=== PATIENT | female | born 1950 | race Caucasian/White ===

== ENCOUNTER → 2016-03-01 | Outpatient (REF) | payer MEDICARE ==
[~2016-03-01] MED LIST: /LINE60TA PO; ALLO100T; ASPI81TA4 PO; CARA1TAB2 PO; CEFT500T PO; CLAR5CHW; DIGO25TA PO; DIOV80TA; DOCU10ELUD PO; FERR325T3 PO; GLIM1TAB PO; GLIM4TAB PO; GLIP5TAB2 PO; GLUC5TAB3; KLOR20TA PO; LASI40TA PO; LEVEINJ SC; MAGN400T5 PO; METF500T PO; METFORMIN; METFORMIN PO; METO50TA2 PO; METOPROLOL TARTRATE PO; NYAM10003 TOP; OMEP40CA2 PO; PAXI20TA; TRAZ50TA; TYLE325T5 PO; VITA500C24 PO; ZANT150T PO; ZOCO20TA; ZOCO40TA PO
[2016-03-01 13:51] LABS: ALBUMIN 3.2 GM/DL (3.2-5.2); ALBUMIN/GLOBULIN RATIO 0.68 (1.00-1.93); BILIRUBIN,TOTAL 0.9 MG/DL (0.2-1.0); CALCIUM LEVEL 8.7 MG/DL (8.8-10.2); CREATININE FOR GFR 2.18 MG/DL (0.55-1.02); POTASSIUM SERUM 4.1 MEQ/L (3.5-5.1); TOTAL PROTEIN 7.9 GM/DL (6.4-8.2)
== END ==
LOC: M SFHCLACO 08:54
PROVIDERS: ATTEND Physician Assistant
DX: I10 Essential (primary) hypertension (principal); E78.2 Mixed hyperlipidemia; E11.65 Type 2 diabetes mellitus with hyperglycemia; T46.0X1A Poisoning by cardiac-stimulant glycosides and drugs of similar action, accidental (unintentional), initial encounter

== ENCOUNTER → 2016-10-25 | Outpatient (REF) | payer OTHER ==
[2016-10-25 12:57] LABS: BASO % 0.5 % (0.0-1.0); EOS # 0.4 K/mm3 (0.0-0.50); EOS % 4.6 % (0.0-3.0); LARGE UNSTAINED CELL # 0.1 K/mm3 (0.0-0.4); LARGE UNSTAINED CELL % 1.4 % (0.0-4.0); LYMPH % 12.8 % (24.0-44.0); MEAN CORPUSCULAR HEMOGLOBIN 26.1 pg (27.0-33.0); MEAN CORPUSCULAR VOLUME 84.2 fl (80.0-96.0); MONO # 0.5 K/mm3 (0.0-0.8); NEUTROPHILS # 5.8 K/mm3 (1.8-7.7); NEUTROPHILS % 74.7 % (36.0-66.0); PLATELET COUNT, AUTOMATED 284 k/mm3 (150-450); RED CELL DISTRIBUTION WIDTH 16.1 % (11.5-14.5); WHITE BLOOD COUNT 7.8 K/mm3 (4.0-10.0)
[2016-10-25 13:38] LABS: ALBUMIN 2.8 GM/DL (3.2-5.2); ALBUMIN/GLOBULIN RATIO 0.6 (1.00-1.93); BILIRUBIN,TOTAL 0.9 MG/DL (0.2-1.0); CALCIUM LEVEL 8.2 MG/DL (8.8-10.2); CREATININE FOR GFR 1.81 MG/DL (0.55-1.02); FREE T4 1.59 NG/DL (0.76-1.46); GLOMERULAR FILTRATION RATE 29.7 (>45); MAGNESIUM LEVEL 1.7 MG/DL (1.8-2.4); PERCENT SATURATION 16.1 % (13.2-45.0); POTASSIUM SERUM 4.5 MEQ/L (3.5-5.1); TOTAL PROTEIN 7.5 GM/DL (6.4-8.2); URIC ACID 8.8 MG/DL (2.6-6.0)
== END ==
LOC: M SFHCADAM 08:50
PROVIDERS: ATTEND Physician Assistant Medical
DX: E78.2 Mixed hyperlipidemia (principal); E11.22 Type 2 diabetes mellitus with diabetic chronic kidney disease; N18.4 Chronic kidney disease, stage 4 (severe); D50.9 Iron deficiency anemia, unspecified; M10.9 Gout, unspecified; E83.51 Hypocalcemia

== ENCOUNTER → 2017-05-02 | Outpatient (REF) | payer OTHER ==
[2017-05-02 12:49] LABS: BASO # 0.1 10^3/uL (0.0-0.2); BASO % 0.6 % (0.0-1.0); EOS # 0.5 10^3/uL (0.0-0.50); EOS % 4.6 % (0.0-3.0); HEMATOCRIT 39.3 % (36.0-47.0); HEMOGLOBIN 11.3 g/dl (12.0-16.0); IMMATURE GRANULOCYTE % 0.9 % (0-3.0); LYMPH # 2.2 10^3/uL (1.5-4.5); LYMPH % 22.7 % (24.0-44.0); MEAN CORPUSCULAR HEMOGLOBIN 23.5 pg (27.0-33.0); MEAN CORPUSCULAR HGB CONC 28.8 g/dl (32.0-36.5); MEAN CORPUSCULAR VOLUME 81.7 fl (80.0-96.0); MONO # 0.8 10^3/uL (0.0-0.8); MONO % 8.7 % (0.0-5.0); NEUTROPHILS # 6.1 10^3/uL (1.8-7.7); NEUTROPHILS % 62.5 % (36.0-66.0); PLATELET COUNT, AUTOMATED 298 10^3/uL (150-450); RED BLOOD COUNT 4.81 10^6/uL (4.00-5.40); RED CELL DISTRIBUTION WIDTH 18.4 % (11.5-14.5); WHITE BLOOD COUNT 9.7 10^3/uL (4.0-10.0)
[2017-05-02 13:31] LABS: TOTAL 25(OH) VITAMIN D 35.3 NG/ML (30.0-100.0)
[2017-05-02 13:52] LABS: ALBUMIN 3.2 GM/DL (3.2-5.2); ALBUMIN/GLOBULIN RATIO 0.67 (1.00-1.93); ALKALINE PHOSPHATASE 144 U/L (45-117); ALT/SGPT 25 U/L (12-78); ANION GAP 9 MEQ/L (8-16); AST/SGOT 19 U/L (7-37); BILIRUBIN,TOTAL 0.8 MG/DL (0.2-1.0); BLOOD UREA NITROGEN 45 MG/DL (7-18); CALCIUM LEVEL 8.8 MG/DL (8.8-10.2); CARBON DIOXIDE LEVEL 25 MEQ/L (21-32); CHLORIDE LEVEL 104 MEQ/L (98-107); CREATININE FOR GFR 2.07 MG/DL (0.55-1.30); GLOMERULAR FILTRATION RATE 25.4 (>45); GLUCOSE, FASTING 133 MG/DL (70-100); POTASSIUM SERUM 4.6 MEQ/L (3.5-5.1); SODIUM LEVEL 138 MEQ/L (136-145); URIC ACID 6.9 MG/DL (2.6-6.0)
[2017-05-02 15:41] LABS: ESTIMATED AVERAGE GLUCOSE 223 MG/DL (60-110); HEMOGLOBIN A1c 9.4 %
== END ==
LOC: M SFHCADAM 08:38
DX: E55.9 Vitamin D deficiency, unspecified (principal); N18.4 Chronic kidney disease, stage 4 (severe); E11.22 Type 2 diabetes mellitus with diabetic chronic kidney disease; M10.9 Gout, unspecified
CPT/HCPCS: 84550

== ENCOUNTER 2017-11-23 15:27 | Inpatient (IN) | payer OTHER ==
[2017-11-23] MEDS: NYSTATIN 100,000 UNITS/GM TOPICAL PWD 15 GM TOP
[2017-11-23 17:41] LABS: BASO # 0.1 10^3/uL (0.0-0.2); EOS # 0.3 10^3/uL (0.0-0.50); EOS % 3.3 % (0.0-3.0); HEMATOCRIT 39.3 % (36.0-47.0); HEMOGLOBIN 11.9 g/dl (12.0-15.5); IMMATURE GRANULOCYTE % 3.1 % (0-3.0); LYMPH # 1.3 10^3/uL (1.5-4.5); LYMPH % 14.7 % (24.0-44.0); MEAN CORPUSCULAR HEMOGLOBIN 24.3 pg (27.0-33.0); MEAN CORPUSCULAR HGB CONC 30.3 g/dl (32.0-36.5); MEAN CORPUSCULAR VOLUME 80.4 fl (80.0-96.0); MONO # 1.4 10^3/uL (0.0-0.8); MONO % 15.7 % (0.0-5.0); NEUTROPHILS # 5.5 10^3/uL (1.8-7.7); NEUTROPHILS % 62.2 % (36.0-66.0); PLATELET COUNT, AUTOMATED 357 10^3/uL (150-450); RED BLOOD COUNT 4.89 10^6/uL (4.00-5.40); RED CELL DISTRIBUTION WIDTH 19.7 % (11.5-14.5); WHITE BLOOD COUNT 8.9 10^3/uL (4.0-10.0)
[2017-11-23 18:34] LABS: ANION GAP 10 MEQ/L (8-16); BLOOD UREA NITROGEN 71 MG/DL (7-18); CALCIUM LEVEL 8.6 MG/DL (8.8-10.2); CARBON DIOXIDE LEVEL 25 MEQ/L (21-32); CHLORIDE LEVEL 103 MEQ/L (98-107); CPK CREATINE PHOSPHOKINASE 241 U/L (26-192); CREATININE FOR GFR 2.09 MG/DL (0.55-1.30); DIGOXIN LEVEL 1.6 NG/ML (0.5-2.0); GLOMERULAR FILTRATION RATE 25.1 (>45); GLUCOSE, FASTING 27 MG/DL (70-100); POTASSIUM SERUM 4.1 MEQ/L (3.5-5.1); SODIUM LEVEL 138 MEQ/L (136-145)
[2017-11-23 18:36] LABS: BEDSIDE GLUCOSE 25 MG/DL (80-115)
[2017-11-23] MEDS: DEXTROSE 50% 50 ML SYRINGE IV (18:40)
[2017-11-23 19:36] LABS: BEDSIDE GLUCOSE 118 MG/DL (80-115)
[2017-11-23] MEDS: NS 1,000 ML IV ×2 (19:45→23:46)
[2017-11-23 19:56] LABS: KETONE, URINE AUTO RFX NEGATIVE (NEGATIVE); NITRITE, URINE AUTO RFX NEGATIVE (NEGATIVE); RBC, URINE AUTO RFX 12 /HPF (0-3); SPECIFIC GRAVITY UR AUTO RFX 1.013 (1.002-1.035); SQUAM EPITHELIAL CELL UR AURFX 0 /HPF (0-6)
[2017-11-23 19:58] LABS: LEUKOCYTE ESTERASE UR AUTO RFX 3+ (NEGATIVE); WBC, URINE AUTO RFX TNTC /HPF (0-3)
[2017-11-23 20:38] LABS: BEDSIDE GLUCOSE 107 MG/DL (80-115)
[2017-11-23] MEDS: SENOKOT S TAB PO (21:00)
[2017-11-23] MEDS ORDERED: ACETAMINOPHEN TAB 650MG DOSE (2X325MG) PO (21:45)
[2017-11-23] MEDS ORDERED: BISACODYL 5 MG TAB PO (21:45)
[2017-11-23 22:27] LABS: BEDSIDE GLUCOSE 164 MG/DL (80-115)
[2017-11-23 22:50] LABS: ESTIMATED AVERAGE GLUCOSE 148 MG/DL (60-110); HEMOGLOBIN A1c 6.8 %
[2017-11-23] MEDS ORDERED: GLUCOSE 4 GM CHEW TABLET PO (23:00)
[2017-11-23] MEDS ORDERED: DEXTROSE 50% 50 ML SYRINGE IV (23:00)
[2017-11-23] MEDS ORDERED: GLUCAGON FOR INJ 1 MG VIAL (J1610) SC (23:00)
[2017-11-23] MEDS: HumaLOG INSULIN (NovoLOG) PER UNIT SC (23:40)
[2017-11-23 23:43] LABS: BEDSIDE GLUCOSE 179 MG/DL (80-115)
[2017-11-23] MEDS: ATORVASTATIN 20 MG TAB PO (23:46)
[2017-11-23] MEDS: METOPROLOL TARTRATE 100 MG TAB PO (23:46)
[2017-11-23] MEDS: LEVEMIR (INSULIN DETEMIR) 1 UNITS/0.01ML SC (23:47)
[2017-11-24 00:10] LABS: FREE T4 1.61 NG/DL (0.76-1.46)
[2017-11-24] MEDS: NS 1,000 ML IV (04:16)
[2017-11-24 06:08] LABS: HEMATOCRIT 36.2 % (36.0-47.0); HEMOGLOBIN 11.1 g/dl (12.0-15.5); MEAN CORPUSCULAR HEMOGLOBIN 24.2 pg (27.0-33.0); MEAN CORPUSCULAR HGB CONC 30.7 g/dl (32.0-36.5); PLATELET COUNT, AUTOMATED 298 10^3/uL (150-450); RED BLOOD COUNT 4.58 10^6/uL (4.00-5.40); RED CELL DISTRIBUTION WIDTH 19.2 % (11.5-14.5); WHITE BLOOD COUNT 7.5 10^3/uL (4.0-10.0)
[2017-11-24 06:35] LABS: ANION GAP 9 MEQ/L (8-16); BLOOD UREA NITROGEN 69 MG/DL (7-18); CALCIUM LEVEL 7.8 MG/DL (8.8-10.2); CARBON DIOXIDE LEVEL 25 MEQ/L (21-32); CHLORIDE LEVEL 104 MEQ/L (98-107); CREATININE FOR GFR 2.17 MG/DL (0.55-1.30); FERRITIN 87 NG/ML (8-252); GLUCOSE, FASTING 85 MG/DL (70-100); IRON (FE) 24 UG/DL (50-170); PERCENT SATURATION 10.3 % (13.2-45.0); POTASSIUM SERUM 4.3 MEQ/L (3.5-5.1); SODIUM LEVEL 138 MEQ/L (136-145); TOTAL IRON BINDING CAPACITY 233 UG/DL (250-450)
[2017-11-24] MEDS: HumaLOG INSULIN (NovoLOG) PER UNIT SC ×4 (07:30→20:45)
[2017-11-24] MEDS: SENOKOT S TAB PO ×2 (08:59→20:23)
[2017-11-24] MEDS: ASPIRIN 81 MG ENTERIC TAB PO (08:59)
[2017-11-24] MEDS: DIGOXIN 0.125 MG TAB PO (08:59)
[2017-11-24] MEDS: ALLOPURINOL 100 MG TAB PO (08:59)
[2017-11-24] MEDS: METOPROLOL TART 50 MG TAB PO ×2 (09:00→21:02)
[2017-11-24] MEDS: METOPROLOL TARTRATE 100 MG TAB PO (09:00)
[2017-11-24] MEDS: NYSTATIN 100,000 UNITS/GM TOPICAL PWD 15 GM TOP ×2 (09:00→21:03)
[2017-11-24] MEDS: LEVEMIR (INSULIN DETEMIR) 1 UNITS/0.01ML SC ×2 (09:00→21:00)
[2017-11-24] MEDS: ENOXAPARIN 30 MG/0.3 ML SYR (J1650) SC (09:00)
[2017-11-24] MEDS: NS 0.45% 1,000 ML IV (10:49)
[2017-11-24 11:46] LABS: BEDSIDE GLUCOSE 99 MG/DL (80-115)
[2017-11-24 16:41] LABS: BEDSIDE GLUCOSE 149 MG/DL (80-115)
[2017-11-24] MEDS: cefTRIAXone SOD 1 GM in D5W MINI-BAG PLUS 50 ML IV (20:41)
[2017-11-24 20:47] LABS: BEDSIDE GLUCOSE 170 MG/DL (80-115)
[2017-11-24] MEDS: LACTIC ACID 12% LOTION 225 GM BTL TOP (21:00)
[2017-11-24] MEDS: ATORVASTATIN 20 MG TAB PO (21:02)
[2017-11-25] MEDS: NS 0.45% 1,000 ML IV (06:24)
[2017-11-25 06:41] LABS: HEMATOCRIT 37.6 % (36.0-47.0); HEMOGLOBIN 11.4 g/dl (12.0-15.5); MEAN CORPUSCULAR HEMOGLOBIN 24.5 pg (27.0-33.0); MEAN CORPUSCULAR HGB CONC 30.3 g/dl (32.0-36.5); MEAN CORPUSCULAR VOLUME 80.7 fl (80.0-96.0); PLATELET COUNT, AUTOMATED 322 10^3/uL (150-450); RED BLOOD COUNT 4.66 10^6/uL (4.00-5.40); RED CELL DISTRIBUTION WIDTH 19.4 % (11.5-14.5); WHITE BLOOD COUNT 8.1 10^3/uL (4.0-10.0)
[2017-11-25 07:15] LABS: ANION GAP 9 MEQ/L (8-16); BLOOD UREA NITROGEN 64 MG/DL (7-18); CARBON DIOXIDE LEVEL 23 MEQ/L (21-32); CHLORIDE LEVEL 104 MEQ/L (98-107); CPK CREATINE PHOSPHOKINASE 82 U/L (26-192); CREATININE FOR GFR 1.94 MG/DL (0.55-1.30); DIGOXIN LEVEL 1.4 NG/ML (0.5-2.0); GLOMERULAR FILTRATION RATE 27.3 (>45); GLUCOSE, FASTING 143 MG/DL (70-100); POTASSIUM SERUM 4.2 MEQ/L (3.5-5.1); SODIUM LEVEL 136 MEQ/L (136-145)
[2017-11-25] MEDS: HumaLOG INSULIN (NovoLOG) PER UNIT SC ×4 (07:30→20:42)
[2017-11-25 08:06] LABS: TRANSFERRIN 192 mg/dL (200-370)
[2017-11-25] MEDS: SENOKOT S TAB PO ×3 (09:00→20:14)
[2017-11-25] MEDS ORDERED: DIGOXIN 0.125 MG TAB PO (09:00)
[2017-11-25] MEDS: ASPIRIN 81 MG ENTERIC TAB PO (10:01)
[2017-11-25] MEDS: METOPROLOL TART 50 MG TAB PO (10:01)
[2017-11-25] MEDS: ALLOPURINOL 100 MG TAB PO (10:01)
[2017-11-25] MEDS: LACTIC ACID 12% LOTION 225 GM BTL TOP ×2 (10:02→20:13)
[2017-11-25] MEDS: ENOXAPARIN 30 MG/0.3 ML SYR (J1650) SC (10:02)
[2017-11-25] MEDS: LEVEMIR (INSULIN DETEMIR) 1 UNITS/0.01ML SC ×2 (10:02→20:09)
[2017-11-25] MEDS: NYSTATIN 100,000 UNITS/GM TOPICAL PWD 15 GM TOP ×2 (10:02→20:13)
[2017-11-25 12:19] LABS: BEDSIDE GLUCOSE 180 MG/DL (80-115)
[2017-11-25 17:03] LABS: BEDSIDE GLUCOSE 135 MG/DL (80-115)
[2017-11-25] MEDS: cefTRIAXone SOD 1 GM in D5W MINI-BAG PLUS 50 ML IV (20:08)
[2017-11-25] MEDS: ATORVASTATIN 20 MG TAB PO (20:09)
[2017-11-25] MEDS: METOPROLOL TART 25 MG TABLET PO (20:12)
[2017-11-25 20:50] LABS: BEDSIDE GLUCOSE 178 MG/DL (80-115)
[2017-11-26] MEDS: NS 0.45% 1,000 ML IV ×2 (03:00→22:51)
[2017-11-26 06:24] LABS: HEMATOCRIT 38.9 % (36.0-47.0); HEMOGLOBIN 11.6 g/dl (12.0-15.5); MEAN CORPUSCULAR HEMOGLOBIN 24.3 pg (27.0-33.0); MEAN CORPUSCULAR HGB CONC 29.8 g/dl (32.0-36.5); MEAN CORPUSCULAR VOLUME 81.4 fl (80.0-96.0); PLATELET COUNT, AUTOMATED 318 10^3/uL (150-450); RED BLOOD COUNT 4.78 10^6/uL (4.00-5.40); RED CELL DISTRIBUTION WIDTH 19.4 % (11.5-14.5); WHITE BLOOD COUNT 7.8 10^3/uL (4.0-10.0)
[2017-11-26 06:47] LABS: ANION GAP 8 MEQ/L (8-16); BLOOD UREA NITROGEN 65 MG/DL (7-18); CALCIUM LEVEL 8.7 MG/DL (8.8-10.2); CARBON DIOXIDE LEVEL 23 MEQ/L (21-32); CHLORIDE LEVEL 106 MEQ/L (98-107); CREATININE FOR GFR 1.81 MG/DL (0.55-1.30); GLOMERULAR FILTRATION RATE 29.6 (>45); GLUCOSE, FASTING 142 MG/DL (70-100); POTASSIUM SERUM 4.4 MEQ/L (3.5-5.1); SODIUM LEVEL 137 MEQ/L (136-145)
[2017-11-26] MEDS: METOPROLOL TART 25 MG TABLET PO ×2 (07:48→21:17)
[2017-11-26] MEDS: LEVEMIR (INSULIN DETEMIR) 1 UNITS/0.01ML SC ×2 (07:49→21:16)
[2017-11-26] MEDS: SENOKOT S TAB PO ×2 (07:49→21:17)
[2017-11-26] MEDS: ALLOPURINOL 100 MG TAB PO (07:49)
[2017-11-26] MEDS: ASPIRIN 81 MG ENTERIC TAB PO (07:49)
[2017-11-26] MEDS: HumaLOG INSULIN (NovoLOG) PER UNIT SC ×4 (07:49→21:00)
[2017-11-26] MEDS: ENOXAPARIN 30 MG/0.3 ML SYR (J1650) SC (07:50)
[2017-11-26] MEDS: NYSTATIN 100,000 UNITS/GM TOPICAL PWD 15 GM TOP ×2 (07:50→22:20)
[2017-11-26] MEDS: LACTIC ACID 12% LOTION 225 GM BTL TOP ×2 (07:50→21:18)
[2017-11-26 11:46] LABS: BEDSIDE GLUCOSE 161 MG/DL (80-115)
[2017-11-26 17:02] LABS: BEDSIDE GLUCOSE 119 MG/DL (80-115)
[2017-11-26 20:42] LABS: BEDSIDE GLUCOSE 165 MG/DL (80-115)
[2017-11-26] MEDS: ATORVASTATIN 20 MG TAB PO (21:16)
[2017-11-27 06:10] LABS: HEMATOCRIT 39.1 % (36.0-47.0); HEMOGLOBIN 11.6 g/dl (12.0-15.5); MEAN CORPUSCULAR HEMOGLOBIN 24.2 pg (27.0-33.0); MEAN CORPUSCULAR HGB CONC 29.7 g/dl (32.0-36.5); MEAN CORPUSCULAR VOLUME 81.6 fl (80.0-96.0); PLATELET COUNT, AUTOMATED 312 10^3/uL (150-450); RED BLOOD COUNT 4.79 10^6/uL (4.00-5.40); RED CELL DISTRIBUTION WIDTH 19.5 % (11.5-14.5)
[2017-11-27 06:21] LABS: ANION GAP 8 MEQ/L (8-16); BLOOD UREA NITROGEN 56 MG/DL (7-18); CARBON DIOXIDE LEVEL 24 MEQ/L (21-32); CHLORIDE LEVEL 106 MEQ/L (98-107); CREATININE FOR GFR 1.66 MG/DL (0.55-1.30); GLOMERULAR FILTRATION RATE 32.7 (>45); GLUCOSE, FASTING 147 MG/DL (70-100); POTASSIUM SERUM 4.5 MEQ/L (3.5-5.1); SODIUM LEVEL 138 MEQ/L (136-145)
[2017-11-27] MEDS: METOPROLOL TART 25 MG TABLET PO ×2 (07:46→21:54)
[2017-11-27] MEDS: ASPIRIN 81 MG ENTERIC TAB PO (07:46)
[2017-11-27] MEDS: ALLOPURINOL 100 MG TAB PO (07:46)
[2017-11-27] MEDS: HumaLOG INSULIN (NovoLOG) PER UNIT SC ×4 (07:46→21:00)
[2017-11-27] MEDS: SENOKOT S TAB PO ×2 (07:46→21:53)
[2017-11-27] MEDS: LEVEMIR (INSULIN DETEMIR) 1 UNITS/0.01ML SC ×2 (07:47→21:55)
[2017-11-27] MEDS: NYSTATIN 100,000 UNITS/GM TOPICAL PWD 15 GM TOP ×2 (07:47→21:56)
[2017-11-27] MEDS: LACTIC ACID 12% LOTION 225 GM BTL TOP (07:47)
[2017-11-27] MEDS: ENOXAPARIN 30 MG/0.3 ML SYR (J1650) SC (07:47)
[2017-11-27 11:20] LABS: BEDSIDE GLUCOSE 148 MG/DL (80-115)
[2017-11-27 17:01] LABS: BEDSIDE GLUCOSE 148 MG/DL (80-115)
[2017-11-27 21:17] LABS: BEDSIDE GLUCOSE 219 MG/DL (80-115)
[2017-11-27] MEDS: ATORVASTATIN 20 MG TAB PO (21:53)
[2017-11-27] MEDS: SODIUM CHLORIDE 0.9% NASAL GEL 15GM (AYR) (21:55)
[2017-11-27] MEDS: SYSTANE GEL DROPS OU (21:56)
[2017-11-27] MEDS: EUCERIN 120GM CREAM TOP (21:57)
[2017-11-28 06:06] LABS: HEMATOCRIT 38.3 % (36.0-47.0); HEMOGLOBIN 11.4 g/dl (12.0-15.5); MEAN CORPUSCULAR HEMOGLOBIN 23.9 pg (27.0-33.0); MEAN CORPUSCULAR HGB CONC 29.8 g/dl (32.0-36.5); MEAN CORPUSCULAR VOLUME 80.5 fl (80.0-96.0); PLATELET COUNT, AUTOMATED 330 10^3/uL (150-450); RED BLOOD COUNT 4.76 10^6/uL (4.00-5.40); RED CELL DISTRIBUTION WIDTH 19.6 % (11.5-14.5); WHITE BLOOD COUNT 8.5 10^3/uL (4.0-10.0)
[2017-11-28 06:25] LABS: ANION GAP 5 MEQ/L (8-16); BLOOD UREA NITROGEN 54 MG/DL (7-18); CARBON DIOXIDE LEVEL 26 MEQ/L (21-32); CHLORIDE LEVEL 108 MEQ/L (98-107); CREATININE FOR GFR 1.52 MG/DL (0.55-1.30); GLOMERULAR FILTRATION RATE 36.2 (>45); GLUCOSE, FASTING 151 MG/DL (70-100); POTASSIUM SERUM 4.7 MEQ/L (3.5-5.1); SODIUM LEVEL 139 MEQ/L (136-145)
[2017-11-28] MEDS: ENOXAPARIN 30 MG/0.3 ML SYR (J1650) SC ×2 (09:00→09:18)
[2017-11-28] MEDS: HumaLOG INSULIN (NovoLOG) PER UNIT SC ×4 (09:16→21:00)
[2017-11-28] MEDS: LEVEMIR (INSULIN DETEMIR) 1 UNITS/0.01ML SC ×2 (09:17→20:51)
[2017-11-28] MEDS: ALLOPURINOL 100 MG TAB PO (09:18)
[2017-11-28] MEDS: ASPIRIN 81 MG ENTERIC TAB PO (09:18)
[2017-11-28] MEDS: SENOKOT S TAB PO ×2 (09:18→20:44)
[2017-11-28] MEDS: METOPROLOL TART 25 MG TABLET PO ×2 (09:19→20:44)
[2017-11-28] MEDS: EUCERIN 120GM CREAM TOP ×2 (09:20→20:45)
[2017-11-28] MEDS: NYSTATIN 100,000 UNITS/GM TOPICAL PWD 15 GM TOP ×2 (09:21→20:52)
[2017-11-28 11:34] LABS: BEDSIDE GLUCOSE 162 MG/DL (80-115)
[2017-11-28 16:46] LABS: BEDSIDE GLUCOSE 122 MG/DL (80-115)
[2017-11-28 20:30] LABS: BEDSIDE GLUCOSE 188 MG/DL (80-115)
[2017-11-28] MEDS: ATORVASTATIN 20 MG TAB PO (20:44)
[2017-11-29 06:25] LABS: HEMOGLOBIN 11.3 g/dl (12.0-15.5); MEAN CORPUSCULAR HEMOGLOBIN 24.4 pg (27.0-33.0); MEAN CORPUSCULAR HGB CONC 29.7 g/dl (32.0-36.5); MEAN CORPUSCULAR VOLUME 82.1 fl (80.0-96.0); PLATELET COUNT, AUTOMATED 304 10^3/uL (150-450); RED BLOOD COUNT 4.63 10^6/uL (4.00-5.40); RED CELL DISTRIBUTION WIDTH 19.6 % (11.5-14.5); WHITE BLOOD COUNT 8.5 10^3/uL (4.0-10.0)
[2017-11-29 06:46] LABS: ANION GAP 8 MEQ/L (8-16); BLOOD UREA NITROGEN 51 MG/DL (7-18); CALCIUM LEVEL 8.5 MG/DL (8.8-10.2); CARBON DIOXIDE LEVEL 24 MEQ/L (21-32); CHLORIDE LEVEL 108 MEQ/L (98-107); CREATININE FOR GFR 1.53 MG/DL (0.55-1.30); GLOMERULAR FILTRATION RATE 35.9 (>45); GLUCOSE, FASTING 141 MG/DL (70-100); SODIUM LEVEL 140 MEQ/L (136-145)
[2017-11-29] MEDS: LEVEMIR (INSULIN DETEMIR) 1 UNITS/0.01ML SC (08:37)
[2017-11-29] MEDS: HumaLOG INSULIN (NovoLOG) PER UNIT SC (08:38)
[2017-11-29] MEDS: ASPIRIN 81 MG ENTERIC TAB PO (08:38)
[2017-11-29] MEDS: ALLOPURINOL 100 MG TAB PO (08:38)
[2017-11-29] MEDS: SENOKOT S TAB PO (08:39)
[2017-11-29] MEDS: METOPROLOL TART 25 MG TABLET PO (08:45)
[2017-11-29] MEDS: NYSTATIN 100,000 UNITS/GM TOPICAL PWD 15 GM TOP (08:47)
[2017-11-29] MEDS: EUCERIN 120GM CREAM TOP (08:48)
== END 2017-11-29 11:24 | disposition home health service (06) | DRG 690 ==
LOC: M ED 15:27 → M ED INP 21:08 → M MSPAV 23:24
DX: N39.0 Urinary tract infection, site not specified (principal); E66.2 Morbid (severe) obesity with alveolar hypoventilation; L97.929 Non-pressure chronic ulcer of unspecified part of left lower leg with unspecified severity; L97.919 Non-pressure chronic ulcer of unspecified part of right lower leg with unspecified severity; I50.22 Chronic systolic (congestive) heart failure; I13.0 Hypertensive heart and chronic kidney disease with heart failure and stage 1 through stage 4 chronic kidney disease, or unspecified chronic kidney disease; M62.82 Rhabdomyolysis; Z68.41 Body mass index [BMI] 40.0-44.9, adult; N18.4 Chronic kidney disease, stage 4 (severe); E11.649 Type 2 diabetes mellitus with hypoglycemia without coma; I48.2 Chronic atrial fibrillation; E78.5 Hyperlipidemia, unspecified; E11.22 Type 2 diabetes mellitus with diabetic chronic kidney disease; D50.9 Iron deficiency anemia, unspecified; K21.9 Gastro-esophageal reflux disease without esophagitis; B96.20 Unspecified Escherichia coli [E. coli] as the cause of diseases classified elsewhere; N95.0 Postmenopausal bleeding; R00.1 Bradycardia, unspecified; E11.51 Type 2 diabetes mellitus with diabetic peripheral angiopathy without gangrene; R32 Unspecified urinary incontinence; M10.9 Gout, unspecified; Z79.82 Long term (current) use of aspirin; Z79.4 Long term (current) use of insulin; Z86.718 Personal history of other venous thrombosis and embolism; Z79.899 Other long term (current) drug therapy; Z88.1 Allergy status to other antibiotic agents; Z88.8 Allergy status to other drugs, medicaments and biological substances

== ENCOUNTER → 2018-01-01 | Outpatient (REF) | payer OTHER ==
[2018-01-01 21:02] LABS: ANION GAP 9 MEQ/L (8-16); BLOOD UREA NITROGEN 31 MG/DL (7-18); CARBON DIOXIDE LEVEL 27 MEQ/L (21-32); CHLORIDE LEVEL 103 MEQ/L (98-107); CREATININE FOR GFR 1.58 MG/DL (0.55-1.30); GLOMERULAR FILTRATION RATE 34.5 (>45); GLUCOSE, FASTING 62 MG/DL (70-100); POTASSIUM SERUM 4.6 MEQ/L (3.5-5.1); SODIUM LEVEL 139 MEQ/L (136-145)
== END ==
LOC: M SFHCADAM 16:16
DX: I48.91 Unspecified atrial fibrillation (principal); I10 Essential (primary) hypertension
CPT/HCPCS: 80162

== ENCOUNTER 2018-03-15 19:01 | Emergency (ER) | payer MEDICARE, OTHER ==
[~2018-03-15] VITALS: Ht 167.6 cm; Wt 111.8 kg
[~2018-03-15 19:01] MED LIST changes: +ALLO10TA PO; +ASPI1TAB15 PO; +ATOR40TA75 PO; +CLON-412 PO; +DIGO0.12 PO; +Docusate Sod/Senna PO; +INSUDET SC; +INSUH10VL SC; +ISOS120T4 PO; +METO100T5 PO; +METO1TAB87 PO; +VALS320T3 PO
[2018-03-15 19:09] VITALS: BP 197/103
[2018-03-15] MEDS ORDERED: SILVER NITRATE APPLICATOR TOP ONE (19:30)
[2018-03-15] MEDS ORDERED: COCAINE 4% TOP SOLN 4 ML VIAL TOP ONE (19:30)
== END 2018-03-15 20:16 | disposition home or self-care (01) ==
LOC: M ED 19:01
DX: R04.0 Epistaxis (principal); E11.9 Type 2 diabetes mellitus without complications; I10 Essential (primary) hypertension; Z79.899 Other long term (current) drug therapy; Z79.82 Long term (current) use of aspirin; Z79.4 Long term (current) use of insulin; Z88.1 Allergy status to other antibiotic agents; Z88.8 Allergy status to other drugs, medicaments and biological substances

== ENCOUNTER 2018-03-15 23:59 | Emergency (ER) | payer MEDICARE ==
[~2018-03-15] VITALS: Ht 167.6 cm; Wt 111.8 kg
[2018-03-16 04:30] VITALS: BP 160/74
[2018-03-16] MEDS ORDERED: OXYMETAZOLINE NASAL SPRAY (AFRIN) ONE (05:30)
== END 2018-03-16 06:08 | disposition home or self-care (01) ==
LOC: M ED 23:59
DX: R04.0 Epistaxis (principal); E11.9 Type 2 diabetes mellitus without complications; I10 Essential (primary) hypertension; Z99.89 Dependence on other enabling machines and devices; Z79.899 Other long term (current) drug therapy; Z79.4 Long term (current) use of insulin; Z79.82 Long term (current) use of aspirin; Z88.1 Allergy status to other antibiotic agents; Z88.8 Allergy status to other drugs, medicaments and biological substances

== ENCOUNTER → 2018-04-30 | Outpatient (REF) | payer MEDICARE ==
[~2018-04-30] MED LIST changes: +LOSA50TA88 PO
[2018-04-30 12:47] LABS: BASO # 0.1 10^3/uL (0.0-0.2); BASO % 0.8 % (0.0-1.0); EOS # 0.3 10^3/uL (0.0-0.50); EOS % 3.6 % (0.0-3.0); HEMATOCRIT 45.2 % (36.0-47.0); HEMOGLOBIN 13.3 g/dl (12.0-15.5); LYMPH # 2.5 10^3/uL (1.5-4.5); LYMPH % 29.7 % (24.0-44.0); MEAN CORPUSCULAR HEMOGLOBIN 25.9 pg (27.0-33.0); MEAN CORPUSCULAR HGB CONC 29.4 g/dl (32.0-36.5); MEAN CORPUSCULAR VOLUME 87.9 fl (80.0-96.0); MONO # 0.8 10^3/uL (0.0-0.8); NEUTROPHILS # 4.6 10^3/uL (1.8-7.7); NEUTROPHILS % 55.1 % (36.0-66.0); PLATELET COUNT, AUTOMATED 232 10^3/uL (150-450); RED BLOOD COUNT 5.14 10^6/uL (4.00-5.40); WHITE BLOOD COUNT 8.3 10^3/uL (4.0-10.0)
[2018-04-30 13:20] LABS: ALBUMIN 3.6 GM/DL (3.2-5.2); BILIRUBIN,TOTAL 1.2 MG/DL (0.2-1.0); CALCIUM LEVEL 8.5 MG/DL (8.8-10.2); CHOLESTEROL RISK RATIO 3.833 (<5); CREATININE FOR GFR 2.01 MG/DL (0.55-1.30); GLOMERULAR FILTRATION RATE 26.1 (>45); POTASSIUM SERUM 3.8 MEQ/L (3.5-5.1); THYROID STIMULATING HORMONE 4.44 uIU/ML (0.358-3.740); TOTAL 25(OH) VITAMIN D 15.2 NG/ML (30.0-100.0); TOTAL PROTEIN 8.5 GM/DL (6.4-8.2)
[2018-04-30 13:47] LABS: CREATININE, URINE 40.2 MG/DL; MAU/CREAT RATIO 1154.2 MCG/MG (0.0-30.0)
[2018-04-30 15:14] LABS: HEMOGLOBIN A1c 8.9 %
== END ==
LOC: M SFHCADAM 09:05
PROVIDERS: ATTEND Physician Assistant Medical
DX: N18.4 Chronic kidney disease, stage 4 (severe) (principal); E11.22 Type 2 diabetes mellitus with diabetic chronic kidney disease; D50.9 Iron deficiency anemia, unspecified; E55.9 Vitamin D deficiency, unspecified

== ENCOUNTER 2018-05-08 08:47 | Day surgery (SDC) | payer MEDICARE ==
[~2018-05-08] VITALS: Ht 167.6 cm; Wt 111.6 kg
[~2018-05-08 08:47] MED LIST changes: -/LINE60TA PO; -DOCU10ELUD PO; +DOCU5LIQ PO; -ISOS120T4 PO; +ISOS120T7 PO; +LR 1,000 ML IV ONE; +ZYVO100T PO
[2018-05-08] MEDS ORDERED: PROPOFOL 200 MG/20 ML VIAL As Ordered ONE (09:00)
[2018-05-08] MEDS ORDERED: MIDAZOLAM INJ 2 MG/2 ML VIAL (J2250) As Ordered ONE (09:00)
[2018-05-08] MEDS ORDERED: fentaNYL 100 MCG/2 ML INJECTION (J3010) As Ordered ONE (09:00)
[2018-05-08] MEDS ORDERED: ONDANSETRON 4MG/2ML VIAL (J2405) As Ordered ONE (09:00)
[2018-05-08] MEDS ORDERED: dexameTHASONE 4 MG/ML 1ML VIAL (J1100) As Ordered ONE (09:00)
[2018-05-08] MEDS ORDERED: LIDOCAINE 2% INJ 100 MG/5 ML SDV (FOR ANES.) As Ordered ONE (09:00)
[2018-05-08] MEDS ORDERED: KETOROLAC 60 MG/2 ML VIAL (J1885) As Ordered ONE (09:00)
[2018-05-08 09:13] LABS: HEMATOCRIT 44.6 % (36.0-47.0); HEMOGLOBIN 13.3 g/dl (12.0-15.5); MEAN CORPUSCULAR HEMOGLOBIN 25.9 pg (27.0-33.0); MEAN CORPUSCULAR HGB CONC 29.8 g/dl (32.0-36.5); MEAN CORPUSCULAR VOLUME 86.9 fl (80.0-96.0); PLATELET COUNT, AUTOMATED 252 10^3/uL (150-450); RED BLOOD COUNT 5.13 10^6/uL (4.00-5.40); WHITE BLOOD COUNT 8.2 10^3/uL (4.0-10.0)
[2018-05-08] MEDS ORDERED: SEVOFLURANE INHAL SOLN 250 ML BTL As Ordered ONE (09:33)
[2018-05-08] MEDS ORDERED: PHENYLephrine HCL 500 MCG/5 ML (100MCG/ML) SYRINGE (J2370) As Ordered ONE (10:24)
[2018-05-08] MEDS ORDERED: fentaNYL 100 MCG/2 ML INJECTION (J3010) IV PRN (11:30)
[2018-05-08] MEDS ORDERED: PERCOCET 5MG/325MG TAB PO PRN (11:30)
[2018-05-08] MEDS ORDERED: LR 1,000 ML IV SCH ×2 (11:30)
[2018-05-08] MEDS ORDERED: HYDROMORPHONE HCL 0.5 MG/ 0.5 ML SYRINGE (J1170 PER 1) IV PRN (11:30)
[2018-05-08 12:05] VITALS: BP 142/86
--- NOTE | 2018-05-09 07:45 | RO ---
DATE OF PROCEDURE: 05/08/2018 PREOPERATIVE DIAGNOSIS: Postmenopausal bleeding. POSTOPERATIVE DIAGNOSIS: Postmenopausal bleeding. PROCEDURE PERFORMED: 1. Exam under anesthesia. 2. Cervical dysplasia/CA screening with Pap and HPV. 3. Hysteroscopy dilatation and curettage. SURGEON: Jg Mike DO LITIGATION COUNSEL: JERZY Charles student. ANESTHESIA TYPE: General via laryngeal mask airway (LMA). SPECIMENS TO PATHOLOGY: 1. Pap/HPV screen (ThinPrep). 2. Endometrial tissue (obtained via EMBx pipelle and curettage). ESTIMATED BLOOD LOSS: 20 mL. FLUIDS REPLACED: 300 mL Lactated Ringer's. DRAINS: None. URINE OUTPUT: Not recorded. COMPLICATIONS: None. PREOPERATIVE ANTIBIOTICS: None indicated. INTRAOPERATIVE FINDINGS: 1. Uterus sounded to 9 cm. 2. Large amount of endometrial tissue mixed with blood clot 3. No distinct mass on hysteroscopic examination, abundant endometrial tissue. Endometrial cavity did not have the typical postmenopausal atrophic appearance. INDICATION: The patient is a 67-year-old 0 who is morbidly obese. She has experienced several months of postmenopausal bleeding. She does not tolerate pelvic exams in the office. Therefore, the decision was made to perform an exam under anesthesia, a Pap smear/HPV and a hysteroscopy and dilatation and curettage. PROCEDURE: The patient was counseled and consented on the risks, benefits, indications and alternatives of the procedure. Informed consent was obtained. She was taken to the operating room with an IV running, and placed on the operating table in dorsal supine position. She was placed in low lithotomy position. She was prepared and draped in a normal sterile fashion. Extra efforts were made to elevate that the patient's lower abdomen off of the vulva/perineum. After the patient was prepared and draped in a normal sterile fashion, a time out was performed per protocol. A sterile speculum placed with good visualization of the cervix. The Pap smear and HPV screening were performed. A single-tooth tenaculum was used to grasp the anterior lip of the cervix and downward traction was applied. The cervix was sequentially dilated with Vinicio dilators up to a #16. The endometrial biopsy Pipelle was placed transcervically into the intrauterine cavity. The uterus sounded to 9 cm. Tissue was obtained with three passes of the Pipelle. Abundant tissue and blood clot was noted with each pass of the Pipelle. A sharp curette was then placed transcervically into the intrauterine cavity and a sharp curettage was performed throughout the intrauterine cavity. All of the endometrial tissue obtained was sent together for permanent section. The hysteroscope was placed transcervically into the intrauterine cavity. No distinct mass was seen, but abundant endometrial tissue was visualized throughout the cavity. No evidence of uterine perforation via hysteroscope survey. The hysteroscope was removed. The single-tooth tenaculum was removed. Tenaculum sites were noted be hemostatic. All instruments removed from the vagina. The patient tolerated the entire procedure very well. She was transferred to the postanesthesia care unit (PACU) in good and stable condition. RONIT
[2018-05-11 14:37] LABS: HPV HYBRID CAPTURE II Negative (Negative)
== END 2018-05-08 12:50 | disposition home or self-care (01) ==
LOC: M SDC 08:47
PROVIDERS: ATTEND Obstetrics & Gynecology
DX: C54.1 Malignant neoplasm of endometrium (principal); Z12.4 Encounter for screening for malignant neoplasm of cervix; I48.91 Unspecified atrial fibrillation; I10 Essential (primary) hypertension; E11.9 Type 2 diabetes mellitus without complications; E78.5 Hyperlipidemia, unspecified; K21.9 Gastro-esophageal reflux disease without esophagitis; M10.9 Gout, unspecified; F32.9 Major depressive disorder, single episode, unspecified; D50.9 Iron deficiency anemia, unspecified; E55.9 Vitamin D deficiency, unspecified; E66.01 Morbid (severe) obesity due to excess calories; G47.33 Obstructive sleep apnea (adult) (pediatric); Z79.82 Long term (current) use of aspirin; Z79.4 Long term (current) use of insulin; Z79.899 Other long term (current) drug therapy
CPT/HCPCS: 36415; 58558; 85027; 86850; 86900; 86901; 87624; 88305; 88342; G0123; J1885; J2250; J2370; J2405; J3010

== ENCOUNTER → 2018-08-19 | Outpatient (REF) | payer MEDICARE ==
[~2018-08-19] MED LIST changes: -LR 1,000 ML IV ONE
[2018-08-19 13:50] LABS: BASO # 0.1 10^3/uL (0.0-0.2); BASO % 0.8 % (0.0-1.0); EOS # 0.4 10^3/uL (0.0-0.50); EOS % 4.2 % (0.0-3.0); HEMATOCRIT 40.3 % (36.0-47.0); HEMOGLOBIN 12.6 g/dl (12.0-15.5); LYMPH # 2.3 10^3/uL (1.5-4.5); LYMPH % 26.5 % (24.0-44.0); MEAN CORPUSCULAR HEMOGLOBIN 26.7 pg (27.0-33.0); MEAN CORPUSCULAR HGB CONC 31.3 g/dl (32.0-36.5); MEAN CORPUSCULAR VOLUME 85.4 fl (80.0-96.0); MONO # 0.7 10^3/uL (0.0-0.8); MONO % 7.8 % (0.0-5.0); NEUTROPHILS # 5.1 10^3/uL (1.8-7.7); PLATELET COUNT, AUTOMATED 320 10^3/uL (150-450); RED BLOOD COUNT 4.72 10^6/uL (4.00-5.40); WHITE BLOOD COUNT 8.6 10^3/uL (4.0-10.0)
[2018-08-19 14:00] LABS: ALBUMIN 3.1 GM/DL (3.2-5.2); BILIRUBIN,TOTAL 0.7 MG/DL (0.2-1.0); CALCIUM LEVEL 9.5 MG/DL (8.8-10.2); CREATININE FOR GFR 2.48 MG/DL (0.55-1.30); GLOMERULAR FILTRATION RATE 20.5 (>45); PERCENT SATURATION 20.9 % (13.2-45.0); POTASSIUM SERUM 5.2 MEQ/L (3.5-5.1); TOTAL PROTEIN 7.7 GM/DL (6.4-8.2)
[2018-08-19 15:01] LABS: ESTIMATED AVERAGE GLUCOSE 413 MG/DL (60-110); HEMOGLOBIN A1c > 16.0 %
== END ==
LOC: M SFHCADAM 09:42
PROVIDERS: ATTEND Physician Assistant Medical
DX: E11.22 Type 2 diabetes mellitus with diabetic chronic kidney disease (principal); N18.4 Chronic kidney disease, stage 4 (severe); E78.2 Mixed hyperlipidemia; D50.0 Iron deficiency anemia secondary to blood loss (chronic)

== ENCOUNTER → 2018-09-17 | Outpatient (REF) | payer MEDICARE ==
[2018-09-17 13:40] LABS: HEMOGLOBIN A1c 12.3 %
== END ==
LOC: M SFHCADAM 10:55
PROVIDERS: ATTEND Physician Assistant Medical
DX: E11.65 Type 2 diabetes mellitus with hyperglycemia (principal)
CPT/HCPCS: 83036; G0463

== ENCOUNTER → 2018-09-27 | Outpatient (REF) | payer MEDICARE | LOC: M LAB REF 13:15 | PROVIDERS: ATTEND Surgery | DX: T14.8XXA Other injury of unspecified body region, initial encounter (principal); L97.812 Non-pressure chronic ulcer of other part of right lower leg with fat layer exposed | CPT/HCPCS: 11042; 11045; 88305; 88311; G0463 ==

== ENCOUNTER → 2018-10-04 | Outpatient (REF) | payer MEDICARE | LOC: M LAB REF 17:52 | PROVIDERS: ATTEND Surgery | DX: L97.812 Non-pressure chronic ulcer of other part of right lower leg with fat layer exposed (principal) ==

== ENCOUNTER → 2018-11-21 | Outpatient (REF) | payer MEDICARE ==
[2018-11-21 13:18] LABS: ALBUMIN 3.2 GM/DL (3.2-5.2); CALCIUM LEVEL 9.8 MG/DL (8.8-10.2); CHOLESTEROL RISK RATIO 4.269 (<5); CREATININE FOR GFR 1.97 MG/DL (0.55-1.30); GLOMERULAR FILTRATION RATE 26.8 (>45); POTASSIUM SERUM 4.7 MEQ/L (3.5-5.1); TOTAL PROTEIN 7.5 GM/DL (6.4-8.2)
[2018-11-21 14:04] LABS: CREATININE, URINE 97.7 MG/DL; MAU/CREAT RATIO 724.6 MCG/MG (0.0-30.0)
[2018-11-21 14:07] LABS: HEMOGLOBIN A1c 11.6 %
== END ==
LOC: M SFHCADAM 09:17
PROVIDERS: ATTEND Physician Assistant Medical
DX: E11.22 Type 2 diabetes mellitus with diabetic chronic kidney disease (principal); E11.65 Type 2 diabetes mellitus with hyperglycemia

== ENCOUNTER → 2018-11-22 | Outpatient (CLI) | payer MEDICARE ==
[~2018-11-22] MED LIST changes: -DIGO0.12 PO; +DIGO0.123 PO
--- NOTE | 2018-11-22 14:51 | REP ---
Bilateral lower extremity arterial Doppler duplex ultrasound: Right lower extremity: The ANTOINETTE could not be performed because of non compressible dorsalis pedis and CIRCULAR SAW OPERATOR arteries. Peak Systolic Phasicity Velocity CATERING SOUS CHEF 66.8 triphasic Profunda 51.1 biphasic SFA prox 46.4 biphasic SFA mid 85.4 triphasic SFA dist 80.7 triphasic Pop 87.3 triphasic KATIE prox 58.0 biphasic Tib/P tr 68.1 triphasic CIRCULAR SAW OPERATOR pr 39.6 triphasic CIRCULAR SAW OPERATOR dst 121 triphasic KATIE dst 33.3 biphasic Left lower extremity: The ANTOINETTE could not be performed because of noncompressible dorsalis pedis and CIRCULAR SAW OPERATOR arteries. Peak Systolic Phasicity Velocity CATERING SOUS CHEF 68.8 triphasic Profunda 48.8 biphasic SFA prox 86.9 triphasic SFA mid 90.3 triphasic SFA dist 53.4 triphasic Pop 73.0 triphasic KATIE prox 64.8 biphasic Tib/P tr 64.3 triphasic CIRCULAR SAW OPERATOR pr 56.1 biphasic CIRCULAR SAW OPERATOR dst 90.9 triphasic KATIE dst 28.3 biphasic There is moderate atheromatous plaque bilaterally, particularly at the calf areas. There is no significant stenosis on the right on the left. There are biphasic/triphasic wave forms throughout both lower extremities. Electronically Signed by Alonso Fan MD 11/22/2018 02:43 P
== END ==
LOC: M RAD 11:34
PROVIDERS: ATTEND Surgery
DX: I87.313 Chronic venous hypertension (idiopathic) with ulcer of bilateral lower extremity (principal); I70.239 Atherosclerosis of native arteries of right leg with ulceration of unspecified site; L97.911 Non-pressure chronic ulcer of unspecified part of right lower leg limited to breakdown of skin; L97.912 Non-pressure chronic ulcer of unspecified part of right lower leg with fat layer exposed; I70.249 Atherosclerosis of native arteries of left leg with ulceration of unspecified site

== ENCOUNTER → 2019-03-22 | Outpatient (CLI) | payer MEDICARE | LOC: M ADAMS 10:20 | PROVIDERS: ATTEND Physician Assistant Medical | DX: I48.91 Unspecified atrial fibrillation (principal); I12.9 Hypertensive chronic kidney disease with stage 1 through stage 4 chronic kidney disease, or unspecified chronic kidney disease; E78.2 Mixed hyperlipidemia; E11.22 Type 2 diabetes mellitus with diabetic chronic kidney disease; N18.4 Chronic kidney disease, stage 4 (severe) ==

== ENCOUNTER → 2019-03-22 | Outpatient (REF) | payer MEDICARE ==
[2019-03-22 17:35] LABS: BASO # 0.1 10^3/uL (0.0-0.2); BASO % 0.9 % (0.0-1.0); EOS # 0.3 10^3/uL (0.0-0.5); HEMATOCRIT 45.7 % (36.0-47.0); HEMOGLOBIN 13.6 g/dl (12.0-15.5); LYMPH # 2.6 10^3/uL (1.5-5.0); LYMPH % 30.3 % (24.0-44.0); MEAN CORPUSCULAR HEMOGLOBIN 27.3 pg (27.0-33.0); MEAN CORPUSCULAR HGB CONC 29.8 g/dl (32.0-36.5); MEAN CORPUSCULAR VOLUME 91.6 fl (80.0-96.0); MONO # 0.9 10^3/uL (0.0-0.8); MONO % 10.1 % (0.0-5.0); NEUTROPHILS # 4.4 10^3/uL (1.5-8.5); NEUTROPHILS % 51.1 % (36.0-66.0); PLATELET COUNT, AUTOMATED 319 10^3/uL (150-450); RED BLOOD COUNT 4.99 10^6/uL (4.00-5.40); WHITE BLOOD COUNT 8.6 10^3/uL (4.0-10.0)
[2019-03-22 17:39] LABS: ALBUMIN 3.4 GM/DL (3.2-5.2); BILIRUBIN,TOTAL 0.6 MG/DL (0.2-1.0); CALCIUM LEVEL 9.3 MG/DL (8.8-10.2); CREATININE FOR GFR 1.93 MG/DL (0.55-1.30); GLOMERULAR FILTRATION RATE 27.3 (>39); TOTAL PROTEIN 7.9 GM/DL (6.4-8.2)
[2019-03-22 18:33] LABS: CREATININE, URINE 53.7 MG/DL; MAU/CREAT RATIO 1426.4 MCG/MG (0.0-30.0)
== END ==
LOC: M SFHCADAM 10:03
PROVIDERS: ATTEND Physician Assistant Medical
DX: I48.91 Unspecified atrial fibrillation (principal); I12.9 Hypertensive chronic kidney disease with stage 1 through stage 4 chronic kidney disease, or unspecified chronic kidney disease; E78.2 Mixed hyperlipidemia; E11.22 Type 2 diabetes mellitus with diabetic chronic kidney disease; N18.4 Chronic kidney disease, stage 4 (severe)

== ENCOUNTER → 2019-04-15 | Outpatient (CLI) | payer MEDICARE ==
--- NOTE | 2019-04-15 10:33 | REP ---
Clinical: Right lower extremity chronic ulcer . Technique: Brown scale and color Doppler evaluation of the right lower extremity using linear high frequency transducer. Findings: Ultrasound examination of the right lower extremity deep venous structures from the common femoral vein to the popliteal vein demonstrates normal compressibility flow and wave patterns in response to respiration and augmentation. There is no evidence for deep venous thrombosis. Reflux noted through the deep venous system as well as a superficial system with multiple collaterals noted extending from the greater saphenous vein. Proximal greater saphenous vein measures 6.2 mm with reflux duration 3.2 seconds; the mid saphenous vein measures 2.6 mm with reflux duration 1.1 seconds; distal greater saphenous vein measures 1.6 mm with reflux duration 2.4 seconds. Impression: No evidence for deep venous thrombosis. Reflux through the deep and superficial systems. Electronically Signed by Mario Pacheco MD 04/15/2019 10:24 A
== END ==
LOC: M RAD 09:02
PROVIDERS: ATTEND Surgery
DX: L97.812 Non-pressure chronic ulcer of other part of right lower leg with fat layer exposed (principal)

== ENCOUNTER → 2019-06-17 | Outpatient (POV) | payer MEDICARE ==
--- NOTE | 2019-06-18 08:55 | IRCOV ---
[facility] IR Consult Office Visit IR Consult Office Visit DATE: Jun 17, 2019 Tele consult. REASON FOR CONSULTATION/CHIEF COMPLAINT: venous hypertension. HISTORY OF PRESENT ILLNESS: 68 year old female with chronic right lower extremity venous stasis ulcer refractory to healing. Patient states ulcer is present for 2 years and reluctant to heal. She reports she's had them before that too. Patient describes bilateral limb swelling which improves with wearing compression stockings. Patient describes her skin on her legs and discolored, brown and thickened. Denies palpable bulging veins or veins bleeding. Has a family history of varicose veins; grandmother also suffered with bulging veins, swollen legs and chronic ulcers. Patient denies prior varicose vein treatment or vein stripping. No prior lower extremity DVT. ALLERGIES: Please see below. HOME MEDICATIONS: Please see below. PAST MEDICAL HISTORY: DM Afib Right arm DVT related to PICC line HTN HL chronic hypoventilation and respiratory failure gout CKD GERD duodenitis HF Pulm HTN endometrial cancer PAST SURGICAL HISTORY tonsillectomy tracheostomy 2010 FAMILY HISTORY: varicose veins SOCIAL HISTORY: non smoker. denies alcohol or drugs REVIEW OF SYSTEMS: Otherwise negative PHYSICAL EXAMINATION: no video conferencing available on patient side. LABORATORY DATA: 03/22/19 Hgb 13.6 HCT 45.7 wbc 8.6 plt 319 Na 137 K 4.0 bun 48 Cr 1.93 GFR 27.3 HgbA 1c 13 Imaging: I personally reviewed the US venous reflux study performed March 2019. There is dilation of and reflux in the greater saphenous vein > 0.5 seconds. ASSESSMENT/PLAN: 68 year old female with multiple comorbidities, chronic lower extremity venous HTN and non healing venous ulcers. I agree she is a candidate for minimally invasive laser vein therapy. We discussed the risk and benefits of the procedure and patient would like to proceed. We will schedule the patient for the procedure. I spent 30 minutes in consultation with the patient. Thank you for this referral. CC Dr. Dickson Allergies Coded Allergies: MS - Stamping Ground Blue FCF (Verified Allergy, Intermediate, 05/08/18) MS - Carbetapentane (Verified Allergy, Intermediate, 05/08/18) MS - Dextromethorphan (Verified Allergy, Intermediate, 05/08/18) MS - Ephedrine (Verified Allergy, Intermediate, 05/08/18) MS - Ethanol (Verified Allergy, Intermediate, 05/08/18) MS - Guaifenesin (Verified Allergy, Intermediate, 05/08/18) MS - Propylene Glycol (Verified Allergy, Intermediate, 05/08/18) MS - Saccharin (Verified Allergy, Intermediate, 05/08/18) MS - Sodium Benzoate (Verified Allergy, Intermediate, 05/08/18) WOOL (FABRIC) (Verified Allergy, Intermediate, 05/08/18) MS - Aminoglycosides (Verified Allergy, Unknown, 05/08/18) MS - Bacitracin (Verified Allergy, Unknown, 05/08/18) MS - Neomycin (Verified Allergy, Unknown, 05/08/18) MS - Polymyxin B (Verified Allergy, Unknown, 05/08/18) Home Medications Scheduled Allopurinol (Allopurinol), 100 MG PO DAILY, (Reported) Aspirin (Aspirin EC), 81 MG PO DAILY, (Reported) Atorvastatin Calcium (Atorvastatin Calcium), 40 MG PO QHS, (Reported) Digoxin (Digoxin), 125 MCG PO DAILY Insulin Detemir (Levemir), 10 UNITS SC BID Insulin Human Lispro (Novolog), 1 DOSE SC AC, (Reported) Losartan Potassium (Losartan Potassium), 50 MG PO DAILY, (Reported) Metoprolol Tartrate (Metoprolol Tartrate), 25 MG PO BID FAM WHITLOCK MD Jun 18, 2019 08:55
== END ==
LOC: M IRPOV 10:43
PROVIDERS: ATTEND Radiology Diagnostic Radiology
DX: I87.301 Chronic venous hypertension (idiopathic) without complications of right lower extremity (principal); L97.919 Non-pressure chronic ulcer of unspecified part of right lower leg with unspecified severity; E11.59 Type 2 diabetes mellitus with other circulatory complications; E11.22 Type 2 diabetes mellitus with diabetic chronic kidney disease; I48.91 Unspecified atrial fibrillation; I13.0 Hypertensive heart and chronic kidney disease with heart failure and stage 1 through stage 4 chronic kidney disease, or unspecified chronic kidney disease; N18.9 Chronic kidney disease, unspecified; I50.9 Heart failure, unspecified; Z88.1 Allergy status to other antibiotic agents; Z88.8 Allergy status to other drugs, medicaments and biological substances; Z91.048 Other nonmedicinal substance allergy status; Z85.44 Personal history of malignant neoplasm of other female genital organs; Z86.718 Personal history of other venous thrombosis and embolism

== ENCOUNTER → 2019-06-18 | Outpatient (REF) | payer MEDICARE ==
[2019-06-18 17:28] LABS: BASO # 0.1 10^3/uL (0.0-0.2); BASO % 0.8 % (0.0-1.0); EOS # 0.3 10^3/uL (0.0-0.5); EOS % 3.7 % (0.0-3.0); HEMATOCRIT 44.2 % (36.0-47.0); HEMOGLOBIN 13.4 g/dl (12.0-15.5); LYMPH # 2.6 10^3/uL (1.5-5.0); LYMPH % 28.4 % (24.0-44.0); MEAN CORPUSCULAR HGB CONC 30.3 g/dl (32.0-36.5); MEAN CORPUSCULAR VOLUME 89.1 fl (80.0-96.0); MONO # 0.8 10^3/uL (0.0-0.8); MONO % 8.4 % (0.0-5.0); NEUTROPHILS # 5.2 10^3/uL (1.5-8.5); NEUTROPHILS % 57.9 % (36.0-66.0); PLATELET COUNT, AUTOMATED 277 10^3/uL (150-450); RED BLOOD COUNT 4.96 10^6/uL (4.00-5.40)
[2019-06-18 17:35] LABS: ALBUMIN 3.1 GM/DL (3.2-5.2); BILIRUBIN,TOTAL 1.1 MG/DL (0.2-1.0); CALCIUM LEVEL 9.3 MG/DL (8.8-10.2); CHOLESTEROL RISK RATIO 4.125 (<5); CREATININE FOR GFR 1.87 MG/DL (0.55-1.30); GLOMERULAR FILTRATION RATE 28.3 (>39); PERCENT SATURATION 16.2 % (13.2-45.0); POTASSIUM SERUM 4.1 MEQ/L (3.5-5.1); TOTAL PROTEIN 7.8 GM/DL (6.4-8.2)
[2019-06-18 18:00] LABS: HEMOGLOBIN A1c 12.3 %
== END ==
LOC: M SFHCADAM 12:38
PROVIDERS: ATTEND Physician Assistant Medical
DX: I48.91 Unspecified atrial fibrillation (principal); I10 Essential (primary) hypertension; E78.2 Mixed hyperlipidemia; E11.22 Type 2 diabetes mellitus with diabetic chronic kidney disease; E11.65 Type 2 diabetes mellitus with hyperglycemia; D50.0 Iron deficiency anemia secondary to blood loss (chronic)

== ENCOUNTER → 2019-07-28 | Outpatient (CLI) | payer MEDICARE ==
[~2019-07-28] MED LIST changes: +LIDOCAINE 1% MDV 20ML VIAL As Ordered ONE; +LIDOCAINE 2% MDV 20ML VIAL As Ordered ONE; +MIDAZOLAM INJ 2MG/2ML VIAL (J2250 PER 1MG) As Ordered ONE; +diphenhydrAMINE 50MG/ML VIAL (J1200) As Ordered ONE; +fentaNYL 100 MCG/2 ML INJECTION (J3010) As Ordered ONE
[2019-07-28 12:29] LABS: HEMATOCRIT 45.8 % (36.0-47.0); HEMOGLOBIN 14.5 g/dl (12.0-15.5); MEAN CORPUSCULAR HEMOGLOBIN 26.9 pg (27.0-33.0); MEAN CORPUSCULAR HGB CONC 31.7 g/dl (32.0-36.5); PLATELET COUNT, AUTOMATED 266 10^3/uL (150-450); RED BLOOD COUNT 5.39 10^6/uL (4.00-5.40); WHITE BLOOD COUNT 9.4 10^3/uL (4.0-10.0)
--- NOTE | 2019-07-28 16:03 | REP ---
IR Endovenous laser treatment for right leg varicose vein. IR Ultrasound of the right leg. IR Tumescent anesthesia under ultrasound guidance. IR Moderate sedation. Clinical information: Non healing right lower extremity venous ulcers. Right venous insufficiency. Right greater saphenous vein reflux. Physician: Dr. Porter. Procedure: The patient was advised of the benefits, risks and alternatives of the procedure and informed consent was obtained. The time-out was performed with verification of the patient's name, MRN, site of procedure and type of procedure to be performed. The patient was positioned in the supine position on the table. The site was prepped and draped in the usual sterile fashion. Moderate sedation was performed by the physician including the presence of an independent trained observer who assisted in monitoring the patient's level of consciousness and physiologic status. Following the administration of fentanyl and Versed , the physician spent 60 minutes of continuous face to face time with the patient. Ultrasound of the right lower extremity demonstrates dilated right greater saphenous vein with greater than 0.5 seconds reflux. The access site was identified with ultrasound and anesthetized with lidocaine. The right GSV was accessed under ultrasound guidance, about the knee, using a micro introducer needle. An 018 cope wire was advanced into the vein. Incision at the access site was made using a scalpel. The needle was removed and a micro sheath was advanced over the wire under ultrasound guidance. The wire was exchanged for a longer wire. The micro sheath was removed over the wire and the laser sheath was advanced over the wire, under ultrasound guidance, to the saphenofemoral junction. The laser fiber was then advanced through the catheter under ultrasound guidance and positioned with the tip located > 2.5 cm from the saphenous femoral junction. Tumescent anesthesia was then injected under ultrasound guidance along the entire length of the vein to be treated. Repeat ultrasound of the saphenofemoral junction was used to confirm positioning of the tip of the laser back > 2.5 cm from junction. The patient was positioned in Trendelenburg. The laser was then activated and under ultrasound guidance used to laser the right greater saphenous vein back to the access point. Simultaneous manual compression was applied to the treated vein. Treatment: Wattage: 7 Time: 161 seconds Pullback rate 1 cm every 7 seconds Total Energy deposited 1126 joules Treatment 50 joules per centimeter of vein. The fiber, catheter and sheath were removed, pressure held and hemostasis achieved. A sterile dressing was applied to the site. Compression dressing was then applied to the leg, from ankle to groin. The patient tolerated the procedure well and was returned to the PRU in stable condition. EBL: < 5 ml. Complications: None. Impression: 1. Ultrasound demonstrates dilated, incompetent, right greater saphenous vein with greater than 0.5 seconds reflux. 2. Successful right greater saphenous vein ablation with laser. 3. Compression dressing applied from ankle to groin. Patient to return in 1 week for follow up ultrasound at which time the compression dressing will be switched to stockings. Thank you this referral. [facility] wound care Electronically Signed by Dona Porter MD 07/28/2019 04:02 P
[2019-07-28 16:45] VITALS: BP 189/81
== END ==
LOC: M IRPRO 11:01
PROVIDERS: ATTEND Radiology Diagnostic Radiology
DX: I83.019 Varicose veins of right lower extremity with ulcer of unspecified site (principal); I87.2 Venous insufficiency (chronic) (peripheral)
CPT/HCPCS: 36478; 76940; 85027; 99152; 99153; J1200; J2250; J3010

== ENCOUNTER → 2019-08-04 | Outpatient (CLI) | payer MEDICARE ==
[~2019-08-04] MED LIST changes: -LIDOCAINE 1% MDV 20ML VIAL As Ordered ONE; -LIDOCAINE 2% MDV 20ML VIAL As Ordered ONE; -MIDAZOLAM INJ 2MG/2ML VIAL (J2250 PER 1MG) As Ordered ONE; -diphenhydrAMINE 50MG/ML VIAL (J1200) As Ordered ONE; -fentaNYL 100 MCG/2 ML INJECTION (J3010) As Ordered ONE
--- NOTE | 2019-08-05 09:13 | REP ---
Clinical: Status post EVLT with right lower extremity pain. Technique: Real time goodman scale and color Doppler evaluation using linear high frequency transducer. Findings: Ultrasound examination of the deep venous system from the common femoral vein to the popliteal vein demonstrates normal compressibility, flow, and wave patterns in response to respiration and augmentation. There is no evidence for deep venous thrombosis. The proximal to distal greater saphenous vein is thrombosed beginning approximately 3.3 cm from the origin, and is consistent with history of EVLT. Impression: 1. No evidence for deep venous thrombosis. Electronically Signed by Mario Pacheco MD 08/05/2019 09:04 A
== END ==
LOC: M RAD 09:55
PROVIDERS: ATTEND Radiology Diagnostic Radiology
DX: I83.91 Asymptomatic varicose veins of right lower extremity (principal); I82.811 Embolism and thrombosis of superficial veins of right lower extremity

== ENCOUNTER → 2019-11-21 | Outpatient (REF) | payer MEDICARE ==
[~2019-11-21] MED LIST changes: +ASPI-546 PO; -ASPI1TAB15 PO
[2019-11-21 13:12] LABS: BASO # 0.1 10^3/uL (0.0-0.2); BASO % 0.6 % (0.0-1.0); EOS # 0.4 10^3/uL (0.0-0.5); EOS % 4.2 % (0.0-3.0); HEMATOCRIT 44.2 % (36.0-47.0); HEMOGLOBIN 13.8 g/dl (12.0-15.5); LYMPH # 2.1 10^3/uL (1.5-5.0); LYMPH % 22.8 % (24.0-44.0); MEAN CORPUSCULAR HGB CONC 31.2 g/dl (32.0-36.5); MEAN CORPUSCULAR VOLUME 89.7 fl (80.0-96.0); MONO # 0.8 10^3/uL (0.0-0.8); MONO % 8.8 % (0.0-5.0); NEUTROPHILS # 5.8 10^3/uL (1.5-8.5); NEUTROPHILS % 62.2 % (36.0-66.0); PLATELET COUNT, AUTOMATED 268 10^3/uL (150-450); RED BLOOD COUNT 4.93 10^6/uL (4.00-5.40); WHITE BLOOD COUNT 9.4 10^3/uL (4.0-10.0)
[2019-11-21 13:42] LABS: ALBUMIN 3.2 GM/DL (3.2-5.2); BILIRUBIN,TOTAL 0.9 MG/DL (0.2-1.0); CALCIUM LEVEL 9.6 MG/DL (8.8-10.2); CHOLESTEROL RISK RATIO 3.814 (<5); CREATININE FOR GFR 1.82 MG/DL (0.55-1.30); GLOMERULAR FILTRATION RATE 29.2 (>39); POTASSIUM SERUM 4.5 MEQ/L (3.5-5.1); THYROID STIMULATING HORMONE 3.81 uIU/ML (0.358-3.740); TOTAL PROTEIN 7.3 GM/DL (6.4-8.2)
[2019-11-21 13:51] LABS: HEMOGLOBIN A1c 11.7 %
[2019-11-21 14:22] LABS: CREATININE, URINE 78.7 MG/DL; MAU/CREAT RATIO 1715.3 MCG/MG (0.0-30.0)
== END ==
LOC: M LABDRWAD 12:25
PROVIDERS: ATTEND Physician Assistant Medical
DX: E11.9 Type 2 diabetes mellitus without complications (principal); I10 Essential (primary) hypertension
CPT/HCPCS: 36415; 80053; 80061; 82043; 83036; 84443; 85025; G0463

== ENCOUNTER → 2020-04-07 | Outpatient (REF) | payer MEDICARE ==
[~2020-04-07] MED LIST changes: +BASA100I SC; +MEGE40TA PO; +METO25TA4 PO; +REST0.05 OU
[2020-04-07 13:44] LABS: HEMOGLOBIN A1c 11.6 %
== END ==
LOC: M SFHCWOUN 09:12 → M SFHCADAM 09:14
PROVIDERS: ATTEND Surgery
DX: I87.311 Chronic venous hypertension (idiopathic) with ulcer of right lower extremity (principal); Z79.899 Other long term (current) drug therapy

== ENCOUNTER 2020-04-22 17:04 | Inpatient (IN) | payer MEDICARE ==
[~2020-04-22] VITALS: Ht 162.6 cm; Wt 120.3 kg
[~2020-04-22 17:04] MED LIST changes: -BASA100I SC; -MEGE40TA PO; -METO25TA4 PO; -REST0.05 OU
[2020-04-22] MEDS ORDERED: NS 1,000 ML IV SCH (17:08)
[2020-04-22] MEDS ORDERED: LIDOCAINE 2% 5ML JELLY UROJET TOP ONE (17:10)
--- NOTE | 2020-04-22 17:57 | REPVR ---
PROCEDURE INFORMATION: Exam: CT Head Without Contrast Exam date and time: 04/22/2020 5:18 PM Age: 69 years old Clinical indication: Altered mental status/memory loss TECHNIQUE: Imaging protocol: Computed tomography of the head without contrast. Radiation optimization: All CT scans at this facility use at least one of these dose optimization techniques: automated exposure control; mA and/or kV adjustment per patient size (includes targeted exams where dose is matched to clinical indication); or iterative reconstruction. COMPARISON: CT Head without contrast 11/23/2017 5:44 PM FINDINGS: Brain: Moderate hypoattenuating foci are noted in the posterior superior periatrial and anterior lateral ventricular periventricular white matter bilaterally. No intracranial hemorrhage. No mass or acute cortical infarction identified. Cerebral ventricles: Prominence of the ventricular system and subarachnoid spaces is consistent with the patient's age of 69 years. Bones/joints: No acute abnormality. No acute fracture. Paranasal sinuses: Severe left maxillary sinus mucosal thickening with intraluminal spumescent debris. Mastoid air cells: Visualized mastoid air cells are well aerated. Orbital cavity: Bilateral prior cataract surgery. Vasculature: Atherosclerotic calcifications are present involving the carotid artery siphons bilaterally. Soft tissues: Unremarkable. IMPRESSION: 1. Age appropriate supratentorial and infratentorial atrophy. 2. Moderate chronic white matter microvascular ischemic disease. 3. No acute intracranial abnormality identified. 4. Left maxillary sinusitis. Electronically signed by: Clemente Herrera On 04/22/2020 17:57:20 PM
--- NOTE | 2020-04-22 18:01 | REPVR ---
PROCEDURE INFORMATION: Exam: CT Cervical Spine Without Contrast Exam date and time: 04/22/2020 5:18 PM Age: 69 years old Clinical indication: Other: Altered mental status TECHNIQUE: Imaging protocol: Computed tomography images of the cervical spine without contrast. Radiation optimization: All CT scans at this facility use at least one of these dose optimization techniques: automated exposure control; mA and/or kV adjustment per patient size (includes targeted exams where dose is matched to clinical indication); or iterative reconstruction. COMPARISON: 1. CT Spine,cervical w/o contrast 11/23/2017 5:[address] Head without contrast 04/22/2020 5:19:25 PM FINDINGS: Bones/joints: Anterior vertebral body marginal osteophytes at C2 through T1. Left C2-C3 facet fusion. Mild C3-C4 spondylosis. Mild posterior longitudinal ligament ossification at C5. No fracture. Discs/Spinal canal/Neural foramina: Mild left primary C3-C4 facet osteoarthritis. Moderate bilateral C3-C4 neural foraminal narrowing. Moderate right C7-T1 neural foraminal narrowing. Mild left C7-T1 primary facet osteoarthritis. Sinuses: Mild dependent fluid posterior left sphenoid sinus. Left maxillary sinus redemonstrated. Thyroid: 13.1 mm partially calcified left thyroid nodule (series 306, image 6). Lungs: Lung apices are normal. Soft tissues: Unremarkable. IMPRESSION: 1. Degenerative changes as above. 2. No acute cervical spinal bony injury identified. 3. Recommend nonemergent thyroid sonography for further evaluation of a partially calcified left nodule. COMMENTS: Consistent with the [employer]'s Incidental Findings Committee white paper (J Am Stuart Radiol 2015): In patients aged 35 years and older with an incidental thyroid nodule equal to or greater than 1.[address], MRI or extrathyroidal US, further evaluation with dedicated thyroid US is recommended for patients with normal life expectancy and without comorbidities. For smaller nodules without suspicious features, no further evaluation or follow up is recommended. Electronically signed by: Clemente Herrera On 04/22/2020 18:02:23 PM
[2020-04-22 18:20] LABS: BASO % 0.4 % (0.0-1.0); EOS % 0.1 % (0.0-3.0); HEMATOCRIT 51.3 % (36.0-47.0); HEMOGLOBIN 15.7 g/dl (12.0-15.5); LYMPH # 0.5 10^3/uL (1.5-5.0); LYMPH % 4.6 % (24.0-44.0); MEAN CORPUSCULAR HEMOGLOBIN 27.3 pg (27.0-33.0); MEAN CORPUSCULAR HGB CONC 30.6 g/dl (32.0-36.5); MEAN CORPUSCULAR VOLUME 89.1 fl (80.0-96.0); MONO # 0.7 10^3/uL (0.0-0.8); MONO % 6.9 % (2.0-8.0); NEUTROPHILS # 9.3 10^3/uL (1.5-8.5); NEUTROPHILS % 86.7 % (36.0-66.0); PLATELET COUNT, AUTOMATED 293 10^3/uL (150-450); RED BLOOD COUNT 5.76 10^6/uL (4.00-5.40); WHITE BLOOD COUNT 10.7 10^3/uL (4.0-10.0)
--- NOTE | 2020-04-22 18:26 | REP ---
INDICATION: Altered Mental Status. COMPARISON: Comparison chest x-ray November 23, 2017. TECHNIQUE: Sitting AP portable chest.. FINDINGS: The lungs are symmetrically aerated and free of infiltrate. The pleural angles are sharp. Moderate cardiomegaly is observed unchanged. The aorta is calcific and slightly tortuous. There is a skin fold projecting over the left chest. Monitoring electrodes are seen.. IMPRESSION: Cardiomegaly. Mild vascular cephalization. Otherwise no active disease.. <Electronically signed by Rony Apple > 04/22/20 [id number]
--- NOTE | 2020-04-22 18:43 | REP ---
INDICATION: Altered Mental Status. COMPARISON: None. TECHNIQUE: Four views of the right foot are presented. FINDINGS: Four views of the right foot demonstrate diffuse osteopenia. There is mild to moderate midfoot osteoarthritis. Extensive soft tissue calcification and vascular calcification is seen in the distal calf soft tissues. There is fragmented large Achilles calcaneal spurring. Plantar calcaneal spurring is noted. No soft tissue gas is seen. No acute erosive change or fracture is seen.. . There is soft tissue swelling in the forefoot. IMPRESSION: Extensive vascular and dystrophic soft tissue calcification in the distal calf. Midfoot osteoarthritis. Mild diffuse osteopenia. No acute bony abnormality appreciated. Forefoot swelling.. <Electronically signed by Rony Apple > 04/22/20 [id number]
[2020-04-22 18:55] LABS: ACETAMINOPHEN LEVEL < 2.0 UG/ML (10.0-30.0); ALBUMIN 3.5 GM/DL (3.2-5.2); ALT/SGPT 32 U/L (12-78); BILIRUBIN,DIRECT 0.5 MG/DL (0.0-0.2); BILIRUBIN,TOTAL 1.4 MG/DL (0.2-1.0); BLOOD UREA NITROGEN 35 MG/DL (7-18); CALCIUM LEVEL 8.9 MG/DL (8.8-10.2); CARBON DIOXIDE LEVEL 22 MEQ/L (21-32); CHLORIDE LEVEL 100 MEQ/L (98-107); CK-MB VALUE MASS 39.1 NG/ML (<3.6); CPK CREATINE PHOSPHOKINASE 3831 U/L (26-192); CREATININE FOR GFR 1.92 MG/DL (0.55-1.30); ETHYL ALCOHOL (ETHANOL) < 0.003 % (0.000-0.010); GLOMERULAR FILTRATION RATE 27.4 (>39); GLUCOSE, FASTING 347 MG/DL (70-100); MB/CK RELATIVE INDEX 1.02 (< OR =4); POTASSIUM SERUM 4.6 MEQ/L (3.5-5.1); SALICYLATE LEVEL < 1.7 MG/DL (5.0-30.0); SODIUM LEVEL 130 MEQ/L (136-145); TOTAL PROTEIN 8.8 GM/DL (6.4-8.2); TROPONIN I 0.04 NG/ML (< 0.10)
[2020-04-22 19:03] LABS: AMPHETAMINES LEVEL URINE NEGATIVE (NEGATIVE); BARBITURATES URINE NEGATIVE (NEGATIVE); BENZODIAZEPINES URINE NEGATIVE (NEGATIVE); CANNABINOIDS URINE NEGATIVE (NEGATIVE); COCAINE METABOLITE URINE NEGATIVE (NEGATIVE); METHADONE URINE NEGATIVE (NEGATIVE); OPIATES URINE NEGATIVE (NEGATIVE); PHENCYCLIDINE URINE NEGATIVE (NEGATIVE)
[2020-04-22] MEDS: NS 1,000 ML IV SCH ×2 (19:30→23:41)
[2020-04-22] MEDS ORDERED: MOM 30ML SUSPENSION UDC PO PRN (19:35)
[2020-04-22] MEDS ORDERED: MAALOX 30 ML SUSP *UDC PO PRN (19:35)
[2020-04-22] MEDS ORDERED: DIGO0.123 PO (19:36)
[2020-04-22] MEDS ORDERED: METO25TA4 PO (19:36)
[2020-04-22] MEDS ORDERED: BASA100I SC (19:36)
[2020-04-22] MEDS ORDERED: REST0.05 OU (19:36)
[2020-04-22] MEDS ORDERED: MEGE40TA PO (19:36)
--- NOTE | 2020-04-22 19:42 | HPEPDOC ---
[facility] Medical History & Physical Date of Admission Apr 22, 2020 Date of Service: Apr 22, 2020 Primary Care Physician: HAROON HUSTON PA-C Attending Physician: KRISTAL RUBIO MD History and Physical CHIEF COMPLAINT: Unresponsive, altered mental status, hypoglycemia HISTORY OF PRESENT ILLNESS: Patient is a 69-year-old female with a complicated medical history who presented to the emergency department via EMS earlier today, 04/22/20, after being found unresponsive and severely hypoglycemic at her home. Patient reports that she was scheduled to have an appointment with Dr. Dickson today for 2 change bandages in regards to a lower extremity wound. However, when patient did not show for this appointment, and welfare check was called by Dr. Olguin's office. As mentioned above, patient was found face down against her bed and unresponsive. She was also noted to be hypoglycemic. She was given dextrose and began to come to. Upon our discussion in the emergency department, patient reports that she had not had anything to eat over the last 18 or so hours. Reports checking her sugar last evening and this morning and administering her sliding scale both times. She does not recall becoming unresponsive but does recall getting into the ambulance. Reports that this occurred at approximately 8:30 this morning. Denies any pain or discomfort. Also of note, patient does report a preceding 7 days or so of increased renal-colored nasal congestion and left-sided headache. Upon presentation to the emergency department, she was found to have a pulse of 97, respirations of 18, blood pressure of 169/88 maintaining oxygen saturation of 98%. CBC demonstrated a leukocytosis of 10.7, H/H of 15.7/51.3. BUN/creatinine of 35/1.92, GFR of 27.4, glucose of 347. Elevated T bili of 1.4, D bili of 0.5. AST/ALT of 80/32. Alkaline phosphatase of 213, total CK of 3831. Lactic 1.9, U tox negative. Head CT without any acute intracranial abnormality, the left maxillary sinusitis was identified. Foot x-ray consistent with soft tissue calcification, midfoot osteoarthritis, osteopenia and forefoot swelling. No significant findings on chest x-ray C-spine CT negative for acute pathology, incidental thyroid nodule noted. 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 REVIEW OF SYSTEMS: CONSTITUTIONAL: Has any recent fevers or chills, no changes in her weight, denies generalized fatigue, malaise, no night sweats HEENT: Reports intermittent left-sided headache over the last 7 days in addition to increased reading-colored nasal congestion. Denies changes to vision, hearing, sense of taste or smell. No difficulty swallowing or sore throat. CARDIOVASCULAR: Denies any chest pain or pressure, no inappropriate tachycardia RESPIRATORY: Denies any shortness of breath, no cough or wheeze GASTROINTESTINAL: Denies any abdominal pain or discomfort, no changes in bowel habits. GENITOURINARY: Denies any hematuria, urinary frequency or urgency or dysuria SKIN: Has any new or changing skin lesions MUSCULOSKELETAL: Has any muscle aches/joint pains NEUROLOGICAL: Denies any numbness or tingling in her extremities. Reports some baseline weakness, ambulates with the assistance of a walker, unable to recall the events immediately preceding this morning is mentioned in HPI. HOME MEDICATIONS: Please see below. PHYSICAL EXAMINATION: VITAL SIGNS: Please see below GENERAL APPEARANCE: She was interviewed and examined in the emergency depa rtment. She was found to be resting comfortably under a number of blankets. She did not appear to be any acute distress. She was an accurate historian regarding her medical history. HEENT: Normocephalic, atraumatic, EOMI without scleral icterus, mucous membranes appear moist. Examination JVD limited by body habitus. Patient does have left- sided maxillary tenderness to palpation and percussion CARDIOVASCULAR: Irregularly irregular rate and rhythm, no appreciable murmurs LUNGS: Fair air movement throughout, no appreciable wheezes or crackles, exam is limited by body habitus ABDOMEN: Soft, nontender, nondistended, no peritoneal signs, no appreciable masses, obese MUSCULOSKELETAL: She is able to move all of her extremities appropriately, strength 5 out 5 EXTREMITIES: 1+ edema of the bilateral lower extremities. Support hose on both, left foot is wrapped with an Blake bandage. NEUROLOGICAL: Awake, alert and oriented to person place and time PSYCHIATRIC: Mood and affect are appropriate given patient's current clinical condition LABORATORY DATA: See below. IMAGING: Head CT (04/22/20): Age-appropriate supratentorial and infratentorial atrophy, moderate white matter microvascular ischemic disease, no acute intracranial abnormality identified, left maxillary sinusitis Foot x-ray (04/22/20): Extensive vascular dystrophic soft tissue calcification in the distal calf. Midfoot osteoarthritis. Mild diffuse osteopenia. No acute bony abnormality appreciated. Forefoot swelling. Chest x-ray (04/22/20): Cardiomegaly. Mild vascular cephalization, otherwise no active disease. Cervical spine CT (04/22/20): Degenerative changes, no acute cervical spinal bony injury identified. Recommend nonemergent thyroid sonograph for further evaluation of course a calcified left nodule ECHOCARDIOGRAM: Echo (11/26/2017): Normal LV size with mild left ventricular hypertrophy and preserved LV systolic function. Severely dilated and hypokinetic right ventricle. Severe biatrial enlargement, right greater than left, aortic sclero sis but only trivial stenosis and no insufficiency. Approximately moderate mitral and tricuspid insufficiency. High central venous pressure. Severe pulmonary hypertension. MICROBIOLOGY: Blood culture (04/22/20): Pending Urine culture (04/22/20): Pending Respiratory virus panel (04/22/20): COVID-19 negative ASSESSMENT: Is a 69-year-old female with multiple medical comorbidities who presented to the emergency department the evening of 04/22/20 after being found unresponsive and hypoglycemic in her home. At the scene, patient was given IV dextrose with moderate improvement in her mental status. In the emergency department, patient was found to have a CK of 3831. Patient will be admitted to the hospital for further workup and management of her rhabdo and altered mental status. PLAN: #Rhabdomyolysis -CK of 3831, lactic 1.9 -IVF at 100 cc per hour -PCU admit, tele, monitoring of lytes, CK, renal function, urine output #Altered mental status, resolved -Patient was found unresponsive in her home facedown next to her bed. NAD on CT head, c-spine. -Patient reports that she did not have anything to eat midday yesterday or this morning. Patient reports that she did administer insulin. -Suspect AMS secondary to hypoglycemia, contributing dehydration -Q4H neuro checks and FSBS, tele monitoring, echo in am. #Left maxillary sinusitis -1 week history of L-sided WONG and green-colored nasal congestion -No systemic signs/symptoms -CrCl of 50, full dose PO augmentin #Hyponatremia -Sodium of 130, patient to be receiving saline IVF -sOsm, uOsm, Mirian -Close monitoring. #Transaminitis -R factor of 0.2, Cholestatic patern -US, monitoring #CKDIV -BUN/Cr of 35/1.92, GFR of 27.4, baseline Cr of 2.0 -Patient has declined nephrology referral/dialysis in the past, confirmed today at time of admission #IDDM -History of noncompliance -SSI, CC diet #Atrial fibrillation, without anticoagulation -Rate controlled. Digoxin, metoprolol -Dig level WNL. -Confirmed with patient that she has and continues to elect for aspirin only anticoagulation. -Telemetry monitoring #HTN -Normotensive -c/w home medications #HFpEF -Last echo in 2018 as above. -c/w statin, Metoprolol -will hold losartan given renal dx -Repeat Echo #Chronic venous stasis ulcers -Follows outpatient with Dr. Dickson -Was scheduled for dressing change today, 04/22/20 -Primary team to consider consultation if prolonged hospital stay #Gout -c/w home allopurinol #Thyroid nodule -13.1 mm partially calcified left thyroid nodule incidentally noted on CT of the patient's cervical spine. -Thyroid ultrasound ordered to be performed during hospitalization #HLD -c/w statin #Obesity, class IIII -BMI of 45, complicating care -Recommend healthy diet for weight loss -Outpatient follow-up of A1c and lipids #PERFECTO -Reports compliance with home CPAP -Oxygen titration. CODE STATUS: Had a discussion with the patient at the time of admission. She states that she is a full code. Brother is HCP. DVT PROPHYLAXIS: Renal-dosed Lovenox DISPOSITION: Anticipate >2 night stays Vital Signs Vital Signs Date Time Temp Pulse Resp B/P (MAP) Pulse Ox O2 Delivery O2 Flow Rate FiO2 04/22/20 19:15 95 18 121/73 (89) 98 Laboratory Data Labs 24H Laboratory Tests 2 04/22/20 17:14: POC pH (Misc Panel) 7.269L, POC Base Excess (Misc Panel) -5.0L, POC Saturated Percent O2 (Misc) 95, POC pO2 (Misc Panel) 89.0, POC pCO2 (Misc Panel) 46.8H, POC HCO3 (Misc Panel) 21.5L, POC Total CO2 (Misc Panel) 23.0 04/22/20 17:30: Immature Granulocyte % (Auto) 1.3, Neutrophils (%) (Auto) 86.7H, Lymphocytes (%) (Auto) 4.6L, Monocytes (%) (Auto) 6.9, Eosinophils (%) (Auto) 0.1, Basophils (%) (Auto) 0.4, Neutrophils # (Auto) 9.3H, Lymphocytes # (Auto) 0.5L, Monocytes # (A uto) 0.7, Eosinophils # (Auto) 0.0, Basophils # (Auto) 0.0, Nucleated Red Blood Cells % (auto) 0.0, Anion Gap 8, Glomerular Filtration Rate 27.4L, Lactic Acid Level 1.9, Calcium Level 8.9, Total Bilirubin 1.4H, Direct Bilirubin 0.5H, Aspartate Amino Transf (AST/SGOT) 80H, Alanine Aminotransferase (ALT/SGPT) 32, Alkaline Phosphatase 213H, Total Creatine Kinase 3831H, Creatine Kinase MB 39.1H, Creatine Kinase MB Relative Index 1.02, Troponin I 0.04, Total Protein 8.8H, Albumin 3.5, Albumin/Globulin Ratio 0.7L, Thyroid Stimulating Hormone (TSH) 2.580, Salicylates Level < 1.7L, Urine Opiates Screen NEGATIVE, Urine Methadone Screen NEGATIVE, Acetaminophen Level < 2.0L, Urine Barbiturates Screen NEGATIVE, Urine Phencyclidine Screen NEGATIVE, Urine Amphetamines Screen NEGATIVE, Urine Benzodiazepines Screen NEGATIVE, Urine Cocaine Metabolite Screen NEGATIVE, Urine Cannabinoids Screen NEGATIVE, Ethyl Alcohol Level < 0.003 04/22/20 17:31: Urine Color REBEKAH, Urine Appearance CLOUDYH, Urine pH 7.0, Urine Specific [place] 1.012, Urine Protein 3+H, Urine Glucose (UA) NEGATIVE, Urine Ketones NEGATIVE, Urine Blood 2+H, Urine Nitrite NEGATIVE, Urine Bilirubin NEGATIVE, Urine Urobilinogen 2.0H, Urine Leukocyte Esterase 3+H, Urine WBC (Auto) 55H, Urine RBC (Auto) 6H, Urine Hyaline Casts (Auto) 1, Urine Bacteria (Auto) 1+H, Urine Squamous Epithelial Cells 0, Urine Mucus (Auto) SMALL, Urine Sperm (Auto) 04/22/20 17:59: POC Troponin I (Misc) 0.04 04/22/20 18:21: Bedside Glucose (Misc Panel) 115H 04/22/20 18:22: POC pH (Misc Panel) 7.284L, POC Base Excess (Misc Panel) -6.0L, POC Saturated Percent O2 (Misc) 96, POC pO2 (Misc Panel) 93.0, POC pCO2 (Misc Panel) 43.2, POC HCO3 (Misc Panel) 20.5L, POC Total CO2 (Misc Panel) 22.0L CBC/BMP Laboratory Tests 04/22/20 17:30 Microbiology Microbiology 04/22/20 Respiratory Virus Panel (PCR) (BRENDON) - Final, Complete 04/22/20 Blood Culture, Received Pending 04/22/20 Blood Culture, Received Pending Home Medications Scheduled Allopurinol (Allopurinol) 100 Mg Tab, 100 MG PO DAILY Aspirin (Aspirin EC) 81 Mg Tab, 81 MG PO DAILY Atorvastatin Calcium (Atorvastatin Calcium) 40 Mg Tab, 40 MG PO QHS Digoxin (Digoxin) 125 Mcg Tablet, 125 MCG PO DAILY Insulin Glargine,Hum.rec.anlog (Basaglar Kwikpen U-100) 100 Unit/1 Ml Insuln.pen, 45 UNIT SC DAILY Losartan Potassium (Losartan Potassium) 50 Mg Tab, 50 MG PO DAILY Megestrol Acetate (Megestrol Acetate) 40 Mg Tablet, 40 MG PO BID Metoprolol Tartrate (Metoprolol Tartrate) 25 Mg Tablet, 25 MG PO BID Scheduled PRN Cyclosporine (Restasis) 0.05% Droperette, 1 DROP OU BID PRN for DRY EYES Allergies Coded Allergies: WOOL (FABRIC) (Verified Allergy, Intermediate, 04/22/20) Aminoglycosides (Verified Allergy, Unknown, 04/22/20) bacitracin (Verified Allergy, Unknown, 04/22/20) dextromethorphan (Verified Allergy, Unknown, 04/22/20) guaifenesin (Verified Allergy, Unknown, 04/22/20) neomycin (Verified Allergy, Unknown, 04/22/20) polymyxin B (Verified Allergy, Unknown, 04/22/20) A-FIB/CHADSVASC A-FIB History Current/History of A-Fib/PAF?: Yes Current PO Anticoag Therapy: No GME ATTESTATION GME ATTESTATION My faculty preceptor for this patient encounter was physically present during the encounter and was fully available. All aspects of the patient interview, examination, medical decision making process, and medical care plan development were reviewed and approved by the faculty preceptor. The faculty preceptor is aware and concurs with the plan as stated in the body of this note and will attest to such by his/her cosignature. ATTENDING NOTE time of service 825am Ms. Guillaume is a 69 yr old F w a PMH of A fib, microvascular ischemic dz, pulm HTN, IDDM, uterine cancer, and HTN who missed her wound care apt; a well fare check was requested and she was found to be lying on the ground and hypoglycemic. EKG showed afib w a rate of 87 She will be admitted for management of #hypoglycemic encephalopathy - AMS resolved #hypoglycemia 2/2 reduced renal clearance of insulin and possibly infection #hypothermia possibly 2/2 infection #rhabdomyolysis 2/2 fall #transaminitis possibly 2/2 fatty liver #DOMINGA on CKD Chronic Issues #1.3cm Thyroid nodule #RLE wound/ biopsy confirmed osteomyelitis #Long standing persistent A fib #Microvascular ischemic dz #Severe pulm HTN (PASP 100) #PERFECTO BIPAP 12/31 #IDDM #uterine cancer #Essential HTN #DLP Plan: admit to PCU / telemetry /frequent neurochecks / frequent accuchecks / IVF, trend CPK / f/u UA and blood cx / f/u Ulytes, Phosph and renal US / f/u f/u BNP & 2-D echo / f/u liver US and thyroid US /will ask the day time team to consult for chronic wounds / the patient expressed frustration with frequent out patient clinic visits, but still would like to continue with medical management of her care but, I will ask the day time team to consider a Palliative care consult to discuss the patient's goals of care rest per 's H&P LATE ENTRY 428AM The patient's RN informed me that her most recent Accucheck was in the 50s & that she has been c/o hip pain as a result of the fall. I will order Tramadol. I informed about the thyroid nodule and possibility of US. She said that would prefer not to have the scan "unless it is bothering me". I will cancel the thyroid US, renal and abdominal US for now; I suspect that she may decide to transition to DNR/DNI in the near future. EMANUEL CR DO Apr 22, 2020 19:42 KRISTAL RUBIO MD Apr 23, 2020 03:11
--- NOTE | 2020-04-22 19:45 | ECGEPIP ---
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
[2020-04-22 20:36] LABS: NT-PRO BNP 2333 PG/ML (<125); PHOSPHORUS LEVEL 4.6 MG/DL (2.5-4.9)
[2020-04-22] MEDS ORDERED: GLUCAGON INJ 1MG VIAL SC PRN (20:40)
[2020-04-22] MEDS ORDERED: DEXTROSE 50% 50 ML SYRINGE IV PRN (20:40)
[2020-04-22] MEDS ORDERED: GLUCOSE 4GM CHEW TABLET PO PRN (20:40)
[2020-04-22 20:53] LABS: HEMOGLOBIN A1c 10.8 %
[2020-04-22] MEDS: HumaLOG INSULIN (NovoLOG) PER UNIT SC SCH (21:00)
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
--- OUTSIDE RECORDS SUMMARY | 2020-04-22 21:15 | CCD | Summary of Care ---
Author Author [facility] Address Unknown Phone Unavailable Care Team Providers Care Sheriffs Officer Name Role Phone Viry Mcdermott PCP Reason for Visit * Reason Comments Endometrial Cancer Encounter Details Care Team Description Date Type Department Krystian Kaur MD [address] [place] [address] Endometrial cancer (Primary Dx); Type 2 diabetes mellitus with other specified complication, with long-term current use of insulin 03/01/2020 Telemedicine Hematology Oncology [address] [place] [address] Allergies Comments Active Allergy Reactions Severity Noted Date Neomycin-Bacitracin 05/24/2018 Zn-Polymyx Wool Other 05/24/2018 Xjyez-[id number]-Ytr-Turp-P 05/24/2018 et documented as of this encounter (statuses as of 03/04/2020) Medications End Date Status Medication Sig Dispensed Refills Start Date Active NOVOLOG FLEXPEN 100 INJECT PER 5 UNIT/ML SOPN pen SLIDING SCALE 8 UNDER THE SKIN FOUR TIMES A DAY MAXIMUM DAILY DOSE 40 60 UNITS Active LEVEMIR FLEXTOUCH 100 0 UNIT/ML pen 9 Active losartan (COZAAR) 50 MG 0 tablet 9 Active allopurinol (ZYLOPRIM) 0 100 MG tablet 9 Active [place]STATIN powder APPLY 0 TOPICALLY TO 8 AFFECTED AREA TWO TIMES A DAY Active digoxin (LANOXIN) 0.125 0 MG tablet 9 Active metoprolol tartrate 0 (LOPRESSOR) 25 MG tablet 9 Active atorvastatin (LIPITOR) 40 0 MG tablet 9 Active furosemide (LASIX) 20 MG 0 tablet 9 Active ONE TOUCH ULTRA TEST test 0 strip 9 Active NOVOFINE 32G X 6 MM MISC Use as 0 08/30 directed. 9 Active Lancets (FREESTYLE) Use as 0 lancets directed. 9 Active mirtazapine (REMERON) 15 0 MG tablet 9 Active Basaglar KwikPen 100 INJECT 85 0 UNIT/ML Subcutaneous UNITS UNDER 0 Solution Pen-injector THE SKIN AT BEDTIME Active Restasis 0.05 % INSTILL 1 0 Ophthalmic Emulsion DROP IN EACH 0 EYE TWO TIMES A DAY Active Megestrol Acetate 40 MG 0 Oral Tablet (MEGACE) 0 documented as of this encounter (statuses as of 03/04/2020) Active Problems Problem Noted Date Diabetes mellitus 05/26/2018 Hypertension 05/26/2018 Pulmonary hypertension 05/26/2018 Endometrial cancer 05/26/2018 Obesity, Class III, BMI 40-49.9 (morbid obesity) documented as of this encounter (statuses as of 03/04/2020) Social History Date Tobacco Use Types Packs/Day Years Used Never Smoker Smokeless Tobacco: Never Used Drinks/Week oz/Week Comments Alcohol Use No Alcohol Habits Answer Date Recorded How often do you have a drink containing alcohol? Never 05/24/2018 How many drinks containing alcohol do you have on No t asked a typical day when you are drinking? How often do you have six or more drinks on one Not asked occasion? Sex Assigned at Date Recorded Not on file Date Recorded COVID-19 Exposure Response 03/01/2020 2:14 PM EST In the last month, have you been in contact with No / Unsure someone who was confirmed or suspected to have Coronavirus / COVID-19? documented as of this encounter Last Filed Vital Signs Reading Time Taken Comments Vital Sign - - Blood Pressure - - Pulse - - Temperature - - Respiratory Rate - - Oxygen Saturation - - Inhaled Oxygen Concentration 118.4 kg (261 lb) 03/01/2020 2:15 PM EST Weight - - Height 42.13 06/04/2019 2:16 PM EDT Body Mass Index documented in this encounter Progress Notes * Krystian Kaur MD - 03/01/2020 1:45 PM EST CC: Follow-up, Endometrial Biopsy HPI: Luli Guillaume is a 69 y.o. with endometrial adenocarcinoma Grade 2 with fo adelfo clear cell features, strongly ER/SC positive. Patient returns today for fol low-up on Megace 40mg BID. She was decreased to 20 mg BID and her blood sugars a re much better, in the low 200's, she and her PCP are happy with this. I reviewe d biopsy results, which shows treatment effect. She is not having any bleeding. I suggested that changing medication not warranted at this levbel of symptom and blood sugar control and she agrees. She does have a bone density scheduled for this week, and will keep it. She agrees with the suggested plan to continue megace F/u in 6 mo This is a tele-medical visit. The patient was informed of the risks including se curity breach, technological failure, inability to perform a comprehensive physi adelfo exam which could delay or prevent an accurate diagnosis, and potential compl ications from treatment decisions rendered over a telemedical platform. The stacey ent understands and consented to the use of tele-health services. The service was provided by means of an audio/video telecommunication. Time spent on this evaluation today: 16 minutes documented in this encounter Plan of Treatment Care Team Description Date Type Specialty Krystian Kaur MD [facility] [place] [address] [phone] 08/04/2020 Office Visit Hematology and Onco logy Health Maintenance Due Date Last Done Comments Hepatitis C Screening (B. 1950 [id number]) MMR Vaccines (1 of 1 - 1949 Standard series) Varicella Vaccines (1 of 1951 2 - 2-dose childhood series) Pneumococcal Vaccine: 1956 Pediatrics (0 to 5 Years) and At-Risk Patients (6 to 64 Years) (1 of 3 - PCV13) DTaP,Tdap,and Td Vaccines 12/28/1955 (1 - Tdap) Hepatitis B Vaccines (1 12/28/1967 of 3 - Risk 3-dose series) Breast Cancer Screening 2 1998 years Colon Cancer Screening 10 1998 yrs Zoster Vaccines (1 of 2) 1998 Osteoporosis Screening 2 2013 yr Pneumococcal Vaccine: 65+ 2013 Years (1 of 1 - PPSV23) Influenza Vaccine Completed 11/27/2019, 11/26/2018, 12/07/2017, Additional history exists HIB Vaccines Aged Out No longer eligible based on patient's age to complete this topic Hepatitis A Vaccines Aged Out No longer eligibl e based on patient's age to complete this topic IPV Vaccines Aged Out No longer eligible based on patient's age to complete this topic documented as of this encounter Results Not on filedocumented in this encounter Visit Diagnoses Diagnosis Endometrial cancer - Primary Malignant neoplasm of corpus uteri, exc ept isthmus Type 2 diabetes mellitus with other spe cified complication, with long-term current use of insulin documented in this encounter
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
--- OUTSIDE RECORDS SUMMARY | 2020-04-22 21:16 | CCD | Summary of Care ---
Author Author [facility] Address Unknown Phone Unavailable Care Team Providers Care Fixture Repairer Fabricator Name Role Phone Viry Mcdermott PCP Reason for Visit * Reason Comments Endometrial Cancer Encounter Details Care Team Description Date Type Department Krystian Kaur MD [address] [place] [address] Endometrial cancer (Primary Dx); Type 2 diabetes mellitus with other specified complication, with long-term current use of insulin; Pulmonary hypertension; Obesity, Class III, BMI 40-49.9 (morbid obesity) 02/02/2020 Office Visit Hematology Oncology [address] [place] [address] Allergies Comments Active Allergy Reactions Severity Noted Date Neomycin-Bacitracin 05/24/2018 Zn-Polymyx Wool Other 05/24/2018 Cuzyf-Isnxobtq-Lvs-Turp-P 05/24/2018 et documented as of this encounter (statuses as of 02/03/2020) Medications End Date Status Medication Sig Dispensed [...] as of this encounter (statuses as of 02/03/2020) Active Problems Problem Noted Date Diabetes mellitus 05/26/2018 Hypertension 05/26/2018 Pulmonary hypertension 05/26/2018 Endometrial cancer 05/26/2018 Obesity, Class III, BMI 40-49.9 (morbid obesity) documented as of this encounter (statuses as of 02/03/2020) Social History Date Tobacco Use Types Packs/Day [...] on file Date Recorded COVID-19 Exposure Response 02/02/2020 12:32 PM EST In the last month, have you been in contact with No / Unsure someone who was confirmed or suspected to have Coronavirus / COVID-19? documented as of this encounter Last Filed Vital Signs Reading Time Taken Comments Vital Sign 110/78 02/02/2020 12:59 PM EST Blood Pressure 76 02/02/2020 12:59 PM EST Pulse 37 C (98.6 F) 02/02/2020 12:59 PM EST Temperature 16 02/02/2020 12:59 PM EST Respiratory Rate 95% 02/02/2020 12:59 PM EST ra Oxygen Saturation - - Inhaled Oxygen Concentration 121.4 kg (267 lb 9.6 oz) 02/02/2020 12:59 PM EST Weight - - Height 43.19 06/04/2019 2:16 PM EDT Body Mass Index documented in this encounter Progress Notes * Krystian Kaur MD - 02/02/2020 1:00 PM EST I was present with the resident during the history and examination and also pers onally performed an examination. I discussed the case with the resident and agr ee with the findings and plan as documented in the resident's note. Small amount of material obtained on each biopsy. Potential for good response, partial response where current regimen could be continued. Alternatively, in lig ht of recorded hyperglycemia, we discussed addition to an aromatase inhibitor ev en in such setting. I would like for patient to then have cholesterol testing a s well as a bone density scan. She states that she has had cholesterol assessme nt with her primary care, and will consider bone density. We have offered to do this here today, and she declined. There is no response to the hormonal management, alternates were briefly discuss ed as well, including radiation therapy. She declined to start out when radiati on was suggested. She is aware, and this was reiterated today that surgery is n ot a prudent option given her (medical conditions. This is to be discussed furt her based on biopsy results. Follow-up telemedicine in 2 weeks with biopsy results. Follow-up 6 months for r epeat biopsy. Krystian Kaur M.D. Supervisor Fabrication Department Blintze Roller Director [address] [place] [address], [facility] [place], [address] * Gauri Buitrago MD - 02/02/2020 1:00 PM EST CC: Follow-up, Endometrial Biopsy HPI: Luli Guillaume is a 69 y.o. 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 Patient returns today for fol low-up on Megace 40mg BID. Patient states that she has been doing well since her last visit. Her last episode of bleeding was in 08/2019, spotting. Patient denies any fevers or chills. She denies any chest pain, shortness of breath, headaches, dizziness, nausea or vomiting. Patient does endorse that her BG range has been 120s-370 at the highest but she has not been in the 300s as frequently. She adjusts her insulin medication based on fingersticks. She is otherwise tolerating the Megace well. She cannot get in surance approval for a Mirena IUD and states that she is not currently intereste d. She denies any vaginal discharge, irritation, lesions, redness, or concerns for infections. Endometrial biopsy: 06/05/2019: Fragments of benign endometrial polyp with stromal decidual changes. PMH, Soc Hx and Fam Hx reviewed and unchanged Meds Reviewed - see EMR All other systems reviewed and negative, except as noted in the HPI PHYSICAL EXAM: VS: Visit Vitals BP 110/78 (BP Location: Right arm, Patient Position: Sitting, Cuff size: Adult L arge) Pulse 76 Temp 37 C (98.6 F) (Oral) Resp 16 Wt 121.4 kg (267 lb 9.6 oz) SpO2 95% Comment: ra BMI 43.19 kg/m Gen: A&Ox3, NAD CV: RRR, no murmurs Pulm: CTAB Abd: +BS, soft, nondistended, nontender, no palpable mass, obese- large pannus : External genitalia normal in appearance. Urethral meatus, urethra, and blad brando are normal. Vaginal mucosa is normal. Cervix wnl, no lesions. No CMT. Ut erus midline and smooth in contour. No adnexal tenderness or mass palpated. Re ctovaginal exam confirmatory. Ext: no edema Endometrial Biopsy Procedure Note Indications: postmenopausal bleeding, endometrial adenocarcinoma Procedure Details Urine test was not done. The risks (including infection, bleeding, p ain, and uterine perforation) and benefits of the procedure were explained to e patient and Written informed consent was obtained. The patient was placed in the dorsal lithotomy position. Bimanual exam showed the uterus to be in the anteroflexed position. A speculum was inserted in the v agina, and the cervix prepped with povidone iodine. A sharp tenaculum was applied to the anterior lip of the cervix for stabilizati on. A sterile uterine sound was used to sound the uterus to a depth of 8cm. A Pipelle endometrial aspirator was used to sample the endometrium. Sample was se nt for pathologic examination. A crop farm workers was present for the entire procedure. Condition: Stable Complications: None Plan: The patient was advised to call for any fever or for prolonged or severe pain or bleeding. She was advised to use OTC analgesics as needed for mild to moderate pain. Dr. Kaur was present for the duration of the procedure. ASSESSMENT/PLAN: Luli Guillaume is a 69 y.o. with clinically stage I endometrioid adenocarcinoma of the uterus, grade 2 with focal clear cell features, good symptomatic response to therapy, multiple medical co morbidities including poorly controlled DM. Dec reased mobility, poor PS. Presented for EMB today. 1. Endometrial cancer Surgical Pathology Exam ( Only) 2. Type 2 diabetes mellitus with other specified complication, with long-term cu rrent use of insulin #Endometrial Adenocarcinoma - Discussed switching patient to aromatase inhibitor to help with glycemic contr ol. However, prior to this patient would require lipid panel and bone density ev aluation. Patient is unsure if she is willing to have a bone density scan done b ut she does not want to do so today. She states she will discuss with her PCP - EMB obtained today, will notify patient with results - Patient states she will refuse radiation therapy if indicated - Continue Megace 40mg BID Patient was seen and evaluated with Dr. Kaur, Attending. Gauri Buitrago MD, PGY-2 Obstetrics and Gynecology documented in this encounter Plan of Treatment Date/Time Name Type Priority Associated Diag noses 02/02/2020 2:37 PM EST Surgical Pathology Exam Pathology and Routine ( Only) Cytology Order Schedule Name Type Priority Associated Diag noses Ordered: 02/02/2020 Surgical Pathology Exam Pathology and Routine Endome trial cancer ( Only) Cytology Once for 1 Occurrences starting 02/02/20 20 until 02/02/2020 Surgical Pathology Exam Pathology and Routine ( Only) Cytology Health Maintenance Due Date Last Done Comments Hepatitis C Screening (B. 1950 [id number]) MMR Vaccines (1 of 1 - 1951 [...] complication, with long-term current use of insulin Pulmonary hypertension Other chronic pulmonary heart diseases Obesity, Class III, BMI 40-49.9 (morbid obesity) Morbid obesity documented in this encounter
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
--- OUTSIDE RECORDS SUMMARY | 2020-04-22 21:17 | CCD ---
Author Author [facility] Organization [facility] Address Unknown Phone Unavailable Care Team Providers Care Combat Control Manager Name Role Phone LAURA (CALERO), N HAROON RPA-C Unavailable Unavailable LAURA (CALERO), N HAROON RPA-C Unavailable Unavailable LAURA (CALERO), N HAROON RPA-C Unavailable Unavailable LAURA (CALERO), N HAROON RPA-C Unavailable Unavailable LAURA (CALERO), N HAROON RPA-C Unavailable Unavailable LAURA (CALERO), N HAROON RPA-C Unavailable Unavailable LAURA (CALERO), N HAROON RPA-C Unavailable Unavailable LAURA (CALERO), N HAROON RPA-C Unavailable Unavailable LAURA (CALERO), N HAROON RPA-C Unavailable Unavailable LAURA (CALERO), N HAROON RPA-C Unavailable Unavailable LAURA (CALERO), N HAROON RPA-C Unavailable Unavailable LAURA (CALERO), N HAROON RPA-C Unavailable Unavailable LAURA (CALERO), N HAROON RPA-C Unavailable Unavailable LAURA (CALERO), N HAROON RPA-C Unavailable Unavailable LAURA (CALERO), N HAROON RPA-C Unavailable Unavailable LAURA (CALERO), N HAROON RPA-C Unavailable Unavailable LAURA (CALERO), N HAROON RPA-C Unavailable Unavailable LAURA (CALERO), N HAROON RPA-C Unavailable Unavailable LAURA (CALERO), N HAROON RPA-C Unavailable Unavailable LAURA (CALERO), N HAROON RPA-C Unavailable Unavailable LAURA (CALERO), N HAROON RPA-C Unavailable Unavailable LAURA (CALERO), N HAROON RPA-C Unavailable Unavailable LAURA (CALERO), N HAROON RPA-C Unavailable Unavailable LAURA (CALERO), N HAROON RPA-C Unavailable Unavailable LAURA (CALERO), N HAROON RPA-C Unavailable Unavailable LAURA (CALERO), N HAROON RPA-C Unavailable Unavailable LAURA (CALERO), N HAROON RPA-C Unavailable Unavailable LAURA (CALERO), N HAROON RPA-C Unavailable Unavailable LAURA (CALERO), N HAROON RPA-C Unavailable Unavailable LAURA (CALERO), N HAROON RPA-C Unavailable Unavailable LAURA (CALERO), N HAROON RPA-C Unavailable Unavailable LAURA (CALERO), N HAROON RPA-C Unavailable Unavailable LAURA (CALERO), N HAROON RPA-C Unavailable Unavailable LAURA (CALERO), N HAROON RPA-C Unavailable Unavailable LAURA (CALERO), N HAROON RPA-C Unavailable Unavailable LAURA (CALERO), N HAROON RPA-C Unavailable Unavailable LAURA (CALERO), N HAROON RPA-C Unavailable Unavailable LAURA (CALERO), N HAROON RPA-C Unavailable Unavailable LAURA (CALERO), N HAROON RPA-C Unavailable Unavailable LAURA (CALERO), N HAROON RPA-C Unavailable Unavailable LAURA (CALERO), N HAROON RPA-C Unavailable Unavailable LAURA (CALERO), N HAROON RPA-C Unavailable Unavailable LAURA (CALERO), N HAROON RPA-C Unavailable Unavailable LAURA (CALERO), N HAROON RPA-C Unavailable Unavailable LAURA (CALERO), N HAROON RPA-C Unavailable Unavailable LAURA (CALERO), N HAROON RPA-C Unavailable Unavailable LAURA (CALERO), N HAROON RPA-C Unavailable Unavailable LAURA (CALERO), N HAROON RPA-C Unavailable Unavailable LAURA (CALERO), N HAROON RPA-C Unavailable Unavailable LAURA (CALERO), N HAROON RPA-C Unavailable Unavailable LAURA (CALERO), N HAROON RPA-C Unavailable Unavailable LAURA (CALERO), N HAROON RPA-C Unavailable Unavailable LAURA (CALERO), N HAROON RPA-C Unavailable Unavailable KOCH, RINKI Unavailable Unavailable KOCH, RINKI Unavailable Unavailable KOCH, RINKI Unavailable Unavailable KOCH, RINKI Unavailable Unavailable KOCH, RINKI Unavailable Unavailable KOCH, RINKI Unavailable Unavailable KOCH, RINKI Unavailable Unavailable KOCH, RINKI Unavailable Unavailable KOCH, RINKI Unavailable Unavailable KOCH, RINKI Unavailable Unavailable KOCH, RINKI Unavailable Unavailable KOCH, RINKI Unavailable Unavailable KOCH, RINKI Unavailable Unavailable KOCH, RINKI Unavailable Unavailable KOCH, RINKI Unavailable Unavailable KOCH, RINKI Unavailable Unavailable KOCH, RINKI Unavailable Unavailable KOCH, RINKI Unavailable Unavailable KOCH, RINKI Unavailable Unavailable KOCH, RINKI Unavailable Unavailable KOCH, RINKI Unavailable Unavailable KOCH, RINKI Unavailable Unavailable KOCH, RINKI Unavailable Unavailable KOCH, RINKI Unavailable Unavailable KOCH, RINKI Unavailable Unavailable KOCH, RINKI Unavailable Unavailable KOCH, RINKI Unavailable Unavailable KOCH, RINKI Unavailable Unavailable KOCH, RINKI Unavailable Unavailable KOCH, RINKI Unavailable Unavailable KOCH, RINKI Unavailable Unavailable KOCH, RINKI Unavailable Unavailable KOCH, RINKI Unavailable Unavailable KOCH, RINKI Unavailable Unavailable KOCH, RINKI Unavailable Unavailable KOCH, RINKI Unavailable Unavailable KOCH, RINKI Unavailable Unavailable KOCH, RINKI Unavailable Unavailable KOCH, RINKI Unavailable Unavailable KOCH, RINKI Unavailable Unavailable KOHC, RINKI Unavailable Unavailable KOCH, RINKI Unavailable Unavailable KOCH, RINKI Unavailable Unavailable KOCH, RINKI Unavailable Unavailable KOCH, RINKI Unavailable Unavailable KOCH, RINKI Unavailable Unavailable KOCH, RINKI Unavailable Unavailable KOCH, RINKI Unavailable Unavailable KOCH, RINKI Unavailable Unavailable KOCH, RINKI Unavailable Unavailable KOCH, RINKI Unavailable Unavailable KOCH, RINKI Unavailable Unavailable KOCH, RINKI Unavailable Unavailable KOCH, RINKI Unavailable Unavailable KOCH, RINKI Unavailable Unavailable KOCH, RINKI Unavailable Unavailable KOCH, RINKI Unavailable Unavailable KOCH, RINKI Unavailable Unavailable KOCH, RINKI Unavailable Unavailable KOCH, RINKI Unavailable Unavailable KOCH, RINKI Unavailable Unavailable KOCH, RINKI Unavailable Unavailable KOCH, RINKI Unavailable Unavailable KOCH, RINKI Unavailable Unavailable KOCH, RINKI Unavailable Unavailable KOCH, RINKI Unavailable Unavailable KOCH, RINKI Unavailable Unavailable KOCH, RINKI Unavailable Unavailable Re-disclosure Warning The records that you are about to access may contain information from federally-assisted alcohol or drug abuse programs. If such information is present, then the following federally mandated warning applies: This information has been disclosed to you from records protected by federal confidentiality rules (42 CFR part 2). The federal rules prohibit you from making any further disclosure of this information unless further disclosure is expressly permitted by the written consent of the person to whom it pertains or as otherwise permitted by 42 CFR part 2. A general authorization for the release of medical or other information is NOT sufficient for this purpose. The Federal rules restrict any use of the information to criminally investigate or prosecute any alcohol or drug abuse patient.The records that you are about to access may contain highly sensitive health information, the redisclosure of which is protected by Article 27-F of the [facility] Public Health law. If you continue you may have access to information: Regarding HIV / AIDS; Provided by facilities licensed or operated by the [facility] Office of Mental Health; or Provided by the [facility] Office for People With Developmental Disabilities. If such information is present, then the following [facility] mandated warning applies: This information has been disclosed to you from confidential records which are protected by state law. State law prohibits you from making any further disclosure of this information without the specific written consent of the person to whom it pertains, or as otherwise permitted by law. Any unauthorized further disclosure in violation of state law may result in a fine or fdc sentence or both. A general authorization for the release of medical or other information is NOT sufficient authorization for further disc losure. Allergies and Adverse Reactions Type Description Substance Reaction Status Data Source(s ) Drug allergy Bacitracin Bacitracin Angioedema Active eCW1 ([facility]) Vicks chest congestion rub Vicks chest congestion rub Vicks chest congestion rub Anaphylaxis Active eCW1 ([facility]) wool wool wool uticaria Active eCW1 ([facility]) Vicks chest congestion rub Vicks chest congestion rub Vicks chest congestion rub Anaphylaxis Active eCW1 ([facility]) wool wool wool uticaria Active eCW1 ([facility]) Vicks chest congestion rub Vicks chest congestion rub Vicks chest congestion rub Anaphylaxis Active eCW1 ([facility]) wool wool wool uticaria Active eCW1 ([facility]) Vicks chest congestion rub Vicks chest congestion rub Vicks chest congestion rub Anaphylaxis Active eCW1 ([facility]) wool wool wool uticaria Active eCW1 ([facility]) Vicks chest congestion rub Vicks chest congestion rub Vicks chest congestion rub Anaphylaxis Active eCW1 ([facility]) wool wool wool uticaria Active eCW1 ([facility]) Vicks chest congestion rub Vicks chest congestion rub Vicks chest congestion rub Anaphylaxis Active eCW1 ([facility]) wool wool wool uticaria Active eCW1 ([facility]) Vicks chest congestion rub Vicks chest congestion rub Vicks chest congestion rub Anaphylaxis Active eCW1 ([facility]) wool wool wool uticaria Active eCW1 ([facility]) Vicks chest congestion rub Vicks chest congestion rub Vicks chest congestion rub Anaphylaxis Active eCW1 ([facility]) wool wool wool uticaria Active eCW1 ([facility]) Vicks chest congestion rub Vicks chest congestion rub Vicks chest congestion rub Anaphylaxis Active eCW1 ([facility]) wool wool wool uticaria Active eCW1 ([facility]) Vicks chest congestion rub Vicks chest congestion rub Vicks chest congestion rub Anaphylaxis Active eCW1 ([facility]) wool wool wool uticaria Active eCW1 ([facility]) Vicks chest congestion rub Vicks chest congestion rub Vicks chest congestion rub Anaphylaxis Active eCW1 ([facility]) wool wool wool uticaria Active eCW1 ([facility]) Vicks chest congestion rub Vicks chest congestion rub Vicks chest congestion rub Anaphylaxis Active eCW1 ([facility]) wool wool wool uticaria Active eCW1 ([facility]) Family History Family Member Name Family Member Gender Family Member Status Date o f Status Description Data Source(s) Unknown Unknown Problem MEDENT ([facility], ) Encounters Encounter Providers Location Date Indications Data Source(s ) Outpatient Attender: GABE KOCH 08/04/2020 12:00:00 AM [facility] ([id number]) For [employer] [address] [place] [address] 03/31/2020 12:00:00 AM EST eCW1 ([facility]) Unknown [address] [facility] [address] 03/29/2020 12:00:00 AM EST eCW1 ([facility]) ([id number]) For [employer] [facility] [place] [address] 03/25/2020 12:00:00 AM EST eCW1 ([facility]) ([id number]) For [employer] [address] [place] [id number] 03/18/2020 12:00:00 AM EST eCW1 ([facility]) ([id number]) For [employer] [facility] [place] [address] 03/10/2020 12:00:00 AM EST eCW1 ([facility]) Unknown [address] [facility] [address] 03/05/2020 12:00:00 AM EST eCW1 ([facility]) ([id number]) For [employer] [address] [place] [address] 03/04/2020 12:00:00 AM EST eCW1 ([facility]) Outpatient Attender: HAROON ENCINAS) RPA-C 03/02 11:03:00 AM EST E83.51 hypoglycem E55.9 vit D def, [facility] hypoglycem E55.9 vit D def, C54.1 indrimed Outpatient Attender: GABE KOCH [id number] 03/01/19 12:00:00 AM EST - 03/01/2020 04:42:01 PM EST [facility] Outpatient [address] [facility] [address] 02/26/2020 12:00:00 AM EST eCW1 ([facility]) ([id number]) For [employer] [address] [place] [address] 02/18/2020 12:00:00 AM EST eCW1 ([facility]) Outpatient [address] [facility] [address] 02/12/2020 12:00:00 AM EST eCW1 ([facility]) Outpatient [address] [facility] [place] [address] 02/05/2020 12:00:00 AM EST eCW1 ([facility]) Unknown [address] [facility] [place] [address] 02/04/2020 12:00:00 AM EST eCW1 ([facility]) Unknown [address] [facility] [address] 02/04/2020 12:00:00 AM EST [facility] Unknown [address] [facility] [address] 02/03/2020 12:00:00 AM EST eCW1 ([facility]) Outpatient Attender: GABE KOCHAdmitter: GABE KOCH [id number] 02/02/2020 12:00:00 AM EST Malignant neoplasm of endometrium [facility] Malignant neoplasm of endometrium Outpatient [address] [facility] [address] 01/29/2020 12:00:00 AM EST eCW1 ([facility]) ([id number]) [facility] [employer] [address] [place] [address] 01/16/2020 12:00:00 AM EST eCW1 ([facility]) Outpatient Attender: GABE KOCH 01/07/2020 12:00:00 AM EST [facility] Out[place] [address] [facility] [address] 01/05/2020 12:00:00 AM EST eCW1 ([facility]) Outpatient Attender: GABE KOCH 01/05/2020 12:00:00 AM EST [facility] Unknown [address] [facility] [address] 12/30/2019 12:00:00 AM EST eCW1 ([facility]) Unknown [address] [facility] [address] 12/29/2019 12:00:00 AM EST eCW1 ([facility]) ([id number]) For [employer] [address] [place] [address] 12/23/2019 12:00:00 AM EDT eCW1 ([facility]) ([id number]) [facility] [employer] [address] [place] [address] 12/15/2019 12:00:00 AM EDT eCW1 ([facility]) ([id number]) [facility] [employer] [address] [place] [address] 12/08/2019 12:00:00 AM EDT eCW1 ([facility]) Unknown [address] [facility] [address] 12/04/2019 12:00:00 AM EDT eCW1 ([facility]) ([id number]) [facility] [employer] [address] [place] [address] 12/01/2019 12:00:00 AM EDT eCW1 ([facility]) Unknown [address] [facility] [address] 12/01/2019 12:00:00 AM EDT eCW1 ([facility]) Unknown [address] [facility] [address] 11/28/2019 12:00:00 AM EDT eCW1 ([facility]) Outpatient [address] [facility] [place] [address] 11/27/2019 12:00:00 AM EDT eCW1 ([facility]) [facility] [address] [facility] [address] 09/25/2019 12:00:00 AM EDT eCW1 ([facility]) ([id number]) [facility] [employer] [address] [place] [address] 09/19/2019 12:00:00 AM EDT eCW1 ([facility]) ([id number]) For [employer] [address] [place] [address] 09/10/2019 12:00:00 AM EDT eCW1 ([facility]) ([id number]) [facility] [employer] [address] [place] [address] 09/04/2019 12:00:00 AM EDT eCW1 ([facility]) Unknown [address] [facility], [facility] [address] 08/15/2019 12:00:00 AM EDT eCW1 ([facility]) ([id number]) [facility] [employer] [address] [place] [address] 08/14/2019 12:00:00 AM EDT eCW1 ([facility]) Outpatient [address] [facility] [address] 08/08/2019 12:00:00 AM EDT eCW1 ([facility]) Unknown [address] [facility] [address] 07/30/2019 12:00:00 AM EDT eCW1 ([facility]) ([id number]) [facility] [employer] [address] [place] [address] 07/28/2019 12:00:00 AM EDT eCW1 ([facility]) Outpatient [address] [facility] [place] [address] 07/22/2019 12:00:00 AM EDT eCW1 ([facility]) [facility] [address] [facility] [place] [address] 07/14/2019 12:00:00 AM EDT eCW1 ([facility]) [facility] Wound [facility] [address] [facility] [address] 07/04/2019 12:00:00 AM EDT eCW1 ([facility]) Outpatient Attender: GABE KOCH [id number] 07/03/19 12:00:00 AM EDT - 07/03/2019 02:40:46 PM [facility] [place] [address] [facility] [address] 06/27/2019 12:00:00 AM EDT eCW1 ([facility]) [facility] Wound [place] [address] [facility] [address] 06/25/2019 12:00:00 AM EDT eCW1 ([facility]) [facility] [place] [address] [facility] [address] 06/23/2019 12:00:00 AM EDT eCW1 ([facility]) [facility] Wound [facility] [address] [facility] [address] 06/18/2019 12:00:00 AM EDT eCW1 ([facility]) [facility] [place] [address] [facility] [address] 06/16/2019 12:00:00 AM EDT eCW1 ([facility]) Outpatient Attender: GABE KOCH 06/16/2019 12:00:00 AM [facility] Wound [facility] [address] [facility] [address] 06/11/2019 12:00:00 AM EDT eCW1 ([facility]) Outpatient Attender: GABE KOCH 06/09/2019 12:00:00 AM [facility] Outpatient Attender: GABE KOCH [id number] 06/04/19 12:00:00 AM EDT - 06/04/2019 02:57:28 PM [facility] Wound [facility] [address] [facility] [address] 06/03/2019 12:00:00 AM EDT eCW1 ([facility]) Outpatient Attender: GABE KOCH 06/02/2019 12:00:00 AM [facility] ([id number]) For [employer] [address] [place] [address] 05/28/2019 12:00:00 AM EDT eCW1 ([facility]) Outpatient Attender: GABE KOCH 05/26/2019 12:00:00 AM [facility] Wound [place] [address] [facility] [address] 05/20/2019 12:00:00 AM EDT eCW1 ([facility]) [facility] Wound Care [address] [facility] [address] 05/20/2019 12:00:00 AM EDT eCW1 ([facility]) [facility] Wound Care Center [address] [place] [address] 05/20/2019 12:00:00 AM EDT eCW1 ([facility]) [facility] Wound [place] [address] [facility] [address] 05/06/2019 12:00:00 AM EDT eCW1 ([facility]) [facility] Wound [place] [address] [facility] [address] 04/25/2019 12:00:00 AM EST eCW1 ([facility]) Outpatient 04/22/2019 02:25:00 PM EST [facility] Wound Care [address] [facility] [address] 04/11/2019 12:00:00 AM EST eCW1 ([facility]) [facility] Wound Care Center [address] [place] [address] 04/11/2019 12:00:00 AM EST eCW1 ([facility]) [facility] [place] [address] [facility] [place] [address] 04/07/2019 12:00:00 AM EST eCW1 ([facility]) [facility] [place] [address] [facility] [address] 04/07/2019 12:00:00 AM EST eCW1 ([facility]) [facility] Wound Care [address] [facility] [address] 04/04/2019 12:00:00 AM EST eCW1 ([facility]) [facility] Wound Care Center [address] [place] [address] 04/04/2019 12:00:00 AM EST eCW1 ([facility]) [facility] Wound Care [address] [facility] [address] 03/28/2019 12:00:00 AM EST eCW1 ([facility]) [facility] Wound [place] [address] [facility] [address] 03/28/2019 12:00:00 AM EST eCW1 ([facility]) [facility] [place] [address] [facility] [address] 03/28/2019 12:00:00 AM EST eCW1 ([facility]) [facility] [place] [address] [facility] [address] 03/22/2019 12:00:00 AM EST eCW1 ([facility]) [facility] [place] [address] [facility] [address] 03/20/2019 12:00:00 AM EST eCW1 ([facility]) [facility] Wound [place] [address] [facility] [address] 03/20/2019 12:00:00 AM EST eCW1 ([facility]) [facility] [place] [address] [facility] [address] 03/17/2019 12:00:00 AM EST eCW1 ([facility]) [facility] Breast Care [address] [place] [address] 03/17/2019 12:00:00 AM EST eCW1 ([facility]) [facility] Wound [place] [address] [facility] [address] 03/13/2019 12:00:00 AM EST [facility]CW1 [facility] [place] [address] [facility] [address] 03/13/2019 12:00:00 AM EST eCW1 ([facility]) [facility] Wound Care Center [address] [place] [address] 03/13/2019 12:00:00 AM EST eCW1 ([facility]) [facility] [place] [address] [facility] [address] 03/12/2019 12:00:00 AM EST eCW1 ([facility]) [facility] Wound [place] [address] [facility] [address] 03/07/2019 12:00:00 AM EST eCW1 ([facility]) [facility] [place] [address] [facility] [address] 02/28/2019 12:00:00 AM EST eCW1 ([facility]) Outpatient 2017 12:00:00 AM EDT - 2017 11:59:00 PM EDT ONGOING LIFELINE SERVICE [facility] ONGOING LIFELINE SERVICE Patient discharged. Immunizations Vaccine Date Status Description Data Source(s) COVID-19 VACCINE, MRNA-1273, LNP-S (MODERNA)/PF 04/06/2020 1 2:00:00 AM EST completed [facility] influenza, recombinant, quadrIvalent,injectable, prese rvative free 11/27/2019 04:13:00 PM EDT completed eCW1 ([facility]) influenza, recombinant, quadrIvalent,injectable, prese rvative free 11/27/2019 04:13:00 PM EDT completed eCW1 ([facility]) influenza, recombinant, quadrIvalent,injectable, prese rvative free 11/27/2019 04:13:00 PM EDT completed eCW1 ([facility]) influenza, recombinant, quadrIvalent,injectable, prese rvative free 11/27/2019 04:13:00 PM EDT completed eCW1 ([facility]) influenza, recombinant, quadrIvalent,injectable, prese rvative free 11/27/2019 04:13:00 PM EDT completed eCW1 ([facility]) influenza, recombinant, quadrIvalent,injectable, prese rvative free 11/27/2019 04:13:00 PM EDT completed eCW1 ([facility]) influenza, recombinant, quadrIvalent,injectable, prese rvative free 11/27/2019 04:13:00 PM EDT completed eCW1 ([facility]) influenza, recombinant, quadrIvalent,injectable, prese rvative free 11/27/2019 04:13:00 PM EDT completed eCW1 ([facility]) influenza, recombinant, quadrIvalent,injectable, prese rvative free 11/27/2019 04:13:00 PM EDT completed eCW1 ([facility]) influenza, recombinant, quadrIvalent,injectable, prese rvative free 11/27/2019 04:13:00 PM EDT completed eCW1 ([facility]) influenza, recombinant, quadrIvalent,injectable, prese rvative free 11/27/2019 04:13:00 PM EDT completed eCW1 ([facility]) influenza, recombinant, quadrIvalent,injectable, prese rvative free 11/27/2019 04:13:00 PM EDT completed eCW1 ([facility]) influenza, recombinant, quadrIvalent,injectable, prese rvative free 11/27/2019 04:13:00 PM EDT completed eCW1 ([facility]) influenza, recombinant, quadrIvalent,injectable, prese rvative free 11/27/2019 04:13:00 PM EDT completed eCW1 ([facility]) influenza, recombinant, quadrIvalent,injectable, prese rvative free 11/27/2019 04:13:00 PM EDT completed eCW1 ([facility]) influenza, recombinant, quadrIvalent,injectable, prese rvative free 11/27/2019 04:13:00 PM EDT completed eCW1 ([facility]) influenza, recombinant, quadrIvalent,injectable, prese rvative free 11/27/2019 04:13:00 PM EDT completed eCW1 ([facility]) influenza, recombinant, quadrIvalent,injectable, prese rvative free 11/27/2019 04:13:00 PM EDT completed eCW1 ([facility]) influenza, recombinant, quadrIvalent,injectable, prese rvative free 11/27/2019 04:13:00 PM EDT completed eCW1 ([facility]) influenza, recombinant, quadrIvalent,injectable, prese rvative free 11/27/2019 04:13:00 PM EDT completed eCW1 ([facility]) influenza, recombinant, quadrIvalent,injectable, prese rvative free 11/27/2019 04:13:00 PM EDT completed eCW1 ([facility]) influenza, recombinant, quadrIvalent,injectable, prese rvative free 11/27/2019 04:13:00 PM EDT completed eCW1 ([facility]) influenza, recombinant, quadrIvalent,injectable, prese rvative free 11/27/2019 04:13:00 PM EDT completed eCW1 ([facility]) influenza, recombinant, quadrIvalent,injectable, prese rvative free 11/27/2019 04:13:00 PM EDT completed eCW1 ([facility]) influenza, recombinant, quadrIvalent,injectable, prese rvative free 11/27/2019 04:13:00 PM EDT completed eCW1 ([facility]) influenza, recombinant, quadrIvalent,injectable, prese rvative free 11/27/2019 04:13:00 PM EDT completed eCW1 ([facility]) influenza, recombinant, quadrIvalent,injectable, prese rvative free 11/27/2019 04:13:00 PM EDT completed eCW1 ([facility]) influenza, recombinant, quadrIvalent,injectable, prese rvative free 11/27/2019 04:13:00 PM EDT completed eCW1 ([facility]) Medications Medication Brand Name Start Date Product Form Dose Route Admi nistrative Instructions Pharmacy Instructions Status Indications Reaction Description Data Source(s) 50 mg 03/29/2020 12:00:00 AM EST tablet 30 TAKE ONE TABLET BY MOUTH EVERY DAY TAKE ONE TABLET BY MOUTH EVERY DAY SOLD: 03/31/2020 [facility] atorvastatin 40 MG Oral Tablet ATORVASTATIN CALCIUM 03/29/2020 1 2:00:00 AM EST tablet 30 TAKE ONE TABLET BY MOUTH EVERY D AY TAKE ONE TABLET BY MOUTH EVERY DAY SOLD: 03/31/2020 [facility] BLOOD SUGAR DIAGNOSTIC 03/12/2020 12:00:00 AM EST strip 100 USE TO TEST BLOOD SUGAR THREE TIMES A DAY USE TO TEST BLOOD SUGAR THREE TIMES A DAY SOLD: 03/15/2020 [facility] 100 mg 01/30/2020 12:00:00 AM EST tablet 30 TAKE ONE TABLET BY MOUTH EVERY DAY TAKE ONE TABLET BY MOUTH EVERY DAY SOLD: 03/03/2020 [facility] 100 mg 01/30/2020 12:00:00 AM EST tablet 30 TAKE ONE TABLET BY MOUTH EVERY DAY TAKE ONE TABLET BY MOUTH EVERY DAY SOLD: 03/31/2020 [facility] 100 mg 01/30/2020 12:00:00 AM EST tablet 30 TAKE ONE TABLET BY MOUTH EVERY DAY TAKE ONE TABLET BY MOUTH EVERY DAY SOLD: 01/30/2020 [facility] Megestrol Acetate 40 MG Oral Tablet Mege strol Acetate 40 MG Oral Tablet (MEGACE) Megestrol Acetate 40 MG Oral Tablet (MEGACE) 01/29/2020 12:00:00 AM ES T active [facility] Cyclosporine 0.5 MG/ML Ophthalmic Suspen mariela [Restasis] Restasis 0.05 % Ophthalmic Emulsion Restasis 0.05 % Ophthalmic Emulsion 01/20/2020 12:00:0 0 AM EST active INSTILL 1 DROP IN EACH EYE TWO TIMES A DAY [facility] 0.05 % 01/20/2020 12:00:00 AM EST dropperette 180 INSTILL 1 DROP IN EACH EYE TWO TIMES A DAY INSTILL 1 DROP IN EACH EYE TWO TIMES A DAY SOLD: 01/23/2020 [employer] Basaglar KwikPen 100 UNIT/ML Subcutaneous Solution Pen-injec tor 1104-0748-13 01/07/2020 12:00:00 AM EST active INJECT 85 UNITS UNDER THE SKIN AT BEDTIME [facility] Digoxin 0.125 MG Oral Tablet 125 mcg (0.125 mg) DIGOXIN 12/29/2019 12:00:00 AM EST tablet 30 TAKE ONE TABLET BY MOUTH CHIRAG RY DAY TAKE ONE TABLET BY MOUTH EVERY DAY SOLD: 03/03/2020 [facility] 25 mg 12/29/2019 12:00:00 AM EST tablet 60 TAKE ONE TABLET BY MOUTH TWICE A DAY TAKE ONE TABLET BY MOUTH TWICE A DAY SOLD: 01/30/2020 [facility] Digoxin 0.125 MG Oral Tablet 125 mcg (0.125 mg) DIGOXIN 12/29/2019 12:00:00 AM EST tablet 30 TAKE ONE TABLET BY MOUTH CHIRAG RY DAY TAKE ONE TABLET BY MOUTH EVERY DAY SOLD: 03/31/2020 [facility] 25 mg 12/29/2019 12:00:00 AM EST tablet 60 TAKE ONE TABLET BY MOUTH TWICE A DAY TAKE ONE TABLET BY MOUTH TWICE A DAY SOLD: 03/03/2020 [facility] Digoxin 0.125 MG Oral Tablet 125 mcg (0.125 mg) DIGOXIN 12/29/2019 12:00:00 AM EST tablet 30 TAKE ONE TABLET BY MOUTH CHIRAG RY DAY TAKE ONE TABLET BY MOUTH EVERY DAY SOLD: 01/30/2020 [facility] Digoxin 0.125 MG Oral Tablet 125 mcg (0.125 mg) DIGOXIN 12/29/2019 12:00:00 AM EST tablet 30 TAKE ONE TABLET BY MOUTH HCIRAG RY DAY TAKE ONE TABLET BY MOUTH EVERY DAY SOLD: 01/02/2020 [facility] 25 mg 12/29/2019 12:00:00 AM EST tablet 60 TAKE ONE TABLET BY MOUTH TWICE A DAY TAKE ONE TABLET BY MOUTH TWICE A DAY SOLD: 01/02/2020 [facility] 25 mg 12/29/2019 12:00:00 AM EST tablet 60 TAKE ONE TABLET BY MOUTH TWICE A DAY TAKE ONE TABLET BY MOUTH TWICE A DAY SOLD: 03/31/2020 [facility] 33 gauge 12/04/2019 12:00:00 AM EDT misc 200 USE DIRECTED FOUR TIMES A DAY USE DIRECTED FOUR TIMES A DAY SOLD: 12/05/2019 [facility] BLOOD-GLUCOSE METER 11/28/2019 12:00:00 AM EDT misc 1 USE DIRECTED USE DIRECTED SOLD: 11/28/2019 [facility] Glucometer UNK 11/27/2019 12:00:00 AM EDT active Glucometer eCW1 ([facility]) Glucometer UNK 11/27/2019 12:00:00 AM EDT active Glucometer eCW1 ([facility]) Glucometer UNK 11/27/2019 12:00:00 AM EDT active Glucometer eCW1 ([facility]) Glucometer UNK 11/27/2019 12:00:00 AM EDT active Glucometer eCW1 ([facility]) Glucometer UNK 11/27/2019 12:00:00 AM EDT active Glucometer eCW1 ([facility]) Glucometer UNK 11/27/2019 12:00:00 AM EDT active Glucometer eCW1 ([facility]) Glucometer UNK 11/27/2019 12:00:00 AM EDT active Glucometer eCW1 ([facility]) Glucometer UNK 11/27/2019 12:00:00 AM EDT active Glucometer eCW1 ([facility]) Glucometer UNK 11/27/2019 12:00:00 AM EDT active Glucometer eCW1 ([facility]) Glucometer UNK 11/27/2019 12:00:00 AM EDT active Glucometer eCW1 ([facility]) Glucometer UNK 11/27/2019 12:00:00 AM EDT active Glucometer eCW1 ([facility]) Glucometer UNK 11/27/2019 12:00:00 AM EDT active Glucometer eCW1 ([facility]) Glucometer UNK 11/27/2019 12:00:00 AM EDT active Glucometer eCW1 ([facility]) Glucometer UNK 11/27/2019 12:00:00 AM EDT active Glucometer eCW1 ([facility]) Glucometer UNK 11/27/2019 12:00:00 AM EDT active Glucometer eCW1 ([facility]) Glucometer UNK 11/27/2019 12:00:00 AM EDT active Glucometer eCW1 ([facility]) Glucometer UNK 11/27/2019 12:00:00 AM EDT active Glucometer eCW1 ([facility]) Glucometer UNK 11/27/2019 12:00:00 AM EDT active Glucometer eCW1 ([facility]) Glucometer UNK 11/27/2019 12:00:00 AM EDT active Glucometer eCW1 ([facility]) Glucometer UNK 11/27/2019 12:00:00 AM EDT active Glucometer eCW1 ([facility]) Glucometer UNK 11/27/2019 12:00:00 AM EDT active Glucometer eCW1 ([facility]) Glucometer UNK 11/27/2019 12:00:00 AM EDT active Glucometer eCW1 ([facility]) Glucometer UNK 11/27/2019 12:00:00 AM EDT active Glucometer eCW1 ([facility]) Glucometer UNK 11/27/2019 12:00:00 AM EDT active Glucometer eCW1 ([facility]) Glucometer UNK 11/27/2019 12:00:00 AM EDT active Glucometer eCW1 ([facility]) Glucometer UNK 11/27/2019 12:00:00 AM EDT active Glucometer eCW1 ([facility]) Glucometer UNK 11/27/2019 12:00:00 AM EDT active Glucometer eCW1 ([facility]) Glucometer UNK 11/27/2019 12:00:00 AM EDT active Glucometer eCW1 ([facility]) 50 mg 09/25/2019 12:00:00 AM EDT tablet 90 TAKE ONE TABLET BY MOUTH EVERY DAY TAKE ONE TABLET BY MOUTH EVERY DAY SOLD: 10/01/2019 [facility] 50 mg 09/25/2019 12:00:00 AM EDT tablet 90 TAKE ONE TABLET BY MOUTH EVERY DAY TAKE ONE TABLET BY MOUTH EVERY DAY SOLD: 12/05/2019 [facility] atorvastatin 40 MG Oral Tablet ATORVASTATIN CALCIUM 09/25/2019 1 2:00:00 AM EDT tablet 90 TAKE ONE TABLET BY MOUTH EVERY D AY TAKE ONE TABLET BY MOUTH EVERY DAY SOLD: 10/01/2019 [facility] atorvastatin 40 MG Oral Tablet ATORVASTATIN CALCIUM 09/25/2019 1 2:00:00 AM EDT tablet 90 TAKE ONE TABLET BY MOUTH EVERY D AY TAKE ONE TABLET BY MOUTH EVERY DAY SOLD: 12/05/2019 [facility] Erythromycin 0.005 MG/MG Ophthalmic Ointment Erythromy bethel 5 MG/GM Erythromycin 5 MG/GM 08/15/2019 12:00:00 AM EDT active Erythromycin 5 MG/GM eCW1 ([facility]) Erythromycin 0.005 MG/MG Ophthalmic Ointment Erythromy bethel 5 MG/GM Erythromycin 5 MG/GM 08/15/2019 12:00:00 AM EDT active Erythromycin 5 MG/GM eCW1 ([facility]) Erythromycin 0.005 MG/MG Ophthalmic Ointment Erythromy bethel 5 MG/GM Erythromycin 5 MG/GM 08/15/2019 12:00:00 AM EDT active Erythromycin 5 MG/GM eCW1 ([facility]) Erythromycin 0.005 MG/MG Ophthalmic Ointment Erythromy bethel 5 MG/GM Erythromycin 5 MG/GM 08/15/2019 12:00:00 AM EDT active Erythromycin 5 MG/GM eCW1 ([facility]) Erythromycin 0.005 MG/MG Ophthalmic Ointment Erythromy bethel 5 MG/GM Erythromycin 5 MG/GM 08/15/2019 12:00:00 AM EDT active Erythromycin 5 MG/GM eCW1 ([facility]) Erythromycin 0.005 MG/MG Ophthalmic Ointment Erythromy bethel 5 MG/GM Erythromycin 5 MG/GM 08/15/2019 12:00:00 AM EDT active Erythromycin 5 MG/GM eCW1 ([facility]) Erythromycin 0.005 MG/MG Ophthalmic Ointment Erythromy bethel 5 MG/GM Erythromycin 5 MG/GM 08/15/2019 12:00:00 AM EDT active Erythromycin 5 MG/GM eCW1 ([facility]) Erythromycin 0.005 MG/MG Ophthalmic Ointment Erythromy bethel 5 MG/GM Erythromycin 5 MG/GM 08/15/2019 12:00:00 AM EDT active Erythromycin 5 MG/GM eCW1 ([facility]) Erythromycin 0.005 MG/MG Ophthalmic Ointment Erythromy bethel 5 MG/GM Erythromycin 5 MG/GM 08/15/2019 12:00:00 AM EDT active Erythromycin 5 MG/GM eCW1 ([facility]) Erythromycin 0.005 MG/MG Ophthalmic Ointment Erythromy bethel 5 MG/GM Erythromycin 5 MG/GM 08/15/2019 12:00:00 AM EDT active Erythromycin 5 MG/GM eCW1 ([facility]) Erythromycin 0.005 MG/MG Ophthalmic Ointment Erythromy bethel 5 MG/GM Erythromycin 5 MG/GM 08/15/2019 12:00:00 AM EDT active Erythromycin 5 MG/GM eCW1 ([facility]) Erythromycin 0.005 MG/MG Ophthalmic Ointment Erythromy bethel 5 MG/GM Erythromycin 5 MG/GM 08/15/2019 12:00:00 AM EDT active Erythromycin 5 MG/GM eCW1 ([facility]) Erythromycin 0.005 MG/MG Ophthalmic Ointment Erythromy bethel 5 MG/GM Erythromycin 5 MG/GM 08/15/2019 12:00:00 AM EDT active Erythromycin 5 MG/GM eCW1 ([facility]) Erythromycin 0.005 MG/MG Ophthalmic Ointment Erythromy bethel 5 MG/GM Erythromycin 5 MG/GM 08/15/2019 12:00:00 AM EDT active Erythromycin 5 MG/GM eCW1 ([facility]) Erythromycin 0.005 MG/MG Ophthalmic Ointment Erythromy bethel 5 MG/GM Erythromycin 5 MG/GM 08/15/2019 12:00:00 AM EDT active Erythromycin 5 MG/GM eCW1 ([facility]) Erythromycin 0.005 MG/MG Ophthalmic Ointment Erythromy bethel 5 MG/GM Erythromycin 5 MG/GM 08/15/2019 12:00:00 AM EDT active Erythromycin 5 MG/GM eCW1 ([facility]) Erythromycin 0.005 MG/MG Ophthalmic Ointment Erythromy bethel 5 MG/GM Erythromycin 5 MG/GM 08/15/2019 12:00:00 AM EDT active Erythromycin 5 MG/GM eCW1 ([facility]) Erythromycin 0.005 MG/MG Ophthalmic Ointment Erythromy bethel 5 MG/GM Erythromycin 5 MG/GM 08/15/2019 12:00:00 AM EDT active Erythromycin 5 MG/GM eCW1 ([facility]) Erythromycin 0.005 MG/MG Ophthalmic Ointment Erythromy bethel 5 MG/GM Erythromycin 5 MG/GM 08/15/2019 12:00:00 AM EDT active Erythromycin 5 MG/GM eCW1 ([facility]) Erythromycin 0.005 MG/MG Ophthalmic Ointment Erythromy bethel 5 MG/GM Erythromycin 5 MG/GM 08/15/2019 12:00:00 AM EDT active Erythromycin 5 MG/GM eCW1 ([facility]) Erythromycin 0.005 MG/MG Ophthalmic Ointment Erythromy bethel 5 MG/GM Erythromycin 5 MG/GM 08/15/2019 12:00:00 AM EDT active Erythromycin 5 MG/GM eCW1 ([facility]) Erythromycin 0.005 MG/MG Ophthalmic Ointment Erythromy bethel 5 MG/GM Erythromycin 5 MG/GM 08/15/2019 12:00:00 AM EDT active Erythromycin 5 MG/GM eCW1 ([facility]) Erythromycin 0.005 MG/MG Ophthalmic Ointment Erythromy bethel 5 MG/GM Erythromycin 5 MG/GM 08/15/2019 12:00:00 AM EDT active Erythromycin 5 MG/GM eCW1 ([facility]) Erythromycin 0.005 MG/MG Ophthalmic Ointment Erythromy bethel 5 MG/GM Erythromycin 5 MG/GM 08/15/2019 12:00:00 AM EDT active Erythromycin 5 MG/GM eCW1 ([facility]) Erythromycin 0.005 MG/MG Ophthalmic Ointment Erythromy bethel 5 MG/GM Erythromycin 5 MG/GM 08/15/2019 12:00:00 AM EDT active Erythromycin 5 MG/GM eCW1 ([facility]) Erythromycin 0.005 MG/MG Ophthalmic Ointment Erythromy bethel 5 MG/GM Erythromycin 5 MG/GM 08/15/2019 12:00:00 AM EDT active Erythromycin 5 MG/GM eCW1 ([facility]) Erythromycin 0.005 MG/MG Ophthalmic Ointment Erythromy bethel 5 MG/GM Erythromycin 5 MG/GM 08/15/2019 12:00:00 AM EDT active Erythromycin 5 MG/GM eCW1 ([facility]) Erythromycin 0.005 MG/MG Ophthalmic Ointment Erythromy bethel 5 MG/GM Erythromycin 5 MG/GM 08/15/2019 12:00:00 AM EDT active Erythromycin 5 MG/GM eCW1 ([facility]) Erythromycin 0.005 MG/MG Ophthalmic Ointment Erythromy bethel 5 MG/GM Erythromycin 5 MG/GM 08/15/2019 12:00:00 AM EDT active Erythromycin 5 MG/GM eCW1 ([facility]) Erythromycin 0.005 MG/MG Ophthalmic Ointment Erythromy bethel 5 MG/GM Erythromycin 5 MG/GM 08/15/2019 12:00:00 AM EDT active Erythromycin 5 MG/GM eCW1 ([facility]) 5 mg/gram (0.5 %) 08/15/2019 12:00:00 AM EDT ointment 3 APPLY TO AFFECTED LOWER EYELID FOUR TIMES A DAY FOR 10 DAYS APPLY TO AFFECTED LOWER EYELID FOUR TIMES A DAY FOR 10 DAYS SOLD: 08/16/2019 [facility] Erythromycin 0.005 MG/MG Ophthalmic Ointment Erythromy bethel 5 MG/GM Erythromycin 5 MG/GM 08/15/2019 12:00:00 AM EDT active Erythromycin 5 MG/GM eCW1 ([facility]) Erythromycin 0.005 MG/MG Ophthalmic Ointment Erythromy bethel 5 MG/GM Erythromycin 5 MG/GM 08/15/2019 12:00:00 AM EDT active Erythromycin 5 MG/GM eCW1 ([facility]) 100 mg 07/31/2019 12:00:00 AM EDT tablet 30 TAKE ONE TABLET BY MOUTH EVERY DAY TAKE ONE TABLET BY MOUTH EVERY DAY SOLD: 10/01/2019 [facility] 100 mg 07/31/2019 12:00:00 AM EDT tablet 30 TAKE ONE TABLET BY MOUTH EVERY DAY TAKE ONE TABLET BY MOUTH EVERY DAY SOLD: 08/01/2019 [facility] 100 mg 07/31/2019 12:00:00 AM EDT tablet 30 TAKE ONE TABLET BY MOUTH EVERY DAY TAKE ONE TABLET BY MOUTH EVERY DAY SOLD: 08/29/2019 [facility] 100 mg 07/31/2019 12:00:00 AM EDT tablet 30 TAKE ONE TABLET BY MOUTH EVERY DAY TAKE ONE TABLET BY MOUTH EVERY DAY SOLD: 11/28/2019 [facility] 100 mg 07/31/2019 12:00:00 AM EDT tablet 30 TAKE ONE TABLET BY MOUTH EVERY DAY TAKE ONE TABLET BY MOUTH EVERY DAY SOLD: 01/02/2020 [facility] 100 mg 07/31/2019 12:00:00 AM EDT tablet 30 TAKE ONE TABLET BY MOUTH EVERY DAY TAKE ONE TABLET BY MOUTH EVERY DAY SOLD: 11/05/2019 [facility] 100 unit/mL (3 mL) 06/27/2019 12:00:00 AM EDT insulin pen 75 INJECT 85 UNITS UNDER THE SKIN AT BEDTIME INJECT 85 UNITS UNDER THE SKIN AT BEDTIME SOLD: 06/27/2019 [facility] 100 unit/mL (3 mL) 06/27/2019 12:00:00 AM EDT insulin pen 75 INJECT 85 UNITS UNDER THE SKIN AT BEDTIME INJECT 85 UNITS UNDER THE SKIN AT BEDTIME SOLD: 01/07/2020 [facility] 100 unit/mL (3 mL) 06/27/2019 12:00:00 AM EDT insulin pen 75 INJECT 85 UNITS UNDER THE SKIN AT BEDTIME INJECT 85 UNITS UNDER THE SKIN AT BEDTIME SOLD: 11/05/2019 [facility] 100 unit/mL (3 mL) 06/27/2019 12:00:00 AM EDT insulin pen 75 INJECT 85 UNITS UNDER THE SKIN AT BEDTIME INJECT 85 UNITS UNDER THE SKIN AT BEDTIME SOLD: 08/29/2019 [facility] 100 unit/mL (3 mL) 06/27/2019 12:00:00 AM EDT insulin pen 75 INJECT 85 UNITS UNDER THE SKIN AT BEDTIME INJECT 85 UNITS UNDER THE SKIN AT BEDTIME SOLD: 03/12/2020 [facility] 100 unit/mL (3 mL) 06/27/2019 12:00:00 AM EDT insulin pen 30 INJECT DIRECTED PER SLIDING SCALE (40-60 UNITS PER DAY) FOUR TIMES A DAY MAXIMUM DAILY DOSE = 60 INJECT DIRECTED PER SLIDING SCALE (40 -60 UNITS PER DAY) FOUR TIMES A DAY MAXIMUM DAILY DOSE = 60 SOLD: 01/02/2020 [facility] 100 unit/mL (3 mL) 06/27/2019 12:00:00 AM EDT insulin pen 30 INJECT DIRECTED PER SLIDING SCALE (40-60 UNITS PER DAY) FOUR TIMES A DAY MAXIMUM DAILY DOSE = 60 INJECT DIRECTED PER SLIDING SCALE (40 -60 UNITS PER DAY) FOUR TIMES A DAY MAXIMUM DAILY DOSE = 60 SOLD: 03/12/2020 [facility] 100 unit/mL (3 mL) 06/27/2019 12:00:00 AM EDT insulin pen 30 INJECT DIRECTED PER SLIDING SCALE (40-60 UNITS PER DAY) FOUR TIMES A DAY MAXIMUM DAILY DOSE = 60 INJECT DIRECTED PER SLIDING SCALE (40 -60 UNITS PER DAY) FOUR TIMES A DAY MAXIMUM DAILY DOSE = 60 SOLD: 08/29/2019 [facility] 100 unit/mL (3 mL) 06/27/2019 12:00:00 AM EDT insulin pen 30 INJECT DIRECTED PER SLIDING SCALE (40-60 UNITS PER DAY) FOUR TIMES A DAY MAXIMUM DAILY DOSE = 60 INJECT DIRECTED PER SLIDING SCALE (40 -60 UNITS PER DAY) FOUR TIMES A DAY MAXIMUM DAILY DOSE = 60 SOLD: 06/27/2019 [facility] 25 mg 06/23/2019 12:00:00 AM EDT tablet 60 TAKE ONE TABLET BY MOUTH TWICE A DAY TAKE ONE TABLET BY MOUTH TWICE A DAY SOLD: 08/01/2019 [facility] 25 mg 06/23/2019 12:00:00 AM EDT tablet 60 TAKE ONE TABLET BY MOUTH TWICE A DAY TAKE ONE TABLET BY MOUTH TWICE A DAY SOLD: 08/29/2019 [facility] 25 mg 06/23/2019 12:00:00 AM EDT tablet 60 TAKE ONE TABLET BY MOUTH TWICE A DAY TAKE ONE TABLET BY MOUTH TWICE A DAY SOLD: 11/05/2019 [facility] 125 mcg (0.125 mg) 06/23/2019 12:00:00 AM EDT tablet 30 TAKE ONE TABLET BY MOUTH EVERY DAY TAKE ONE TABLET BY MOUTH EVERY DAY SOLD: 06/27/2019 [facility] Erythromycin 0.005 MG/MG Ophthalmic Ointment Erythromy bethel 5 MG/GM Erythromycin 5 MG/GM 06/23/2019 12:00:00 AM EDT active Erythromycin 5 MG/GM eCW1 ([facility]) Erythromycin 0.005 MG/MG Ophthalmic Ointment Erythromy bethel 5 MG/GM Erythromycin 5 MG/GM 06/23/2019 12:00:00 AM EDT active 1 application into the lower eyelid of affected eye eCW1 ([facility]) 125 mcg (0.125 mg) 06/23/2019 12:00:00 AM EDT tablet 30 TAKE ONE TABLET BY MOUTH EVERY DAY TAKE ONE TABLET BY MOUTH EVERY DAY SOLD: 11/05/2019 [facility] 25 mg 06/23/2019 12:00:00 AM EDT tablet 60 TAKE ONE TABLET BY MOUTH TWICE A DAY TAKE ONE TABLET BY MOUTH TWICE A DAY SOLD: 10/01/2019 [facility] 125 mcg (0.125 mg) 06/23/2019 12:00:00 AM EDT tablet 30 TAKE ONE TABLET BY MOUTH EVERY DAY TAKE ONE TABLET BY MOUTH EVERY DAY SOLD: 10/01/2019 [facility] 125 mcg (0.125 mg) 06/23/2019 12:00:00 AM EDT tablet 30 TAKE ONE TABLET BY MOUTH EVERY DAY TAKE ONE TABLET BY MOUTH EVERY DAY SOLD: 08/01/2019 [facility] 125 mcg (0.125 mg) 06/23/2019 12:00:00 AM EDT tablet 30 TAKE ONE TABLET BY MOUTH EVERY DAY TAKE ONE TABLET BY MOUTH EVERY DAY SOLD: 08/29/2019 [facility] Erythromycin 0.005 MG/MG Ophthalmic Ointment Erythromy bethel 5 MG/GM Erythromycin 5 MG/GM 06/23/2019 12:00:00 AM EDT active 1 application into the lower eyelid of affected eye eCW1 ([facility]) 25 mg 06/23/2019 12:00:00 AM EDT tablet 60 TAKE ONE TABLET BY MOUTH TWICE A DAY TAKE ONE TABLET BY MOUTH TWICE A DAY SOLD: 11/28/2019 [facility] Erythromycin 0.005 MG/MG Ophthalmic Ointment Erythromy bethel 5 MG/GM Erythromycin 5 MG/GM 06/23/2019 12:00:00 AM EDT active 1 application into the lower eyelid of affected eye eCW1 ([facility]) Erythromycin 0.005 MG/MG Ophthalmic Ointment Erythromy bethel 5 MG/GM Erythromycin 5 MG/GM 06/23/2019 12:00:00 AM EDT active Erythromycin 5 MG/GM eCW1 ([facility]) Digoxin 0.125 MG Oral Tablet 125 mcg (0.125 mg) DIGOXIN 06/23/2019 12:00:00 AM EDT tablet 30 TAKE ONE TABLET BY MOUTH CHIRAG RY DAY TAKE ONE TABLET BY MOUTH EVERY DAY SOLD: 11/28/2019 [facility] Erythromycin 0.005 MG/MG Ophthalmic Ointment Erythromy bethel 5 MG/GM Erythromycin 5 MG/GM 06/23/2019 12:00:00 AM EDT active Erythromycin 5 MG/GM eCW1 ([facility]) 5 mg/gram (0.5 %) 06/23/2019 12:00:00 AM EDT ointment 3 APPLY TOPICALLY TO LOWER EYELID FOUR TIMES A DAY FOR 10 DAYS APPLY TOPICALLY TO LOWER EYELID FOUR TIMES A DAY FOR 10 DAYS SOLD: 06/25/2019 [facility] Erythromycin 0.005 MG/MG Ophthalmic Ointment Erythromy bethel 5 MG/GM Erythromycin 5 MG/GM 06/23/2019 12:00:00 AM EDT active Erythromycin 5 MG/GM eCW1 ([facility]) 25 mg 06/23/2019 12:00:00 AM EDT tablet 60 TAKE ONE TABLET BY MOUTH TWICE A DAY TAKE ONE TABLET BY MOUTH TWICE A DAY SOLD: 06/27/2019 [facility] Erythromycin 0.005 MG/MG Ophthalmic Ointment Erythromy bethel 5 MG/GM Erythromycin 5 MG/GM 06/23/2019 12:00:00 AM EDT active 1 application into the lower eyelid of affected eye eCW1 ([facility]) 40 mg 05/29/2019 12:00:00 AM EDT tablet 120 TAKE TWO TABLETS BY MOUTH TWICE A DAY TAKE TWO TABLETS BY MOUTH TWICE A DAY SOLD: 03/31/2020 [facility] 40 mg 05/29/2019 12:00:00 AM EDT tablet 120 TAKE TWO TABLETS BY MOUTH TWICE A DAY TAKE TWO TABLETS BY MOUTH TWICE A DAY SOLD: 01/30/2020 [facility] 40 mg 05/29/2019 12:00:00 AM EDT tablet 120 TAKE TWO TABLETS BY MOUTH TWICE A DAY TAKE TWO TABLETS BY MOUTH TWICE A DAY SOLD: 05/30/2019 [facility] 40 mg 05/29/2019 12:00:00 AM EDT tablet 120 TAKE TWO TABLETS BY MOUTH TWICE A DAY TAKE TWO TABLETS BY MOUTH TWICE A DAY SOLD: 10/01/2019 [facility] 40 mg 05/29/2019 12:00:00 AM EDT tablet 120 TAKE TWO TABLETS BY MOUTH TWICE A DAY TAKE TWO TABLETS BY MOUTH TWICE A DAY SOLD: 06/27/2019 [facility] 40 mg 05/29/2019 12:00:00 AM EDT tablet 120 TAKE TWO TABLETS BY MOUTH TWICE A DAY TAKE TWO TABLETS BY MOUTH TWICE A DAY SOLD: 08/01/2019 [facility] Megestrol Acetate 40 MG Oral Tablet Mege strol Acetate 40 MG Oral Tablet (MEGACE) Megestrol Acetate 40 MG Oral Tablet (MEGACE) 05/28/2019 12:00:00 AM EDT 80 mg Oral active Take 2 tablets by mouth Two Times Daily [facility] 40 mg 03/29/2019 12:00:00 AM EST tablet 30 TAKE ONE TABLET BY MOUTH EVERY DAY TAKE ONE TABLET BY MOUTH EVERY DAY SOLD: 04/30/2019 [facility] 40 mg 03/29/2019 12:00:00 AM EST tablet 30 TAKE ONE TABLET BY MOUTH EVERY DAY TAKE ONE TABLET BY MOUTH EVERY DAY SOLD: 05/30/2019 [facility] 40 mg 03/29/2019 12:00:00 AM EST tablet 30 TAKE ONE TABLET BY MOUTH EVERY DAY TAKE ONE TABLET BY MOUTH EVERY DAY SOLD: 08/01/2019 [facility] 100 unit/mL (3 mL) 03/29/2019 12:00:00 AM EST insulin pen 45 INJECT 85 UNITS UNDER THE SKIN BEFORE BEDTIME INJECT 85 UNITS UNDER THE SKIN BEFORE BEDTIME SOLD: 04/02/2019 [facility] 40 mg 03/29/2019 12:00:00 AM EST tablet 30 TAKE ONE TABLET BY MOUTH EVERY DAY TAKE ONE TABLET BY MOUTH EVERY DAY SOLD: 06/27/2019 [facility] Losartan Potassium 50 MG Oral Tablet [facility] 02/2019 12:00:00 AM EST tablet 30 TAKE ONE TABLET BY MOUTH CHIRAG TAKE ONE TABLET BY MOUTH EVERY DAY SOLD: 04/02/2019 [facility] 50 mg 03/29/2019 12:00:00 AM EST tablet 30 TAKE ONE TABLET BY MOUTH EVERY DAY TAKE ONE TABLET BY MOUTH EVERY DAY SOLD: 04/30/2019 [facility] 50 mg 03/29/2019 12:00:00 AM EST tablet 30 TAKE ONE TABLET BY MOUTH EVERY DAY TAKE ONE TABLET BY MOUTH EVERY DAY SOLD: 05/30/2019 [facility] 50 mg 03/29/2019 12:00:00 AM EST tablet 30 TAKE ONE TABLET BY MOUTH EVERY DAY TAKE ONE TABLET BY MOUTH EVERY DAY SOLD: 08/01/2019 [facility] 50 mg 03/29/2019 12:00:00 AM EST tablet 30 TAKE ONE TABLET BY MOUTH EVERY DAY TAKE ONE TABLET BY MOUTH EVERY DAY SOLD: 08/29/2019 [facility] 40 mg 03/29/2019 12:00:00 AM EST tablet 30 TAKE ONE TABLET BY MOUTH EVERY DAY TAKE ONE TABLET BY MOUTH EVERY DAY SOLD: 04/02/2019 [facility] atorvastatin 40 MG Oral Tablet ATORVASTATIN CALCIUM 03/29/2019 1 2:00:00 AM EST tablet 30 TAKE ONE TABLET BY MOUTH EVERY D AY TAKE ONE TABLET BY MOUTH EVERY DAY SOLD: 08/29/2019 [facility] 50 mg 03/29/2019 12:00:00 AM EST tablet 30 TAKE ONE TABLET BY MOUTH EVERY DAY TAKE ONE TABLET BY MOUTH EVERY DAY SOLD: 06/27/2019 [facility] 100 unit/mL (3 mL) 03/29/2019 12:00:00 AM EST insulin pen 45 INJECT 85 UNITS UNDER THE SKIN BEFORE BEDTIME INJECT 85 UNITS UNDER THE SKIN BEFORE BEDTIME SOLD: 05/07/2019 [facility] Basaglar KwikPen 100 UNIT/ML Basaglar KwikPen 100 UNIT/ML 12:00:00 AM EST active Basaglar KwikPen 100 UNIT/ML eCW1 ([facility]) Basaglar KwikPen 100 UNIT/ML Basaglar KwikPen 100 UNIT/ML 12:00:00 AM EST active Basaglar KwikPen 100 UNIT/ML eCW1 ([facility]) Basaglar KwikPen 100 UNIT/ML Basaglar KwikPen 100 UNIT/ML 12:00:00 AM EST active Basaglar KwikPen 100 UNIT/ML eCW1 ([facility]) Basaglar KwikPen 100 UNIT/ML Basaglar KwikPen 100 UNIT/ML 12:00:00 AM EST active 85 units eCW1 ([facility]) Basaglar KwikPen 100 UNIT/ML Basaglar KwikPen 100 UNIT/ML 12:00:00 AM EST active 85 units eCW1 ([facility]) Basaglar KwikPen 100 UNIT/ML Basaglar KwikPen 100 UNIT/ML 12:00:00 AM EST active Basaglar KwikPen 100 UNIT/ML eCW1 ([facility]) Basaglar KwikPen 100 UNIT/ML Basaglar KwikPen 100 UNIT/ML 12:00:00 AM EST active 85 units eCW1 ([facility]) Basaglar KwikPen 100 UNIT/ML Basaglar KwikPen 100 UNIT/ML 12:00:00 AM EST active 85 units eCW1 ([facility]) Basaglar KwikPen 100 UNIT/ML Basaglar KwikPen 100 UNIT/ML 12:00:00 AM EST active 85 units eCW1 ([facility]) Basaglar KwikPen 100 UNIT/ML Basaglar KwikPen 100 UNIT/ML 12:00:00 AM EST active Basaglar KwikPen 100 UNIT/ML eCW1 ([facility]) Basaglar KwikPen 100 UNIT/ML Basaglar KwikPen 100 UNIT/ML 12:00:00 AM EST active Basaglar KwikPen 100 UNIT/ML eCW1 ([facility]) Basaglar KwikPen 100 UNIT/ML Basaglar KwikPen 100 UNIT/ML 12:00:00 AM EST active 85 units eCW1 ([facility]) Basaglar KwikPen 100 UNIT/ML Basaglar KwikPen 100 UNIT/ML 12:00:00 AM EST active Basaglar KwikPen 100 UNIT/ML eCW1 ([facility]) Basaglar KwikPen 100 UNIT/ML Basaglar KwikPen 100 UNIT/ML 12:00:00 AM EST active Basaglar KwikPen 100 UNIT/ML eCW1 ([facility]) Basaglar KwikPen 100 UNIT/ML Basaglar KwikPen 100 UNIT/ML 12:00:00 AM EST active Basaglar KwikPen 100 UNIT/ML eCW1 ([facility]) Basaglar KwikPen 100 UNIT/ML Basaglar KwikPen 100 UNIT/ML 12:00:00 AM EST active Basaglar KwikPen 100 UNIT/ML eCW1 ([facility]) Basaglar KwikPen 100 UNIT/ML Basaglar KwikPen 100 UNIT/ML 12:00:00 AM EST active Basaglar KwikPen 100 UNIT/ML eCW1 ([facility]) Basaglar KwikPen 100 UNIT/ML Basaglar KwikPen 100 UNIT/ML 12:00:00 AM EST active Basaglar KwikPen 100 UNIT/ML eCW1 ([facility]) Basaglar KwikPen 100 UNIT/ML Basaglar KwikPen 100 UNIT/ML 12:00:00 AM EST active Basaglar KwikPen 100 UNIT/ML eCW1 ([facility]) Basaglar KwikPen 100 UNIT/ML Basaglar KwikPen 100 UNIT/ML 12:00:00 AM EST active 85 units eCW1 ([facility]) Basaglar KwikPen 100 UNIT/ML Basaglar KwikPen 100 UNIT/ML 12:00:00 AM EST active Basaglar KwikPen 100 UNIT/ML eCW1 ([facility]) Basaglar KwikPen 100 UNIT/ML Basaglar KwikPen 100 UNIT/ML 12:00:00 AM EST active Basaglar KwikPen 100 UNIT/ML eCW1 ([facility]) Basaglar KwikPen 100 UNIT/ML Basaglar KwikPen 100 UNIT/ML 12:00:00 AM EST active Basaglar KwikPen 100 UNIT/ML eCW1 ([facility]) Basaglar KwikPen 100 UNIT/ML Basaglar KwikPen 100 UNIT/ML 12:00:00 AM EST active 85 units eCW1 ([facility]) Basaglar KwikPen 100 UNIT/ML Basaglar KwikPen 100 UNIT/ML 12:00:00 AM EST active Basaglar KwikPen 100 UNIT/ML eCW1 ([facility]) Basaglar KwikPen 100 UNIT/ML Basaglar KwikPen 100 UNIT/ML 12:00:00 AM EST active 85 units eCW1 ([facility]) Basaglar KwikPen 100 UNIT/ML Basaglar KwikPen 100 UNIT/ML 12:00:00 AM EST active Basaglar KwikPen 100 UNIT/ML eCW1 ([facility]) Basaglar KwikPen 100 UNIT/ML Basaglar KwikPen 100 UNIT/ML 12:00:00 AM EST active Basaglar KwikPen 100 UNIT/ML eCW1 ([facility]) Basaglar KwikPen 100 UNIT/ML Basaglar KwikPen 100 UNIT/ML 12:00:00 AM EST active Basaglar KwikPen 100 UNIT/ML eCW1 ([facility]) Basaglar KwikPen 100 UNIT/ML Basaglar KwikPen 100 UNIT/ML 12:00:00 AM EST active Basaglar KwikPen 100 UNIT/ML eCW1 ([facility]) Basaglar KwikPen 100 UNIT/ML Basaglar KwikPen 100 UNIT/ML 12:00:00 AM EST active Basaglar KwikPen 100 UNIT/ML eCW1 ([facility]) Basaglar KwikPen 100 UNIT/ML Basaglar KwikPen 100 UNIT/ML 12:00:00 AM EST active 85 units eCW1 ([facility]) Basaglar KwikPen 100 UNIT/ML Basaglar KwikPen 100 UNIT/ML 12:00:00 AM EST active Basaglar KwikPen 100 UNIT/ML eCW1 ([facility]) Basaglar KwikPen 100 UNIT/ML Basaglar KwikPen 100 UNIT/ML 12:00:00 AM EST active Basaglar KwikPen 100 UNIT/ML eCW1 ([facility]) Basaglar KwikPen 100 UNIT/ML Basaglar KwikPen 100 UNIT/ML 12:00:00 AM EST active Basaglar KwikPen 100 UNIT/ML eCW1 ([facility]) Basaglar KwikPen 100 UNIT/ML Basaglar KwikPen 100 UNIT/ML 12:00:00 AM EST active Basaglar KwikPen 100 UNIT/ML eCW1 ([facility]) Basaglar KwikPen 100 UNIT/ML Basaglar KwikPen 100 UNIT/ML 12:00:00 AM EST active Basaglar KwikPen 100 UNIT/ML eCW1 ([facility]) Basaglar KwikPen 100 UNIT/ML Basaglar KwikPen 100 UNIT/ML 12:00:00 AM EST active Basaglar KwikPen 100 UNIT/ML eCW1 ([facility]) Basaglar KwikPen 100 UNIT/ML Basaglar KwikPen 100 UNIT/ML 12:00:00 AM EST active Basaglar KwikPen 100 UNIT/ML eCW1 ([facility]) Basaglar KwikPen 100 UNIT/ML Basaglar KwikPen 100 UNIT/ML 12:00:00 AM EST active Basaglar KwikPen 100 UNIT/ML eCW1 ([facility]) Basaglar KwikPen 100 UNIT/ML Basaglar KwikPen 100 UNIT/ML 12:00:00 AM EST active Basaglar KwikPen 100 UNIT/ML eCW1 ([facility]) Basaglar KwikPen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 UMSdOYe1YqKpQEDqKTUkvk3AKZZyUONkGDL2LKAvETVkMKDoBQucQTOeBTQmIJP4IVYbMKJmRC6MNuEg ZKAiPYL6QXAlOSGfWEYyei0GBDCxMAZtGaC1BFHcFLIdEKAdFEfiEZHjCYC3GDJ9OUTpLDGdKG6IIvXn PCPfQRMoHTWwGUDvXFGmqd4KXTKrRCMrSROqRNKdEQ IgKCHgCEjqMRBfKBF5QBzhKKNaYUUoFI4VTbQmOPFeSZM7AXVfRAPkIBKiro7BIQKhRJImPKl6AXPaSM KyEQPpUYoqRPQvYVH2ChQ7WDVzXYRgXC0GEsCbMWTlUXf7QSLcSPBgZVVvbh9CXMQiINZxNsf4SDLsFL SaFMLfDFjvFXYpJOA6HIJeGJQlMHCnML6FMsSeXGKu UXyyKYxvDQAxFBLidr6SCSPfBQSaAPU8UCOcGEXjKJDdEXzfLSCdHST5GszjEJLxPLNsYJ5UFjFvLVYa LCl6VDGjKIMjTCMqut6LSVUwKXHwDPv8YXWeSKKhIAZdNJmgJBXgIXCyUok2OUXcGGLuLZ8KSbVxKIKe HiLiDrqmILUdPNWiid1AEXVaFJDvMSDtURSpFQVkAN FgNTg8coVgeLZuNZu6QR1ON5GnvqUaJbRWUj1Ge499YSN3BJNeWu0UN6opJf7eJJIfPHMYQq8DPWl9SB JvGPFvXPqxNmwgNuG0TpPiGCqeBUP1PHq9DlLtXZP+HTirLvWfPNDdUJXeEQS6PwmzXZOeXDA5OgEyGO glSIWpZV1tGLABYv7+ZHzmqVLuhQgnQWQFWzOvDbMhVGtwPOJFCo9N ID Date Data Source [id number] 02/03/2020 12:24:31 PM [facility] Name Value Range Interpretation Code Description Data Jena rce(s) Supporting Document(s) Progress Note [facility] BZLLEw7rSnKUHoFc98/QHCbkROBdz5LsLXsyFZc2FQhgOWBgE3AvLRF0lD1oXBZ2LLbCVxNbZmPbXiS5 lbm [file] AgICAgICAgICAgICAgICAgICAgICAgICAgICAgICAgICAgICAgICAgICANCiAgICAgICAgICAgICAgIC AgICAgICAgICAgICAgICAgICAgICAgICAgICAgICAg ICAgICAgICAgICAgICAgICAgICAgICAgICAgICAgICAgICAgICAgICAgICAgICAgICAgICANCiAgICAg ICAgICAgICAgICAgICAgICAgICAgICAgICAgICAgICAgICAgICAgICAgICAgICAgICAgICAgICAgICAg ICAgICAgICAgICAgICAgICAgICAgICAgICAgICAgIC AgICANCiAgICAgICAgICAgICAgICAgICAgICAgICAgICAgICAgICAgICAgICAgICAgICAgICAgICAgIC AgICAgICAgICAgICAgICAgICAgICAgICAgICAgICAgICAgICAgICAgICAgICANCiAgICAgICAgICAgIC AgICAgICAgICAgICAgICAgICAgICAgICAgICAgICAg ICAgICAgICAgICAgICAgICAgICAgICAgICAgICAgICAgICAgICAgICAgICAgICAgICAgICAgICANCiAg ICAgICAgICAgICAgICAgICAgICAgICAgICAgICAgICAgICAgICAgICAgICAgICAgICAgICAgICAgICAg ICAgICAgICAgICAgICAgICAgICAgICAgICAgICAgIC AgICAgICANCiAgICAgICAgICAgICAgICAgICAgICAgICAgICAgICAgICAgICAgICAgICAgICAgICAgIC AgICAgICAgICAgICAgICAgICAgICAgICAgICAgICAgICAgICAgICAgICAgICAgICANCiAgICAgICAgIC AgICAgICAgICAgICAgICAgICAgICAgICAgICAgICAg ICAgICAgICAgICAgICAgICAgICAgICAgICAgICAgICAgICAgICAgICAgICAgICAgICAgICAgICAgICAN CiAgICAgICAgICAgICAgICAgICAgICAgICAgICAgICAgICAgICAgICAgICAgICAgICAgICAgICAgICAg ICAgICAgICAgICAgICAgICAgICAgICAgICAgICAgIC AgICAgICAgICANCiAgICAgICAgICAgICAgICAgICAgICAgICAgICAgICAgICAgICAgICAgICAgICAgIC AgICAgICAgICAgICAgICAgICAgICAgICAgICAgICAgICAgICAgICAgICAgICAgICAgICANCjw/eHBhY2 swnDHixvF0B7btZw6TMg8EOU0vc7MxPPEtWXomyrKw ZgyVXuRjTLRpSzxLSrh9YZbzNF1TyUSaS2UcM4PbCXnxRC3ZQPGbUFQjuPXhEIEfHDImGhY7FQGiTEpi MM2YwQBuUIivAVWpGPJrZfFrRITkOFPxAHXhIL5RXQZvD096ryMfXj9HVu4FVdQdTY2oop4RReMpFLXq KmlQYsw5IWrlWD5ZuFAqqFXeEqJzTHZFGmIaM2orq2 SaQwilJVHVPAuaER2Ai9IldPPtSCx+Nw3BZX7to9XzAEjtWiMoZY0cli2ZVAqPFaWbN5TecCceOJUxk9 dxPHOnSY4saINuSNG5GEFcxwnvTxJAa1cnzqitXTBwQKCyGJJlFj2uWCFsRFZrQfUaOPNBYX6DIZAaRQ FwyYDhEUWkUSFDQE0SHKpiZZF5UMBnjaYsjQSwEOqe SI1WUFKgapBrIzCoWTJOUTr+Om7TLE1gh6EoKLnqKRArZX7ull8YCXyLXiKrP8S9mSScF3L3FUnnTr6U AKTlSFAsOdUmHRLICTnqWV2ALV4rigA4OF5TjEScISBdAKZaoSPaEZp0B49vdXBiJCzeON9QVCM+Caleb+ Ut2VPQNvQLYgGECzZuBjFDHABhNbY0OfS3SKf4IgJ4 HpCT26ySrozrJtPMayTZ4RZH4yZZPkFUZWBB9UjELtgP2uriDeZtAkTRTJSzMyD45jzNQwKMMaPMZ5HM RvSz5HNKYdN7GlygQhpFepjtIfPPQcTTKWQG3JNQelaxLqgZDibPfxLH70sAozQG3RQh8UMeRiDP1izk 4IyKTeEn3QJWKcDK4JXAFsGYKzPZUwMOP6NSCbOmBf JDuqGJZdMRPbOWG8MJTjTJLxEP5MEkHyWLItBwPrFirlEHWxNALafz3TFJLnWTPgPyU3YiFeXOPqPKMg JStyBYKtZKQkSVO0IWVrKHClME9GKdTrXMCxUUE4RAkwCJHwSQWaic2JMJBbHCClQVAxClByGLVmENRc EZxcIKKiKZO4MJAxQTNcTBMgRY7SPxKkLYVzWAjqXs ZmDMNxMLRtjl9AHEWtWHZrGvq8DNCzUHHpFVJnYLmoCFXiCKZ3DBK8PNPwGANkKZ1KNsTuKIImZVzbPK EqLIBtDDFpqw3WWQFgXWPcJFQrSUBpKTWnXNLyINlyPDZyBYH6Llq4FCVcUGIjUE4ESdYcUTWzLTYtZU ZeWNErLCXgau4ZDAApOAEjIFX0OETfEUZrDJUhHVzk TLUnKJVwDpRxRZXkEMLeBK1UJgEqMPMbPgLtARerPHIeWJEahb9OSAWsIFUqEzLbQRXvBQKzYCEzWYjo KCUlCCAzYdTfAALmIZMgZS6BHjUaHYZuHiO8HfQiCPGbHHShwk4VMJQoRBIcFvUfRFTrFMAwXJDoRMih HUCtNLLbTKViQQHuJPPmVI3AJzYvZOIxRdHdGjXcSL TeAPZojm1PDZMuOLMfDMLgXBHfZKYpLXNjTSucIKWdQLF1KaDmULReIBNsCW9ABaUzHSKdBzXxBrHhBB PsPHMncc1LDJIhZEKcJtK5SkTqWZGbVOLeLEotZRWoBKK9XudlCBNcUCCrGK4TOfNjZBwhTBPIHdh8QK ivH7a4GTJlBU5DG6Fgl4TgSmcsKDAMHHmiIJ1uhgRg BNNbBa1JW9qITrcxOkEmN4UrBXEfNAF5JNi7DZLaFvHtHkh4OAP5FvLfBh9iKAGqVMDnPND7HiAzVMVa VMxdHqYtJPJ6WFd4KrbeFAGkPjFeRJ3WHk2RJhP9RMP8nSRrPt5VAvF8GhLQTmAjSV2ERKs= ID Date Data Source [id number] 02/04/2020 08:05:00 PM EST [facility] Surgical Pathology ReportName: LULI MILLERMRN: [id number] Number: [id number] Date: 02/02/2020 00:00Received Date: 02/02/2020 14:37Physician(s): GABE KOCH,GABE GREENE,MDSpecimen(s) ReceivedA: EndometriumClinical HistoryEndometrial adenocarcinoma. DiagnosisENDOMETRIUM, BIOPSY: SMALL FOCI OF RESIDUAL TREATED ADENOCARCINOMA IN ABACKGROUND OF PROGESTERONE TREATMENT EFFECT AND ACUTE INFLAMMATIONElectronically Signed By Rosalba Gay M.D., Attending Nxzauemzzdj22/9/2020 20:05:45 Unless 'gross-only' is specified, the final diagnosis is based on amicroscopic examination of sales representative printing sections of tissue.Gross DescriptionThe specimen is received in formalin labeled with the patient's name"Luli Miller" and "endometrial biopsy". It consists of hemorrhagictissue fragments and clotted blood measuring 3.7 x 3.7 x 0.5 cm inaggregate. Totally submitted in two cassettes.KW/pmwThis report may include one or more immunohistochemical stain results thatuse analyte specific reagents. All positive and negative controls havebeen reviewed by the attending pathologist and are satisfactory. The testswere developed and their performance characteristics determined by [facility] Pathology department. They have not been cleared or approved by the USFood and Drug Administration. The FDA has determined that such clearanceor approval is not necessary. Name Value Range Interpretation Code Description Data Jena rce(s) Supporting Document(s) ID Date Data Source [id number] 07/03/2019 03:51:46 PM EDT [facility] Name Value Range Interpretation Code Description Data Jena rce(s) Supporting Document(s) Progress Note [facility] DIVCYg5rSpMHCjLt07/LFGynAAFuq8ExUTzyDAu0KLtrBZFiG7UjUUL8pD5eQYG3TOgJUbMxLkDuDMR2 lbm [file] tWSdpc0hIsZq8+ruJqfrKTRQpHMwJGxZf1t3P3mChEHG2Z4rUtxMlmJAAwqjziQESLnt57jFHdf++Julien ZRyy4E6sIJwj+Rpy+11YJ0KtCowIfXCM7g2Bbb2C1HrjTTaD0aB/GLpGPYFKV9qgXiw2d5ZUvc5WTtGr pQLOYNZfRYO0bGYilVB1ajzVv1QHA39IpjmTGUm/0B /9FzK25pGXpaX8NjKH+RfAYj/SmYlqUmO3ZwuszwZmhwMMhB4TJIihG+h+QffQZQ6XSkBfbvCAYvVA13 tcMTxkuMnueAVK9PObSMM9fZYFSvKK2Z9tlEACGxKRYssAOVP/ii0gNTMt13lqZsmbRaoFhlGMx1Prdb n8Xl/Ir65h3e5d9fPj3oA0pvc/7Lo8qjWqVcAf4P0a omutGcgBAEKra2icRU7skmHM3ik0molP9bwPT8N4P/ai9TaLL1w/S8pngzuc25o5GYv8Z/NVfihvmhLx /Way/Mf5+JhyNdR8/Kn01tqqfx47oQhJm1ZfIrE9MsnIM/A79YFxxIQGhgQrkow3esxcSdT/55acJyXu my0UOTs6YKMbbmIQUJItX+KAIAKO KOHANGA REO+dozlfuo+1zuWcVzD [file] Tu4ifCEfkZBcpNCbi4K/7K5oYGkVTWMYfd0aYVjXsqYRKF+TdLprcpGBFofTO3Bz/Aytwm9Qurlzi/[employer] [file] AgICAgICAgICAgICAgICAgICAgICAgICAgICAgICAg ICAgICAgICAgICAgICAgICAgICAgICAgICAgICAgICAgICAgICAgICAgICAgICAgICAgICAgICAgICAg ICAgICANCiAgICAgICAgICAgICAgICAgICAgICAgICAgICAgICAgICAgICAgICAgICAgICAgICAgICAg ICAgICAgICAgICAgICAgICAgICAgICAgICAgICAgIC AgICAgICAgICAgICAgICANCiAgICAgICAgICAgICAgICAgICAgICAgICAgICAgICAgICAgICAgICAgIC AgICAgICAgICAgICAgICAgICAgICAgICAgICAgICAgICAgICAgICAgICAgICAgICAgICAgICAgICANCi AgICAgICAgICAgICAgICAgICAgICAgICAgICAgICAg ICAgICAgICAgICAgICAgICAgICAgICAgICAgICAgICAgICAgICAgICAgICAgICAgICAgICAgICAgICAg ICAgICAgICANCiAgICAgICAgICAgICAgICAgICAgICAgICAgICAgICAgICAgICAgICAgICAgICAgICAg ICAgICAgICAgICAgICAgICAgICAgICAgICAgICAgIC AgICAgICAgICAgICAgICAgICANCiAgICAgICAgICAgICAgICAgICAgICAgICAgICAgICAgICAgICAgIC AgICAgICAgICAgICAgICAgICAgICAgICAgICAgICAgICAgICAgICAgICAgICAgICAgICAgICAgICAgIC ANCiAgICAgICAgICAgICAgICAgICAgICAgICAgICAg ICAgICAgICAgICAgICAgICAgICAgICAgICAgICAgICAgICAgICAgICAgICAgICAgICAgICAgICAgICAg ICAgICAgICAgICANCiAgICAgICAgICAgICAgICAgICAgICAgICAgICAgICAgICAgICAgICAgICAgICAg ICAgICAgICAgICAgICAgICAgICAgICAgICAgICAgIC AgICAgICAgICAgICAgICAgICAgICANCiAgICAgICAgICAgICAgICAgICAgICAgICAgICAgICAgICAgIC AgICAgICAgICAgICAgICAgICAgICAgICAgICAgICAgICAgICAgICAgICAgICAgICAgICAgICAgICAgIC AgICANCiAgICAgICAgICAgICAgICAgICAgICAgICAg ICAgICAgICAgICAgICAgICAgICAgICAgICAgICAgICAgICAgICAgICAgICAgICAgICAgICAgICAgICAg ICAgICAgICAgICAgICANCjw/bJWxM7hyfLUzjkH8E0cwXe0DIe0FXC6ut0BhWNHtYCxxeqUrTbkBBsAk HHUgIckYDds5XKdtPD5HiTOvZ8LzL4SuGJnpNI8MTL TyZPMrrUDxRQNcLCZkHxF0KGFkLStnNI2GxRNqJQbrCXMtRLOvRwVsKGTgYNDeEFWgIADrHFFDCV8XKk HsJ1YyjE82IWJVTh9+RAplxyUvXnjYOdE9HEJem8NiATw9VG2FVKQpAzljt1UsUjEcGUYWFFqyPV2ALB U4JNG1NHNrMa6UNMWrD127yoGxNG5QJo8DLsPpGX8w ra8LIuMgIWQpSkzMBzs8LAllXR2TkEXfIJvKhv7jafMtckPCy8FnfwQolEWXgA7gaOOTYZOrXJP7HEgl JG7ZEAP6MHBnPj2yWXQpKSEzEeDgKUEXHF7RQTQiYFSpeHNlEGGlHSUGQD2SNEckHJK1UEUxfcXucTSq TNgfGG0GJMZgyfTwDkCoEHVZWYk+Uk3NJS8es9IsNJ cxVqXlNM3kod8HPFcROuVfH8E0rMElC1H1KKtyLu8UUFDdWYDrPpBsNZFQWLntJW7TKM4lctB7QK1AzG PaGYDnBCBofVBqVJu9L19faKKvSJuqIZ1OAER+Caleb+Gf6NLXNfNDSmTSEuOhMbESEFMjMtZ1NfB9QJy9 NpZ4YhWU78kDhuapIuSSltIC8BFG4vMBNgHAHUED4H oYEhnB1rufBwYTSoLZLXWjWjO92xgSOoZOEmQFZ3WCLlFl8KTVAoY7WmyvBehCjjbgRrJHOsGHPLMX7I REdalpYlvAHfuLioOV26mOrxWT1OGn8OKiLxKS6bdt2VvVVqXj5ENKHsKB7BHLDwQSWnPMXpTFD2EFId NcRsADwjYJYhMJVdQAM6RTAeQXKoRO9HGqVpYIBgZt A4IfqjWNWsBKHdtj6BXPYuRZQrTWP0PxBeWEUhOTZdLImqYIUgYOYbDYK5TTYtABFsPE4JIdCjRKDgOB WzDgooQJUvKDIyts3QLCLdTNEcQgV9YIUwSMWcCVOpZKfnDFYtCFD6BLP1DHGiGVGqIY9VTeTsIPMvEL ZhRwwhWELuDOMbts1FLXSnFTHpVQM3EEVhJCYnEJKt XJxbXBKjECU2BnRwHNCtXNOhJZ6AFeEwFXZrZYDxETJmCEZkTJDsyb6KOUDlFOZbBEVdKzMcPATcBJHf SKucVJVsKEVzRTG6DDAlFWQwXG5BXlQtEFPtYXT4RqDbZRIbREGhve3NVTFnDZJwEft5NiGkOCFvKXFp EFixQMSdCWRrIPA6KCDcYPXrYQ0CXpZfGGQpMMVdAB sgYXQqEOXuhh2BJXYjCYIwCHW1RwFyBPWjKWWsGApfJTQlYDT6BiQ0TDBaPRHoUE8UPaZaUYReNiM8BY XaPXEoHCQbko9ZDZErMYWqVaI7SXAoFIUnDPPlSCmgQDOcOGW2OKNcGPCqDOGkRR1ANySvKLZjCpK8RI EzOZCyFOWcjo9OEGWiBLRnBof8LvWdMWHvUCLiRPre PVWtKOY7KTE4KYLzGPVbLY6ZKgPmCHCvLpm0HQVkLSWsYVJapq2HTUEfSUNbQPNhNWXxHBYkKJVmNHr5 eaNgvDOxUWn6NP0SO4DwfnPuQrmIYl8Fu145YBY3FVGrNl5QQ6foXf2rCEDgPBICBc4POYw2WABkS1I0 IfWaPvs9EFU2GJg1FnBbZJEaALJ4CKHdTVW+IDwwNW DkLtLkXBZmMAGxVTT7AJenEgT2NRU3YhQlCFTdGA6bNQNOYl1+VBpyyOPmrMywZSJJNyW3PLn0ENptWT VPRg0K ID Date Data Source [id number] 06/04/2019 03:54:06 PM EDT [facility] Name Value Range Interpretation Code Description Data Jena rce(s) Supporting Document(s) Progress Note [facility] [id number]/[id number]7rXLH2FRoKVxCpIhPmWXJ9 lbm [file] [id number]sQQSmBiNO5UBZz= Procedure Social History Code Duration Value Status Description Data Source(s ) Smoking 04/07/2020 12:00:00 AM EST Never Smoker completed Never S mario eCW1 ([facility]) Smoking 03/31/2020 12:00:00 AM EST Never Smoker completed Never S moker eCW1 ([facility]) Smoking 03/25/2020 12:00:00 AM EST Never Smoker completed Never S moker eCW1 ([facility]) Smoking 03/25/2020 12:00:00 AM EST Never Smoker completed Never S moker eCW1 ([facility]) Smoking 03/18/2020 12:00:00 AM EST Never Smoker completed Never S moker eCW1 ([facility]) Smoking 03/10/2020 12:00:00 AM EST Never Smoker completed Never S moker eCW1 ([facility]) Smoking 03/04/2020 12:00:00 AM EST Never Smoker completed Never S moker eCW1 ([facility]) Alcohol intake 03/01/2020 12:00:00 AM EST Current non-d acacia of alcohol (finding) completed Current non-drinker of alcohol (finding) [facility] Tobacco use and exposure 03/01/2020 12:00:00 AM EST Never used co mpleted Never used [facility] Smoking 03/01/2020 12:00:00 AM EST Never smoker completed Never s [facility] Smoking 02/26/2020 12:00:00 AM EST Never Smoker completed Never S moker eCW1 ([facility]) Smoking 02/26/2020 12:00:00 AM EST Never Smoker completed Never S moker eCW1 ([facility]) Smoking 02/26/2020 12:00:00 AM EST Never Smoker completed Never S moker eCW1 ([facility]) Smoking 02/12/2020 12:00:00 AM EST Never Smoker completed Never S moker eCW1 ([facility]) Smoking 02/05/2020 12:00:00 AM EST Never Smoker completed Never S moker eCW1 ([facility]) Smoking 02/05/2020 12:00:00 AM EST Never Smoker completed Never S moker eCW1 ([facility]) Alcohol intake 02/02/2020 12:00:00 AM EST Current non-d acacia of alcohol (finding) completed Current non-drinker of alcohol (finding) [facility] Smoking 01/29/2020 12:00:00 AM EST Never Smoker completed Never S moker eCW1 ([facility]) Smoking 01/29/2020 12:00:00 AM EST Never Smoker completed Never S moker eCW1 ([facility]) Smoking 01/29/2020 12:00:00 AM EST Never Smoker completed Never S moker eCW1 ([facility]) Smoking 01/29/2020 12:00:00 AM EST Never Smoker completed Never S moker eCW1 ([facility]) Smoking 01/16/2020 12:00:00 AM EST Never Smoker completed Never S moker eCW1 ([facility]) Smoking 01/05/2020 12:00:00 AM EST Never Smoker completed Never S moker eCW1 ([facility]) Smoking 12/23/2019 12:00:00 AM EDT Never Smoker completed Never S moker eCW1 ([facility]) Smoking 12/23/2019 12:00:00 AM EDT Never Smoker completed Never S moker eCW1 ([facility]) Smoking 12/23/2019 12:00:00 AM EDT Never Smoker completed Never S moker eCW1 ([facility]) Smoking 12/15/2019 12:00:00 AM EDT Never Smoker completed Never S moker eCW1 ([facility]) Smoking 12/08/2019 12:00:00 AM EDT Never Smoker completed Never S moker eCW1 ([facility]) Smoking 12/08/2019 12:00:00 AM EDT Never Smoker completed Never S moker eCW1 ([facility]) Smoking 12/01/2019 12:00:00 AM EDT Never Smoker completed Never S moker eCW1 ([facility]) Smoking 12/01/2019 12:00:00 AM EDT Never Smoker completed Never S moker eCW1 ([facility]) Smoking 11/27/2019 12:00:00 AM EDT Never Smoker completed Never S moker eCW1 ([facility]) Smoking 09/10/2019 12:00:00 AM EDT Never Smoker completed Never S moker eCW1 ([facility]) Smoking 09/10/2019 12:00:00 AM EDT Never Smoker completed Never S moker eCW1 ([facility]) Smoking 08/14/2019 12:00:00 AM EDT Never Smoker completed Never S moker eCW1 ([facility]) Smoking 08/14/2019 12:00:00 AM EDT Never Smoker completed Never S moker eCW1 ([facility]) Smoking 08/08/2019 12:00:00 AM EDT Never Smoker completed Never S moker eCW1 ([facility]) Smoking 08/08/2019 12:00:00 AM EDT Never Smoker completed Never S moker eCW1 ([facility]) Smoking 07/31/2019 12:00:00 AM EDT Never Smoker completed Never S moker eCW1 ([facility]) Smoking 07/31/2019 12:00:00 AM EDT Never Smoker completed Never S moker eCW1 ([facility]) Alcohol intake 07/03/2019 12:00:00 AM EDT Current non-d acacia of alcohol (finding) completed Current non-drinker of alcohol (finding) [facility] Smoking 07/03/2019 12:00:00 AM EDT Never smoker completed Never s [facility] Alcohol intake 06/04/2019 12:00:00 AM EDT Current non-d acacia of alcohol (finding) completed Current non-drinker of alcohol (finding) [facility] Smoking 06/04/2019 12:00:00 AM EDT Never smoker completed Never s [facility] Vital Signs ID Date Data Source UNK Name Value Range Interpretation Code Description Data Source(s) Diastolic blood pressure 64 mm[Hg] 64 mm[Hg] eCW1 ([facility]) Systolic blood pressure 132 mm[Hg] 132 mm[Hg] e CW1 ([facility]) Body temperature 97.2 [degF] 97.2 [degF] eCW1 ( [facility]) Respiratory rate 18 /min 18 /min eCW1 ([facility]) Heart rate 75 /min 75 /min eCW1 ([facility]) Body mass index (BMI) [Ratio] 42.12 kg/m2 42.12 kg/m2 eCW1 ([facility]) Body height 66 [in_i] 66 [in_i] eCW1 ([facility]) Body weight kg eCW1 ([facility]) Body weight 261 [lb_av] 261 [lb_av] eCW1 ([facility]) Diastolic blood pressure 82 mm[Hg] 82 mm[Hg] eCW1 ([facility]) Systolic blood pressure 150 mm[Hg] 150 mm[Hg] e CW1 ([facility]) Body temperature 97.2 [degF] 97.2 [degF] eCW1 ( [facility]) Respiratory rate 18 /min 18 /min eCW1 ([facility]) Heart rate 72 /min 72 /min eCW1 ([facility]) Body mass index (BMI) [Ratio] 42.12 kg/m2 42.12 kg/m2 eCW1 ([facility]) Body height 66 [in_i] 66 [in_i] eCW1 ([facility]) Body weight kg eCW1 ([facility]) Body weight 261 [lb_av] 261 [lb_av] eCW1 ([facility]) Diastolic blood pressure 64 mm[Hg] 64 mm[Hg] eCW1 ([facility]) Systolic blood pressure 140 mm[Hg] 140 mm[Hg] e CW1 ([facility]) Body temperature 96.5 [degF] 96.5 [degF] eCW1 ( [facility]) Respiratory rate 18 /min 18 /min eCW1 ([facility]) Heart rate 74 /min 74 /min eCW1 ([facility]) Body mass index (BMI) [Ratio] 42.12 kg/m2 42.12 kg/m2 eCW1 ([facility]) Body height 66 [in_i] 66 [in_i] eCW1 ([facility]) Body weight kg eCW1 ([facility]) Body weight 261 [lb_av] 261 [lb_av] eCW1 ([facility]) Diastolic blood pressure 62 mm[Hg] 62 mm[Hg] eCW1 ([facility]) Systolic blood pressure 130 mm[Hg] 130 mm[Hg] e CW1 ([facility]) Body temperature 96.7 [degF] 96.7 [degF] eCW1 ( [facility]) Respiratory rate 18 /min 18 /min eCW1 ([facility]) Heart rate 67 /min 67 /min eCW1 ([facility]) Body mass index (BMI) [Ratio] 42.12 kg/m2 42.12 kg/m2 eCW1 ([facility]) Body height 66 [in_i] 66 [in_i] eCW1 ([facility]) Body weight kg eCW1 ([facility]) Body weight 261 [lb_av] 261 [lb_av] eCW1 ([facility]) Diastolic blood pressure mm[Hg] eCW1 ([facility]) Systolic blood pressure 154 mm[Hg] 154 mm[Hg] e CW1 ([facility]) Body temperature 96.5 [degF] 96.5 [degF] eCW1 ( [facility]) Body weight kg eCW1 ([facility]) Body weight 261 [lb_av] 261 [lb_av] eCW1 ([facility]) Respiratory rate 17 /min 17 /min eCW1 ([facility]) Heart rate 67 /min 67 /min eCW1 ([facility]) Body mass index (BMI) [Ratio] 42.12 kg/m2 42.12 kg/m2 eCW1 ([facility]) Body height 66 [in_i] 66 [in_i] eCW1 ([facility]) Diastolic blood pressure 70 mm[Hg] 70 mm[Hg] eCW1 ([facility]) Systolic blood pressure 124 mm[Hg] 124 mm[Hg] e CW1 ([facility]) Body temperature 96.5 [degF] 96.5 [degF] eCW1 ( [facility]) Respiratory rate 18 /min 18 /min eCW1 ([facility]) Heart rate 84 /min 84 /min eCW1 ([facility]) Body mass index (BMI) [Ratio] 42.12 kg/m2 42.12 kg/m2 eCW1 ([facility]) Body height 66 [in_i] 66 [in_i] eCW1 ([facility]) Body weight kg eCW1 ([facility]) Body weight 261 [lb_av] 261 [lb_av] eCW1 ([facility]) Diastolic blood pressure 68 mm[Hg] 68 mm[Hg] eCW1 ([facility]) Systolic blood pressure 122 mm[Hg] 122 mm[Hg] e CW1 ([facility]) Body temperature 95.3 [degF] 95.3 [degF] eCW1 ( [facility]) Respiratory rate 20 /min 20 /min eCW1 ([facility]) Heart rate 77 /min 77 /min eCW1 ([facility]) Body mass index (BMI) [Ratio] 42.12 kg/m2 42.12 kg/m2 eCW1 ([facility]) Body height 66 [in_i] 66 [in_i] eCW1 ([facility]) Body weight kg eCW1 ([facility]) Body weight 261 [lb_av] 261 [lb_av] eCW1 ([facility]) Diastolic blood pressure 88 mm[Hg] 88 mm[Hg] eCW1 ([facility]) Systolic blood pressure 132 mm[Hg] 132 mm[Hg] e CW1 ([facility]) Body temperature 97.8 [degF] 97.8 [degF] eCW1 ( [facility]) Respiratory rate 20 /min 20 /min eCW1 ([facility]) Heart rate 82 /min 82 /min eCW1 ([facility]) Body mass index (BMI) [Ratio] 42.12 kg/m2 42.12 kg/m2 eCW1 ([facility]) Body height 66 [in_i] 66 [in_i] eCW1 ([facility]) Body weight kg eCW1 ([facility]) Body weight 261 [lb_av] 261 [lb_av] eCW1 ([facility]) Diastolic blood pressure 88 mm[Hg] 88 mm[Hg] eCW1 ([facility]) Systolic blood pressure 142 mm[Hg] 142 mm[Hg] e CW1 ([facility]) Body temperature 96.6 [degF] 96.6 [degF] eCW1 ( [facility]) Respiratory rate 20 /min 20 /min eCW1 ([facility]) Heart rate 76 /min 76 /min eCW1 ([facility]) Body mass index (BMI) [Ratio] 42.12 kg/m2 42.12 kg/m2 eCW1 ([facility]) Body height 66 [in_i] 66 [in_i] eCW1 ([facility]) Body weight kg eCW1 ([facility]) Body weight 261 [lb_av] 261 [lb_av] eCW1 ([facility]) Diastolic blood pressure 74 mm[Hg] 74 mm[Hg] eCW1 ([facility]) Systolic blood pressure 138 mm[Hg] 138 mm[Hg] e CW1 ([facility]) Body temperature 96.5 [degF] 96.5 [degF] eCW1 ( [facility]) Respiratory rate 20 /min 20 /min eCW1 ([facility]) Heart rate 71 /min 71 /min eCW1 ([facility]) Body mass index (BMI) [Ratio] 42.12 kg/m2 42.12 kg/m2 eCW1 ([facility]) Body height 66 [in_i] 66 [in_i] eCW1 ([facility]) Body weight kg eCW1 ([facility]) Body weight 261 [lb_av] 261 [lb_av] eCW1 ([facility]) Diastolic blood pressure 80 mm[Hg] 80 mm[Hg] eCW1 ([facility]) Systolic blood pressure 142 mm[Hg] 142 mm[Hg] e CW1 ([facility]) Body temperature 97.8 [degF] 97.8 [degF] eCW1 ( [facility]) Respiratory rate 18 /min 18 /min eCW1 ([facility]) Heart rate 80 /min 80 /min eCW1 ([facility]) Body mass index (BMI) [Ratio] 42.12 kg/m2 42.12 kg/m2 eCW1 ([facility]) Body height 66 [in_i] 66 [in_i] eCW1 ([facility]) Body weight kg eCW1 ([facility]) Body weight 261 [lb_av] 261 [lb_av] eCW1 ([facility]) Diastolic blood pressure 76 mm[Hg] 76 mm[Hg] eCW1 ([facility]) Systolic blood pressure 146 mm[Hg] 146 mm[Hg] e CW1 ([facility]) Body temperature 97.7 [degF] 97.7 [degF] eCW1 ( [facility]) Respiratory rate 16 /min 16 /min eCW1 ([facility]) Heart rate 76 /min 76 /min eCW1 ([facility]) Body mass index (BMI) [Ratio] 42.12 kg/m2 42.12 kg/m2 eCW1 ([facility]) Body height 66 [in_i] 66 [in_i] eCW1 ([facility]) Body weight kg eCW1 ([facility]) Body weight 261 [lb_av] 261 [lb_av] eCW1 ([facility]) Diastolic blood pressure 96 mm[Hg] 96 mm[Hg] eCW1 ([facility]) Systolic blood pressure 164 mm[Hg] 164 mm[Hg] e CW1 ([facility]) Body temperature 95.9 [degF] 95.9 [degF] eCW1 ( [facility]) Respiratory rate 16 /min 16 /min eCW1 ([facility]) Heart rate 89 /min 89 /min eCW1 ([facility]) Body mass index (BMI) [Ratio] 42.12 kg/m2 42.12 kg/m2 eCW1 ([facility]) Body height 66 [in_i] 66 [in_i] eCW1 ([facility]) Body weight kg eCW1 ([facility]) Body weight 261 [lb_av] 261 [lb_av] eCW1 ([facility]) Diastolic blood pressure 98 mm[Hg] 98 mm[Hg] eCW1 ([facility]) Systolic blood pressure 164 mm[Hg] 164 mm[Hg] e CW1 ([facility]) Body temperature 96.7 [degF] 96.7 [degF] eCW1 ( [facility]) Respiratory rate 16 /min 16 /min eCW1 ([facility]) Heart rate 70 /min 70 /min eCW1 ([facility]) Body mass index (BMI) [Ratio] 43.74 kg/m2 43.74 kg/m2 eCW1 ([facility]) Body height 66 [in_i] 66 [in_i] eCW1 ([facility]) Body weight kg eCW1 ([facility]) Body weight 271 [lb_av] 271 [lb_av] eCW1 ([facility]) Diastolic blood pressure mm[Hg] eCW1 ([facility]) Systolic blood pressure 152 mm[Hg] 152 mm[Hg] e CW1 ([facility]) Body temperature 96.7 [degF] 96.7 [degF] eCW1 ( [facility]) Respiratory rate 20 /min 20 /min eCW1 ([facility]) Heart rate 77 /min 77 /min eCW1 ([facility]) Body mass index (BMI) [Ratio] 43.74 kg/m2 43.74 kg/m2 eCW1 ([facility]) Body height 66 [in_i] 66 [in_i] eCW1 ([facility]) Body weight kg eCW1 ([facility]) Body weight 271 [lb_av] 271 [lb_av] eCW1 ([facility]) Diastolic blood pressure mm[Hg] eCW1 ([facility]) Systolic blood pressure 160 mm[Hg] 160 mm[Hg] e CW1 ([facility]) Body temperature 97.4 [degF] 97.4 [degF] eCW1 ( [facility]) Respiratory rate 18 /min 18 /min eCW1 ([facility]) Heart rate 73 /min 73 /min eCW1 ([facility]) Body mass index (BMI) [Ratio] 43.77 kg/m2 43.77 kg/m2 eCW1 ([facility]) Body height 66 [in_i] 66 [in_i] eCW1 ([facility]) Body weight kg eCW1 ([facility]) Body weight 271.2 [lb_av] 271.2 [lb_av] eCW1 ([facility]) Diastolic blood pressure 78 mm[Hg] 78 mm[Hg] eCW1 ([facility]) Systolic blood pressure 132 mm[Hg] 132 mm[Hg] e CW1 ([facility]) Body temperature 98.7 [degF] 98.7 [degF] eCW1 ( [facility]) Respiratory rate 18 /min 18 /min eCW1 ([facility]) Heart rate 87 /min 87 /min eCW1 ([facility]) Body mass index (BMI) [Ratio] 43.77 kg/m2 43.77 kg/m2 eCW1 ([facility]) Body height 66 [in_i] 66 [in_i] eCW1 ([facility]) Body weight 271.2 [lb_av] 271.2 [lb_av] eCW1 ([facility]) Diastolic blood pressure mm[Hg] eCW1 ([facility]) Systolic blood pressure 138 mm[Hg] 138 mm[Hg] e CW1 ([facility]) Body temperature 98.2 [degF] 98.2 [degF] eCW1 ( [facility]) Respiratory rate 19 /min 19 /min eCW1 ([facility]) Heart rate 68 /min 68 /min eCW1 ([facility]) Body mass index (BMI) [Ratio] 44.87 kg/m2 44.87 kg/m2 eCW1 ([facility]) Body height 66 [in_i] 66 [in_i] eCW1 ([facility]) Body weight kg eCW1 ([facility]) Body weight 278 [lb_av] 278 [lb_av] eCW1 ([facility]) Diastolic blood pressure 70 mm[Hg] 70 mm[Hg] eCW1 ([facility]) Systolic blood pressure 138 mm[Hg] 138 mm[Hg] e CW1 ([facility]) Body temperature 98.0 [degF] 98.0 [degF] eCW1 ( [facility]) Respiratory rate 18 /min 18 /min eCW1 ([facility]) Heart rate 72 /min 72 /min eCW1 ([facility]) Body mass index (BMI) [Ratio] 44.87 kg/m2 44.87 kg/m2 eCW1 ([facility]) Body height 66 [in_i] 66 [in_i] eCW1 ([facility]) Body weight kg eCW1 ([facility]) Body weight 278 [lb_av] 278 [lb_av] eCW1 ([facility]) Systolic blood pressure 122 mm[Hg] 122 mm[Hg] e CW1 ([facility]) Body temperature 98.3 [degF] 98.3 [degF] eCW1 ( [facility]) Respiratory rate 20 /min 20 /min eCW1 ([facility]) Heart rate 75 /min 75 /min eCW1 ([facility]) Body mass index (BMI) [Ratio] 44.87 kg/m2 44.87 kg/m2 eCW1 ([facility]) Body height 66 [in_i] 66 [in_i] eCW1 ([facility]) Body weight kg eCW1 ([facility]) Body weight 278 [lb_av] 278 [lb_av] eCW1 ([facility]) Diastolic blood pressure 68 mm[Hg] 68 mm[Hg] eCW1 ([facility]) Diastolic blood pressure 82 mm[Hg] 82 mm[Hg] eCW1 ([facility]) Systolic blood pressure 144 mm[Hg] 144 mm[Hg] e CW1 ([facility]) Body temperature 99.5 [degF] 99.5 [degF] eCW1 ( [facility]) Respiratory rate 16 /min 16 /min eCW1 ([facility]) Heart rate 82 /min 82 /min eCW1 ([facility]) Body mass index (BMI) [Ratio] 44.87 kg/m2 44.87 kg/m2 eCW1 ([facility]) Body height 66 [in_i] 66 [in_i] eCW1 ([facility]) Body weight kg eCW1 ([facility]) Body weight 278 [lb_av] 278 [lb_av] eCW1 ([facility]) Diastolic blood pressure 70 mm[Hg] 70 mm[Hg] eCW1 ([facility]) Systolic blood pressure 136 mm[Hg] 136 mm[Hg] e CW1 ([facility]) Body temperature 97.1 [degF] 97.1 [degF] eCW1 ( [facility]) Respiratory rate 20 /min 20 /min eCW1 ([facility]) Heart rate 72 /min 72 /min eCW1 ([facility]) Body mass index (BMI) [Ratio] 44.87 kg/m2 44.87 kg/m2 eCW1 ([facility]) Body height 66 [in_i] 66 [in_i] eCW1 ([facility]) Body weight kg eCW1 ([facility]) Body weight 278 [lb_av] 278 [lb_av] eCW1 ([facility]) Diastolic blood pressure 60 mm[Hg] 60 mm[Hg] eCW1 ([facility]) Systolic blood pressure 138 mm[Hg] 138 mm[Hg] e CW1 ([facility]) Body temperature 99.2 [degF] 99.2 [degF] eCW1 ( [facility]) Respiratory rate 20 /min 20 /min eCW1 ([facility]) Heart rate 89 /min 89 /min eCW1 ([facility]) Body mass index (BMI) [Ratio] 44.87 kg/m2 44.87 kg/m2 eCW1 ([facility]) Body height 66 [in_i] 66 [in_i] eCW1 ([facility]) Body weight kg eCW1 ([facility]) Body weight 278 [lb_av] 278 [lb_av] eCW1 ([facility]) Diastolic blood pressure 74 mm[Hg] 74 mm[Hg] eCW1 ([facility]) Systolic blood pressure 126 mm[Hg] 126 mm[Hg] e CW1 ([facility]) Body temperature 98.3 [degF] 98.3 [degF] eCW1 ( [facility]) Respiratory rate 18 /min 18 /min eCW1 ([facility]) Heart rate 87 /min 87 /min eCW1 ([facility]) Body mass index (BMI) [Ratio] 44.87 kg/m2 44.87 kg/m2 eCW1 ([facility]) Body height 66 [in_i] 66 [in_i] eCW1 ([facility]) Body weight kg eCW1 ([facility]) Body weight 278 [lb_av] 278 [lb_av] eCW1 ([facility]) Diastolic blood pressure 86 mm[Hg] 86 mm[Hg] eCW1 ([facility]) Systolic blood pressure 138 mm[Hg] 138 mm[Hg] e CW1 ([facility]) Body temperature 97 [degF] 97 [degF] eCW1 ([facility]) Respiratory rate 20 /min 20 /min eCW1 ([facility]) Heart rate 78 /min 78 /min eCW1 ([facility]) Body mass index (BMI) [Ratio] 44.87 kg/m2 44.87 kg/m2 eCW1 ([facility]) Body height 66 [in_us] 66 [in_us] eCW1 ([facility]) Body weight Measured 278 [lb_av] 278 [lb_av] eC W1 ([facility]) Diastolic blood pressure 84 mm[Hg] 84 mm[Hg] eCW1 ([facility]) Systolic blood pressure 138 mm[Hg] 138 mm[Hg] e CW1 ([facility]) Body temperature 98.1 [degF] 98.1 [degF] eCW1 ( [facility]) Respiratory rate 16 /min 16 /min eCW1 ([facility]) Heart rate 74 /min 74 /min eCW1 ([facility]) Body mass index (BMI) [Ratio] 44.87 kg/m2 44.87 kg/m2 eCW1 ([facility]) Body height 66 [in_us] 66 [in_us] eCW1 ([facility]) Body weight Measured 278 [lb_av] 278 [lb_av] eC W1 ([facility]) Diastolic blood pressure 82 mm[Hg] 82 mm[Hg] eCW1 ([facility]) Systolic blood pressure 140 mm[Hg] 140 mm[Hg] e CW1 ([facility]) Body temperature 97.5 [degF] 97.5 [degF] eCW1 ( [facility]) Respiratory rate 18 /min 18 /min eCW1 ([facility]) Heart rate 97.5 /min 97.5 /min eCW1 ([facility]) Body mass index (BMI) [Ratio] 44.87 kg/m2 44.87 kg/m2 eCW1 ([facility]) Body height 66 [in_us] 66 [in_us] eCW1 ([facility]) Body weight Measured 278 [lb_av] 278 [lb_av] eC W1 ([facility]) Diastolic blood pressure 82 mm[Hg] 82 mm[Hg] eCW1 ([facility]) Systolic blood pressure 136 mm[Hg] 136 mm[Hg] e CW1 ([facility]) Body temperature 96.4 [degF] 96.4 [degF] eCW1 ( [facility]) Respiratory rate 18 /min 18 /min eCW1 ([facility]) Heart rate 97 /min 97 /min eCW1 ([facility]) Body mass index (BMI) [Ratio] 44.90 kg/m2 44.90 kg/m2 eCW1 ([facility]) Body height 66 [in_us] 66 [in_us] eCW1 ([facility]) Body weight Measured 278.2 [lb_av] 278.2 [lb_av ] eCW1 ([facility]) Diastolic blood pressure 90 mm[Hg] 90 mm[Hg] eCW1 ([facility]) Systolic blood pressure 180 mm[Hg] 180 mm[Hg] e CW1 ([facility]) Body temperature 96.1 [degF] 96.1 [degF] eCW1 ( [facility]) Respiratory rate 19 /min 19 /min eCW1 ([facility]) Heart rate 81 /min 81 /min eCW1 ([facility]) Body mass index (BMI) [Ratio] 43.90 kg/m2 43.90 kg/m2 eCW1 ([facility]) Body height 66 [in_us] 66 [in_us] eCW1 ([facility]) Body weight Measured 272 [lb_av] 272 [lb_av] eC W1 ([facility]) Diastolic blood pressure 84 mm[Hg] 84 mm[Hg] eCW1 ([facility]) Systolic blood pressure 136 mm[Hg] 136 mm[Hg] e CW1 ([facility]) Body temperature 97.2 [degF] 97.2 [degF] eCW1 ( [facility]) Respiratory rate 20 /min 20 /min eCW1 ([facility]) Heart rate 75 /min 75 /min eCW1 ([facility]) Body mass index (BMI) [Ratio] 43.90 kg/m2 43.90 kg/m2 eCW1 ([facility]) Body height 66 [in_us] 66 [in_us] eCW1 ([facility]) Body weight Measured 272 [lb_av] 272 [lb_av] eC W1 ([facility]) Diastolic blood pressure 64 mm[Hg] 64 mm[Hg] eCW1 ([facility]) Systolic blood pressure 138 mm[Hg] 138 mm[Hg] e CW1 ([facility]) Body temperature 98.9 [degF] 98.9 [degF] eCW1 ( [facility]) Respiratory rate 22 /min 22 /min eCW1 ([facility]) Heart rate 96 /min 96 /min eCW1 ([facility]) Body mass index (BMI) [Ratio] 40.35 kg/m2 40.35 kg/m2 eCW1 ([facility]) Body height 66 [in_us] 66 [in_us] eCW1 ([facility]) Body weight Measured 250 [lb_av] 250 [lb_av] eC W1 ([facility]) Diastolic blood pressure 80 mm[Hg] 80 mm[Hg] eCW1 ([facility]) Systolic blood pressure 132 mm[Hg] 132 mm[Hg] e CW1 ([facility]) Body temperature 97.3 [degF] 97.3 [degF] eCW1 ( [facility]) Respiratory rate 20 /min 20 /min eCW1 ([facility]) Heart rate 80 /min 80 /min eCW1 ([facility]) Body mass index (BMI) [Ratio] 40.35 kg/m2 40.35 kg/m2 eCW1 ([facility]) Body height 66 [in_i] 66 [in_i] eCW1 ([facility]) Body weight 250 [lb_av] 250 [lb_av] eCW1 ([facility]) Diastolic blood pressure 56 mm[Hg] 56 mm[Hg] eCW1 ([facility]) Systolic blood pressure 119 mm[Hg] 119 mm[Hg] e CW1 ([facility]) Body temperature 96.9 [degF] 96.9 [degF] eCW1 ( [facility]) Respiratory rate 22 /min 22 /min eCW1 ([facility]) Heart rate 83 /min 83 /min eCW1 ([facility]) Body mass index (BMI) [Ratio] 40.35 kg/m2 40.35 kg/m2 eCW1 ([facility]) Body height 66 [in_us] 66 [in_us] eCW1 ([facility]) Body weight Measured 250 [lb_av] 250 [lb_av] eC W1 ([facility]) Diastolic blood pressure 84 mm[Hg] 84 mm[Hg] eCW1 ([facility]) Systolic blood pressure 158 mm[Hg] 158 mm[Hg] e CW1 ([facility]) Body temperature 97.8 [degF] 97.8 [degF] eCW1 ( [facility]) Respiratory rate 20 /min 20 /min eCW1 ([facility]) Heart rate 94 /min 94 /min eCW1 ([facility]) Body mass index (BMI) [Ratio] 40.57 kg/m2 40.57 kg/m2 eCW1 ([facility]) Body height 66 [in_us] 66 [in_us] eCW1 ([facility]) Body weight Measured 251.4 [lb_av] 251.4 [lb_av ] eCW1 ([facility]) Diastolic blood pressure 64 mm[Hg] 64 mm[Hg] eCW1 ([facility]) Systolic blood pressure 130 mm[Hg] 130 mm[Hg] e CW1 ([facility]) Body temperature 97.2 [degF] 97.2 [degF] eCW1 ( [facility]) Respiratory rate 18 /min 18 /min eCW1 ([facility]) Heart rate 70 /min 70 /min eCW1 ([facility]) Body mass index (BMI) [Ratio] 39.54 kg/m2 39.54 kg/m2 eCW1 ([facility]) Body height 66 [in_us] 66 [in_us] eCW1 ([facility]) Body weight Measured [lb_av] eCW1 ([facility]) Diastolic blood pressure 66 mm[Hg] 66 mm[Hg] eCW1 ([facility]) Systolic blood pressure 140 mm[Hg] 140 mm[Hg] e CW1 ([facility]) Body temperature 97.8 [degF] 97.8 [degF] eCW1 ( [facility]) Respiratory rate 18 /min 18 /min eCW1 ([facility]) Heart rate 88 /min 88 /min eCW1 ([facility]) Body mass index (BMI) [Ratio] 39.54 kg/m2 39.54 kg/m2 eCW1 ([facility]) Body height 66 [in_us] 66 [in_us] eCW1 ([facility]) Body weight Measured 245 [lb_av] 245 [lb_av] eC W1 ([facility]) Body mass index (BMI) [Ratio] 39.54 kg/m2 39.54 kg/m2 eCW1 ([facility]) Body height 66 [in_us] 66 [in_us] eCW1 ([facility]) Body weight Measured 245 [lb_av] 245 [lb_av] eC W1 ([facility]) Diastolic blood pressure mm[Hg] eCW1 ([facility]) Systolic blood pressure 152 mm[Hg] 152 mm[Hg] e CW1 ([facility]) Body temperature 97.6 [degF] 97.6 [degF] eCW1 ( [facility]) Respiratory rate 20 /min 20 /min eCW1 ([facility]) Heart rate 84 /min 84 /min eCW1 ([facility]) ID Date Data Source [id number] 03/04/2020 01:21:09 PM [facility] Name Value Range Interpretation Code Description Data Source(s) WEIGHT RECORDED 261 lb 261 lb [facility] ID Date Data Source [id number] 02/04/2020 08:06:09 PM [facility] Name Value Range Interpretation Code Description Data Source(s) WEIGHT RECORDED 267.6 lb 267.6 lb [facility] ID Date Data Source [id number] 06/04/2019 03:54:06 PM EDT [facility] Name Value Range Interpretation Code Description Data Source(s) WEIGHT RECORDED 272 lb 272 lb [facility] Body height Measured 66 in 66 in [facility] Patient Treatment Plan of Care Planned Activity Planned Date Details Description Data Source (s) Megestrol Acetate 40 MG Oral Tablet 01/29/2020 12:00:00 AM [facility] Cyclosporine 0.5 MG/ML Ophthalmic Suspension [Restasis ] 01/20/2020 12:00:00 AM [facility] ospital Basaglar KwikPen 100 UNIT/ML Subcutaneous Solution Pen -injector 01/07/2020 12:00:00 AM [facility] ospital Glucometer 11/27/2019 12:00:00 AM EDT e CW1 ([facility]) Erythromycin 0.005 MG/MG Ophthalmic Ointment 08/15/2019 12:00:00 AM EDT eCW1 ([facility]) Erythromycin 0.005 MG/MG Ophthalmic Ointment 08/15/2019 12:00:00 AM EDT eCW1 ([facility]) Erythromycin 0.005 MG/MG Ophthalmic Ointment 06/23/2019 12:00:00 AM EDT eCW1 ([facility]) Megestrol Acetate 40 MG Oral Tablet 05/28/2019 12:00:00 AM [facility] Basaglar KwikPen 100 UNIT/ML 03/28/2019 12:00:00 AM EST eCW1 ([facility]) Basaglar KwikPen 100 UNIT/ML 03/28/2019 12:00:00 AM EST eCW1 ([facility]) OneTouch Ultra II Test Strips 02/28/2019 12:00:00 AM EST eCW1 ([facility]) Megestrol Acetate 40 MG Oral Tablet 05/24/2018 12:00:00 AM [facility]
--- OUTSIDE RECORDS SUMMARY | 2020-04-22 21:23 | CCD ---
Author Author [facility] Organization [facility] Address Unknown Phone Unavailable Care Team Providers Care Distance Learning Coordinator Name Role Phone LAURA (CALERO), N HAROON RPA-C Unavailable Unavailable LAURA (CALERO), N HAROON RPA-C Unavailable Unavailable LAURA (CALERO), N HAROON RPA-C Unavailable Unavailable LAURA (CALERO), N AHROON RPA-C Unavailable Unavailable LAURA (CALERO), N HAROON [...] is protected by Article 27-F of the [place] [employer] law. If you continue you may have access to information: Regarding HIV / AIDS; Provided by facilities licensed or operated by the [place] Office of Mental Health; or Provided by the [place] Office for People With Developmental Disabilities. If such information is present, then the following [place] mandated warning applies: This information has been [...] law may result in a fine or nursing home sentence or both. A general authorization for the release of medical or other information is NOT sufficient authorization for further disc losure. Allergies and Adverse Reactions Type Description Substance Reaction Status Data Source(s ) Drug allergy Bacitracin Bacitracin Angioedema Active eCW1 ([facility]) Vicks chest congestion rub Vicks chest congestion rub Vicks chest congestion rub Anaphylaxis Active eCW1 ([facility]) wool wool wool uticaria Active [facility]CW1 ([facility]) Vicks chest congestion rub Vicks chest congestion rub Vicks chest congestion rub Anaphylaxis Active eCW1 ([facility]) wool wool wool uticaria Active eCW1 ([facility]) Vicks chest congestion rub Vicks chest congestion rub Vicks chest congestion rub Anaphylaxis Active eCW1 ([facility]) wool wool wool uticaria Active eCW1 ([facility]) Vicks chest congestion rub Vicks chest congestion rub Vicks chest congestion rub Anaphylaxis Active eCW1 ([facility]) wool wool wool uticaria Active eCW1 ([facility]) Vicks chest congestion rub Vicks chest congestion rub Vicks chest congestion rub Anaphylaxis Active eCW1 ([facility]) wool wool wool uticaria Active eCW1 ([facility]) Vicks chest congestion rub Vicks chest congestion rub Vicks chest congestion rub Anaphylaxis Active eCW1 ([facility]) wool wool wool uticaria Active eCW1 ([facility]) Vicks chest congestion rub Vicks chest congestion rub Vicks chest congestion rub Anaphylaxis Active eCW1 ([facility]) wool wool wool uticaria Active eCW1 ([facility]) Vicks chest congestion rub Vicks chest congestion rub Vicks chest congestion rub Anaphylaxis Active eCW1 ([facility]) wool wool wool uticaria Active eCW1 ([facility]) Vicks chest congestion rub Vicks chest congestion rub Vicks chest congestion rub Anaphylaxis Active eCW1 ([facility]) wool wool wool uticaria Active eCW1 ([facility]) Vicks chest congestion rub Vicks chest congestion rub Vicks chest congestion rub Anaphylaxis Active eCW1 ([facility]) wool wool wool uticaria Active eCW1 ([facility]) Vicks chest congestion rub Vicks chest congestion rub Vicks chest congestion rub Anaphylaxis Active eCW1 ([facility]) wool wool wool uticaria Active eCW1 ([facility]) Vicks chest congestion rub Vicks chest congestion rub Vicks chest congestion rub Anaphylaxis Active eCW1 ([facility]) wool wool wool uticaria Active eCW1 ([facility]) Family History Family Member Name Family Member Gender Family Member Status Date o f Status Description Data Source(s) Unknown Unknown Problem MEDENT ([facility], ) Encounters Encounter Providers Location Date Indications Data Source(s ) Outpatient Attender: GABE KOCH 08/04/2020 12:00:00 AM [facility] ([id number]) For Template [employer] [address] [place] [address] 03/31/2020 12:00:00 AM EST eCW1 ([facility]) Unknown [address] [facility] [address] 03/29/2020 12:00:00 AM EST eCW1 (Critical access hospital) ([id number]) For [employer] [facility] [place] [address] 03/25/2020 12:00:00 AM EST eCW1 ([facility]) ([id number]) For [employer] [address] [place], [place] [id number] 03/18/2020 12:00:00 AM EST eCW1 ([facility]) ([id number]) For [employer] [place] [address] 03/10/2020 12:00:00 AM EST eCW1 ([facility]) Unknown [address] [facility] [address] 03/05/2020 12:00:00 AM EST eCW1 (Critical access hospital) ([id number]) For [employer] [address] [place] [address] 03/04/2020 12:00:00 AM EST eCW1 ([facility]) Outpatient Attender: HAROON ENCINAS) RPA-C 03/02 11:03:00 AM EST E83.51 hypoglycem E55.9 vit D def, C54.1 [facility] E[facility] hypoglycem E55.9 vit D def, C54.1 indrimed Outpatient Attender: GABE KOCH [id number] 03/01/19 12:00:00 AM EST - 03/01/2020 04:42:[address] [facility] [place] Outpatient [address] [facility] [address] 02/26/2020 12:00:00 AM EST eCW1 ([facility]) ([id number]) For [employer] [address] [place] [address] 02/18/2020 12:00:00 AM EST eCW1 ([facility]) Outpatient [address] [facility] [address] 02/12/2020 12:00:00 AM EST eCW1 ([facility]) Outpatient [address] [facility] [place] [address] 02/05/2020 12:00:00 AM EST eCW1 ([facility]) Unknown [address] [facility] [place] [address] 02/04/2020 12:00:00 AM EST eCW1 ([facility]) Unknown [address] [facility] [address] 02/04/2020 12:00:00 AM EST [facility]CW1 [facility] Unknown [address] [facility] [address] 02/03/2020 12:00:00 AM EST eCW1 ([facility]) Outpatient Attender: GABE KOCHAdmitter: GABE KOCH 0 [id number] 02/02/2020 12:00:00 AM EST Malignant neoplasm of endometrium [facility] [place] Malignant neoplasm of endometrium Outpatient [address] [facility] [address] 01/29/2020 12:00:00 AM EST eCW1 ([facility]) ([id number]) For [employer] [address] [place] [address] 01/16/2020 12:00:00 AM EST eCW1 ([facility]) Outpatient Attender: GABE KOCH 01/07/2020 12:00:[address] [facility] [place] Out[place] [address] [facility] [address] 01/05/2020 12:00:00 AM EST eCW1 ([facility]) Outpatient Attender: GABE KOCH 01/05/2020 12:00:[address] [facility] Unknown [address] [facility] [address] 12/30/2019 12:00:00 AM EST eCW1 ([facility]) Unknown [address] [facility] [address] 12/29/2019 12:00:00 AM EST eCW1 ([facility]) ([id number]) [employer] [address] [place] [address] 12/23/2019 12:00:00 AM EDT eCW1 ([facility]) ([id number]) For [employer] [address] [place] [address] 12/15/2019 12:00:00 AM EDT eCW1 ([facility]) ([id number]) For [employer] [address] [place] [address] 12/08/2019 12:00:00 AM EDT eCW1 ([facility]) Unknown [address] [facility] [address] 12/04/2019 12:00:00 AM EDT eCW1 ([facility]) ([id number]) For [employer] [address] [place] [address] 12/01/2019 12:00:00 AM EDT eCW1 ([facility]) Unknown [address] [facility] [address] 12/01/2019 12:00:00 AM EDT eCW1 ([facility]) Unknown [address] [facility] [address] 11/28/2019 12:00:00 AM EDT eCW1 ([facility]) Outpatient [address] [facility] [place] [address] 11/27/2019 12:00:00 AM EDT eCW1 ([facility]) [facility] [address] [facility] [address] 09/25/2019 12:00:00 AM EDT eCW1 ([facility]) ([id number]) For [employer] [address] [place] [address] 09/19/2019 12:00:00 AM EDT eCW1 ([facility]) ([id number]) For [employer] [address] [place] [address] 09/10/2019 12:00:00 AM EDT eCW1 ([facility]) ([id number]) For [employer] [address] [place] [address] 09/04/2019 12:00:00 AM EDT eCW1 ([facility]) Unknown [address] [facility], [facility] [address] 08/15/2019 12:00:00 AM EDT eCW1 ([facility]) ([id number]) [facility] [employer] [address] [place] [address] 08/14/2019 12:00:00 AM EDT eCW1 ([facility]) [place] [address] [facility] [address] 08/08/2019 12:00:00 AM EDT eCW1 ([facility]) Unknown [address] [facility] [address] 07/30/2019 12:00:00 AM EDT eCW1 ([facility]) ([id number]) [facility] [employer] [address] [place] [address] 07/28/2019 12:00:00 AM EDT eCW1 ([facility]) Outpatient [address] [facility] [place] [address] 07/22/2019 12:00:00 AM EDT eCW1 ([facility]) [facility] [address] [facility] [place] [address] 07/14/2019 12:00:00 AM EDT eCW1 ([facility]) [facility] [address] [facility] [address] 07/04/2019 12:00:00 AM EDT eCW1 ([facility]) Outpatient Attender: GABE KOCH [id number] 07/03/19 12:00:00 AM EDT - 07/03/2019 02:40:46 PM [facility] [place] [address] [facility] [address] 06/27/2019 12:00:00 AM EDT eCW1 ([facility]) [facility] [address] [facility] [address] 06/25/2019 12:00:00 AM EDT eCW1 ([facility]) [facility] [place] [address] [facility] [address] 06/23/2019 12:00:00 AM EDT eCW1 ([facility]) [facility] [address] [facility] [address] 06/18/2019 12:00:00 AM EDT eCW1 ([facility]) [facility] [place] [address] [facility] [address] 06/16/2019 12:00:00 AM EDT eCW1 ([facility]) Outpatient Attender: GABE KOCH 06/16/2019 12:00:00 AM [facility] [address] [facility] [address] 06/11/2019 12:00:00 AM EDT eCW1 ([facility]) Outpatient Attender: GABE KOCH 06/09/2019 12:00:00 AM [facility] Outpatient Attender: GABE KOCH [id number] 06/04/19 12:00:00 AM EDT - 06/04/2019 02:57:28 PM [facility] [address] [facility] [address] 06/03/2019 12:00:00 AM EDT eCW1 ([facility]) Outpatient Attender: GABE KOCH 06/02/2019 12:00:00 AM [facility] ([id number]) For [employer] [address] [place] [address] 05/28/2019 12:00:00 AM EDT eCW1 ([facility]) Outpatient Attender: GABE KOCH 05/26/2019 12:00:00 AM [facility] [address] [facility] [address] 05/20/2019 12:00:00 AM EDT eCW1 ([facility]) [facility] [address] [facility] [address] 05/20/2019 12:00:00 AM EDT eCW1 ([facility]) [facility] [address] [place] [address] 05/20/2019 12:00:00 AM EDT eCW1 ([facility]) [facility] [address] [facility] [address] 05/06/2019 12:00:00 AM EDT eCW1 ([facility]) [facility] [address] [facility] [address] 04/25/2019 12:00:00 AM EST eCW1 ([facility]) Outpatient 04/22/2019 02:25:00 PM EST [facility] [address] [facility] [address] 04/11/2019 12:00:00 AM EST eCW1 ([facility]) [facility] [address] [place] [address] 04/11/2019 12:00:00 AM EST eCW1 ([facility]) [facility] [place] [address] [facility] [place] [address] 04/07/2019 12:00:00 AM EST eCW1 ([facility]) [facility] [place] [address] [facility] [address] 04/07/2019 12:00:00 AM EST eCW1 ([facility]) [facility] [address] [facility] [address] 04/04/2019 12:00:00 AM EST eCW1 ([facility]) [facility] [address] [place] [address] 04/04/2019 12:00:00 AM EST eCW1 ([facility]) [facility] [address] [facility] [address] 03/28/2019 12:00:00 AM EST eCW1 ([facility]) [facility] [address] [facility] [address] 03/28/2019 12:00:00 AM EST eCW1 ([facility]) [facility] [place] [address] [facility] [address] 03/28/2019 12:00:00 AM EST eCW1 ([facility]) [facility] [place] [address] [facility] [address] 03/22/2019 12:00:00 AM EST eCW1 ([facility]) [facility] [place] [address] [facility] [place] [address] 03/20/2019 12:00:00 AM EST eCW1 ([facility]) [facility] [address] [facility] [address] 03/20/2019 12:00:00 AM EST eCW1 ([facility]) [facility] [place] [address] [facility] [address] 03/17/2019 12:00:00 AM EST eCW1 ([facility]) [facility] Breast Care [address] [place] [address] 03/17/2019 12:00:00 AM EST eCW1 ([facility]) [facility] [address] [facility] [address] 03/13/2019 12:00:00 AM EST [facility] [place] [address] [facility] [address] 03/13/2019 12:00:00 AM EST eCW1 [facility]) [facility] [address] [place] [address] 03/13/2019 12:00:00 AM EST eCW1 (Critical access hospital) [facility] [place] [address] [facility] [address] 03/12/2019 12:00:00 AM EST eCW1 (Critical access hospital) [facility] [address] [facility] [address] 03/07/2019 12:00:00 AM EST eCW1 (Critical access hospital) [facility] [place] [address] [facility] [address] 02/28/2019 12:00:00 AM EST eCW1 (Critical access hospital) Outpatient 2017 12:00:00 AM EDT - 2017 11:59:00 PM EDT [facility] Patient discharged. Immunizations Vaccine Date Status Description Data Source(s) COVID-19 VACCINE, [id number], LNP-S (MODERNA)/PF 04/06/2020 1 2:00:00 AM EST completed [facility] influenza, recombinant, quadrIvalent,injectable, prese rvative free 11/27/2019 04:13:00 PM EDT completed eCW1 ([facility]) influenza, recombinant, quadrIvalent,injectable, prese rvative free 11/27/2019 04:13:00 PM EDT completed eCW1 ([facility]) influenza, recombinant, quadrIvalent,injectable, prese rvative free 11/27/2019 04:13:00 PM EDT completed eCW1 ([facility]) influenza, recombinant, quadrIvalent,injectable, prese rvative free 11/27/2019 04:13:00 PM EDT completed eCW1 ([facility]) influenza, recombinant, quadrIvalent,injectable, prese rvative free 11/27/2019 04:13:00 PM EDT completed eCW1 ([facility]) influenza, recombinant, quadrIvalent,injectable, prese rvative free 11/27/2019 04:13:00 PM EDT completed eCW1 ([facility]) influenza, recombinant, quadrIvalent,injectable, prese rvative free 11/27/2019 04:13:00 PM EDT completed eCW1 ([facility]) influenza, recombinant, quadrIvalent,injectable, prese rvative free 11/27/2019 04:13:00 PM EDT completed eCW1 ([facility]) influenza, recombinant, quadrIvalent,injectable, prese rvative free 11/27/2019 04:13:00 PM EDT completed eCW1 ([facility]) influenza, recombinant, quadrIvalent,injectable, prese rvative free 11/27/2019 04:13:00 PM EDT completed eCW1 ([facility]) influenza, recombinant, quadrIvalent,injectable, prese rvative free 11/27/2019 04:13:00 PM EDT completed eCW1 ([facility]) influenza, recombinant, quadrIvalent,injectable, prese rvative free 11/27/2019 04:13:00 PM EDT completed eCW1 ([facility]) influenza, recombinant, quadrIvalent,injectable, prese rvative free 11/27/2019 04:13:00 PM EDT completed eCW1 ([facility]) influenza, recombinant, quadrIvalent,injectable, prese rvative free 11/27/2019 04:13:00 PM EDT completed eCW1 ([facility]) influenza, recombinant, quadrIvalent,injectable, prese rvative free 11/27/2019 04:13:00 PM EDT completed eCW1 ([facility]) influenza, recombinant, quadrIvalent,injectable, prese rvative free 11/27/2019 04:13:00 PM EDT completed eCW1 ([facility]) influenza, recombinant, quadrIvalent,injectable, prese rvative free 11/27/2019 04:13:00 PM EDT completed eCW1 ([facility]) influenza, recombinant, quadrIvalent,injectable, prese rvative free 11/27/2019 04:13:00 PM EDT completed eCW1 ([facility]) influenza, recombinant, quadrIvalent,injectable, prese rvative free 11/27/2019 04:13:00 PM EDT completed eCW1 ([facility]) influenza, recombinant, quadrIvalent,injectable, prese rvative free 11/27/2019 04:13:00 PM EDT completed eCW1 ([facility]) influenza, recombinant, quadrIvalent,injectable, prese rvative free 11/27/2019 04:13:00 PM EDT completed eCW1 ([facility]) influenza, recombinant, quadrIvalent,injectable, prese rvative free 11/27/2019 04:13:00 PM EDT completed eCW1 ([facility]) influenza, recombinant, quadrIvalent,injectable, prese rvative free 11/27/2019 04:13:00 PM EDT completed eCW1 ([facility]) influenza, recombinant, quadrIvalent,injectable, prese rvative free 11/27/2019 04:13:00 PM EDT completed eCW1 ([facility]) influenza, recombinant, quadrIvalent,injectable, prese rvative free 11/27/2019 04:13:00 PM EDT completed eCW1 ([facility]) influenza, recombinant, quadrIvalent,injectable, prese rvative free 11/27/2019 04:13:00 PM EDT completed eCW1 ([facility]) influenza, recombinant, quadrIvalent,injectable, prese rvative free 11/27/2019 04:13:00 PM EDT completed eCW1 ([facility]) influenza, recombinant, quadrIvalent,injectable, prese rvative free 11/27/2019 04:13:00 PM EDT completed eCW1 ([facility]) Medications Medication Brand Name Start Date Product Form Dose Route Admi nistrative Instructions Pharmacy Instructions Status Indications Reaction Description Data Source(s) 50 mg 03/29/2020 12:00:00 AM EST tablet 30 TAKE ONE TABLET BY MOUTH EVERY DAY TAKE ONE TABLET BY MOUTH EVERY DAY SOLD: 03/31/2020 [facility] atorvastatin 40 MG Oral Tablet ATORVASTATIN CALCIUM [...] (MEGACE) 01/29/2020 12:00:00 AM ES T active [facility] Cyclosporine 0.5 MG/ML Ophthalmic Suspen mariela [Restasis] Restasis 0.05 % Ophthalmic Emulsion Restasis 0.05 % Ophthalmic Emulsion 01/20/2020 12:00:0 0 AM EST active INSTILL 1 DROP IN EACH EYE TWO TIMES A DAY [facility] 0.05 % 01/20/2020 12:00:00 AM EST dropperette 180 INSTILL 1 DROP IN EACH EYE TWO TIMES A DAY INSTILL 1 DROP IN EACH EYE TWO TIMES A DAY SOLD: 01/23/2020 [facility] Basaglar KwikPen 100 UNIT/ML Subcutaneous Solution Pen-injec tor 7615-7640-82 01/07/2020 12:00:00 AM EST active INJECT 85 UNITS UNDER THE SKIN AT BEDTIME [facility] Digoxin 0.125 MG Oral Tablet 125 mcg [...] 11/27/2019 12:00:00 AM EDT active Glucometer eCW1 ([facility]) Glucometer UNK 11/27/2019 12:00:00 AM EDT active Glucometer eCW1 ([facility]) Glucometer UNK 11/27/2019 12:00:00 AM EDT active Glucometer eCW1 ([facility]) Glucometer UNK 11/27/2019 12:00:00 AM EDT active Glucometer eCW1 ([facility]) Glucometer UNK 11/27/2019 12:00:00 AM EDT active Glucometer eCW1 ([facility]) Glucometer UNK 11/27/2019 12:00:00 AM EDT active Glucometer eCW1 ([facility]) Glucometer UNK 11/27/2019 12:00:00 AM EDT active Glucometer eCW1 ([facility]) Glucometer UNK 11/27/2019 12:00:00 AM EDT active Glucometer eCW1 ([facility]) Glucometer UNK 11/27/2019 12:00:00 AM EDT active Glucometer eCW1 ([facility]) Glucometer UNK 11/27/2019 12:00:00 AM EDT active Glucometer eCW1 ([facility]) Glucometer UNK 11/27/2019 12:00:00 AM EDT active Glucometer eCW1 ([facility]) Glucometer UNK 11/27/2019 12:00:00 AM EDT active Glucometer eCW1 ([facility]) Glucometer UNK 11/27/2019 12:00:00 AM EDT active Glucometer eCW1 ([facility]) Glucometer UNK 11/27/2019 12:00:00 AM EDT active Glucometer eCW1 ([facility]) Glucometer UNK 11/27/2019 12:00:00 AM EDT active Glucometer eCW1 ([facility]) Glucometer UNK 11/27/2019 12:00:00 AM EDT active Glucometer eCW1 ([facility]) Glucometer UNK 11/27/2019 12:00:00 AM EDT active Glucometer eCW1 ([facility]) Glucometer UNK 11/27/2019 12:00:00 AM EDT active Glucometer eCW1 ([facility]) Glucometer UNK 11/27/2019 12:00:00 AM EDT active Glucometer eCW1 ([facility]) Glucometer UNK 11/27/2019 12:00:00 AM EDT active Glucometer eCW1 ([facility]) Glucometer UNK 11/27/2019 12:00:00 AM EDT active Glucometer eCW1 ([facility]) Glucometer UNK 11/27/2019 12:00:00 AM EDT active Glucometer eCW1 ([facility]) Glucometer UNK 11/27/2019 12:00:00 AM EDT active Glucometer eCW1 ([facility]) Glucometer UNK 11/27/2019 12:00:00 AM EDT active Glucometer eCW1 ([facility]) Glucometer UNK 11/27/2019 12:00:00 AM EDT active Glucometer eCW1 ([facility]) Glucometer UNK 11/27/2019 12:00:00 AM EDT active Glucometer eCW1 ([facility]) Glucometer UNK 11/27/2019 12:00:00 AM EDT active Glucometer eCW1 ([facility]) Glucometer UNK 11/27/2019 12:00:00 AM EDT active Glucometer eCW1 ([facility]) 50 mg 09/25/2019 12:00:00 AM EDT tablet [...] AM EDT active Erythromycin 5 MG/GM eCW1 ([facility]) Erythromycin 0.005 MG/MG Ophthalmic Ointment Erythromy bethel 5 MG/GM Erythromycin 5 MG/GM 08/15/2019 12:00:00 AM EDT active Erythromycin 5 MG/GM eCW1 ([facility]) Erythromycin 0.005 MG/MG Ophthalmic Ointment Erythromy bethel 5 MG/GM Erythromycin 5 MG/GM 08/15/2019 12:00:00 AM EDT active Erythromycin 5 MG/GM eCW1 ([facility]) Erythromycin 0.005 MG/MG Ophthalmic Ointment Erythromy bethel 5 MG/GM Erythromycin 5 MG/GM 08/15/2019 12:00:00 AM EDT active Erythromycin 5 MG/GM eCW1 ([facility]) Erythromycin 0.005 MG/MG Ophthalmic Ointment Erythromy bethel 5 MG/GM Erythromycin 5 MG/GM 08/15/2019 12:00:00 AM EDT active Erythromycin 5 MG/GM eCW1 ([facility]) Erythromycin 0.005 MG/MG Ophthalmic Ointment Erythromy bethel 5 MG/GM Erythromycin 5 MG/GM 08/15/2019 12:00:00 AM EDT active Erythromycin 5 MG/GM eCW1 ([facility]) Erythromycin 0.005 MG/MG Ophthalmic Ointment Erythromy bethel 5 MG/GM Erythromycin 5 MG/GM 08/15/2019 12:00:00 AM EDT active Erythromycin 5 MG/GM eCW1 ([facility]) Erythromycin 0.005 MG/MG Ophthalmic Ointment Erythromy bethel 5 MG/GM Erythromycin 5 MG/GM 08/15/2019 12:00:00 AM EDT active Erythromycin 5 MG/GM eCW1 ([facility]) Erythromycin 0.005 MG/MG Ophthalmic Ointment Erythromy bethel 5 MG/GM Erythromycin 5 MG/GM 08/15/2019 12:00:00 AM EDT active Erythromycin 5 MG/GM eCW1 ([facility]) Erythromycin 0.005 MG/MG Ophthalmic Ointment Erythromy bethel 5 MG/GM Erythromycin 5 MG/GM 08/15/2019 12:00:00 AM EDT active Erythromycin 5 MG/GM eCW1 ([facility]) Erythromycin 0.005 MG/MG Ophthalmic Ointment Erythromy bethel 5 MG/GM Erythromycin 5 MG/GM 08/15/2019 12:00:00 AM EDT active Erythromycin 5 MG/GM eCW1 ([facility]) Erythromycin 0.005 MG/MG Ophthalmic Ointment Erythromy bethel 5 MG/GM Erythromycin 5 MG/GM 08/15/2019 12:00:00 AM EDT active Erythromycin 5 MG/GM eCW1 ([facility]) Erythromycin 0.005 MG/MG Ophthalmic Ointment Erythromy bethel 5 MG/GM Erythromycin 5 MG/GM 08/15/2019 12:00:00 AM EDT active Erythromycin 5 MG/GM eCW1 ([facility]) Erythromycin 0.005 MG/MG Ophthalmic Ointment Erythromy bethel 5 MG/GM Erythromycin 5 MG/GM 08/15/2019 12:00:00 AM EDT active Erythromycin 5 MG/GM eCW1 ([facility]) Erythromycin 0.005 MG/MG Ophthalmic Ointment Erythromy bethel 5 MG/GM Erythromycin 5 MG/GM 08/15/2019 12:00:00 AM EDT active Erythromycin 5 MG/GM eCW1 ([facility]) Erythromycin 0.005 MG/MG Ophthalmic Ointment Erythromy bethel 5 MG/GM Erythromycin 5 MG/GM 08/15/2019 12:00:00 AM EDT active Erythromycin 5 MG/GM eCW1 ([facility]) Erythromycin 0.005 MG/MG Ophthalmic Ointment Erythromy bethel 5 MG/GM Erythromycin 5 MG/GM 08/15/2019 12:00:00 AM EDT active Erythromycin 5 MG/GM eCW1 ([facility]) Erythromycin 0.005 MG/MG Ophthalmic Ointment Erythromy bethel 5 MG/GM Erythromycin 5 MG/GM 08/15/2019 12:00:00 AM EDT active Erythromycin 5 MG/GM eCW1 ([facility]) Erythromycin 0.005 MG/MG Ophthalmic Ointment Erythromy bethel 5 MG/GM Erythromycin 5 MG/GM 08/15/2019 12:00:00 AM EDT active Erythromycin 5 MG/GM eCW1 ([facility]) Erythromycin 0.005 MG/MG Ophthalmic Ointment Erythromy bethel 5 MG/GM Erythromycin 5 MG/GM 08/15/2019 12:00:00 AM EDT active Erythromycin 5 MG/GM eCW1 ([facility]) Erythromycin 0.005 MG/MG Ophthalmic Ointment Erythromy bethel 5 MG/GM Erythromycin 5 MG/GM 08/15/2019 12:00:00 AM EDT active Erythromycin 5 MG/GM eCW1 ([facility]) Erythromycin 0.005 MG/MG Ophthalmic Ointment Erythromy bethel 5 MG/GM Erythromycin 5 MG/GM 08/15/2019 12:00:00 AM EDT active Erythromycin 5 MG/GM eCW1 ([facility]) Erythromycin 0.005 MG/MG Ophthalmic Ointment Erythromy bethel 5 MG/GM Erythromycin 5 MG/GM 08/15/2019 12:00:00 AM EDT active Erythromycin 5 MG/GM eCW1 ([facility]) Erythromycin 0.005 MG/MG Ophthalmic Ointment Erythromy bethel 5 MG/GM Erythromycin 5 MG/GM 08/15/2019 12:00:00 AM EDT active Erythromycin 5 MG/GM eCW1 ([facility]) Erythromycin 0.005 MG/MG Ophthalmic Ointment Erythromy bethel 5 MG/GM Erythromycin 5 MG/GM 08/15/2019 12:00:00 AM EDT active Erythromycin 5 MG/GM eCW1 ([facility]) Erythromycin 0.005 MG/MG Ophthalmic Ointment Erythromy bethel 5 MG/GM Erythromycin 5 MG/GM 08/15/2019 12:00:00 AM EDT active Erythromycin 5 MG/GM eCW1 ([facility]) Erythromycin 0.005 MG/MG Ophthalmic Ointment Erythromy bethel 5 MG/GM Erythromycin 5 MG/GM 08/15/2019 12:00:00 AM EDT active Erythromycin 5 MG/GM eCW1 ([facility]) Erythromycin 0.005 MG/MG Ophthalmic Ointment Erythromy bethel 5 MG/GM Erythromycin 5 MG/GM 08/15/2019 12:00:00 AM EDT active Erythromycin 5 MG/GM eCW1 ([facility]) Erythromycin 0.005 MG/MG Ophthalmic Ointment Erythromy bethel 5 MG/GM Erythromycin 5 MG/GM 08/15/2019 12:00:00 AM EDT active Erythromycin 5 MG/GM eCW1 ([facility]) Erythromycin 0.005 MG/MG Ophthalmic Ointment Erythromy bethel 5 MG/GM Erythromycin 5 MG/GM 08/15/2019 12:00:00 AM EDT active Erythromycin 5 MG/GM eCW1 ([facility]) 5 mg/gram (0.5 %) 08/15/2019 12:00:00 AM EDT ointment 3 APPLY TO AFFECTED LOWER EYELID FOUR TIMES A DAY FOR 10 DAYS APPLY TO AFFECTED LOWER EYELID FOUR TIMES A DAY FOR 10 DAYS SOLD: 08/16/2019 [facility] Erythromycin 0.005 MG/MG Ophthalmic Ointment Erythromy bethel 5 MG/GM Erythromycin 5 MG/GM 08/15/2019 12:00:00 AM EDT active Erythromycin 5 MG/GM eCW1 ([facility]) Erythromycin 0.005 MG/MG Ophthalmic Ointment Erythromy bethel 5 MG/GM Erythromycin 5 MG/GM 08/15/2019 12:00:00 AM EDT active Erythromycin 5 MG/GM eCW1 ([facility]) 100 mg 07/31/2019 12:00:00 AM EDT tablet [...] AM EDT active Erythromycin 5 MG/GM eCW1 ([facility]) Erythromycin 0.005 MG/MG Ophthalmic Ointment Erythromy bethel 5 MG/GM Erythromycin 5 MG/GM 06/23/2019 12:00:00 AM EDT active 1 application into the lower eyelid of affected eye eCW1 ([facility]) 125 mcg (0.125 mg) 06/23/2019 12:00:00 AM [...] the lower eyelid of affected eye eCW1 ([facility]) 25 mg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 ICAgICAgICAgICAgICAgICAgICAgICAgICAgICAgICAgICAgICAgICAgICAgICAgICAgICAgICAgICAg ICAgICAgICAgICAgICAgICAgICAgICAgICANCiAgIC AgICAgICAgICAgICAgICAgICAgICAgICAgICAgICAgICAgICAgICAgICAgICAgICAgICAgICAgICAgIC AgICAgICAgICAgICAgICAgICAgICAgICAgICAgICAgICAgICANCjw/fURbU9cbbRCujqG1U7biSu1KIl 7PGM7yn7TzWGHoNUzgyfBdCgfAFuPlIBUrJdsHPun9 OIsfGW0GgQNdE5PqI7TnGIubPT7WKQIwKGItaXQlONChSHTsYnW4XLJiHPdrGS7LfYCvMNezCFXuWYBp ZF8XKBXpC409blQuCW7OHn9HJhKnTN6isa4YWbUyFAXcFzqIQsa0BHqnKJ7LkAIojIUqFiBdBKJWIaRl B5fuy0FtRhEoTFJNJNloUN3Yi0AgyFZcVOt+Pg0KZW 1cj0BcXTgoPcQtLP6zss0NJJpHHuSwO6JdiMllFNIlg3zkJDFuSA1mwVFeCAN4ABQbtjmlDAinCXmvsm kemBjkUCEeCVVrTMQiVx7qVATzTFApUmDgOSGMAC3VEWEnWFPcyQQsSPGxXOHLCM9ZFXlnGNQ1AHLngc ZnwCCpXHocZP3XLHAiexGbVjQpJNQOQRe+Df8JHL7k p8HeWVzwTMQzPZ5ugt5EDStGWmOfZ4Y3uFLsV1I9UZlyHj2TVXSnHAAcFqNmAOJMUDxjIV0FLW2kmxY1 OT5HvOZaMCQbSLUdqCOfIZl2B07wsCYuVCnuRK1TJNX+Caleb+Cx6EBGDxYMYtFTAlLjNcGNVTKaPhS6Vr Z5OZp5RxI6CnHB17nShjtnXdZOkyVY1CYQ2eBKEwYF NGGY2GrAZabG2gbpZqSgPfFCFPAnGuY70amOZaUXRyWQIcUIRrPp0QRLXrS5VixrLbeIijysQtPTQxOO QYIR7LNSzujhKcjOCxsDciWP62bSebEF0UQf2TRpXfPY3pem5LpIVuFq0WIPTaGR4CFPFzOTAhDOXsWY O6PGSxVgYtQYleRITpPPNaOZS2JSJdHTHaAK7NZwNj YQGnVQf3AoCpQPNvTDTzgc4GHIFrZMJiPLW9HWUeTMTkHVKnMKopAWYoLEFgNKJ9AMLxSIUnMT0FLpIu CZIyORG3VDYcEGHrRQJukf6FIEBoLPUjVnI6KICgSSUjBWLiYIuuBDKaPEG5NMR1EOHyEMYtXL9TDiAt TSWsZGWlDSRjRJJoWTVdzt8ZQYRjXFHhQTUwSGRrPY HpUVMfVGtyROKfLVJ8PCdyQFXgABWaMX1UGoCmYOTrERK6RUKgRDVzQOZlya2JTDCjOUBkRNr7EWRvAG XmYMUvDRkhCPDxPRZ9RbV6TIWfSKVuOM2XIuVtPUDiRDz0RAEeUONzCLFsbm0KUUVtNNAcZyr2XJFyRZ NwIRPrKAdnKEKcXMG8BWXdMMHcNUGpDU5YOxKvEYWa YIjwEJzdLFEbDCIktt8ATKIiDPXqTHG8CQGvFMNeVKYhWZaySTQaLCG0BzduEIQkZYWrPQ3SOaVlJMGd FJp0VLUzSISeVPIoun7KHCHuNQLgNCm9ZIKiQPVnZDWkTTnwJWEsWKVjCub3DKKeIBWqVC7DFsKmNGHa KtHfAbmxWFCfOHSdcq6GSBJnGOQnXGPtTQFgKWHaRJ NuKWi6smUzrWQzHOa2DJ0AQ9WoxwRxCjBPXw2Tz236SEU2CMHdSf0ML6uyEn1kGMNkNANGNc2HGXc6FX EqAUGrAQqpRzosHpN2ClAlHLhcUNP2IWe5LiExUMO+INcqJeQoVWOhMHIlFGV6CfnqEVYjBAD9PcDcGG gkPJRvFS7rQKTMIg7+MMdglIUxcYaoMEPNPvLtLdZfXLwpXHBQJm6Q ID Date Data Source [id number] 02/03/2020 12:24:31 PM [facility] Name Value Range Interpretation Code Description Data Jena rce(s) Supporting Document(s) Progress Note [facility] DJYHAi6tTvFZWuOq97/WIAykXTWzm8MgJTlkATi3KShdGXOqE7IvEMK8yG0lZJL1HTmSOwQzMkIkCiR9 lbm [file] AgICAgICAgICAgICAgICAgICAgICAgICAgICAgICAgICAgICAgICAgICANCiAgICAgICAgICAgICAgIC AgICAgICAgICAgICAgICAgICAgICAgICAgICAgICAg ICAgICAgICAgICAgICAgICAgICAgICAgICAgICAgICAgICAgICAgICAgICAgICAgICAgICANCiAgICAg ICAgICAgICAgICAgICAgICAgICAgICAgICAgICAgICAgICAgICAgICAgICAgICAgICAgICAgICAgICAg ICAgICAgICAgICAgICAgICAgICAgICAgICAgICAgIC AgICANCiAgICAgICAgICAgICAgICAgICAgICAgICAgICAgICAgICAgICAgICAgICAgICAgICAgICAgIC AgICAgICAgICAgICAgICAgICAgICAgICAgICAgICAgICAgICAgICAgICAgICANCiAgICAgICAgICAgIC AgICAgICAgICAgICAgICAgICAgICAgICAgICAgICAg ICAgICAgICAgICAgICAgICAgICAgICAgICAgICAgICAgICAgICAgICAgICAgICAgICAgICAgICANCiAg ICAgICAgICAgICAgICAgICAgICAgICAgICAgICAgICAgICAgICAgICAgICAgICAgICAgICAgICAgICAg ICAgICAgICAgICAgICAgICAgICAgICAgICAgICAgIC AgICAgICANCiAgICAgICAgICAgICAgICAgICAgICAgICAgICAgICAgICAgICAgICAgICAgICAgICAgIC AgICAgICAgICAgICAgICAgICAgICAgICAgICAgICAgICAgICAgICAgICAgICAgICANCiAgICAgICAgIC AgICAgICAgICAgICAgICAgICAgICAgICAgICAgICAg ICAgICAgICAgICAgICAgICAgICAgICAgICAgICAgICAgICAgICAgICAgICAgICAgICAgICAgICAgICAN CiAgICAgICAgICAgICAgICAgICAgICAgICAgICAgICAgICAgICAgICAgICAgICAgICAgICAgICAgICAg ICAgICAgICAgICAgICAgICAgICAgICAgICAgICAgIC AgICAgICAgICANCiAgICAgICAgICAgICAgICAgICAgICAgICAgICAgICAgICAgICAgICAgICAgICAgIC AgICAgICAgICAgICAgICAgICAgICAgICAgICAgICAgICAgICAgICAgICAgICAgICAgICANCjw/eHBhY2 mzfUOqdtA2S0mlLs2WAd8KFV1zj6HpDOKyHRhkqmOl GzkAJlXoDDJoYmaGNzl8KHujKY6OhJNiG5XkP7WhOGcgYA1DYDJrEULbeQAmWFBcBMLqVyZ4GLIzHObq RA8GrYRbYCieMORcURVnOhTzKTGvYQXxDOAhCC8WNZYtZ161lfIiNc3AQj1DWfVzNB3zwr3JSqDbPEKa PtePOyt1IYkoPD0LcUWbqKQnBrMkRYZHCnYqR4xjb5 WzNiwyVSGWUGayFS5Qc1KziWHfXSe+Wr0QUC8ny9CcJVfaZpWoPG2jxm4ZDAcRCmSuY1IqmQjwDJBwi8 lhZEMhWP6qjPNxUHW9LDEzywphEcNBj9mgnchsMAMcYANvQCNcGi5nYQAvMTJeJyHeFFQOXA6VFBEaRZ NkqZBdSGBvVJHQWC1TKMyiRZU9DFKhisRorECeQUli FB7YIPXarpYtZbBuZLCAWGb+Zc0BRM1hz0QsEBvbLPTiWP8xqw5WGGmHXhZsQ0R4lLNuX3L9IPccYh0B LZCaEVVkEhWiFLNSQRibNE5OWL4mssA9CI6UvEPcVSPgGDTbeOIuOXp1V74znEQlFSwdEZ9GARZ+Caleb+ Ql3JREMxZUHaJVOtNnBgRYYAMeFsJ3SbK6FYt7VpX3 JzVB69uBsuklKmYDpqKU2UJS1yDVQuLMRTJG3IzACjpN0wreJeVeGuNDOVQnJlH61zgHHvWMSyWOE0KS YlYc5ENOJaW5GdvyTreMgvgmDpAKEnSTNKIU5ZKVyploWwcQQvdLaxYC68dFqeEZ8UGo2IHqSrPA3fuc 2TlBKyAa6OIDUeKF2YWKWqEQLmNFUfYXE0BVPtQoKl LHfvTEJdWHRbTNL2QMOaTPOwJS2YAzLgUYRqJwLpFpijMWUmIKQeus3GSMLoSQGyNoM1WaYqMEHcEPAo LUijYFYdEIGnQXX9CBFxVUQgZE3JXuVwXUEcUAW7VSvwMATaKJTydo8NXYZhPQIyICSpZrKvYCUjTKXh OZxmCHVdZMY4NJEuFYShOYHnLU2QTeGrDDSmFVimDe SyRLAzZNWckc4NKBVyMGFoXhj1QIWjCPQsNWKkGAjpUOWwMWR5XKJ8FUCsCPIcGJ4ANmTmHHRgWTjbFV MgFXSxMXTzkf0FFNKwDHMwBYLiZHPrGIWfDXAcRXpxXXApZGL4Uge9WKOxJILmBX0LFqRmZWSoBQYlRB PgZDWtCRYxrw6YOTJfCBZiEPJ5MKSeSIMwYBWjJAot VVNpXEXoBxLjZXLqKGTlVL4PDkZdAHPqOqLkPPvsVTFqGWJkzk5DEJFrSRFqHuZiKHVgAPSvNERlTHpl SZTpSCSnKvTeBCAmBQDtYN9NThNhCCFfUyL9TcQdNNLxWRZtyv7SGDRoDJBbFgMzLNKaFREaEEMoTFqf LMJkVSDzYQXlVMEoAHGsAZ9OGbScHWVwOrOxJxUrHU AhINJreq6OGYTjCGDlNLUiSQIrBKDiNHWcUHnjJTHlBLQ4EvRuWRShYKLaBN1BIdWlQECzYgGoWoEwTZ TjUZVlab6LYRRsHZPwOjU9NqPwUMFfKRUoESyaWSFdYRJ3SnwoFTJiXVRtDI4WYkEwMBzdHDRAZsp9MA drT3m9YTYkYB9KN7Siq6LlNvjzWXLBMPyjHS4keoSz WJXmBv6SQ4pMXbfgDsYzL0BeJEJtNGR8NZr6FOQfIrUgUxv6XRN1VdAbSh0mSFLkURReZGA3TaZrJFWr PXgaVoKaWAM5BRa0QanuOAFsQwQmDA9ZKt5GPpI6NIW8fPWmXd1LQuT8RfPWXyPyJG2SYXy= ID Date Data Source [id number] 02/04/2020 08:05:00 PM EST [facility] Surgical Pathology ReportName: LULI MILLERMRN: [id number] Number: [id number] Date: 02/02/2020 00:00Received Date: 02/02/2020 14:37Physician(s): GABE KOCH,GABE GREENE,MDSpecimen(s) ReceivedA: EndometriumClinical HistoryEndometrial adenocarcinoma. DiagnosisENDOMETRIUM, BIOPSY: SMALL FOCI OF RESIDUAL TREATED ADENOCARCINOMA IN ABACKGROUND OF PROGESTERONE TREATMENT EFFECT AND ACUTE INFLAMMATIONElectronically Signed By Rosalba Gay M.D., Attending Twivqrjbfug98/9/2020 20:05:45 Unless 'gross-only' is specified, the final diagnosis is based on amicroscopic examination of national sales representative sections of tissue.Gross DescriptionThe specimen is received [...] developed and their performance characteristics determined by [facility] Pathology department. They have not been cleared or approved by the USFood and Drug Administration. The FDA has determined that such clearanceor approval is not necessary. Name Value Range Interpretation Code Description Data Jena rce(s) Supporting Document(s) ID Date Data Source [id number] 07/03/2019 03:51:46 PM EDT [facility] Name Value Range Interpretation Code Description Data Jena rce(s) Supporting Document(s) Progress Note [facility] ZKTCHz4pTuSHAnTe74/WDHzzLWOii4HzCBkrZNo6NQaxQDSaQ6KoRGV6yP6vFLS6LTpDUwUkZmVrCMS6 lbm [file] yTTtdh5iFhMe9+dzWperKQZHaOPsOMhOs2w2L3oRjARR1H7oHilDdkVBUrpebgLGMKbr69xULkl++Julien WVde7J4cVIls+Rpy+33RE0WuEozFlOEW8k0Krk7X7AvrVHmA6cR/XVqMJPPNW7dcPbd3u6NZeq5PRyIq hZQBMZVnQKS2lTSryAR0hazYk1JCB14OyysDLYs/0B /1YfK93eFUqoQ5ZrZH+RfAYj/UfKvfIoN4XstlvrJgfiHTqC1WODhzS+h+PpeQQS4TBjGtvaNHNjJI17 paDWhfqFqnnVYL5DGvYHI3qWGBVyEQ7M6yiKYGGcWDBkpNXCA/ii0fCNBt25baPygiXivUdwDBl4Aezv n8Xl/Kf15y2j9h7pUp4wG2qii/5Mm7awWhJdRz0V2x rvyiQejZJXLrs9qtNT7bjsKS6rz5jxbJ9ycXE3Y2Q/he3GaVM4c/J4ezdhfg40y8REv9D/NVfihvmhLx /Way/Mf5+JhyNdR8/Tq54jmlgd37oOdPl2JdNaH0UgaTH/U64GXwdUEBanLelua4iwziMzG/55acJyXu qe1AVDl2FKMungYAICFjK+INSPECTOR AIDE+dozlfuo+1zuWcVzD [file] Ts5lnZBcvKWuyLQjq7X/6Z8mEZnJIETPqd6kMQgMysQCME+AzPpqtbPQZikWK7Oy/Ygqbv5Oujgyc/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 [file] AgICAgICAgICAgICAgICAgICAgICAgICAgICAgICAg ICAgICAgICAgICAgICAgICAgICAgICAgICAgICAgICAgICAgICAgICAgICAgICAgICAgICAgICAgICAg ICAgICANCiAgICAgICAgICAgICAgICAgICAgICAgICAgICAgICAgICAgICAgICAgICAgICAgICAgICAg ICAgICAgICAgICAgICAgICAgICAgICAgICAgICAgIC AgICAgICAgICAgICAgICANCiAgICAgICAgICAgICAgICAgICAgICAgICAgICAgICAgICAgICAgICAgIC AgICAgICAgICAgICAgICAgICAgICAgICAgICAgICAgICAgICAgICAgICAgICAgICAgICAgICAgICANCi AgICAgICAgICAgICAgICAgICAgICAgICAgICAgICAg ICAgICAgICAgICAgICAgICAgICAgICAgICAgICAgICAgICAgICAgICAgICAgICAgICAgICAgICAgICAg ICAgICAgICANCiAgICAgICAgICAgICAgICAgICAgICAgICAgICAgICAgICAgICAgICAgICAgICAgICAg ICAgICAgICAgICAgICAgICAgICAgICAgICAgICAgIC AgICAgICAgICAgICAgICAgICANCiAgICAgICAgICAgICAgICAgICAgICAgICAgICAgICAgICAgICAgIC AgICAgICAgICAgICAgICAgICAgICAgICAgICAgICAgICAgICAgICAgICAgICAgICAgICAgICAgICAgIC ANCiAgICAgICAgICAgICAgICAgICAgICAgICAgICAg ICAgICAgICAgICAgICAgICAgICAgICAgICAgICAgICAgICAgICAgICAgICAgICAgICAgICAgICAgICAg ICAgICAgICAgICANCiAgICAgICAgICAgICAgICAgICAgICAgICAgICAgICAgICAgICAgICAgICAgICAg ICAgICAgICAgICAgICAgICAgICAgICAgICAgICAgIC AgICAgICAgICAgICAgICAgICAgICANCiAgICAgICAgICAgICAgICAgICAgICAgICAgICAgICAgICAgIC AgICAgICAgICAgICAgICAgICAgICAgICAgICAgICAgICAgICAgICAgICAgICAgICAgICAgICAgICAgIC AgICANCiAgICAgICAgICAgICAgICAgICAgICAgICAg ICAgICAgICAgICAgICAgICAgICAgICAgICAgICAgICAgICAgICAgICAgICAgICAgICAgICAgICAgICAg ICAgICAgICAgICAgICANCjw/rMWkV2awfXXusyK1E7enQq6OLa5CUD6oj7GsJSNmNEiujtFqCmuCMgZb RQYhEooJGpj5XAuaSW1IuPEfN9AhX7XdQJgxOL2JKY IjIWJiuOWhHUOePNKyAeW2XXPlYZueGS5GkRZwBPcwBPOvKTCpLuRkGKWpGCAqLACpYCOxFRDAPL2UVd JuL4UgjS64FWDCDp5+ZQnxcwPdGoxWZaF4SWOtp9WvGGn8CJ8WDJMuPvjon2IpVvVhLPFSZBvyIR5SSZ H1THQ5GCBlCz9QJFPkJ980udBbHR0WOd7PTiGcEL1s qm4NYkPpQGPjIaaAJty9NZrtQD7ImWXzLXrYok3qocHkgiBWb0FdhsBitFWIqL0ymAFDULVwJJY3BToh EP3PDQH7LRMlXc9iSVAtBJClArCdHJNLVP9YWULbWZDdrNCoMECdMBOXCB5VKTwiQTM1HRRjdyWczNNr VWqdZP4SIXBojhOkDcDbRINCPHi+Wo8RBK1hz0QfZT ezDiMtXT4hkx3MPYqKGpQlB9G1uKZjW5D8DPdmWy8CNPGkOSPsLbMgEVXKUPfgKQ0GOJ8emrA4PN9LtX KjVYQcVTSgsUBlMMa4T89mbRUhDZusUZ1NNUX+Caleb+Ij0OKCLeZQIsKLNmFbOcWWHXHbHwR1ChK5WGf2 WpK6SfFM11fWrdspWxOEslTC9JLK7oTJObPUPRXR4S eGGdsE3tmvHaTFFnHRWGFfCzE39nbOXuMKQdEUS8JECnEt5MNHZiT6YdjdBlgXibxdTlHKUvKVLIQV3S PHiysxNkiHZgkTvoGK62kNsiNJ4BZm8OBpBhPY0udu8WpEGnJb5HSRJtZR1MOJWwNUHrGDUcHFP1MZUf GuXkPUxuSDNoABLnGBC8TPPnNMNbJZ0ZHjRgLGGxIr Q4WzksOSXqIDVnpe2REKLnXSUrSCO1AfIrKOAhXUScPWevJLSrGNFaLGQ3KVGfGVReRB7PAtBcDFRnDM DjHnbvJZWtQPIuus7QHDSdLMAqPoU2IIWbGQFcLRPiEAozDXHwYLT4MJD0ASJrDWMsUH7YTmJxCRWcNV KpZffoPVJmOVSldy3XAPMmWCUvBTD7KXJwDPKyCHGg YThiGXGiVHG3RsUtIXMxGFUhHB9VSwPeXZScZLLlAXXkGUAfBVDmbf6VZQFeNMDwLVOdGhRjYGMlFKLe XGfhSCOjOCEwQPV6KHBnVDAeZZ2APuQbTDGqSIM2IwAiRWFdQSTfjc5LWNQxHJUoWjr3StMsHKMsRDTx QQsbFHXwHPNpRKY5OZVsTIQbKU3VEcVxWCIpFIRdLM wcBSQiQFJqhs6JOYVqKQBdVAQ2EwUvLFQnTDYfQNpuEKQxZEZ9MwH2JDBfSGJgIG5KIuPuQPUhOfL7JJ AdIGHqSJBfby7CWOEjDRGbOyN5FQXfAFFvIMAvEGlgLJVeHCP4ZUTvNYVsJKCwGT9OGqAgVSRfTiD2EN PdEIPjJSMwci7TYNPbZHUySkw5WiRiCMPvOJGqTTuc FRRlDVH6FDQ0OSDcVJTqMT7DHrKcFDNzHxq5UAJgOQIsHDGcuk0INZYfVUGvEZQmFVGbPGYmRSKeEKi3 btHrzJKvERy9OV0HY0UzpyWhFxkZFa7Pz828GSB0JSRjVw3TU3vkCv2tKHVfICCVRg0MQIq5TFOzP1F8 PzDlTcu2POP1JLg1IvCqIXJaTMQ8LCAvGZQ+IDwwNW MfElDfGYIcKAHvOOC1VKokXqU7FOE6HxZiEBYeMZ0yPSGPYa2+JSnqaPLhiBgbZDVRNrA0DWj6ZSieQE VPRg0K ID Date Data Source [id number] 06/04/2019 03:54:06 PM EDT [facility] Name Value Range Interpretation Code Description Data Jena rce(s) Supporting Document(s) Progress Note [facility] [id number]P0dE9gAXK4MKrZQjDaFdRlJXS0 lbm [file] [id number]= Procedure Social History Code Duration Value Status Description Data Source(s ) Smoking 04/07/2020 12:00:00 AM EST Never Smoker completed Never S mario eCW1 ([facility]) Smoking 03/31/2020 12:00:00 AM EST Never Smoker completed Never S moker eCW1 ([facility]) Smoking 03/25/2020 12:00:00 AM EST Never Smoker completed Never S moker eCW1 ([facility]) Smoking 03/25/2020 12:00:00 AM EST Never Smoker completed Never S moker eCW1 ([facility]) Smoking 03/18/2020 12:00:00 AM EST Never Smoker completed Never S moker eCW1 ([facility]) Smoking 03/10/2020 12:00:00 AM EST Never Smoker completed Never S moker eCW1 ([facility]) Smoking 03/04/2020 12:00:00 AM EST Never Smoker completed Never S moker eCW1 ([facility]) Alcohol intake 03/01/2020 12:00:00 AM EST Current non-d acacia of alcohol (finding) completed Current non-drinker of alcohol (finding) [facility] [place] Tobacco use and exposure 03/01/2020 12:00:00 AM EST Never used co mpleted Never used [facility] [place] Smoking 03/01/2020 12:00:00 AM EST Never smoker completed Never s [facility] Smoking 02/26/2020 12:00:00 AM EST Never Smoker completed Never S moker eCW1 ([facility]) Smoking 02/26/2020 12:00:00 AM EST Never Smoker completed Never S moker eCW1 ([facility]) Smoking 02/26/2020 12:00:00 AM EST Never Smoker completed Never S moker eCW1 ([facility]) Smoking 02/12/2020 12:00:00 AM EST Never Smoker completed Never S moker eCW1 ([facility]) Smoking 02/05/2020 12:00:00 AM EST Never Smoker completed Never S moker eCW1 ([facility]) Smoking 02/05/2020 12:00:00 AM EST Never Smoker completed Never S moker eCW1 ([facility]) Alcohol intake 02/02/2020 12:00:00 AM EST Current non-d acacia of alcohol (finding) completed Current non-drinker of alcohol (finding) [facility] [place] Smoking 01/29/2020 12:00:00 AM EST Never Smoker completed Never S moker eCW1 ([facility]) Smoking 01/29/2020 12:00:00 AM EST Never Smoker completed Never S moker eCW1 ([facility]) Smoking 01/29/2020 12:00:00 AM EST Never Smoker completed Never S moker eCW1 ([facility]) Smoking 01/29/2020 12:00:00 AM EST Never Smoker completed Never S moker eCW1 ([facility]) Smoking 01/16/2020 12:00:00 AM EST Never Smoker completed Never S moker eCW1 ([facility]) Smoking 01/05/2020 12:00:00 AM EST Never Smoker completed Never S moker eCW1 ([facility]) Smoking 12/23/2019 12:00:00 AM EDT Never Smoker completed Never S moker eCW1 ([facility]) Smoking 12/23/2019 12:00:00 AM EDT Never Smoker completed Never S moker eCW1 ([facility]) Smoking 12/23/2019 12:00:00 AM EDT Never Smoker completed Never S moker eCW1 ([facility]) Smoking 12/15/2019 12:00:00 AM EDT Never Smoker completed Never S moker eCW1 ([facility]) Smoking 12/08/2019 12:00:00 AM EDT Never Smoker completed Never S moker eCW1 ([facility]) Smoking 12/08/2019 12:00:00 AM EDT Never Smoker completed Never S moker eCW1 ([facility]) Smoking 12/01/2019 12:00:00 AM EDT Never Smoker completed Never S moker eCW1 ([facility]) Smoking 12/01/2019 12:00:00 AM EDT Never Smoker completed Never S moker eCW1 ([facility]) Smoking 11/27/2019 12:00:00 AM EDT Never Smoker completed Never S moker eCW1 ([facility]) Smoking 09/10/2019 12:00:00 AM EDT Never Smoker completed Never S moker eCW1 ([facility]) Smoking 09/10/2019 12:00:00 AM EDT Never Smoker completed Never S moker eCW1 ([facility]) Smoking 08/14/2019 12:00:00 AM EDT Never Smoker completed Never S moker eCW1 ([facility]) Smoking 08/14/2019 12:00:00 AM EDT Never Smoker completed Never S moker eCW1 ([facility]) Smoking 08/08/2019 12:00:00 AM EDT Never Smoker completed Never S moker eCW1 ([facility]) Smoking 08/08/2019 12:00:00 AM EDT Never Smoker completed Never S moker eCW1 ([facility]) Smoking 07/31/2019 12:00:00 AM EDT Never Smoker completed Never S moker eCW1 ([facility]) Smoking 07/31/2019 12:00:00 AM EDT Never Smoker completed Never S moker eCW1 ([facility]) Alcohol intake 07/03/2019 12:00:00 AM EDT Current non-d acacia of alcohol (finding) completed Current non-drinker of alcohol (finding) [facility] [place] Smoking 07/03/2019 12:00:00 AM EDT Never smoker completed Never s [facility] Alcohol intake 06/04/2019 12:00:00 AM EDT Current non-d acacia of alcohol (finding) completed Current non-drinker of alcohol (finding) [facility] [place] Smoking 06/04/2019 12:00:00 AM EDT Never smoker completed Never s [facility] Vital Signs ID Date Data Source UNK Name Value Range Interpretation Code Description Data Source(s) Diastolic blood pressure 64 mm[Hg] 64 mm[Hg] eCW1 ([facility]) Systolic blood pressure 132 mm[Hg] 132 mm[Hg] e CW1 ([facility]) Body temperature 97.2 [degF] 97.2 [degF] eCW1 ( [facility]) Respiratory rate 18 /min 18 /min eCW1 ([facility]) Heart rate 75 /min 75 /min eCW1 ([facility]) Body mass index (BMI) [Ratio] 42.12 kg/m2 42.12 kg/m2 eCW1 ([facility]) Body height 66 [in_i] 66 [in_i] eCW1 ([facility]) Body weight kg eCW1 ([facility]) Body weight 261 [lb_av] 261 [lb_av] eCW1 ([facility]) Diastolic blood pressure 82 mm[Hg] 82 mm[Hg] eCW1 ([facility]) Systolic blood pressure 150 mm[Hg] 150 mm[Hg] e CW1 ([facility]) Body temperature 97.2 [degF] 97.2 [degF] eCW1 ( [facility]) Respiratory rate 18 /min 18 /min eCW1 ([facility]) Heart rate 72 /min 72 /min eCW1 ([facility]) Body mass index (BMI) [Ratio] 42.12 kg/m2 42.12 kg/m2 eCW1 ([facility]) Body height 66 [in_i] 66 [in_i] eCW1 ([facility]) Body weight kg eCW1 ([facility]) Body weight 261 [lb_av] 261 [lb_av] eCW1 ([facility]) Diastolic blood pressure 64 mm[Hg] 64 mm[Hg] eCW1 ([facility]) Systolic blood pressure 140 mm[Hg] 140 mm[Hg] e CW1 ([facility]) Body temperature 96.5 [degF] 96.5 [degF] eCW1 ( [facility]) Respiratory rate 18 /min 18 /min eCW1 ([facility]) Heart rate 74 /min 74 /min eCW1 ([facility]) Body mass index (BMI) [Ratio] 42.12 kg/m2 42.12 kg/m2 eCW1 ([facility]) Body height 66 [in_i] 66 [in_i] eCW1 ([facility]) Body weight kg eCW1 ([facility]) Body weight 261 [lb_av] 261 [lb_av] eCW1 ([facility]) Diastolic blood pressure 62 mm[Hg] 62 mm[Hg] eCW1 ([facility]) Systolic blood pressure 130 mm[Hg] 130 mm[Hg] e CW1 ([facility]) Body temperature 96.7 [degF] 96.7 [degF] eCW1 ( [facility]) Respiratory rate 18 /min 18 /min eCW1 ([facility]) Heart rate 67 /min 67 /min eCW1 ([facility]) Body mass index (BMI) [Ratio] 42.12 kg/m2 42.12 kg/m2 eCW1 ([facility]) Body height 66 [in_i] 66 [in_i] eCW1 ([facility]) Body weight kg eCW1 ([facility]) Body weight 261 [lb_av] 261 [lb_av] eCW1 ([facility]) Diastolic blood pressure mm[Hg] eCW1 ([facility]) Systolic blood pressure 154 mm[Hg] 154 mm[Hg] e CW1 ([facility]) Body temperature 96.5 [degF] 96.5 [degF] eCW1 ( [facility]) Body weight kg eCW1 ([facility]) Body weight 261 [lb_av] 261 [lb_av] eCW1 ([facility]) Respiratory rate 17 /min 17 /min eCW1 ([facility]) Heart rate 67 /min 67 /min eCW1 ([facility]) Body mass index (BMI) [Ratio] 42.12 kg/m2 42.12 kg/m2 eCW1 ([facility]) Body height 66 [in_i] 66 [in_i] eCW1 ([facility]) Diastolic blood pressure 70 mm[Hg] 70 mm[Hg] eCW1 ([facility]) Systolic blood pressure 124 mm[Hg] 124 mm[Hg] e CW1 ([facility]) Body temperature 96.5 [degF] 96.5 [degF] eCW1 ( [facility]) Respiratory rate 18 /min 18 /min eCW1 ([facility]) Heart rate 84 /min 84 /min eCW1 ([facility]) Body mass index (BMI) [Ratio] 42.12 kg/m2 42.12 kg/m2 eCW1 ([facility]) Body height 66 [in_i] 66 [in_i] eCW1 ([facility]) Body weight kg eCW1 ([facility]) Body weight 261 [lb_av] 261 [lb_av] eCW1 ([facility]) Diastolic blood pressure 68 mm[Hg] 68 mm[Hg] eCW1 ([facility]) Systolic blood pressure 122 mm[Hg] 122 mm[Hg] e CW1 ([facility]) Body temperature 95.3 [degF] 95.3 [degF] eCW1 ( [facility]) Respiratory rate 20 /min 20 /min eCW1 ([facility]) Heart rate 77 /min 77 /min eCW1 ([facility]) Body mass index (BMI) [Ratio] 42.12 kg/m2 42.12 kg/m2 eCW1 ([facility]) Body height 66 [in_i] 66 [in_i] eCW1 ([facility]) Body weight kg eCW1 ([facility]) Body weight 261 [lb_av] 261 [lb_av] eCW1 ([facility]) Diastolic blood pressure 88 mm[Hg] 88 mm[Hg] eCW1 ([facility]) Systolic blood pressure 132 mm[Hg] 132 mm[Hg] e CW1 ([facility]) Body temperature 97.8 [degF] 97.8 [degF] eCW1 ( [facility]) Respiratory rate 20 /min 20 /min eCW1 ([facility]) Heart rate 82 /min 82 /min eCW1 ([facility]) Body mass index (BMI) [Ratio] 42.12 kg/m2 42.12 kg/m2 eCW1 ([facility]) Body height 66 [in_i] 66 [in_i] eCW1 ([facility]) Body weight kg eCW1 ([facility]) Body weight 261 [lb_av] 261 [lb_av] eCW1 ([facility]) Diastolic blood pressure 88 mm[Hg] 88 mm[Hg] eCW1 ([facility]) Systolic blood pressure 142 mm[Hg] 142 mm[Hg] e CW1 ([facility]) Body temperature 96.6 [degF] 96.6 [degF] eCW1 ( [facility]) Respiratory rate 20 /min 20 /min eCW1 ([facility]) Heart rate 76 /min 76 /min eCW1 ([facility]) Body mass index (BMI) [Ratio] 42.12 kg/m2 42.12 kg/m2 eCW1 ([facility]) Body height 66 [in_i] 66 [in_i] eCW1 ([facility]) Body weight kg eCW1 ([facility]) Body weight 261 [lb_av] 261 [lb_av] eCW1 ([facility]) Diastolic blood pressure 74 mm[Hg] 74 mm[Hg] eCW1 ([facility]) Systolic blood pressure 138 mm[Hg] 138 mm[Hg] e CW1 ([facility]) Body temperature 96.5 [degF] 96.5 [degF] eCW1 ( [facility]) Respiratory rate 20 /min 20 /min eCW1 ([facility]) Heart rate 71 /min 71 /min eCW1 ([facility]) Body mass index (BMI) [Ratio] 42.12 kg/m2 42.12 kg/m2 eCW1 ([facility]) Body height 66 [in_i] 66 [in_i] eCW1 ([facility]) Body weight kg eCW1 ([facility]) Body weight 261 [lb_av] 261 [lb_av] eCW1 ([facility]) Diastolic blood pressure 80 mm[Hg] 80 mm[Hg] eCW1 ([facility]) Systolic blood pressure 142 mm[Hg] 142 mm[Hg] e CW1 ([facility]) Body temperature 97.8 [degF] 97.8 [degF] eCW1 ( [facility]) Respiratory rate 18 /min 18 /min eCW1 ([facility]) Heart rate 80 /min 80 /min eCW1 ([facility]) Body mass index (BMI) [Ratio] 42.12 kg/m2 42.12 kg/m2 eCW1 ([facility]) Body height 66 [in_i] 66 [in_i] eCW1 ([facility]) Body weight kg eCW1 ([facility]) Body weight 261 [lb_av] 261 [lb_av] eCW1 ([facility]) Diastolic blood pressure 76 mm[Hg] 76 mm[Hg] eCW1 ([facility]) Systolic blood pressure 146 mm[Hg] 146 mm[Hg] e CW1 ([facility]) Body temperature 97.7 [degF] 97.7 [degF] eCW1 ( [facility]) Respiratory rate 16 /min 16 /min eCW1 ([facility]) Heart rate 76 /min 76 /min eCW1 ([facility]) Body mass index (BMI) [Ratio] 42.12 kg/m2 42.12 kg/m2 eCW1 ([facility]) Body height 66 [in_i] 66 [in_i] eCW1 ([facility]) Body weight kg eCW1 ([facility]) Body weight 261 [lb_av] 261 [lb_av] eCW1 ([facility]) Diastolic blood pressure 96 mm[Hg] 96 mm[Hg] eCW1 ([facility]) Systolic blood pressure 164 mm[Hg] 164 mm[Hg] e CW1 ([facility]) Body temperature 95.9 [degF] 95.9 [degF] eCW1 ( [facility]) Respiratory rate 16 /min 16 /min eCW1 ([facility]) Heart rate 89 /min 89 /min eCW1 ([facility]) Body mass index (BMI) [Ratio] 42.12 kg/m2 42.12 kg/m2 eCW1 ([facility]) Body height 66 [in_i] 66 [in_i] eCW1 ([facility]) Body weight kg eCW1 ([facility]) Body weight 261 [lb_av] 261 [lb_av] eCW1 ([facility]) Diastolic blood pressure 98 mm[Hg] 98 mm[Hg] eCW1 ([facility]) Systolic blood pressure 164 mm[Hg] 164 mm[Hg] e CW1 ([facility]) Body temperature 96.7 [degF] 96.7 [degF] eCW1 ( [facility]) Respiratory rate 16 /min 16 /min eCW1 ([facility]) Heart rate 70 /min 70 /min eCW1 ([facility]) Body mass index (BMI) [Ratio] 43.74 kg/m2 43.74 kg/m2 eCW1 ([facility]) Body height 66 [in_i] 66 [in_i] eCW1 ([facility]) Body weight kg eCW1 ([facility]) Body weight 271 [lb_av] 271 [lb_av] eCW1 ([facility]) Diastolic blood pressure mm[Hg] eCW1 ([facility]) Systolic blood pressure 152 mm[Hg] 152 mm[Hg] e CW1 ([facility]) Body temperature 96.7 [degF] 96.7 [degF] eCW1 ( [facility]) Respiratory rate 20 /min 20 /min eCW1 ([facility]) Heart rate 77 /min 77 /min eCW1 ([facility]) Body mass index (BMI) [Ratio] 43.74 kg/m2 43.74 kg/m2 eCW1 ([facility]) Body height 66 [in_i] 66 [in_i] eCW1 ([facility]) Body weight kg eCW1 ([facility]) Body weight 271 [lb_av] 271 [lb_av] eCW1 ([facility]) Diastolic blood pressure mm[Hg] eCW1 ([facility]) Systolic blood pressure 160 mm[Hg] 160 mm[Hg] e CW1 ([facility]) Body temperature 97.4 [degF] 97.4 [degF] eCW1 ( [facility]) Respiratory rate 18 /min 18 /min eCW1 ([facility]) Heart rate 73 /min 73 /min eCW1 ([facility]) Body mass index (BMI) [Ratio] 43.77 kg/m2 43.77 kg/m2 eCW1 ([facility]) Body height 66 [in_i] 66 [in_i] eCW1 ([facility]) Body weight kg eCW1 ([facility]) Body weight 271.2 [lb_av] 271.2 [lb_av] eCW1 ([facility]) Diastolic blood pressure 78 mm[Hg] 78 mm[Hg] eCW1 ([facility]) Systolic blood pressure 132 mm[Hg] 132 mm[Hg] e CW1 ([facility]) Body temperature 98.7 [degF] 98.7 [degF] eCW1 ( [facility]) Respiratory rate 18 /min 18 /min eCW1 ([facility]) Heart rate 87 /min 87 /min eCW1 ([facility]) Body mass index (BMI) [Ratio] 43.77 kg/m2 43.77 kg/m2 eCW1 ([facility]) Body height 66 [in_i] 66 [in_i] eCW1 ([facility]) Body weight 271.2 [lb_av] 271.2 [lb_av] eCW1 ([facility]) Diastolic blood pressure mm[Hg] eCW1 ([facility]) Systolic blood pressure 138 mm[Hg] 138 mm[Hg] e CW1 ([facility]) Body temperature 98.2 [degF] 98.2 [degF] eCW1 ( [facility]) Respiratory rate 19 /min 19 /min eCW1 ([facility]) Heart rate 68 /min 68 /min eCW1 ([facility]) Body mass index (BMI) [Ratio] 44.87 kg/m2 44.87 kg/m2 eCW1 ([facility]) Body height 66 [in_i] 66 [in_i] eCW1 ([facility]) Body weight kg eCW1 ([facility]) Body weight 278 [lb_av] 278 [lb_av] eCW1 ([facility]) Diastolic blood pressure 70 mm[Hg] 70 mm[Hg] eCW1 ([facility]) Systolic blood pressure 138 mm[Hg] 138 mm[Hg] e CW1 ([facility]) Body temperature 98.0 [degF] 98.0 [degF] eCW1 ( [facility]) Respiratory rate 18 /min 18 /min eCW1 ([facility]) Heart rate 72 /min 72 /min eCW1 ([facility]) Body mass index (BMI) [Ratio] 44.87 kg/m2 44.87 kg/m2 eCW1 ([facility]) Body height 66 [in_i] 66 [in_i] eCW1 ([facility]) Body weight kg eCW1 ([facility]) Body weight 278 [lb_av] 278 [lb_av] eCW1 ([facility]) Systolic blood pressure 122 mm[Hg] 122 mm[Hg] e CW1 ([facility]) Body temperature 98.3 [degF] 98.3 [degF] eCW1 ( [facility]) Respiratory rate 20 /min 20 /min eCW1 ([facility]) Heart rate 75 /min 75 /min eCW1 ([facility]) Body mass index (BMI) [Ratio] 44.87 kg/m2 44.87 kg/m2 eCW1 ([facility]) Body height 66 [in_i] 66 [in_i] eCW1 ([facility]) Body weight kg eCW1 ([facility]) Body weight 278 [lb_av] 278 [lb_av] eCW1 ([facility]) Diastolic blood pressure 68 mm[Hg] 68 mm[Hg] eCW1 ([facility]) Diastolic blood pressure 82 mm[Hg] 82 mm[Hg] eCW1 ([facility]) Systolic blood pressure 144 mm[Hg] 144 mm[Hg] e CW1 ([facility]) Body temperature 99.5 [degF] 99.5 [degF] eCW1 ( [facility]) Respiratory rate 16 /min 16 /min eCW1 ([facility]) Heart rate 82 /min 82 /min eCW1 ([facility]) Body mass index (BMI) [Ratio] 44.87 kg/m2 44.87 kg/m2 eCW1 ([facility]) Body height 66 [in_i] 66 [in_i] eCW1 ([facility]) Body weight kg eCW1 ([facility]) Body weight 278 [lb_av] 278 [lb_av] eCW1 ([facility]) Diastolic blood pressure 70 mm[Hg] 70 mm[Hg] eCW1 ([facility]) Systolic blood pressure 136 mm[Hg] 136 mm[Hg] e CW1 ([facility]) Body temperature 97.1 [degF] 97.1 [degF] eCW1 ( [facility]) Respiratory rate 20 /min 20 /min eCW1 ([facility]) Heart rate 72 /min 72 /min eCW1 ([facility]) Body mass index (BMI) [Ratio] 44.87 kg/m2 44.87 kg/m2 eCW1 ([facility]) Body height 66 [in_i] 66 [in_i] eCW1 ([facility]) Body weight kg eCW1 ([facility]) Body weight 278 [lb_av] 278 [lb_av] eCW1 ([facility]) Diastolic blood pressure 60 mm[Hg] 60 mm[Hg] eCW1 ([facility]) Systolic blood pressure 138 mm[Hg] 138 mm[Hg] e CW1 ([facility]) Body temperature 99.2 [degF] 99.2 [degF] eCW1 ( [facility]) Respiratory rate 20 /min 20 /min eCW1 ([facility]) Heart rate 89 /min 89 /min eCW1 ([facility]) Body mass index (BMI) [Ratio] 44.87 kg/m2 44.87 kg/m2 eCW1 ([facility]) Body height 66 [in_i] 66 [in_i] eCW1 ([facility]) Body weight kg eCW1 ([facility]) Body weight 278 [lb_av] 278 [lb_av] eCW1 ([facility]) Diastolic blood pressure 74 mm[Hg] 74 mm[Hg] eCW1 ([facility]) Systolic blood pressure 126 mm[Hg] 126 mm[Hg] e CW1 ([facility]) Body temperature 98.3 [degF] 98.3 [degF] eCW1 ( [facility]) Respiratory rate 18 /min 18 /min eCW1 ([facility]) Heart rate 87 /min 87 /min eCW1 ([facility]) Body mass index (BMI) [Ratio] 44.87 kg/m2 44.87 kg/m2 eCW1 ([facility]) Body height 66 [in_i] 66 [in_i] eCW1 ([facility]) Body weight kg eCW1 ([facility]) Body weight 278 [lb_av] 278 [lb_av] eCW1 ([facility]) Diastolic blood pressure 86 mm[Hg] 86 mm[Hg] eCW1 ([facility]) Systolic blood pressure 138 mm[Hg] 138 mm[Hg] e CW1 ([facility]) Body temperature 97 [degF] 97 [degF] eCW1 ([facility]) Respiratory rate 20 /min 20 /min eCW1 ([facility]) Heart rate 78 /min 78 /min eCW1 ([facility]) Body mass index (BMI) [Ratio] 44.87 kg/m2 44.87 kg/m2 eCW1 ([facility]) Body height 66 [in_us] 66 [in_us] eCW1 ([facility]) Body weight Measured 278 [lb_av] 278 [lb_av] eC W1 ([facility]) Diastolic blood pressure 84 mm[Hg] 84 mm[Hg] eCW1 ([facility]) Systolic blood pressure 138 mm[Hg] 138 mm[Hg] e CW1 ([facility]) Body temperature 98.1 [degF] 98.1 [degF] eCW1 ( [facility]) Respiratory rate 16 /min 16 /min eCW1 ([facility]) Heart rate 74 /min 74 /min eCW1 ([facility]) Body mass index (BMI) [Ratio] 44.87 kg/m2 44.87 kg/m2 eCW1 ([facility]) Body height 66 [in_us] 66 [in_us] eCW1 ([facility]) Body weight Measured 278 [lb_av] 278 [lb_av] eC W1 ([facility]) Diastolic blood pressure 82 mm[Hg] 82 mm[Hg] eCW1 ([facility]) Systolic blood pressure 140 mm[Hg] 140 mm[Hg] e CW1 ([facility]) Body temperature 97.5 [degF] 97.5 [degF] eCW1 ( [facility]) Respiratory rate 18 /min 18 /min eCW1 ([facility]) Heart rate 97.5 /min 97.5 /min eCW1 ([facility]) Body mass index (BMI) [Ratio] 44.87 kg/m2 44.87 kg/m2 eCW1 ([facility]) Body height 66 [in_us] 66 [in_us] eCW1 ([facility]) Body weight Measured 278 [lb_av] 278 [lb_av] eC W1 ([facility]) Diastolic blood pressure 82 mm[Hg] 82 mm[Hg] eCW1 ([facility]) Systolic blood pressure 136 mm[Hg] 136 mm[Hg] e CW1 ([facility]) Body temperature 96.4 [degF] 96.4 [degF] eCW1 ( [facility]) Respiratory rate 18 /min 18 /min eCW1 ([facility]) Heart rate 97 /min 97 /min eCW1 ([facility]) Body mass index (BMI) [Ratio] 44.90 kg/m2 44.90 kg/m2 eCW1 ([facility]) Body height 66 [in_us] 66 [in_us] eCW1 ([facility]) Body weight Measured 278.2 [lb_av] 278.2 [lb_av ] eCW1 ([facility]) Diastolic blood pressure 90 mm[Hg] 90 mm[Hg] eCW1 ([facility]) Systolic blood pressure 180 mm[Hg] 180 mm[Hg] e CW1 ([facility]) Body temperature 96.1 [degF] 96.1 [degF] eCW1 ( [facility]) Respiratory rate 19 /min 19 /min eCW1 ([facility]) Heart rate 81 /min 81 /min eCW1 ([facility]) Body mass index (BMI) [Ratio] 43.90 kg/m2 43.90 kg/m2 eCW1 ([facility]) Body height 66 [in_us] 66 [in_us] eCW1 ([facility]) Body weight Measured 272 [lb_av] 272 [lb_av] eC W1 ([facility]) Diastolic blood pressure 84 mm[Hg] 84 mm[Hg] eCW1 ([facility]) Systolic blood pressure 136 mm[Hg] 136 mm[Hg] e CW1 ([facility]) Body temperature 97.2 [degF] 97.2 [degF] eCW1 ( [facility]) Respiratory rate 20 /min 20 /min eCW1 ([facility]) Heart rate 75 /min 75 /min eCW1 ([facility]) Body mass index (BMI) [Ratio] 43.90 kg/m2 43.90 kg/m2 eCW1 ([facility]) Body height 66 [in_us] 66 [in_us] eCW1 ([facility]) Body weight Measured 272 [lb_av] 272 [lb_av] eC W1 ([facility]) Diastolic blood pressure 64 mm[Hg] 64 mm[Hg] eCW1 ([facility]) Systolic blood pressure 138 mm[Hg] 138 mm[Hg] e CW1 ([facility]) Body temperature 98.9 [degF] 98.9 [degF] eCW1 ( [facility]) Respiratory rate 22 /min 22 /min eCW1 ([facility]) Heart rate 96 /min 96 /min eCW1 ([facility]) Body mass index (BMI) [Ratio] 40.35 kg/m2 40.35 kg/m2 eCW1 ([facility]) Body height 66 [in_us] 66 [in_us] eCW1 ([facility]) Body weight Measured 250 [lb_av] 250 [lb_av] eC W1 ([facility]) Diastolic blood pressure 80 mm[Hg] 80 mm[Hg] eCW1 ([facility]) Systolic blood pressure 132 mm[Hg] 132 mm[Hg] e CW1 ([facility]) Body temperature 97.3 [degF] 97.3 [degF] eCW1 ( [facility]) Respiratory rate 20 /min 20 /min eCW1 ([facility]) Heart rate 80 /min 80 /min eCW1 ([facility]) Body mass index (BMI) [Ratio] 40.35 kg/m2 40.35 kg/m2 eCW1 ([facility]) Body height 66 [in_i] 66 [in_i] eCW1 ([facility]) Body weight 250 [lb_av] 250 [lb_av] eCW1 ([facility]) Diastolic blood pressure 56 mm[Hg] 56 mm[Hg] eCW1 ([facility]) Systolic blood pressure 119 mm[Hg] 119 mm[Hg] e CW1 ([facility]) Body temperature 96.9 [degF] 96.9 [degF] eCW1 ( [facility]) Respiratory rate 22 /min 22 /min eCW1 ([facility]) Heart rate 83 /min 83 /min eCW1 ([facility]) Body mass index (BMI) [Ratio] 40.35 kg/m2 40.35 kg/m2 eCW1 ([facility]) Body height 66 [in_us] 66 [in_us] eCW1 ([facility]) Body weight Measured 250 [lb_av] 250 [lb_av] eC W1 ([facility]) Diastolic blood pressure 84 mm[Hg] 84 mm[Hg] eCW1 ([facility]) Systolic blood pressure 158 mm[Hg] 158 mm[Hg] e CW1 ([facility]) Body temperature 97.8 [degF] 97.8 [degF] eCW1 ( [facility]) Respiratory rate 20 /min 20 /min eCW1 ([facility]) Heart rate 94 /min 94 /min eCW1 ([facility]) Body mass index (BMI) [Ratio] 40.57 kg/m2 40.57 kg/m2 eCW1 ([facility]) Body height 66 [in_us] 66 [in_us] eCW1 ([facility]) Body weight Measured 251.4 [lb_av] 251.4 [lb_av ] eCW1 ([facility]) Diastolic blood pressure 64 mm[Hg] 64 mm[Hg] eCW1 ([facility]) Systolic blood pressure 130 mm[Hg] 130 mm[Hg] e CW1 ([facility]) Body temperature 97.2 [degF] 97.2 [degF] eCW1 ( [facility]) Respiratory rate 18 /min 18 /min eCW1 ([facility]) Heart rate 70 /min 70 /min eCW1 ([facility]) Body mass index (BMI) [Ratio] 39.54 kg/m2 39.54 kg/m2 eCW1 ([facility]) Body height 66 [in_us] 66 [in_us] eCW1 ([facility]) Body weight Measured [lb_av] eCW1 ([facility]) Diastolic blood pressure 66 mm[Hg] 66 mm[Hg] eCW1 ([facility]) Systolic blood pressure 140 mm[Hg] 140 mm[Hg] e CW1 ([facility]) Body temperature 97.8 [degF] 97.8 [degF] eCW1 ( [facility]) Respiratory rate 18 /min 18 /min eCW1 ([facility]) Heart rate 88 /min 88 /min eCW1 ([facility]) Body mass index (BMI) [Ratio] 39.54 kg/m2 39.54 kg/m2 eCW1 ([facility]) Body height 66 [in_us] 66 [in_us] eCW1 ([facility]) Body weight Measured 245 [lb_av] 245 [lb_av] eC W1 ([facility]) Body mass index (BMI) [Ratio] 39.54 kg/m2 39.54 kg/m2 eCW1 ([facility]) Body height 66 [in_us] 66 [in_us] eCW1 ([facility]) Body weight Measured 245 [lb_av] 245 [lb_av] eC W1 ([facility]) Diastolic blood pressure mm[Hg] eCW1 ([facility]) Systolic blood pressure 152 mm[Hg] 152 mm[Hg] e CW1 ([facility]) Body temperature 97.6 [degF] 97.6 [degF] eCW1 ( [facility]) Respiratory rate 20 /min 20 /min eCW1 ([facility]) Heart rate 84 /min 84 /min eCW1 ([facility]) ID Date Data Source [id number] 03/04/2020 01:21:09 PM [facility] Name Value Range Interpretation Code Description Data Source(s) WEIGHT RECORDED 261 lb 261 lb [facility] ID Date Data Source [id number] 02/04/2020 08:06:09 PM [facility] Name Value Range Interpretation Code Description Data Source(s) WEIGHT RECORDED 267.6 lb 267.6 lb [facility] ID Date Data Source [id number] 06/04/2019 03:54:06 PM EDT [facility] Name Value Range Interpretation Code Description Data Source(s) WEIGHT RECORDED 272 lb 272 lb [facility] Body height Measured 66 in 66 in [facility] Patient Treatment Plan of Care Planned Activity Planned Date Details Description Data Source (s) Megestrol Acetate 40 MG Oral Tablet 01/29/2020 12:00:00 AM [facility] Cyclosporine 0.5 MG/ML Ophthalmic Suspension [Restasis ] 01/20/2020 12:00:00 AM [facility] ospital Basaglar KwikPen 100 UNIT/ML Subcutaneous Solution Pen -injector 01/07/2020 12:00:00 AM [facility] ospital Glucometer 11/27/2019 12:00:00 AM EDT e CW1 ([facility]) Erythromycin 0.005 MG/MG Ophthalmic Ointment 08/15/2019 12:00:00 AM EDT eCW1 ([facility]) Erythromycin 0.005 MG/MG Ophthalmic Ointment 08/15/2019 12:00:00 AM EDT eCW1 ([facility]) Erythromycin 0.005 MG/MG Ophthalmic Ointment 06/23/2019 12:00:00 AM EDT eCW1 ([facility]) Megestrol Acetate 40 MG Oral Tablet 05/28/2019 12:00:00 AM [facility] Basaglar KwikPen 100 UNIT/ML 03/28/2019 12:00:00 AM EST eCW1 ([facility]) Basaglar KwikPen 100 UNIT/ML 03/28/2019 12:00:00 AM EST eCW1 ([facility]) OneTouch Ultra II Test Strips 02/28/2019 12:00:00 AM EST [email or web address] ([facility]) Megestrol Acetate 40 MG Oral Tablet 05/24/2018 12:00:00 AM [facility]
[2020-04-22] MEDS: METOPROLOL TART 25 MG TABLET PO SCH (21:58)
[2020-04-22] MEDS: ATORVASTATIN 20 MG TAB PO SCH (21:58)
[2020-04-22 23:00] VITALS: BP 106/64
[2020-04-22] MEDS: DOCUSATE SODIUM 100MG CAPSULE PO SCH (23:30)
[2020-04-22] MEDS: MEGESTROL 40 MG TAB PO SCH (23:41)
[2020-04-23 04:00] VITALS: BP 106/53
[2020-04-23] MEDS ORDERED: NYSTATIN 100,000 UNITS/GM TOPICAL PWD 15 GM TOP PRN (05:15)
[2020-04-23] MEDS: traMADol 50 MG TAB PO PRN ×2 (05:33→22:51)
[2020-04-23 05:36] LABS: HEMATOCRIT 42.1 % (36.0-47.0); HEMOGLOBIN 12.5 g/dl (12.0-15.5); MEAN CORPUSCULAR HEMOGLOBIN 27.2 pg (27.0-33.0); MEAN CORPUSCULAR HGB CONC 29.7 g/dl (32.0-36.5); MEAN CORPUSCULAR VOLUME 91.5 fl (80.0-96.0); PLATELET COUNT, AUTOMATED 237 10^3/uL (150-450)
[2020-04-23] MEDS: HumaLOG INSULIN (NovoLOG) PER UNIT SC SCH ×4 (07:30→21:00)
[2020-04-23 07:35] LABS: ALT/SGPT 58 U/L (12-78); BILIRUBIN,TOTAL 0.9 MG/DL (0.2-1.0); BLOOD UREA NITROGEN 40 MG/DL (7-18); CALCIUM LEVEL 7.4 MG/DL (8.8-10.2); CARBON DIOXIDE LEVEL 15 MEQ/L (21-32); CHLORIDE LEVEL 109 MEQ/L (98-107); CREATININE FOR GFR 2.04 MG/DL (0.55-1.30); GLOMERULAR FILTRATION RATE 25.6 (>39); GLUCOSE, FASTING 97 MG/DL (70-100); POTASSIUM SERUM 5.2 MEQ/L (3.5-5.1); SODIUM LEVEL 136 MEQ/L (136-145)
[2020-04-23 07:50] VITALS: BP 128/58
[2020-04-23] MEDS: DOCUSATE SODIUM 100MG CAPSULE PO SCH ×2 (09:00→21:00)
[2020-04-23 09:35] LABS: FREE T4 1.42 NG/DL (0.76-1.46)
[2020-04-23] MEDS: ENOXAPARIN 30MG/0.3ML SYRINGE (J1650 PER 10MG) SC SCH (09:37)
[2020-04-23 09:38] LABS: TOTAL T3 93.3 NG/DL (60.0-181.0)
[2020-04-23] MEDS: MEGESTROL 40 MG TAB PO SCH ×2 (09:38→22:50)
[2020-04-23] MEDS: ASPIRIN 81MG ENTERIC TABLET PO SCH (09:38)
[2020-04-23] MEDS: allopurinoL 100 MG TAB PO SCH (09:38)
[2020-04-23] MEDS: DIGOXIN 0.125 MG TAB PO SCH (09:38)
[2020-04-23] MEDS: cefTRIAXone SOD 1 GM in D5W MINI-BAG PLUS 50 ML IV SCH (09:38)
[2020-04-23] MEDS: METOPROLOL TART 25 MG TABLET PO SCH ×2 (09:39→22:53)
[2020-04-23] MEDS: FUROSEMIDE 100MG/10ML VIAL (J1940) IV SCH ×2 (11:48→16:52)
[2020-04-23 12:00] VITALS: BP 113/58
--- NOTE | 2020-04-23 13:28 | IPNPDOC ---
Date Seen The patient was seen on 04/23/20. Progress Note SUBJECTIVE: Cr slightly increased, acidosis present. Nephrology consulted. Hx of HFpEf with severe PH, severe RV dilatation from echo in 2018. Currently BNP elevated at >2K. AAOx3, + UTI on ceftriaxone. Dr. Dickson to consult for lower ext wounds. She denies increased SOB, chest pain, fevers, chills, n/v/d. OBJECTIVE: PHYSICAL EXAMINATION: VITAL SIGNS: Please see below GENERAL APPEARANCE: NAD, resting in bed, AAOx3 HEENT: NC/AT, PERRLA, EOM in tact CARDIOVASCULAR: Irregularly irregular rate and rhythm, no appreciable murmurs LUNGS: CTAB, no w/r/r ABDOMEN: Soft, nontender, nondistended, no peritoneal signs, no appreciable masses, obese MUSCULOSKELETAL: She is able to move all of her extremities appropriately, strength 5 out 5 EXTREMITIES/INTEGUMENTARY: 1+ edema of the bilateral lower extremities. Chronic venous stasis ulcers that appear well healing on RLE, +1-2 swelling in b/l lower ext. 2 small ulcers on LLE. NEUROLOGICAL: Awake, alert and oriented to person place and time PSYCHIATRIC: Mood and affect are appropriate LABORATORY DATA: See below. IMAGING: Head CT (04/22/20): Age-appropriate supratentorial and infratentorial atrophy, moderate white matter microvascular ischemic disease, no acute intracranial abnormality identified, left maxillary sinusitis Foot x-ray (04/22/20): Extensive vascular dystrophic soft tissue calcification in the distal calf. Midfoot osteoarthritis. Mild diffuse osteopenia. No acute bony abnormality appreciated. Forefoot swelling. Chest x-ray (04/22/20): Cardiomegaly. Mild vascular cephalization, otherwise no active disease. Cervical spine CT (04/22/20): Degenerative changes, no acute cervical spinal bony injury identified. Recommend nonemergent thyroid sonograph for further evaluation of course a calcified left nodule Echo (11/26/2017): Normal LV size with mild left ventricular hypertrophy and preserved LV systolic function. Severely dilated and hypokinetic right ventricle. Severe biatrial enlargement, right greater than left, aortic sclerosis but only trivial stenosis and no insufficiency. Approximately moderate mitral and tricuspid insufficiency. High central venous pressure. Severe pulmonary hypertension. MICROBIOLOGY: Blood culture (04/22/20): Pending Urine culture (04/22/20): Pending Respiratory virus panel (04/22/20): COVID-19 negative ASSESSMENT: Is a 69-year-old female with multiple medical comorbidities who presented to the emergency department the evening of 04/22/20 after being found unresponsive and hypoglycemic in her home. At the scene, patient was given IV dextrose with moderate improvement in her mental status. In the emergency department, patient was found to have a CK of 3831. Patient will be admitted to the hospital for further workup and management of her rhabdo and altered mental status. PLAN: Acute rhabdomyolysis -CK of 3831 on admission --> 17,895 this AM, lactic wnl, slightly worsened Cr -IVF at 100 cc per hour stopped by nephrology -Monitor fluid status closely, daily CK, replace lytes PRN -Nephrology following Acute HFpEF with exacerbation -Echo from 2018 above, EF preserved -+1 pitting edema in lower ext, + JVD -BNP 2K--> >4K today, trop neg -Patient does not follow with cardiology and does not wish to do so either -F/u new echocardiogram -Lasix BID, BB -Monitor I&O's, daily wts, 2 gm sodium diet CKD Stage 3-4 -Cr 2.04, baseline Cr 1.8-1.9 -Patient has declined nephrology referral in the past -Is agreeable to see today -Holding ARB -F/u nephrology recommendations, daily labs while on lasix BID Hyperkalemia likely 2/2 to renal issues -K 5.2, no ECG changes -On lasix BID -Monitor with daily labs Acute transaminitis -R factor of 0.2 -AST/ALT increased overnight -Avoid hepatoxic medications -F/u daily CMP, consider US UTI -F/u UCx, blood cultures and daily labs -Started on ceftriaxone IV daily Acute hyponatremia -Sodium of 130, patient to be receiving saline IVF -sOsm, uOsm, Mirian -Close monitoring. Thyroid nodule -13.1 mm partially calcified left thyroid nodule incidentally noted on CT of the patient's cervical spine. -Thyroid ultrasound ordered to be performed during hospitalization but patient refused further workup -TSH, T3 and T4 normal Left maxillary sinusitis -1 week history of L-sided WONG and green-colored nasal congestion -No systemic signs/symptoms -ceftriaxone Chronic venous stasis ulcers -Follows outpatient with Dr. Dickson -Was scheduled for dressing change today, 04/22/20 -Dr. Dickson consulted to do tele visit with her today Gout -c/w home allopurinol DM type II -BS stable, hypoglycemia resolved -History of noncompliance -SSI, CC diet Atrial fibrillation, without anticoagulation -Rate controlled. Digoxin, metoprolol, ASA -Dig level WNL. -Confirmed with patient that she has and continues to elect for aspirin only anticoagulation. -Telemetry monitoring HTN -Normotensive -c/w home medications HLD -c/w statin Obesity, class IIII -BMI of 45, complicating care -Recommend healthy diet for weight loss -Outpatient follow-up of A1c and lipids PERFECTO -Reports compliance with home CPAP -Oxygen titration. DVT px -Lovenox Resolved issues: #Altered mental status likely 2/2 to hypoglycemia, dehydration DISPOSITION: Currently under inpatient status. Nephrology consulted to follow. Will need PT/OT to see after weekend. Plan is hopefully home w/wout services once medically improved. VS, I&O, 24H, Fishbone Vital Signs/I&O Vital Signs Date Time Temp Pulse Resp B/P (MAP) Pulse Ox O2 Delivery O2 Flow Rate FiO2 04/23/20 12:00 99.3 85 24 113/58 (76) 90 Room Air 04/23/20 07:50 2.0 I&O- Last 24 Hours up to 6 AM 04/23/20 06:00 Intake Total 440 ml Output Total 675 ml Balance -235 ml Laboratory Data 24H LABS Laboratory Tests 2 04/22/20 17:14: POC pH (Misc Panel) 7.269L, POC Base Excess (Misc Panel) -5.0L, POC Saturated Pe rcent O2 (Misc) 95, POC pO2 (Misc Panel) 89.0, POC pCO2 (Misc Panel) 46.8H, POC HCO3 (Misc Panel) 21.5L, POC Total CO2 (Misc Panel) 23.0 04/22/20 17:30: Immature Granulocyte % (Auto) 1.3, Neutrophils (%) (Auto) 86.7H, Lymphocytes (%) (Auto) 4.6L, Monocytes (%) (Auto) 6.9, Eosinophils (%) (Auto) 0.1, Basophils (%) (Auto) 0.4, Neutrophils # (Auto) 9.3H, Lymphocytes # (Auto) 0.5L, Monocytes # (Auto) 0.7, Eosinophils # (Auto) 0.0, Basophils # (Auto) 0.0, Nucleated Red Blood Cells % (auto) 0.0, Anion Gap 8, Glomerular Filtration Rate 27.4L, Estimated Mean Plasma Glucose 263H, Hemoglobin A1c 10.8, Lactic Acid Level 1.9, Calcium Level 8.9, Phosphorus Level 4.6, Total Bilirubin 1.4H, Direct Bilirubin 0.5H, Aspartate Amino Transf (AST/SGOT) 80H, Alanine Aminotransferase (ALT/SGPT) 32, Alkaline Phosphatase 213H, Total Creatine Kinase 3831H, Creatine Kinase MB 39.1H, Creatine Kinase MB Relative Index 1.02, Troponin I 0.04, CV-Egy-D-Type Natriuretic Peptide 2333H, Total Protein 8.8H, Albumin 3.5, Albumin/Globulin Ratio 0.7L, Thyroid Stimulating Hormone (TSH) 2.580, Salicylates Level < 1.7L, Urine Opiates Screen NEGATIVE, Urine Methadone Screen NEGATIVE, Acetaminophen Level < 2.0L, Urine Barbiturates Screen NEGATIVE, Urine Phencyclidine Screen NEGATIVE, Urine Amphetamines Screen NEGATIVE, Urine Benzodiazepines Screen NEGATIVE, Urine Cocaine Metabolite Screen NEGATIVE, Urine Cannabinoids Screen NEGATIVE, Ethyl Alcohol Level < 0.003 04/22/20 17:31: Urine Color REBEKAH, Urine Appearance CLOUDYH, Urine pH 7.0, Urine Specific [place] 1.012, Urine Protein 3+H, Urine Glucose (UA) NEGATIVE, Urine Ketones NEGATIVE, Urine Blood 2+H, Urine Nitrite NEGATIVE, Urine Bilirubin NEGATIVE, Urine Urobilinogen 2.0H, Urine Leukocyte Esterase 3+H, Urine WBC (Auto) 55H, Urine RBC (Auto) 6H, Urine Hyaline Casts (Auto) 1, Urine Bacteria (Auto) 1+H, Urine Squamous Epithelial Cells 0, Urine Mucus (Auto) SMALL, Urine Sperm (Auto) 04/22/20 17:59: POC Troponin I (Misc) 0.04 04/22/20 18:21: Bedside Glucose (Misc Panel) 115H 04/22/20 18:22: POC pH (Misc Panel) 7.284L, POC Base Excess (Misc Panel) -6.0L, POC Saturated Percent O2 (Misc) 96, POC pO2 (Misc Panel) 93.0, POC pCO2 (Misc Panel) 43.2, POC HCO3 (Misc Panel) 20.5L, POC Total CO2 (Misc Panel) 22.0L 04/22/20 20:44: Bedside Glucose (Misc Panel) 78L 04/22/20 23:09: Bedside Glucose (Misc Panel) 88 04/23/20 03:44: Bedside Glucose (Misc Panel) 59L 04/23/20 04:02: Bedside Glucose (Misc Panel) 62L 04/23/20 04:28: Bedside Glucose (Misc Panel) 84 04/23/20 05:00: Nucleated Red Blood Cells % (auto) 0.0, Anion Gap 12, Glomerular Filtration Rate 25.6L, Calcium Level 7.4#L, Total Bilirubin 0.9, Aspartate Amino Transf (AST/SGOT) 321H, Alanine Aminotransferase (ALT/SGPT) 58, Alkaline Phosphatase 151H, Total Creatine Kinase , Total Protein , Albumin , Albumin/Globulin Ratio 04/23/20 05:13: Bedside Glucose (Misc Panel) 104 04/23/20 08:34: Total Creatine Kinase 33703#H, QK-Uhc-Z-Type Natriuretic Peptide 4238H, Free Thyroxine 1.42, Total Triiodothyronine 93.3 04/23/20 11:37: Bedside Glucose (Misc Panel) 93 CBC/BMP Laboratory Tests 04/22/20 17:30 04/23/20 05:00 Microbiology Microbiology 04/22/20 Urine Culture, Received Pending 04/22/20 Respiratory Virus Panel (PCR) ([facility]) - Final, Complete 04/22/20 Blood Culture, Received Pending 04/22/20 Blood Culture, Received Pending Current Medications Current Medications Medications (Trade) Dose Ordered Sig/Bert Route PRN Reason Start Time Stop Time Status Last Admin Dose Admin Al Hydrox/Mg Hydrox/Simethicone (Mylanta) 30 ml DAILY PRN PO DYSPEPSIA 04/22/20 19:35 Allopurinol (Zyloprim) 100 mg DAILY PO 04/23/20 09:00 04/23/20 09:38 Aspirin (Ecotrin) 81 mg DAILY PO 04/23/20 09:00 04/23/20 09:38 Atorvastatin Calcium (Lipitor) 40 mg QHS PO 04/22/20 21:00 04/22/20 21:58 Ceftriaxone Sodium 1 gm/ Dextrose 50 ml @ 100 mls/hr Q24H IV 04/23/20 09:00 04/23/20 09:38 Dextrose (Dextrose 50%) 25 ml ASDIRECTED PRN IV SEE LABEL COMMENTS 04/22/20 20:40 Digoxin (Lanoxin) 0.125 mg DAILY PO 04/23/20 09:00 04/23/20 09:38 Docusate Sodium (Colace) 100 mg BID PO 04/22/20 21:00 Enoxaparin Sodium (Lovenox) 30 mg DAILY SC 04/23/20 09:00 04/23/20 09:37 Furosemide (LASIX injection) 80 mg BID@09,17 IV 04/23/20 11:10 04/23/20 11:48 Glucagon (Glucagon) 1 mg ASDIRECTED PRN SC SEE LABEL COMMENTS 04/22/20 20:40 Glucose (Glucose) 16 GM ASDIRECTED PRN PO SEE LABEL COMMENTS 04/22/20 20:40 Home Med (Med Rec Complete!) ASDIRECTED XX 04/22/20 19:40 04/22/20 19:40 DC Insulin Human Lispro (HumaLOG INSULIN) SEE PROTOCOL TABLE AC SC 04/23/20 07:30 Insulin Human Lispro (HumaLOG INSULIN) SEE PROTOCOL TABLE QHS SC 04/22/20 21:00 Magnesium Hydroxide (Milk Of Magnesia) 30 ml DAILY PRN PO CONSTIPATION 04/22/20 19:35 Megestrol Acetate (Megace) 40 mg BID PO 04/22/20 21:00 04/23/20 09:38 Metoprolol Tartrate (Lopressor) 25 mg BID PO 04/22/20 21:00 04/23/20 09:39 Nystatin (Mycostatin Powder, Nystop) Abdominal folds BIDP PRN TOP RASH 04/23/20 05:15 Sodium Chloride 1,000 ml @ 70 mls/hr [id number] IV 04/22/20 19:30 04/23/20 11:06 DC 04/22/20 23:41 Sodium Chloride 1,000 ml @ 100 mls/hr Q10H IV 04/22/20 17:08 04/22/20 23:27 DC 04/22/20 17:33 Tramadol HCl (Ultram) 50 mg Q12HP PRN PO PAIN 04/23/20 04:35 04/23/20 05:33 Allergies Coded Allergies: WOOL (FABRIC) (Verified Allergy, Intermediate, 04/22/20) Aminoglycosides (Verified Allergy, Unknown, 04/22/20) bacitracin (Verified Allergy, Unknown, 04/22/20) dextromethorphan (Verified Allergy, Unknown, 04/22/20) guaifenesin (Verified Allergy, Unknown, 04/22/20) neomycin (Verified Allergy, Unknown, 04/22/20) polymyxin B (Verified Allergy, Unknown, 04/22/20) Hodan Claros MD Apr 23, 2020 13:28
--- NOTE | 2020-04-23 14:16 | CR ---
CONSULTATION DATE: 04/23/2020 REQUESTING PHYSICIAN: LIZ PEREZ MD REASON FOR CONSULTATION: Management of acute renal failure and optimization of fluid status in this patient with congestive heart failure. CHIEF COMPLAINT: The patient presented to the hospital yesterday with hypoglycemia and altered mental status. HISTORY OF PRESENT ILLNESS: Luli Guillaume is a 69-year-old female with a past medical history of hypertension, severe pulmonary hypertension, cor pulmonale, chronic kidney disease with a baseline creatinine of around 1.8 as per previous records. She follows up with Viry Mcdermott, Nurse Practitioner in [place]. She refuses to have any referrals done or to be seen by other physicians. She has chronic right lower extremity ulcer, for that she follows up with Dr. Dickson. She has multiple other comorbidities as mentioned below. She fell at home. She hit her face. She was hypoglycemic. She was brought to the Emergency Room and was admitted under the Hospitalist Service with mild rhabdomyolysis, altered mental status and hypoglycemia. She was found to have a creatinine of 1.9 on arrival and it is 2 today. Nephrology Service was called for further help in the management of this patient because she has severe pulmonary hypertension and cor pulmonale as well. I saw and evaluated the patient at the bedside today morning. She was getting gentle IV fluid hydration. She has an indwelling Jain catheter. She was able to provide me with a history. PAST MEDICAL HISTORY: Past medical history of chronic kidney disease Stage III, baseline creatinine of 1.8, atrial fibrillation, not on anticoagulation because she refuses it, hypertension, severe pulmonary hypertension, dilated hypokinetic right ventricle indicating cor pulmonale, insulin dependent diabetic which is uncontrolled, obstructive sleep apnea, chronic gout secondary to chronic kidney disease, morbid obesity, depression, chronic venous insufficiency, right leg ulcer. She follows up with Dr. Dickson, endometrial adenocarcinoma, morbid obesity. PAST SURGICAL HISTORY: Status post tonsillectomy in the past, history of tracheostomy secondary to respiratory failure in 2009. D and C in 2019, right knee skin graft in 2019. ALLERGIES: She is allergic to aminoglycoside, wool fabric, bacitracin, dextromethorphan, guaifenesin, Neomycin and Polymixin. FAMILY HISTORY: She gives a positive family history of endstage renal disease in mother who was on dialysis. SOCIAL HISTORY: The patient lives at home, she lives alone. She denies any smoking. She occasionally drinks alcohol on the weekends. She denies any illicit or recreational drug use. Patient is usually able to ambulate with the help of a walker. REVIEW OF SYSTEMS: Constitutional: She denies any fevers or chills. She does report falls at home. Eyes: She denies any blurry vision or double vision. ENT: She reports left sided facial swelling. Cardiovascular: She reports heart failure. Respiratory: She reports pulmonary hypertension. She reports mild shortness of breath. GI: She denies any nausea or vomiting. Genitourinary: She denies any dysuria or hematuria. Musculoskeletal: She reports chronic venous stasis changes and a right leg ulcer. Hematological/Oncological: She denies any easy bleeding or bruising. Psych: She does report a history of depression. BARREL MAKER: She reports a recent fall and syncope. Endocrine: She reports insulin dependent diabetes. All other review of systems are negative. PHYSICAL EXAMINATION: GENERAL: The patient is awake, alert and oriented x3, laying in bed. VITAL SIGNS: Temperature is 97.2 degrees Fahrenheit, blood pressure is 128/58, pulse is 79, respiratory rate of 22, saturating 99% on nasal cannula at 2 liters. HEAD AND NECK EXAM: Extraocular muscles are intact. Pupils equally round and reactive to light. Mucous membranes are moist. Left sided facial puffiness was noted. Neck is supple. She has moderately elevated JVD. CARDIOVASCULAR: S1 and S2. JVD was noted, irregularly irregular heart rate. 2+ edema of the bilateral lower extremities was noted, right was worse than left. RESPIRATORY: Mildly decreased breath sounds at the bases, otherwise no active rales or rhonchi. ABDOMEN: Morbidly obese. She has a large abdominal pannus which has a lot of edema. She has edema of the abdominal wall and the flanks as well. GENITOURINARY: She has an indwelling Jain catheter. MUSCULOSKELETAL: Patient has a compression bandage in the right leg and she reports she has an ulcer in the right leg. The left leg also has an ulcer in the anterior aspect of the ahumada and she reports she bumped it a few days ago. Both the legs have edema all the way up the thighs. BARREL MAKER: No focal deficit. Power is 5/5 in bilateral upper extremities. LABORATORY DATA: CBC showed a WBC of 10.7 yesterday, it is 8 today, hemoglobin is 12.5, platelets are 237,000. Urinalysis done yesterday showed it was cloudy with 2+ blood and 3+ protein. BMP showed a sodium of 136, potassium 5.2, chloride 109, bicarbonate 15, BUN 40, creatinine 2.04. Calcium is 7.4. CPK is 17,895. BNP is pending. Toxicology: All the toxicology is negative so far. Microbiology: Respiratory viral panel is negative. Urine culture is pending. Imaging: A chest x-ray was done yesterday which showed cardiomegaly and pulmonary vascular congestion. CURRENT INPATIENT MEDICATIONS: The patient's medications were all reviewed by myself. She was getting IV normal saline hydration. I have stopped that. She is on Rocephin 1 gram IV q. 24, Allopurinol 100 mg p.o. daily, aspirin 81 mg daily, Lipitor 40 mg p.o. q.h.s., Digoxin 0.125 mg p.o. daily, Colace 100 mg p.o. twice a day, Lovenox 30 mg sub q. daily, Lasix was started by myself, 80 mg IV twice a day. Insulin Lispro sliding scale, Megace 40 mg p.o. twice a day, Metoprolol 25 mg p.o. twice a day, Milk of Magnesia, Nystatin and Tramadol 50 mg p.o. q. 12 hours p.r.n. ASSESSMENT AND PLAN: 1. Acute renal failure superimposed on chronic kidney disease Stage III. Patient has a baseline creatinine of 1.8. Her creatinine today is 2 today which is not very off from her baseline. Patient is volume overloaded and needs a diuretic as mentioned below. 2. Decompensated cor pulmonale. Patient has severe pulmonary hypertension, she has signs of fluid overload on exam. I have stopped the IV fluid and started the patient on IV Lasix 80 mg twice a day. The rest of the diuretic management will be done tomorrow morning after the patient responds to the diuretics. 3. Hyperkalemia, it is secondary to acute renal failure, loop diuretic has been started and I am hoping that potassium should improve just with diuresis. 4. Rhabdomyolysis. Patient was found on the floor. She has mild rhabdomyolysis. At this time since she is overloaded, she does not need any IV fluid hydration, she just needs diuresis. 5. Chronic gout secondary to chronic kidney disease, continue current dose of Allopurinol 100 mg p.o. daily. 6. Atrial fibrillation, heart rate is controlled with Digoxin. Patient refuses anticoagulation, currently she is on Lovenox sub q. for DVT prophylaxis. She is also on Metoprolol 25 mg p.o. twice a day. 7. History of endometrial cancer, patient is on Megace 40 mg p.o. twice a day. Thank you for involving me in the care of this patient. I shall be happy to follow the patient along with you tomorrow morning.
[2020-04-23 16:00] VITALS: BP 117/61
--- NOTE | 2020-04-23 16:59 | CR ---
ADVANCED WOUND CARE CONSULTATION VIA TELEMEDICINE DATE: 04/23/2020 REQUESTING PHYSICIAN: Dr. Barb Pearce REASON FOR CONSULTATION: Right lower extremity wound HISTORY OF PRESENT ILLNESS: This is a patient well known to our clinic, has been followed for a right lower extremity lateral supramalleolar venous stasis ulcer which has significantly improved over the last 2 months. Pinch skin grafts and four layer compression wrap have been utilized with good success. The patient missed her appointment at the clinic, which was quite unusual as she is very punctual. Our staff called her home and there was no answer. Therefore we called the police, who found her face down in her apartment, unconscious. She was brought to the Emergency Room and found to have a blood sugar of 32, and was resuscitated. It should be known that her hemoglobin A1c is double digits, 10.5 and she has not been controlled. When seen today, she is alert and oriented and her blood glucose is 90. In terms of wound care, the lateral aspect of her right lower extremity is almost closed and a foam dressing should be used to cover the wound and be changed on an [id number] schedule. She has no edema involving her right lower extremity The result of the four layer compression wrap. This does not have to be utilized while she is in the hospital, but a tubie or medi sign hanger support stocking should be applied.. This should be placed from the metatarsal level of her right foot to just below the popliteal level. A moisturizer would be appropriate such as Aquaphor and a heel float boot to offload her right heel is indicated. The patient has external rotation of the right foot, and I am told that an x-ray of the right hip was done and there was no evidence of fracture. There is a bruise on the medial aspect of the right mid foot and a 3-view x-ray of her right foot should be obtained. PLAN: When the patient stabilizes and is discharged, please let us know and we will follow up with her, as she is a regular patient at our clinic. No indication for antibiotic therapy. Obviously the patient is in need of better glycemic control. MTDD
[2020-04-23 17:42] LABS: CREATININE,RANDOM URINE 53.7 MG/DL
[2020-04-23 20:00] VITALS: BP 99/54
[2020-04-23] MEDS: ATORVASTATIN 20 MG TAB PO SCH (22:50)
[2020-04-23] MEDS: DIMETHICONE 2% OINTMENT(VANICREAM) 70GM TUBE TOP SCH (22:53)
[2020-04-24] VITALS: BP 111/62
[2020-04-24 04:00] VITALS: BP 119/60
[2020-04-24 04:42] LABS: HEMATOCRIT 36.6 % (36.0-47.0); HEMOGLOBIN 10.9 g/dl (12.0-15.5); MEAN CORPUSCULAR HEMOGLOBIN 26.5 pg (27.0-33.0); MEAN CORPUSCULAR HGB CONC 29.8 g/dl (32.0-36.5); MEAN CORPUSCULAR VOLUME 88.8 fl (80.0-96.0); PLATELET COUNT, AUTOMATED 230 10^3/uL (150-450); RED BLOOD COUNT 4.12 10^6/uL (4.00-5.40); WHITE BLOOD COUNT 10.9 10^3/uL (4.0-10.0)
[2020-04-24 06:50] LABS: ALBUMIN 2.2 GM/DL (3.2-5.2); BILIRUBIN,TOTAL 1.2 MG/DL (0.2-1.0); CALCIUM LEVEL 7.5 MG/DL (8.8-10.2); CREATININE FOR GFR 3.51 MG/DL (0.55-1.30); GLOMERULAR FILTRATION RATE 13.7 (>39); POTASSIUM SERUM 5.5 MEQ/L (3.5-5.1); TOTAL PROTEIN 5.8 GM/DL (6.4-8.2)
[2020-04-24] MEDS: HumaLOG INSULIN (NovoLOG) PER UNIT SC SCH ×4 (07:30→21:00)
[2020-04-24 08:00] VITALS: BP 103/58
--- NOTE | 2020-04-24 08:53 | REP ---
INDICATION: elevated liver enzymes. COMPARISON: None. TECHNIQUE: Real-time sonographic evaluation of ABDOMEN performed. FINDINGS: Stones and sludge are seen within the lumen of the gallbladder. There is no gallbladder wall thickening. There is no pericholecystic fluid.. There is no intrahepatic or extrahepatic biliary dilatation, common bile duct measures 4 mm in maximum diameter. The liver demonstrates homogeneous echotexture with no gross mass. Left lobe of the liver is not optimally visualized due to overlying bowel gas. The pancreas is not seen due to overlying bowel gas. Spleen is normal in size with no intrinsic abnormality, measuring 10.9 cm in length. There is no evidence of hydronephrosis, cyst, mass, or calculus in either kidney. The right kidney measures 10.6 x 5.3 x 5.5 cm. Left renal dimensions are 11.9 x 5.1 x 5.0 cm. The abdominal aorta could not be visualized. No free fluid is seen. IMPRESSION: Stones and sludge within the gallbladder lumen. No biliary dilatation or free fluid. Somewhat limited exam due to bowel gas. <Electronically signed by Alonso Brown > 04/24/20 0823
[2020-04-24] MEDS: METOPROLOL TART 25 MG TABLET PO SCH ×2 (09:00→22:02)
[2020-04-24] MEDS: ENOXAPARIN 30MG/0.3ML SYRINGE (J1650 PER 10MG) SC SCH (09:56)
[2020-04-24] MEDS: cefTRIAXone SOD 1 GM in D5W MINI-BAG PLUS 50 ML IV SCH (09:56)
[2020-04-24] MEDS: ASPIRIN 81MG ENTERIC TABLET PO SCH (10:09)
[2020-04-24] MEDS: DOCUSATE SODIUM 100MG CAPSULE PO SCH ×2 (10:09→22:03)
[2020-04-24] MEDS: DIMETHICONE 2% OINTMENT(VANICREAM) 70GM TUBE TOP SCH ×2 (10:13→22:03)
[2020-04-24] MEDS: MEGESTROL 40 MG TAB PO SCH ×2 (10:13→22:01)
[2020-04-24] MEDS: DIGOXIN 0.125 MG TAB PO SCH (10:13)
[2020-04-24] MEDS: allopurinoL 100 MG TAB PO SCH (10:13)
[2020-04-24 12:00] VITALS: BP 107/59
[2020-04-24] MEDS: SODIUM BICARBONATE 150 MEQ in STERILE WATER LITER BAG 1,000 ML IV SCH (13:00)
--- NOTE | 2020-04-24 14:42 | IPNPDOC ---
Date Seen The patient was seen on 04/24/20. Progress Note SUBJECTIVE: Cr much increased, held lasix BID. Bicarb gtt started. BNP worsened, on 2 L NC this Am. CXR ordered to further assess, refused CT chest. Expressed that she does not wish to have any more consultation services and for to approve all labs, imaging going forward. She still wishes to remain full Code. She denies increased SOB, chest pain, fevers, chills, n/v/d. OBJECTIVE: PHYSICAL EXAMINATION: VITAL SIGNS: Please see below GENERAL APPEARANCE: NAD, resting in bed, AAOx3 HEENT: NC/AT, PERRLA, EOM in tact, NC in place CARDIOVASCULAR: Irregularly irregular rate and rhythm, no appreciable murmurs LUNGS: CTAB, no w/r/r ABDOMEN: Soft, nontender, nondistended, no peritoneal signs, no appreciable masses, obese MUSCULOSKELETAL: She is able to move all of her extremities appropriately, strength 5 out 5 EXTREMITIES/INTEGUMENTARY: 1+ edema of the bilateral lower extremities. Chronic venous stasis ulcers that appear well healing on RLE, +1-2 swelling in b/l lower ext. 2 small ulcers on LLE. NEUROLOGICAL: Awake, alert and oriented to person place and time PSYCHIATRIC: Mood and affect are appropriate LABORATORY DATA: See below. IMAGING: CXR 04/24/20: pending US RUQ: Stones and sludge within the gallbladder lumen. No biliary dilatation or free fluid. Somewhat limited exam due to bowel gas. Head CT (04/22/20): Age-appropriate supratentorial and infratentorial atrophy, moderate white matter microvascular ischemic disease, no acute intracranial abnormality identified, left maxillary sinusitis Foot x-ray (04/22/20): Extensive vascular dystrophic soft tissue calcification in the distal calf. Midfoot osteoarthritis. Mild diffuse osteopenia. No acute bony abnormality appreciated. Forefoot swelling. Chest x-ray (04/22/20): Cardiomegaly. Mild vascular cephalization, otherwise no active disease. Cervical spine CT (04/22/20): Degenerative changes, no acute cervical spinal bony injury identified. Recommend nonemergent thyroid sonograph for further evaluation of course a calcified left nodule Echo (11/26/2017): Normal LV size with mild left ventricular hypertrophy and preserved LV systolic function. Severely dilated and hypokinetic right ventricle. Severe biatrial enlargement, right greater than left, aortic sclerosis but only trivial stenosis and no insufficiency. Approximately moderate mitral and tricuspid insufficiency. High central venous pressure. Severe pulmonary hypertension. MICROBIOLOGY: Blood culture (04/22/20): NG to date Urine culture (04/22/20): E. coli, klebsiella Respiratory virus panel (04/22/20): COVID-19 negative ASSESSMENT: Is a 69-year-old female with multiple medical comorbidities who presented to the emergency department the evening of 04/22/20 after being found unresponsive and hypoglycemic in her home. At the scene, patient was given IV dextrose with moderate improvement in her mental status. In the emergency department, patient was found to have a CK of 3831. Patient will be admitted to the hospital for further workup and management of her rhabdo and altered mental status. PLAN: Acute rhabdomyolysis -CK increased to 18K from 3831 on admission , lactic wnl, worsened Cr -Bicarb gtt by nephro -Monitor fluid status closely, daily CK and Cr -Nephrology following E. coli, Klebsiella UTI -UCx, blood cultures above -C/w ceftriaxone IV daily Acute HFpEF with exacerbation -incr RR, on 2 L NC today. -Echo from 2018 above, EF preserved -+1 pitting edema in lower ext, + JVD -BNP >4K today, trop neg -Patient does not follow with cardiology and does not wish to do so either -Patient refused new echocardiogram -Lasix BID stopped due to worsening renal failure, BB with holding parameters -F/u CXR -Monitor I&O's, daily wts, 2 gm sodium diet Hypotension possibly 2/2 to decreased PO intake, diuresis -BP soft this AM, BB held -On bicarb gtt, encourage fluids throughout day but not excessively -Monitor closely Acidosis -Bicarb gtt -F/u nephrology suggestions DOMINGA on CKD Stage 3-4 likely 2/2 to rhabdomyolysis, medications -Cr 3.51, baseline Cr 1.8-1.9 -Holding ARB, diuretics for now -On bicarb gtt -F/u nephrology recommendations Hyperkalemia likely 2/2 to DOMINGA -K 5.5, no tele changes -Monitor with daily labs -F/u nephrology suggestions Acute transaminitis -AST/ALT increased further -Avoid hepatotoxic medications -US RUQ: neg -F/u daily CMP daily Thyroid nodule -13.1 mm partially calcified left thyroid nodule incidentally noted on CT of the patient's cervical spine. -Thyroid ultrasound ordered to be performed during hospitalization but patient refused further workup -TSH, T3 and T4 normal Left maxillary sinusitis -1 week history of L-sided WONG and green-colored nasal congestion -No systemic signs/symptoms -ceftriaxone Chronic venous stasis ulcers -Follows outpatient with Dr. Dickson -Was scheduled for dressing change today, 04/22/20 -Dr. Dickson consulted: "When the patient stabilizes and is discharged, please let us know and we will follow up with her, as she is a regular patient at our clinic. No indication for antibiotic therapy. Obviously the patient is in need of better glycemic control." Gout -c/w home allopurinol DM type II -BS stable, hypoglycemia resolved -History of noncompliance -SSI, CC diet Atrial fibrillation, without anticoagulation -Rate controlled. Digoxin, metoprolol, ASA -Dig level WNL. -Confirmed with patient that she has and continues to elect for aspirin only anticoagulation. -Telemetry monitoring HTN -Normotensive -c/w home medications HLD -c/w statin Obesity, class IIII -BMI of 45, complicating care -Recommend healthy diet for weight loss -Outpatient follow-up of A1c and lipids PERFECTO -Reports compliance with home CPAP -Oxygen titration. DVT px -Lovenox Resolved issues: #Altered mental status likely 2/2 to hypoglycemia, dehydration DISPOSITION: Currently under inpatient status. Nephrology consulted. Will need PT/OT to see after weekend. Plan is hopefully home w/wout services once medically improved. VS, I&O, 24H, Fishbone Vital Signs/I&O Vital Signs Date Time Temp Pulse Resp B/P (MAP) Pulse Ox O2 Delivery O2 Flow Rate FiO2 04/24/20 10:13 89 04/24/20 09:00 103/59 04/24/20 08:00 99.1 25 97 Room Air 04/24/20 04:00 2.0 I&O- Last 24 Hours up to 6 AM 04/24/20 06:00 Intake Total 1110 ml Output Total 750 ml Balance 360 ml Laboratory Data 24H LABS Laboratory Tests 2 04/23/20 16:30: Bedside Glucose (Misc Panel) 84 04/23/20 16:58: Urine Random Creatinine 53.7, Urine Random Sodium 80, Urine Random Chloride 104 04/23/20 20:09: Bedside Glucose (Misc Panel) 103 04/24/20 04:27: Nucleated Red Blood Cells % (auto) 0.0, Anion Gap 9, Glomerular Filtration Rate 13.7L, Calcium Level 7.5L, Total Bilirubin 1.2H, Aspartate Amino Transf (AST/SGOT) 411H, Alanine Aminotransferase (ALT/SGPT) 83H, Alkaline Phosphatase 182H, Total Creatine Kinase 97404G, Total Protein 5.8#L, Albumin 2.2#L, Albumin/Globulin Ratio 0.6L CBC/BMP Laboratory Tests 04/24/20 04:27 Microbiology Microbiology 04/22/20 Urine Culture - Final, Complete Escherichia Coli Klebsiella Pneumoniae 04/22/20 Respiratory Virus Panel (PCR) ([facility]) - Final, Complete 04/22/20 Blood Culture - Preliminary, Resulted No growth after 24 hours . All specim... 04/22/20 Blood Culture - Preliminary, Resulted No growth after 24 hours . All specim... Current Medications Current Medications Medications (Trade) Dose Ordered Sig/Bert Route PRN Reason Start Time Stop Time Status Last Admin Dose Admin Al Hydrox/Mg Hydrox/Simethicone (Mylanta) 30 ml DAILY PRN PO DYSPEPSIA 04/22/20 19:35 Allopurinol (Zyloprim) 100 mg DAILY PO 04/23/20 09:00 04/24/20 10:13 Aspirin (Ecotrin) 81 mg DAILY PO 04/23/20 09:00 04/24/20 10:09 Atorvastatin Calcium (Lipitor) 40 mg QHS PO 04/22/20 21:00 04/23/20 22:50 Ceftriaxone Sodium 1 gm/ Dextrose 50 ml @ 100 mls/hr Q24H IV 04/23/20 09:00 04/24/20 09:56 Dextrose (Dextrose 50%) 25 ml ASDIRECTED PRN IV SEE LABEL COMMENTS 04/22/20 20:40 Digoxin (Lanoxin) 0.125 mg DAILY PO 04/23/20 09:00 04/24/20 10:13 Dimethicone (Vanicream Ointment) 1 dose BID TOP 04/23/20 21:00 04/24/20 10:13 Docusate Sodium (Colace) 100 mg BID PO 04/22/20 21:00 04/24/20 10:09 Enoxaparin Sodium (Lovenox) 30 mg DAILY SC 04/23/20 09:00 04/24/20 09:56 Furosemide (LASIX injection) 80 mg BID@09,17 IV 04/23/20 11:10 04/24/20 08:07 DC 04/23/20 16:52 Glucagon (Glucagon) 1 mg ASDIRECTED PRN SC SEE LABEL COMMENTS 04/22/20 20:40 Glucose (Glucose) 16 GM ASDIRECTED PRN PO SEE LABEL COMMENTS 04/22/20 20:40 Home Med (Med Rec Complete!) ASDIRECTED XX 04/22/20 19:40 04/22/20 19:40 DC Insulin Human Lispro (HumaLOG INSULIN) SEE PROTOCOL TABLE AC SC 04/23/20 07:30 Insulin Human Lispro (HumaLOG INSULIN) SEE PROTOCOL TABLE QHS SC 04/22/20 21:00 Magnesium Hydroxide (Milk Of Magnesia) 30 ml DAILY PRN PO CONSTIPATION 04/22/20 19:35 Megestrol Acetate (Megace) 40 mg BID PO 04/22/20 21:00 04/24/20 10:13 Metoprolol Tartrate (Lopressor) 25 mg BID PO 04/22/20 21:00 04/23/20 22:53 Nystatin (Mycostatin Powder, Nystop) Abdominal folds BIDP PRN TOP RASH 04/23/20 05:15 Sodium Bicarbonate 150 meq/Sterile Water 1,150 ml @ 100 mls/hr [id number] IV 04/24/20 12:00 04/25/20 07:59 04/24/20 13:00 Sodium Chloride 1,000 ml @ 70 mls/hr [id number] IV 04/22/20 19:30 04/23/20 11:06 DC 04/22/20 23:41 Sodium Chloride 1,000 ml @ 100 mls/hr Q10H IV 04/22/20 17:08 04/22/20 23:27 DC 04/22/20 17:33 Tramadol HCl (Ultram) 50 mg Q12HP PRN PO PAIN 04/23/20 04:35 04/23/20 22:51 Allergies Coded Allergies: WOOL (FABRIC) (Verified Allergy, Intermediate, 04/22/20) Aminoglycosides (Verified Allergy, Unknown, 04/22/20) bacitracin (Verified Allergy, Unknown, 04/22/20) dextromethorphan (Verified Allergy, Unknown, 04/22/20) guaifenesin (Verified Allergy, Unknown, 04/22/20) neomycin (Verified Allergy, Unknown, 04/22/20) polymyxin B (Verified Allergy, Unknown, 04/22/20) Hodan Claros MD Apr 24, 2020 14:42
--- NOTE | 2020-04-24 14:49 | IPN ---
PROGRESS NOTE DATE: 04/24/2020 SUBJECTIVE: Luli is seen and examined this morning at the bedside. She denies any shortness of breath. She denies any nausea, vomiting, or diarrhea. She was started yesterday on intravenous (IV) Lasix, and her renal function has significantly worsened, and her creatine kinase level has also risen. She remains comfortable on room air and is not requiring any supplemental oxygen at the time of my visit. Maximum temperature overnight was 100.6. Current temperature is 99.1, pulse 75, respiratory rate 25, blood pressure 103/58, saturating 97% on room air. Intake yesterday was 1.1 liter. Urine output yesterday was 1.2 liters. Weight in the bed scale today is 128.3 kg. GENERAL: Patient is seen lying in bed, morbidly obese female in no apparent distress. Extraocular muscles are intact. Pupils are round and reactive to light. Mucous membranes are moist. There is significant adipose tissue of the neck, and I have difficulty assessing her jugular veins. She also has some bruising around the neck. CARDIAC: S1, S2. There is 1+ leg edema noted, and there is also some edema in the abdominal pannus. RESPIRATORY: Shows symmetric air entry. No crackle, rale, or rhonchus. She is comfortable on room air. ABDOMEN: Obese with a pannus with edema of the abdominal wall. GENITOURINARY: Shows indwelling Jain catheter. EXTREMITIES: She has an ulcer on the right leg. There are chronic venous stasis changes, and there is edema present in the legs as well. NEUROLOGIC: She is oriented times three. No focal deficit. Laboratory studies show sodium 134, potassium 5.5, bicarbonate 18, BUN 52, creatinine 3.5, up from 2.0 yesterday and 1.9 the day before. CK level has increased to 18,600. Albumin 2.2. Hemoglobin 10.9, platelets 230. Urine culture grew Escherichia (E) coli and Klebsiella pneumoniae. Chest x-ray done on April 22 shows sharp pleural angles and no infiltrate. Abdominal ultrasound done this morning shows no evidence of hydronephrosis. INPATIENT MEDICATIONS: I discontinued her intravenous (IV) Lasix and switched her to sodium bicarbonate 150 mEq in sterile water to run at 100 mL an hour. She continues on: - Lovenox 30 mg subcutaneous daily - allopurinol 100 mg by mouth daily - aspirin 81 mg by mouth daily - digoxin 0.125 mg by mouth daily - ceftriaxone 1 gram IV daily - insulin - tramadol as needed - atorvastatin 40 mg by mouth every night - metoprolol 25 mg by mouth twice a day PROBLEMS: 1. Acute kidney injury (DOMINGA) superimposed on chronic kidney disease (CKD), stage IV. Patient's baseline creatinine is 2. She has declined nephrology referral in the past. She has an acute kidney injury in the setting of rhabdomyolysis along with urinary tract infection (UTI). An attempt was made to diurese her yesterday given her history of severe right heart failure and peripheral edema on exam; however, the patient did not tolerate diuresis and had worsening renal function, and her creatine kinase level has also risen. She is also mildly acidotic, and I have held diuretics, and she is written for sodium bicarbonate 150 mEq drip to run at 100 mL an hour. She has made it very clear that she does not wish to followup outpatient and declines invasive procedures and testing. 2. Hyperkalemia. It is in the setting of worsening renal function and also metabolic acidosis. She is going to receive sodium bicarbonate-containing fluid, and I expect the potassium level to improve with the same. I feel she should be discontinued off of losartan in the outpatient setting given her rather advanced chronic kidney disease at baseline. 3. Acute rhabdomyolysis. Her creatine kinase level has increased from 3800 up to 18,000. She is going to receive bicarbonate-containing fluids now for alkalinization and correction of her acidosis, and I do not want to aggressively hydrate her because of her history of severe pulmonary hypertension and severe right heart failure, and the patient does have some peripheral edema and abdominal wall edema on exam as well. 4. Severe pulmonary hypertension/right heart failure. Patient is saturating well on room air at the time of my visit. She does have some abdominal wall edema and peripheral edema; however, she has worsening renal function and acute rhabdomyolysis as well. We are switching her over to sodium bicarbonate-containing fluids. I will keep a close eye on her volume status and respiratory status. She did poorly with attempts at diuresis yesterday.
[2020-04-24 16:00] VITALS: BP 115/61
--- NOTE | 2020-04-24 17:29 | REP ---
INDICATION: incr SOB. COMPARISON: 04/22/2020. TECHNIQUE: SINGLE PORTABLE AP VIEW OF THE CHEST WAS PERFORMED. FINDINGS: There is cardiomegaly and stable vascular congestion. No new infiltrate is seen. The mediastinal silhouette is unchanged. IMPRESSION: Stable cardiomegaly and mild vascular congestion. No new infiltrate. <Electronically signed by Alonso Brown > 04/24/20 [id number]
[2020-04-24] MEDS: traMADol 50 MG TAB PO PRN (17:55)
[2020-04-24 20:00] VITALS: BP 116/58
[2020-04-24] MEDS: ATORVASTATIN 20 MG TAB PO SCH (22:02)
[2020-04-25] VITALS (16 sets, daily range): BP systolic 79–111; BP diastolic 49–71
[2020-04-25] MEDS: SODIUM BICARBONATE 150 MEQ in STERILE WATER LITER BAG 1,000 ML IV SCH (01:59)
[2020-04-25 05:17] LABS: HEMATOCRIT 33.8 % (36.0-47.0); HEMOGLOBIN 10.5 g/dl (12.0-15.5); MEAN CORPUSCULAR HEMOGLOBIN 27.4 pg (27.0-33.0); MEAN CORPUSCULAR HGB CONC 31.1 g/dl (32.0-36.5); MEAN CORPUSCULAR VOLUME 88.3 fl (80.0-96.0); PLATELET COUNT, AUTOMATED 203 10^3/uL (150-450); RED BLOOD COUNT 3.83 10^6/uL (4.00-5.40); WHITE BLOOD COUNT 10.8 10^3/uL (4.0-10.0)
[2020-04-25 06:58] LABS: ALBUMIN 2.1 GM/DL (3.2-5.2); CALCIUM LEVEL 7.2 MG/DL (8.8-10.2); CREATININE FOR GFR 4.34 MG/DL (0.55-1.30); GLOMERULAR FILTRATION RATE 10.7 (>39); POTASSIUM SERUM 5.3 MEQ/L (3.5-5.1); TOTAL PROTEIN 6.6 GM/DL (6.4-8.2)
[2020-04-25] MEDS: ENOXAPARIN 30MG/0.3ML SYRINGE (J1650 PER 10MG) SC SCH (08:56)
[2020-04-25] MEDS: DIGOXIN 0.125 MG TAB PO SCH (08:57)
[2020-04-25] MEDS: MEGESTROL 40 MG TAB PO SCH ×2 (08:57→21:29)
[2020-04-25] MEDS: ASPIRIN 81MG ENTERIC TABLET PO SCH (08:57)
[2020-04-25] MEDS: HumaLOG INSULIN (NovoLOG) PER UNIT SC SCH ×4 (08:57→21:00)
[2020-04-25] MEDS: DOCUSATE SODIUM 100MG CAPSULE PO SCH ×2 (08:57→21:29)
[2020-04-25] MEDS: allopurinoL 100 MG TAB PO SCH (08:57)
[2020-04-25] MEDS: cefTRIAXone SOD 1 GM in D5W MINI-BAG PLUS 50 ML IV SCH (08:57)
[2020-04-25] MEDS: METOPROLOL TART 25 MG TABLET PO SCH (09:00)
[2020-04-25] MEDS: DIMETHICONE 2% OINTMENT(VANICREAM) 70GM TUBE TOP SCH ×2 (09:02→21:30)
[2020-04-25] MEDS ORDERED: SLF 3 ML SYR IV PRN (09:35)
[2020-04-25] MEDS: traMADol 50 MG TAB PO PRN (10:23)
[2020-04-25] MEDS ORDERED: NS 500 ML IV STA (10:24)
--- NOTE | 2020-04-25 10:46 | IPNPDOC ---
Date Seen The patient was seen on 04/25/20. Progress Note SUBJECTIVE: Cr further increased, hypotensive this AM. Getting 500 cc bolus, bicarb gtt stopped. She denies increased SOB, chest pain, fevers, chills, n/v/d. OBJECTIVE: PHYSICAL EXAMINATION: VITAL SIGNS: Please see below GENERAL APPEARANCE: NAD, resting in bed, AAOx3 HEENT: NC/AT, PERRLA, EOM in tact CARDIOVASCULAR: Irregularly irregular rate and rhythm, no appreciable murmurs LUNGS: CTAB, no w/r/r ABDOMEN: Soft, nontender, nondistended, no peritoneal signs, no appreciable masses, obese MUSCULOSKELETAL: She is able to move all of her extremities appropriately, strength 5 out 5 EXTREMITIES/INTEGUMENTARY: 1+ edema of the bilateral lower extremities. Chronic venous stasis ulcers that appear well healing on RLE, +1-2 swelling in b/l lower ext. 2 small ulcers on LLE. Redness in the b/l lower ext not warm to touch, mildly tender NEUROLOGICAL: Awake, alert and oriented to person place and time PSYCHIATRIC: Flat affect LABORATORY DATA: See below. IMAGING: CXR 04/24/20: Stable cardiomegaly and mild vascular congestion. No new infiltrate. US RUQ: Stones and sludge within the gallbladder lumen. No biliary dilatation or free fluid. Somewhat limited exam due to bowel gas. Head CT (04/22/20): Age-appropriate supratentorial and infratentorial atrophy, moderate white matter microvascular ischemic disease, no acute intracranial abnormality identified, left maxillary sinusitis Foot x-ray (04/22/20): Extensive vascular dystrophic soft tissue calcification in the distal calf. Midfoot osteoarthritis. Mild diffuse osteopenia. No acute bony abnormality appreciated. Forefoot swelling. Chest x-ray (04/22/20): Cardiomegaly. Mild vascular cephalization, otherwise no active disease. Cervical spine CT (04/22/20): Degenerative changes, no acute cervical spinal bony injury identified. Recommend nonemergent thyroid sonograph for further evaluation of course a calcified left nodule Echo (11/26/2017): Normal LV size with mild left ventricular hypertrophy and preserved LV systolic function. Severely dilated and hypokinetic right ventricle. Severe biatrial enlargement, right greater than left, aortic sclerosis but only trivial stenosis and no insufficiency. Approximately moderate mitral and tricuspid insufficiency. High central venous pressure. Severe pulmonary hypertension. MICROBIOLOGY: Blood culture (04/22/20): NG to date Urine culture (04/22/20): E. coli, klebsiella Respiratory virus panel (04/22/20): COVID-19 negative ASSESSMENT: Is a 69-year-old female with multiple medical comorbidities who admitted to the hospital for further workup and management of her rhabdo and altered mental status. PLAN: Hypotension possibly 2/2 to decreased PO intake -Hx of HTN. Currently not making good urine but does not not look dry -Not suspecting sepsis/shock- known UTI but has been adequately treated per sensitivities, no other s/s of infection -BP systolic 70-80's, asymptomatic in Bed -D/ronit BB -Bicarb gtt stopped this AM -Continue to encourage fluids, food throughout day -F/u lactic acid -Giving 500 cc bolus, can given others but careful to try not to fluid overload -Monitor closely Acute rhabdomyolysis -CK remains elevated at 15K, worsened Cr -Bicarb gtt stopped -Monitor fluid status closely, daily CK and Cr -Nephrology following E. coli, Klebsiella UTI -UCx, blood cultures above -C/w ceftriaxone IV daily Acute HFpEF with exacerbation -improved RR, currently between RA and 1 L NC -CXR above -Echo from 2018 above, EF preserved -+1 pitting edema in lower ext, + JVD -BNP >4K today, trop neg -Patient does not follow with cardiology and does not wish to do so either -Patient refused new echocardiogram -Lasix BID stopped due to worsening renal failure, BB held due to hypotension -Monitor I&O's, daily wts, 2 gm sodium diet DOMINGA on CKD Stage 3-4 likely 2/2 to rhabdomyolysis, medications, UTI -Cr 4.34, baseline Cr 2 -Holding ARB, diuretics, bicarb gtt stopped -Very poor u/o -F/u nephrology recommendations Hyperkalemia likely 2/2 to DOMINGA -K 5.3, no tele changes -Monitor with daily labs -F/u nephrology suggestions Acute transaminitis -AST/ALT elevated -Avoid hepatotoxic medications -US RUQ: neg -F/u daily CMP daily Thyroid nodule -13.1 mm partially calcified left thyroid nodule incidentally noted on CT of the patient's cervical spine. -Thyroid ultrasound ordered to be performed during hospitalization but patient refused further workup -TSH, T3 and T4 normal Left maxillary sinusitis -1 week history of L-sided WONG and green-colored nasal congestion -No systemic signs/symptoms -ceftriaxone Chronic venous stasis ulcers -Follows outpatient with Dr. Dickson -Was scheduled for dressing change today, 04/22/20 -Dr. Dickson consulted: "When the patient stabilizes and is discharged, please let us know and we will follow up with her, as she is a regular patient at our clinic. No indication for antibiotic therapy. Obviously the patient is in need of better glycemic control." Gout -c/w home allopurinol DM type II -BS stable, hypoglycemia resolved -History of noncompliance -SSI, CC diet Atrial fibrillation, without anticoagulation -Rate controlled. Digoxin,ASA, holding BB -Dig level WNL. -Confirmed with patient that she has and continues to elect for aspirin only anticoagulation. -Telemetry monitoring HLD -c/w statin Obesity, class IIII -BMI of 45, complicating care -Recommend healthy diet for weight loss -Outpatient follow-up of A1c and lipids PERFECTO -Reports compliance with home CPAP -Oxygen titration. DVT px -Lovenox Resolved issues: #Altered mental status likely 2/2 to hypoglycemia, dehydration DISPOSITION: Currently under inpatient status. Nephrology consulted. Will need PT/OT when better, from home. VS, I&O, 24H, Fishbone Vital Signs/I&O Vital Signs Date Time Temp Pulse Resp B/P (MAP) Pulse Ox O2 Delivery O2 Flow Rate FiO2 04/25/20 10:23 20 Room Air 04/25/20 09:00 88 84/50 04/25/20 08:00 99.3 96 2.0 I&O- Last 24 Hours up to 6 AM 04/25/20 06:00 Intake Total 1220 ml Output Total 550 ml Balance 670 ml Laboratory Data 24H LABS Laboratory Tests 2 04/24/20 17:45: Bedside Glucose (Misc Panel) 159H 04/24/20 20:28: Bedside Glucose (Misc Panel) 167H 04/25/20 05:05: Nucleated Red Blood Cells % (auto) 0.0, Anion Gap 10, Glomerular Filtration Rate 10.7L, Calcium Level 7.2L, Total Bilirubin 1.0, Aspartate Amino Transf (AST/SGOT) 361H, Alanine Aminotransferase (ALT/SGPT) 85H, Alkaline Phosphatase 205H, Total Creatine Kinase 14965V, Total Protein 6.6, Albumin 2.1L, Albumin/Globulin Ratio 0.5L CBC/BMP Laboratory Tests 04/25/20 05:05 Microbiology Microbiology 04/22/20 Urine Culture - Final, Complete Escherichia Coli Klebsiella Pneumoniae 04/22/20 Respiratory Virus Panel (PCR) ([facility]) - Final, Complete 04/22/20 Blood Culture - Preliminary, Resulted No Growth after 48 hours. All Specime... 04/22/20 Blood Culture - Preliminary, Resulted No Growth after 48 hours. All Specime... Current Medications Current Medications Medications (Trade) Dose Ordered Sig/Bert Route PRN Reason Start Time Stop Time Status Last Admin Dose Admin Al Hydrox/Mg Hydrox/Simethicone (Mylanta) 30 ml DAILY PRN PO DYSPEPSIA 04/22/20 19:35 Allopurinol (Zyloprim) 100 mg DAILY PO 04/23/20 09:00 04/25/20 08:57 Aspirin (Ecotrin) 81 mg DAILY PO 04/23/20 09:00 04/25/20 08:57 Atorvastatin Calcium (Lipitor) 40 mg QHS PO 04/22/20 21:00 04/24/20 22:02 Ceftriaxone Sodium 1 gm/ Dextrose 50 ml @ 100 mls/hr Q24H IV 04/23/20 09:00 04/25/20 08:57 Dextrose (Dextrose 50%) 25 ml ASDIRECTED PRN IV SEE LABEL COMMENTS 04/22/20 20:40 Digoxin (Lanoxin) 0.125 mg DAILY PO 04/23/20 09:00 04/25/20 08:57 Dimethicone (Vanicream Ointment) 1 dose BID TOP 04/23/20 21:00 04/25/20 09:02 Docusate Sodium (Colace) 100 mg BID PO 04/22/20 21:00 04/25/20 08:57 Enoxaparin Sodium (Lovenox) 30 mg DAILY SC 04/23/20 09:00 04/25/20 08:56 Furosemide (LASIX injection) 80 mg BID@09,17 IV 04/23/20 11:10 04/24/20 08:07 DC 04/23/20 16:52 Glucagon (Glucagon) 1 mg ASDIRECTED PRN SC SEE LABEL COMMENTS 04/22/20 20:40 Glucose (Glucose) 16 GM ASDIRECTED PRN PO SEE LABEL COMMENTS 04/22/20 20:40 Home Med (Med Rec Complete!) ASDIRECTED XX 04/22/20 19:40 04/22/20 19:40 DC Insulin Human Lispro (HumaLOG INSULIN) SEE PROTOCOL TABLE AC SC 04/23/20 07:30 04/25/20 08:57 Insulin Human Lispro (HumaLOG INSULIN) SEE PROTOCOL TABLE QHS SC 04/22/20 21:00 Magnesium Hydroxide (Milk Of Magnesia) 30 ml DAILY PRN PO CONSTIPATION 04/22/20 19:35 Megestrol Acetate (Megace) 40 mg BID PO 04/22/20 21:00 04/25/20 08:57 Metoprolol Tartrate (Lopressor) 25 mg BID PO 04/22/20 21:00 04/24/20 22:02 Nystatin (Mycostatin Powder, Nystop) Abdominal folds BIDP PRN TOP RASH 04/23/20 05:15 Sodium Bicarbonate 150 meq/Sterile Water 1,150 ml @ 100 mls/hr [id number] IV 04/24/20 12:00 04/25/20 07:59 DC 04/25/20 01:59 Sodium Chloride 1,000 ml @ 70 mls/hr [id number] IV 04/22/20 19:30 04/23/20 11:06 DC 04/22/20 23:41 Sodium Chloride 1,000 ml @ 100 mls/hr Q10H IV 04/22/20 17:08 04/22/20 23:27 DC 04/22/20 17:33 Sodium Chloride (Saline Lock Flush) 2 ml ASDIRECTED PRN IV SEE LABEL COMMENTS 04/25/20 09:35 Sodium Chloride (Saline Lock Flush) 2 ml SLF IV 04/25/20 14:00 Tramadol HCl (Ultram) 50 mg Q12HP PRN PO PAIN 04/23/20 04:35 04/25/20 10:23 Allergies Coded Allergies: WOOL (FABRIC) (Verified Allergy, Intermediate, 04/22/20) Aminoglycosides (Verified Allergy, Unknown, 04/22/20) bacitracin (Verified Allergy, Unknown, 04/22/20) dextromethorphan (Verified Allergy, Unknown, 04/22/20) guaifenesin (Verified Allergy, Unknown, 04/22/20) neomycin (Verified Allergy, Unknown, 04/22/20) polymyxin B (Verified Allergy, Unknown, 04/22/20) Hodan Claros MD Apr 25, 2020 10:46
[2020-04-25] MEDS: SLF 3 ML SYR IV SCH ×2 (14:11→21:30)
[2020-04-25] MEDS: SODIUM BICARBONATE 75 MEQ in NS 0.45% 1,000 ML IV SCH ×2 (14:11→23:20)
[2020-04-25] MEDS: ATORVASTATIN 20 MG TAB PO SCH (21:29)
[2020-04-26] VITALS: BP 99/56
[2020-04-26 04:00] VITALS: BP 97/53
[2020-04-26 04:40] LABS: HEMOGLOBIN 10.3 g/dl (12.0-15.5); MEAN CORPUSCULAR HEMOGLOBIN 27.3 pg (27.0-33.0); MEAN CORPUSCULAR HGB CONC 31.2 g/dl (32.0-36.5); MEAN CORPUSCULAR VOLUME 87.5 fl (80.0-96.0); PLATELET COUNT, AUTOMATED 227 10^3/uL (150-450); RED BLOOD COUNT 3.77 10^6/uL (4.00-5.40)
[2020-04-26 05:59] LABS: BILIRUBIN,TOTAL 1.1 MG/DL (0.2-1.0); CALCIUM LEVEL 7.6 MG/DL (8.8-10.2); CREATININE FOR GFR 4.79 MG/DL (0.55-1.30); GLOMERULAR FILTRATION RATE 9.5 (>39); TOTAL PROTEIN 6.6 GM/DL (6.4-8.2)
--- NOTE | 2020-04-26 06:58 | REPVR ---
PROCEDURE INFORMATION: Exam: XR Chest Exam date and time: 04/26/2020 6:48 AM Age: 69 years old Clinical indication: Tachypnea; Additional info: Tachycardia and tachypnea TECHNIQUE: Imaging protocol: XR of the chest Views: 1 view. COMPARISON: [facility] PORTABLE CHEST X-RAY 04/24/2020 10:16 AM FINDINGS: Assessment is limited by patient rotation. Lungs: Streaky bibasilar opacities are suggestive of atelectasis. No consolidation. Pleural spaces: Unremarkable. No pleural effusion. No pneumothorax. Heart/Mediastinum: The there is cardiomegaly, likely stable. Bones/joints: Unremarkable. IMPRESSION: Mild bibasilar atelectasis. Electronically signed by: Kat Villanueva On 04/26/2020 06:58:37 AM
[2020-04-26 07:06] LABS: VENOUS HCO3 19.6 MEQ/L (23.0-27.0); VENOUS O2 SATURATION 98.9 % (60.0-80.0); VENOUS PARTIAL PRESSURE CO2 34.6 mmHg (38.0-50.0); VENOUS PARTIAL PRESSURE O2 158.3 mmHg (30.0-50.0); VENOUS STANDARD HCO3 20.3 MEQ/L; VENOUS TOTAL CO2 20.6 MEQ/L (24.0-28.0)
[2020-04-26] MEDS: HumaLOG INSULIN (NovoLOG) PER UNIT SC SCH ×4 (07:30→20:06)
[2020-04-26] MEDS: SLF 3 ML SYR IV SCH ×3 (07:37→20:28)
[2020-04-26 07:41] VITALS: BP 109/51
[2020-04-26] MEDS: cefTRIAXone SOD 1 GM in D5W MINI-BAG PLUS 50 ML IV SCH (09:20)
[2020-04-26] MEDS: allopurinoL 100 MG TAB PO SCH (09:21)
[2020-04-26] MEDS: ASPIRIN 81MG ENTERIC TABLET PO SCH (09:21)
[2020-04-26] MEDS: ENOXAPARIN 30MG/0.3ML SYRINGE (J1650 PER 10MG) SC SCH (09:21)
[2020-04-26] MEDS: DOCUSATE SODIUM 100MG CAPSULE PO SCH ×2 (09:21→20:27)
[2020-04-26] MEDS: MEGESTROL 40 MG TAB PO SCH ×2 (09:21→20:27)
[2020-04-26] MEDS: DIGOXIN 0.125 MG TAB PO SCH (09:22)
[2020-04-26] MEDS: DIMETHICONE 2% OINTMENT(VANICREAM) 70GM TUBE TOP SCH ×2 (09:22→20:28)
[2020-04-26] MEDS ORDERED: NS 1,000 ML IV SCH (10:15)
--- NOTE | 2020-04-26 10:48 | REP ---
INDICATION: pain COMPARISON: None. TECHNIQUE: AP and lateral right forearm. FINDINGS: There is no evidence of acute fracture, dislocation, or intrinsic bone disease.There is spurring of the proximal ulna. There are significant arthritic changes at the wrist joint with diffuse moderately severe joint space narrowing and subchondral sclerosis. IMPRESSION: No fracture or dislocation. Moderately severe arthritic changes at the wrist joint. <Electronically signed by Alonso Brown > 04/26/20 [id number]
--- NOTE | 2020-04-26 10:51 | REP ---
INDICATION: pain COMPARISON: None. TECHNIQUE: Four views right hand. FINDINGS: There is no evidence of acute fracture, dislocation, or intrinsic bone disease.There is fairly severe joint space narrowing at the radiocarpal joint with erosive change along the articulating surface of the distal radius. There is subchondral sclerosis and cystic change. There is moderate spurring of the distal ulna with narrowing of the distal radioulnar joint. There is mild narrowing and spurring at the joint between trapezium and base of 1st metacarpal. IMPRESSION: No fracture or dislocation. Moderately severe arthritic changes at the wrist joint. <Electronically signed by Alonso Brown > 04/26/20 [id number]
--- NOTE | 2020-04-26 11:49 | REP ---
INDICATION: pain COMPARISON: None. TECHNIQUE: Real time compression and duplex Doppler evaluation of the Right upper extremity deep venous system is performed. FINDINGS: The Right subclavian, jugular, axillary, brachial, basilic and cephalic veins are fully compressible where accessible with transducer pressure, and demonstrate no intraluminal thrombus and normal venous waveforms. There is no evidence of deep venous thrombosis. IMPRESSION: No evidence of deep venous thrombosis of the Right upper extremity deep vein system. <Electronically signed by Alonso Brown > 04/26/20 [id number]
[2020-04-26 12:00] VITALS: BP 126/60
--- NOTE | 2020-04-26 12:02 | ECHO ---
DATE OF PROCEDURE: 04/23/2020 Age: 69 Gender: Female REFERRING PHYSICIAN: Barb Pearce MD REASON FOR STUDY: Syncope. PATIENT LOCATION: Room 3218. 2D MEASUREMENTS: IVS 1.3 cm 1.3 cm LA 4.4 cm LV 5.0 Aortic root 3.0 cm IVC 2.4 cm DOPPLER MEASUREMENT Peak velocity across the aortic valve 1.8 m/s Peak velocity across the LVOT 1.2 m/s Peak gradient across the aortic valve 13 mmHg Mean gradient across the aortic valve 7 mmHg Mitral E 1.3 Maximum tricuspid valve velocity 4.0 m/s 2D COMMENTS: 1. Normal left ventricular size with mildly increased left ventricular wall thickness. 2. Left ventricular systolic function is normal with an estimated LVEF of 60% to 65%. 3. Mildly enlarged left atrium. The right atrium and the right ventricle are dilated. The right ventricular free wall was not well visualized, but appeared to be hypokinetic consistent with some degree of right ventricular systolic dysfunction. 4. The atrial septum did not reveal any defect or shunt. 5. Normal aortic root. 6. Trace pericardial effusion noted, no evidence of cardiac tamponade. 7. Mildly calcified aortic valve with normal leaflet excursion. Mildly calcified mitral annulus with normal anterior mitral valve leaflet motion. Normal tricuspid valve and pulmonic valve. The proximal pulmonary artery branches were not well visualized. 8. The inferior vena cava was dilated, central venous pressure is probably elevated. Doppler detects trace aortic regurgitation, trace mitral regurgitation, and moderate tricuspid regurgitation. The calculated pulmonary artery systolic pressure is greater than 70 mmHg. Assessment of the left ventricular diastolic function was limited in view of the underlying arrhythmias. IMPRESSION: 1. Normal global left ventricular systolic function with mild concentric left ventricular hypertrophy. Assessment of the left ventricular diastolic function was limited. 2. Aortic valve sclerosis with trace aortic regurgitation and trivial aortic stenosis. 3. Mitral annular calcification with trace mitral regurgitation and a mildly enlarged left atrium. 4. Moderate tricuspid regurgitation with severe pulmonary hypertension and dilated right heart chambers. 5. There were findings consistent with elevated central venous pressure. The inferior vena cava was dilated. 6. Trace pericardial effusion noted. No evidence of cardiac tamponade. [facility]
--- NOTE | 2020-04-26 12:05 | REP ---
INDICATION: pain COMPARISON: None TECHNIQUE: Axial noncontrast images from the lung bases to the pubic symphysis with coronal and sagittal reformations. This CT examination was performed using the following dose reduction techniques: Automated exposure control, adjustment of mA and/or kv according to the patient's size, and use of iterative reconstruction technique. FINDINGS: Lung bases demonstrate small right pleural effusion, minimal left basilar pleural reaction, and mild bibasilar atelectasis. There is evidence for significant subcutaneous edema/anasarca throughout the soft tissues of the visualized abdomen and pelvis. There is a large anterior abdominopelvic pannus with a stable fat-containing right lateral ventral hernia. Liver, spleen, pancreas, bilateral adrenal glands and kidneys are relatively normal/stable by noncontrast CT evaluation. Mild hepatomegaly cannot be excluded. Cholelithiasis noted without acute cholecystitis. The enteric system is without obstruction or obvious acute inflammatory process. Pelvis demonstrates Jain catheter in collapsed bladder with mildly prominent uterus suggesting myomatous changes. No ascites. No free air. No adenopathy. Abdominal aorta without aneurysm. Skeletal structures demonstrate degenerative changes. IMPRESSION: 1. Moderate to significant subcutaneous edema/anasarca along with small right pleural effusion and minimal basilar atelectasis. 2. Chronic nonacute findings of the abdomen and pelvis as described above. <Electronically signed by Mario Pacheco > 04/26/20 [id number]
--- NOTE | 2020-04-26 13:12 | IPN ---
INPATIENT PROGRESS NOTE DATE: 04/25/20 SUBJECTIVE: Patient seen and examined this morning at the bedside. She denies any new complaints. She remains afebrile. Blood pressures have; however, been quite low with systolic mostly in the 80s up to 90s. Patient has received normal saline fluid bolus 500 mL and she continues on sodium bicarbonate drip. Her urine output is poor. Her renal function is worsening. She had no lactic acidosis. Her creatinine kinase level is down trending and she does not want hemodialysis. PHYSICAL EXAMINATION: Vital signs: Temperature 99.7, pulse 80, respiratory rate 24, blood pressure 93/54, saturating 97% on room air. Intake yesterday was not fully recorded. Urine output yesterday was only 500 mL. Weight on the bed sale today is 129.9 kg. General: Patient is seen lying in bed, elderly female appears disheveled. HEENT: Extraocular muscles are intact. Tongue is moist. Neck: Supple. Jugular veins are elevated. She has some bruising around the neck. Cardiac: S1 and S2. Skin: There is generalized anasarca with edema in the legs, the dependent tissue and in the abdominal wall and pannus. Respiratory: Symmetric air entry. I do not hear any crackle, rale or rhonchus. She is comfortable on room air. Abdomen: Obese with a pannus with edema in the abdominal wall. Genitourinary: Jain catheter with poor urine. Extremities: Chronic venous stasis changes and diffuse edema in the legs 1-2+. Neurologic: She is oriented times 3 and no focal deficits. LABORATORY DATA: Sodium 134, potassium 5.3, bicarbonate 21, BUN 62, creatinine 4.3, GFR 10. Lactic acid 1.5. Creatinine kinase 15,690. Albumin 2.1. Hemoglobin 10.5, white count 10.8, platelets 203. IMAGING: Chest x-ray yesterday shows no new infiltrates. Echocardiogram is pending. INPATIENT MEDICATIONS: She continues on I.V. ceftriaxone. She is on a sodium bicarbonate drip at 80 mL an hour which is half normal saline with 75 mEq of sodium bicarbonate. The remainder of her medications are unchanged as compared to yesterday. PROBLEMS/PLAN: 1. DOMINGA superimposed on CKD stage 4: Baseline creatinine is 2. Patient has underlying proteinuric advanced chronic kidney disease most likely secondary to diabetic nephropathy. She has an acute kidney injury in the setting of acute rhabdomyolysis. Her picture is also complicated by severe right heart failure. She is in fluid overload; however, she has been receiving I.V. fluids because of rhabdomyolysis and worsening renal function. We did attempt to diurese her earlier, but she did not tolerate it. Furthermore her blood pressures have been quite soft, systolic mostly in the 80s today which will make diuresis very difficult. Patient has also refused an echocardiogram and she also does not want dialysis so at the present time options for treating her are limited. I have cut down on the rate of I.V. fluids because her creatinine kinase level does show improvement and I advised the patient to get a repeat echo and she agrees for it now. Her last one was in 2018. There is no urgent indication for dialysis and I will continue the conversation with the patient 2. Acute rhabdomyolysis: Creatinine kinase level is down trending, 15,000 today. I.V. fluid rate was decreased. She is on a sodium bicarbonate drip. She has chronic right heart failure and she is in a generalized anasarcic state and she has been given judicious fluid. 3. Chronic right heart failure: Echocardiogram from 2018 noted. Patient had severe pulmonary hypertension and severe right heart failure. Her clinical exam is consistent with anasarca. Unfortunately it is complicated by rhabdomyolysis, UTI and worsening renal failure. She did not do well with diuresis and she is also hypotensive at this point hence she is receiving a low rate of I.V. fluid. She is agreeable now for repeat echocardiogram. 4. Urinary tract infection with E. coli and Klebsiella: Blood cultures have been negative. Lactic acid was negative as well. Patient is hypotensive. Suggest to repeat cultures. She has a mild leukocytosis. She has been afebrile the past day. She is on I.V. ceftriaxone managed by the primary service. 5. Hypotension in this patient with a UTI, but on appropriate antimicrobials with negative lactic acidosis and also history of severe right heart failure and fluid overload and acute rhabdomyolysis: Continue low rate of bicarbonate drip at this time and await repeat echocardiogram. 6. Hyperkalemia: It is improving with bicarbonate containing fluids. 7. Elevated LFTs (transaminitis): Possibly related to rhabdomyolysis versus congestive hepatopathy from her chronic right heart failure. MTDD
--- NOTE | 2020-04-26 13:18 | IPNPDOC ---
Date Seen The patient was seen on 04/26/20. Progress Note SUBJECTIVE: Cr further increased, hypotension improved with IVFs. Complaining of RUE pain without redness, increased swelling but fell on this arm prior to admission. XR ulna/radius neg for fx/dislocation this AM. CT abd showed incr fluid but no acute issues of concern. RUE US neg for DVT. She denies increased SOB, chest pain, fevers, chills, n/v/d. OBJECTIVE: PHYSICAL EXAMINATION: VITAL SIGNS: Please see below GENERAL APPEARANCE: NAD, resting in bed, AAOx3 HEENT: Bruising of left chin, face s/p fall- not new. PERRLA, EOM intact CARDIOVASCULAR: Irregularly irregular rate and rhythm, no appreciable murmurs LUNGS: CTAB, no w/r/r ABDOMEN: Soft, nontender, nondistended, no peritoneal signs, no appreciable masses, obese MUSCULOSKELETAL:Decreased ROM of right wrist, cannot make full fist- no erythema, warm seen in that area or on joints. No cyanosis or clubbing EXTREMITIES/INTEGUMENTARY: nonpitting edema in the upper ext b/l. Chronic venous stasis ulcers RLE, +2 swelling in b/l lower ext. 2 small ulcers on LLE. Redness in the b/l lower ext not warm to touch, mildly tender NEUROLOGICAL: Awake, alert and oriented to person place and time. Generally weak 4/5 of all ext. Sensory and motor intact, reflexes present in all ext. No focal deficits. PSYCHIATRIC: Flat affect LABORATORY DATA: See below. IMAGING: CT abd/pelvis without contrast: RUE US: neg for DVT XR right hand: No fracture or dislocation. Moderately severe arthritic changes at the wrist joint. XR right ulna/radius: No fracture or dislocation. Moderately severe arthritic changes CXR 04/24/20: Stable cardiomegaly and mild vascular congestion. No new infiltrate. Echocardiogram 04/23/20: EF 65% Normal global left ventricular systolic function with mild concentric left ventricular hypertrophy. Assessment of the left ventricular diastolic function was limited. Aortic valve sclerosis with trace aortic regurgitation and trivial aortic stenosis. Mitral annular calcification with trace mitral regurgitation and a mildly enlarged left atrium. Moderate tricuspid regurgitation with severe pulmonary hypertension and dilated right heart chambers. There were findings consistent with elevated central venous pressure. The inferior vena cava was dilated. Trace pericardial effusion noted. No evidence of cardiac tamponade. US RUQ: Stones and sludge within the gallbladder lumen. No biliary dilatation or free fluid. Somewhat limited exam due to bowel gas. Head CT (04/22/20): Age-appropriate supratentorial and infratentorial atrophy, moderate white matter microvascular ischemic disease, no acute intracranial abnormality identified, left maxillary sinusitis Foot x-ray (04/22/20): Extensive vascular dystrophic soft tissue calcification in the distal calf. Midfoot osteoarthritis. Mild diffuse osteopenia. No acute bony abnormality appreciated. Forefoot swelling. Chest x-ray (04/22/20): Cardiomegaly. Mild vascular cephalization, otherwise no active disease. Cervical spine CT (04/22/20): Degenerative changes, no acute cervical spinal bony injury identified. Recommend nonemergent thyroid sonograph for further evaluation of course a calcified left nodule MICROBIOLOGY: Blood culture (04/22/20): NG to date Urine culture (04/22/20): E. coli, klebsiella Respiratory virus panel (04/22/20): COVID-19 negative ASSESSMENT: Is a 69-year-old female with multiple medical comorbidities who admitted to the hospital for further workup and management of her rhabdo and altered mental status, worsening DOMINGA, acute on chornic . PLAN: Acute rhabdomyolysis, worsened -CK increased further to 24K, worsened Cr. No area of ongoing injury that could be causing this at this time. -Previously on bicarb gtt, stopped and now on NS at 60 cc/hr -Monitor fluid status closely, daily CK and Cr -Nephrology following DOMINGA on CKD Stage 4 likely 2/2 to rhabdomyolysis, cardiorenal syndrome, medications, UTI -Cr worsened to 4.79, baseline Cr 2 -Holding ARB, diuretics, bicarb gtt stopped -Poor u/o -Per nephrology, would likely benefit from hemodialysis but patient was previously against this as an option. She will talk to her again today to see if her stance remains the same. -F/u nephrology recommendations Acute on chronic HFpEF with exacerbation / severe pulmonary HTN -improved RR, currently 2 LNC saturating well -Pleural effusion on imaging -Echo from 2018 above, New echo above showing EF preserved still -+2 pitting edema in lower ext, + JVD -BNP >4K, trop neg -Patient does not follow with cardiology and does not wish to have cardiology consult or f/u as o/p -Lasix BID stopped due to worsening renal failure, BB held due to hypotension -Monitor I&O's, daily wts, 2 gm sodium diet -Again, would benefit hemodialysis for this as well but patient has previously refused, nephrology will discuss with patient again Hypotension possibly 2/2 to worsening heart failure, decreased PO intake -Hx of HTN. Not suspecting sepsis/shock- known UTI but has been adequately treated per sensitivities, no other s/s of infection -BP improved with fluids since 04/25/20 but grossly fluid overloaded -Continue to encourage fluids, food throughout day -Echo above, DID NOT want cardiology consult -LA wnl -NS at 60 cc/hr, avoiding antihypertensives at this time. -Monitor closely E. coli, Klebsiella UTI -UCx, blood cultures above -C/w ceftriaxone IV daily Acute transaminitis worsened likely 2/2 to congestive hepatopathy? -No known hx of Hepatitis, etc -AST/ALT elevated -Avoid hepatotoxic medications -CT abd and US RUQ above -F/u daily CMP daily Right upper ext pain (hand/forearm) -XR's neg today, RUE ruled out DVT -No erythema/noticeable bruising to think this is a gout flare up, has been on allopurinol -Pain control Thyroid nodule -13.1 mm partially calcified left thyroid nodule incidentally noted on CT of the patient's cervical spine. -Thyroid ultrasound ordered to be performed during hospitalization but patient refused further workup -TSH, T3 and T4 normal Left maxillary sinusitis -1 week history of L-sided WONG and green-colored nasal congestion -No systemic signs/symptoms -ceftriaxone Chronic venous stasis ulcers -Follows outpatient with Dr. Dickson -Was scheduled for dressing change today, 04/22/20 -Dr. Dickson consulted: "When the patient stabilizes and is discharged, please let us know and we will follow up with her, as she is a regular patient at our clinic. No indication for antibiotic therapy. Obviously the patient is in need of better glycemic control." Gout -No flare noticed but RUE pain -F/u uric acid -c/w home allopurinol for now. DM type II -BS stable -History of noncompliance -SSI, CC diet Atrial fibrillation, without anticoagulation -Rate controlled. Digoxin,ASA, holding BB -Dig level WNL. -Confirmed with patient that she has and continues to elect for aspirin only anticoagulation. -Telemetry monitoring HLD -c/w statin Obesity, class IIII -BMI of 45, complicating care PERFECTO -Reports compliance with home CPAP -Oxygen titration. DVT px -heparin Resolved issues: Altered mental status likely 2/2 to hypoglycemia, dehydration Hyperkalemia likely 2/2 to DOMINGA DISPOSITION: Currently under inpatient status. Nephrology consulted, refused cardiology consult. Has been more willing to do testing over past 24 hours. W ill need PT/OT when better, from home. VS, I&O, 24H, Fishbone Vital Signs/I&O Vital Signs Date Time Temp Pulse Resp B/P (MAP) Pulse Ox O2 Delivery O2 Flow Rate FiO2 04/26/20 12:00 97.5 78 20 126/60 (82) 97 Nasal Cannula 2.0 I&O- Last 24 Hours up to 6 AM 04/26/20 06:00 Intake Total 3900 ml Output Total 600 ml Balance 3300 ml Laboratory Data 24H LABS Laboratory Tests 2 04/25/20 16:53: Bedside Glucose (Misc Panel) 130H 04/25/20 21:20: Bedside Glucose (Misc Panel) 114H 04/26/20 04:18: Nucleated Red Blood Cells % (auto) 0.0, Anion Gap 10, Glomerular Filtration Rate 9.5L, Calcium Level 7.6L, Total Bilirubin 1.1H, Aspartate Amino Transf (AST/SGOT) 366H, Alanine Aminotransferase (ALT/SGPT) 88H, Alkaline Phosphatase 257H, Total Creatine Kinase 23342S, Total Protein 6.6, Albumin 2.0L, Albumin/Globulin Ratio 0.4L 04/26/20 06:56: Blood Gas Bicarbonate Standard 20.3, Venous Blood pH 7.370, Venous Blood Partial Pressure CO2 34.6L, Venous Blood Partial Pressure O2 158.3H, Venous Blood Total Carbon Dioxide 20.6L, Venous Blood HCO3 19.6L, Venous Blood Oxygen Saturation 98.9H, Venous Blood Base Excess -5.0L, Lactic Acid Level 1.5 04/26/20 12:12: Bedside Glucose (Misc Panel) 137H CBC/BMP Laboratory Tests 04/26/20 04:18 Microbiology Microbiology 04/26/20 Blood Culture, Received Pending 04/26/20 Blood Culture, Received Pending 04/22/20 Urine Culture - Final, Complete Escherichia Coli Klebsiella Pneumoniae 04/22/20 Respiratory Virus Panel (PCR) ([facility]) - Final, Complete 04/22/20 Blood Culture - Preliminary, Resulted No Growth after 72 hours. All specime... 04/22/20 Blood Culture - Preliminary, Resulted No Growth after 72 hours. All specime... Current Medications Current Medications Medications (Trade) Dose Ordered Sig/Bert Route PRN Reason Start Time Stop Time Status Last Admin Dose Admin Al Hydrox/Mg Hydrox/Simethicone (Mylanta) 30 ml DAILY PRN PO DYSPEPSIA 04/22/20 19:35 Allopurinol (Zyloprim) 100 mg DAILY PO 04/23/20 09:00 04/26/20 09:21 Aspirin (Ecotrin) 81 mg DAILY PO 04/23/20 09:00 04/26/20 09:21 Atorvastatin Calcium (Lipitor) 40 mg QHS PO 04/22/20 21:00 04/25/20 21:29 Ceftriaxone Sodium 1 gm/ Dextrose 50 ml @ 100 mls/hr Q24H IV 04/23/20 09:00 04/26/20 09:20 Dextrose (Dextrose 50%) 25 ml ASDIRECTED PRN IV SEE LABEL COMMENTS 04/22/20 20:40 Digoxin (Lanoxin) 0.125 mg DAILY PO 04/23/20 09:00 04/26/20 09:22 Dimethicone (Vanicream Ointment) 1 dose BID TOP 04/23/20 21:00 04/26/20 09:22 Docusate Sodium (Colace) 100 mg BID PO 04/22/20 21:00 04/26/20 09:21 Enoxaparin Sodium (Lovenox) 30 mg DAILY SC 04/23/20 09:00 04/26/20 09:21 Furosemide (LASIX injection) 80 mg BID@09,17 IV 04/23/20 11:10 04/24/20 08:07 DC 04/23/20 16:52 Glucagon (Glucagon) 1 mg ASDIRECTED PRN SC SEE LABEL COMMENTS 04/22/20 20:40 Glucose (Glucose) 16 GM ASDIRECTED PRN PO SEE LABEL COMMENTS 04/22/20 20:40 Home Med (Med Rec Complete!) ASDIRECTED XX 04/22/20 19:40 04/22/20 19:40 DC Insulin Human Lispro (HumaLOG INSULIN) SEE PROTOCOL TABLE AC SC 04/23/20 07:30 04/26/20 12:51 Insulin Human Lispro (HumaLOG INSULIN) SEE PROTOCOL TABLE QHS SC 04/22/20 21:00 Magnesium Hydroxide (Milk Of Magnesia) 30 ml DAILY PRN PO CONSTIPATION 04/22/20 19:35 Megestrol Acetate (Megace) 40 mg BID PO 04/22/20 21:00 04/26/20 09:21 Metoprolol Tartrate (Lopressor) 25 mg BID PO 04/22/20 21:00 04/25/20 10:25 DC 04/24/20 22:02 Nystatin (Mycostatin Powder, Nystop) Abdominal folds BIDP PRN TOP RASH 04/23/20 05:15 Sodium Bicarbonate 150 meq/Sterile Water 1,150 ml @ 100 mls/hr [id number] IV 04/24/20 12:00 04/25/20 07:59 DC 04/25/20 01:59 Sodium Bicarbonate 75 meq/Sodium Chloride 1,075 ml @ 120 mls/hr [id number] IV 04/25/20 13:00 04/26/20 06:59 DC 04/25/20 23:20 Sodium Chloride 500 ml @ 0 mls/hr BOLUS STAT IV 04/25/20 10:24 04/25/20 10:25 DC 04/25/20 10:58 Sodium Chloride 1,000 ml @ 60 mls/hr [id number] IV 04/26/20 10:15 04/26/20 11:25 Sodium Chloride 1,000 ml @ 70 mls/hr [id number] IV 04/22/20 19:30 04/23/20 11:06 DC 04/22/20 23:41 Sodium Chloride 1,000 ml @ 100 mls/hr Q10H IV 04/22/20 17:08 04/22/20 23:27 DC 04/22/20 17:33 Sodium Chloride (Saline Lock Flush) 2 ml ASDIRECTED PRN IV SEE LABEL COMMENTS 04/25/20 09:35 Sodium Chloride (Saline Lock Flush) 2 ml SLF IV 04/25/20 14:00 04/26/20 07:37 Tramadol HCl (Ultram) 50 mg Q12HP PRN PO PAIN 04/23/20 04:35 2/28/21 10:23 Allergies Coded Allergies: WOOL (FABRIC) (Verified Allergy, Intermediate, 04/22/20) Aminoglycosides (Verified Allergy, Unknown, 04/22/20) bacitracin (Verified Allergy, Unknown, 04/22/20) dextromethorphan (Verified Allergy, Unknown, 04/22/20) guaifenesin (Verified Allergy, Unknown, 04/22/20) neomycin (Verified Allergy, Unknown, 04/22/20) polymyxin B (Verified Allergy, Unknown, 04/22/20) Hodan Claros MD Apr 26, 2020 13:18
[2020-04-26 16:00] VITALS: BP 125/58
[2020-04-26 20:00] VITALS: BP 123/62
[2020-04-26] MEDS: ATORVASTATIN 20 MG TAB PO SCH (20:27)
[2020-04-26] MEDS: HEPARIN SOD (PORCINE) 5000UNITS/ML 1ML VIAL/SYRINGE SQ SCH (20:27)
[2020-04-26] MEDS: traMADol 50 MG TAB PO PRN (20:35)
[2020-04-27] VITALS: BP 122/68
[2020-04-27 04:00] VITALS: BP 129/62
[2020-04-27 05:17] LABS: HEMATOCRIT 32.1 % (36.0-47.0); MEAN CORPUSCULAR HEMOGLOBIN 27.5 pg (27.0-33.0); MEAN CORPUSCULAR HGB CONC 31.2 g/dl (32.0-36.5); MEAN CORPUSCULAR VOLUME 88.4 fl (80.0-96.0); PLATELET COUNT, AUTOMATED 261 10^3/uL (150-450); RED BLOOD COUNT 3.63 10^6/uL (4.00-5.40); WHITE BLOOD COUNT 9.3 10^3/uL (4.0-10.0)
[2020-04-27 05:39] LABS: CALCIUM LEVEL 7.4 MG/DL (8.8-10.2); CREATININE FOR GFR 4.79 MG/DL (0.55-1.30); GLOMERULAR FILTRATION RATE 9.5 (>39); POTASSIUM SERUM 5.2 MEQ/L (3.5-5.1); TOTAL PROTEIN 5.8 GM/DL (6.4-8.2)
[2020-04-27] MEDS: SLF 3 ML SYR IV SCH ×3 (05:39→21:00)
[2020-04-27 07:18] VITALS: BP 117/56
[2020-04-27] MEDS: ASPIRIN 81MG ENTERIC TABLET PO SCH (08:30)
[2020-04-27] MEDS: HumaLOG INSULIN (NovoLOG) PER UNIT SC SCH ×4 (08:30→21:00)
[2020-04-27] MEDS: MEGESTROL 40 MG TAB PO SCH ×2 (08:30→20:10)
[2020-04-27] MEDS: HEPARIN SOD (PORCINE) 5000UNITS/ML 1ML VIAL/SYRINGE SQ SCH ×2 (08:30→20:10)
[2020-04-27] MEDS: DIGOXIN 0.125 MG TAB PO SCH (08:31)
[2020-04-27] MEDS: allopurinoL 100 MG TAB PO SCH (08:31)
[2020-04-27] MEDS: cefTRIAXone SOD 1 GM in D5W MINI-BAG PLUS 50 ML IV SCH (08:31)
[2020-04-27] MEDS: DOCUSATE SODIUM 100MG CAPSULE PO SCH ×2 (08:31→20:10)
[2020-04-27] MEDS: DIMETHICONE 2% OINTMENT(VANICREAM) 70GM TUBE TOP SCH ×2 (08:31→20:11)
[2020-04-27] MEDS: FUROSEMIDE 20MG/2ML VIAL (J1940) IV SCH ×2 (10:58→18:19)
[2020-04-27 12:00] VITALS: BP 139/78
--- NOTE | 2020-04-27 12:21 | IPNPDOC ---
Text Note Date of Service The patient was seen on 04/27/20. NOTE SUBJECTIVE: -She denies increased SOB, chest pain, fevers, chills, n/v/d. -is on 2L NC this morning -Finally agreed to an echo yesterday OBJECTIVE: VITAL SIGNS: Please see below GENERAL APPEARANCE: NAD, resting in bed, AAOx3 HEENT: Resolving left chin and facial bruising i/s/o recent fall. PERRLA, EOMI CARDIOVASCULAR: Irregularly irregular rate and rhythm, no appreciable murmurs LUNGS: CTAB, no w/r/r ABDOMEN: Normoactive bowel sounds throughout, soft, nontender, nondistended, no appreciable masses, obese MUSCULOSKELETAL:Decreased ROM of right wrist, not new, previously noted, no erythema. No cyanosis or clubbing EXTREMITIES/INTEGUMENTARY: nonpitting edema in the upper ext b/l. Chronic venous stasis ulcers RLE, +2 swelling in b/l lower ext. 2 small ulcers on LLE. Redness in the b/l lower ext not warm to touch. NEUROLOGICAL: AOx3. 4/5 strength throughout. Sensory and motor intact. No focal deficits. PSYCHIATRIC: AOx3, flat affect LABORATORY DATA: Reviewed WBC 9.3 Hgb 10 Platelets 261 na 133 K 5.2 bicarb 22 BUN 76 Cr 4.79 AST 404 [place] [address] [place] [address] IMAGING: CT abd/pelvis without contrast: subcutaneous gut edema with anasarca, a small R pleural effusion, hepatomegaly, cholelithiasis without evidence of cholecystitis RUE US: neg for DVT XR right hand: No fracture or dislocation. Moderately severe arthritic changes at the wrist joint. XR right ulna/radius: No fracture or dislocation. Moderately severe arthritic changes CXR: Bibasilar atelectasis Echocardiogram 04/23/20: EF 65% Normal global left ventricular systolic function with mild concentric left ventricular hypertrophy. Assessment of the left ventricular diastolic function was limited. Aortic valve sclerosis with trace aortic regurgitation and trivial aortic stenosis. Mitral annular calcification with trace mitral regurgitation and a mildly enlarged left atrium. Moderate tricuspid regurgitation with severe pulmonary hypertension and dilated right heart chambers. There were findings consistent with elevated central venous pressure. The inferior vena cava was dilated. Trace pericardial effusion noted. No evidence of cardiac tamponade. US RUQ: Stones and sludge within the gallbladder lumen. No biliary dilatation or free fluid. Somewhat limited exam due to bowel gas. Head CT (04/22/20): Age-appropriate supratentorial and infratentorial atrophy, moderate white matter microvascular ischemic disease, no acute intracranial abnormality identified, left maxillary sinusitis Foot x-ray (04/22/20): Extensive vascular dystrophic soft tissue calcification in the distal calf. Midfoot osteoarthritis. Mild diffuse osteopenia. No acute bony abnormality appreciated. Forefoot swelling. Chest x-ray (04/22/20): Cardiomegaly. Mild vascular cephalization, otherwise no active disease. Cervical spine CT (04/22/20): Degenerative changes, no acute cervical spinal bony injury identified. Recommend nonemergent thyroid sonograph for further evaluation of course a calcified left nodule MICROBIOLOGY: Blood culture (04/22/20): NG to date Urine culture (04/22/20): E. coli, klebsiella Respiratory virus panel (04/22/20): COVID-19 negative ASSESSMENT: Is a 69-year-old W with multiple medical comorbidities who was admitted to the hospital for rhabdomyolysis, acute encephalopathy, DOMINGA on CKD with acute on chronic HFpEF and transaminitis and course c/b refusal of appropriate care inc luding testing and interventions, now eventually s/p TTE with gentle fluids and nephrology onboard. PLAN: Acute rhabdomyolysis: -CK finally starting to downtrend -Cr stably worsened s/p fluids. -Nephrology following, monitoring daily CK and BMP and strict I/Os DOMINGA on CKD Stage 4 likely 2/2 to rhabdomyolysis, congestive nephropathy, potential iatrogens and recent UTI -Cr stable at 4.79, baseline Cr 2 -Holding ARB, diuretics, bicarb gtt stopped -Poor UOP, monitor strict I/Os -daily weights -Per nephrology, would likely benefit from hemodialysis but patient was previously against this as an option and was refusing testing and interventions. -F/u nephrology recommendations Acute on chronic HFpEF with exacerbation with severe pulmonary HTN -Currently remains on 2 L NC -Small R pleural effusion on imaging -New echo above showing EF preserved still -Continues to be overloaded on exam but did not tolerate diuretics on trial -BNP >4K, trop neg -Patient does not follow with cardiology and does not wish to have cardiology consult or f/u as o/p --> will re-discuss with her about at least outpatient referral -Monitor I&O's, daily wts, 2 gm sodium diet -Would benefit from HD but patient refused, nephrology will discuss with patient again Hypotension possibly 2/2 to worsening heart failure, decreased PO intake -Hx of HTN. Not suspecting septic shock- known UTI but has been adequately treated per sensitivities, no other s/s of infection -BP improved with fluids since but grossly fluid overloaded -Continue to encourage fluids, food throughout day -Echo above, DID NOT want cardiology consult at this tie -LA wnl -s/p fluids E. coli, Klebsiella UTI -UCx, blood cultures above -C/w ceftriaxone IV daily, day 5 Acute transaminitis worsened likely 2/2 to congestive hepatopathy -No known hx of Hepatitis, etc -AST/ALT elevated -Avoid hepatotoxic medications -CT abd and US RUQ above -F/u daily CMP daily Right upper ext pain (hand/forearm) -XR's neg for fracture with some osteoarthritic changes, RUE was w/o DVT -No erythema/noticeable bruising to think this is a gout flare up, has been on allopurinol -Pain control with tramadol Thyroid nodule -13.1 mm partially calcified left thyroid nodule incidentally noted on CT of the patient's cervical spine. -Thyroid ultrasound ordered to be performed during hospitalization but patient refused further workup -TSH, T3 and T4 normal Left maxillary sinusitis -1 week history of L-sided WONG and green-colored nasal congestion -No systemic signs/symptoms -ceftriaxone, day 5 Chronic venous stasis ulcers -Follows outpatient with Dr. Dickson -Was scheduled for dressing change -Dr. Dickson consulted: "When the patient stabilizes and is discharged, please let us know and we will follow up with her, as she is a regular patient at our clinic. No indication for antibiotic therapy. Obviously the patient is in need of better glycemic control." Gout -No flare noticed but RUE pain -F/u uric acid -c/w home allopurinol for now. DM type II -BS stable -History of noncompliance -SSI, CC diet Atrial fibrillation, without anticoagulation -Rate controlled. Digoxin,ASA, holding BB -Dig level WNL. -Confirmed with patient that she has and continues to elect for aspirin only anticoagulation. -Telemetry monitoring HLD -c/w statin Obesity, class IIII -BMI of 45, complicating care PERFECTO -Reports compliance with home CPAP -Oxygen titration. DVT px -heparin Resolved issues: Metabolic encephalopathy likely 2/2 to hypoglycemia, dehydration Hyperkalemia likely 2/2 to DOMINGA DISPOSITION: Currently under inpatient status. Nephrology consulted, refused cardiology consult. PT/OT evaluation for disposition planning, came from home. VS,Fishbone, I+O VS, Fishbone, I+O Laboratory Tests 04/27/20 04:41 Vital Signs Date Time Temp Pulse Resp B/P (MAP) Pulse Ox O2 Delivery O2 Flow Rate FiO2 04/27/20 07:18 97.0 57 19 117/56 (76) 93 Nasal Cannula 2.0 I&O- Last 24 Hours up to 6 AM 04/27/20 06:00 Intake Total 1830 ml Output Total 1260 ml Balance 570 ml RADHA SIERRA MD Apr 27, 2020 07:53
[2020-04-27] MEDS: NYSTATIN 100,000 UNITS/GM TOPICAL PWD 15 GM TOP SCH ×2 (14:43→20:11)
[2020-04-27 16:00] VITALS: BP 127/67
[2020-04-27 20:00] VITALS: BP 128/60
[2020-04-27] MEDS: traMADol 50 MG TAB PO PRN (20:10)
[2020-04-27] MEDS: ATORVASTATIN 20 MG TAB PO SCH (20:11)
[2020-04-28] VITALS (8 sets, daily range): BP systolic 123–144; BP diastolic 56–88
--- NOTE | 2020-04-28 00:10 | IPN ---
INPATIENT PROGRESS NOTE DATE: 04/27/2020 SUBJECTIVE: Patient is seen and examined this morning at the bedside. She denies shortness of breath. She reports some intermittent abdominal pain and has not had a bowel movement in a few days. Her urine output did improve over the past 24 hours and her creatinine has plateaued and her creatine kinase level has down trended. Blood pressures are also improved. OBJECTIVE: VITAL SIGNS: Temperature 97.2, pulse 96, respiratory rate 18, blood pressure 123/62, saturating 93 to 97% on 2 liters nasal cannula. INTAKE/OUTPUT: Intake yesterday was 2.7 liters. Urine output yesterday was 770 cc. Urine output thus far today is more than a liter Weight in the bed scale today is 132.2 kg. GENERAL: Patient is seen lying in bed, head of the bed elevated, elderly female, awake, alert, oriented and in no apparent distress. HEENT: Extraocular muscles are intact. Tongue is moist. Neck is supple. Jugular veins are elevated. There is some bruising around the neck. HEART: Sounds are irregularly regular. There is 2+ diffuse leg edema and dependent edema and abdominal wall edema. LUNGS: Clear to auscultation bilaterally. No crackle or rale. She is seen comfortable on nasal cannula. No accessory muscle use. ABDOMEN: Obese, soft and nontender. There is abdominal wall edema along with edema in the abdominal pannus. MUSCULOSKELETAL: Shows 2+ leg edema along with dependent edema. GENITOURINARY: Shows indwelling Jain catheter. SKIN: Shows ulcers on the legs with dressings and chronic venous stasis changes on the legs and generalized anasarcic appearance. NEUROLOGIC: She is oriented x3. No focal deficits. LABORATORY STUDIES: Sodium 133, potassium 5.2, bicarbonate 22, BUN 76, creatinine 4.7. AST 404, ALT 109. CK 15,000. Hemoglobin 10.0, platelets 261,000. Blood cultures from April 26 no growth for 24 hours times two sets. IMAGING: Echocardiogram from April 23 showed severe pulmonary hypertension and dilated right heart chambers, dilated inferior vena cava. INPATIENT MEDICATIONS: She is off of all I.V. fluids, and Lasix 20 mg I.V. b.i.d. was started today. The remainder of her medications are unchanged as compared to yesterday. PROBLEMS: 1. Nonoliguric acute kidney injury superimposed on CKD stage 4: Patient has underlying proteinuric CKD likely secondary to diabetic nephropathy, presently has an acute kidney injury in the setting of acute rhabdomyolysis and decompensated right heart failure and UTI. Her creatine kinase level did down trend to 15,000. Her urine output appears to have improved. Her creatinine has plateaued. There are no urgent hemodialysis indications and the patient has been refusing investigations/referrals/more aggressive interventions. I am putting her on Lasix 20 mg I.V. b.i.d. and we will see how she tolerates attempt at diuresis. I will continue the dialysis discussion with her as well. Given that she has chronic right heart failure and advanced CKD stage 4 underlying, she may go on to develop dialysis needs, though at present there is no urgent indication. 2. Decompensated right heart failure: Repeat echocardiogram noted with severe pulmonary hypertension and dilated right ventricle and patient is anasarcic on exam, unfortunately she did need some gentle I.V. fluids because of rhabdomyolysis and worsening renal function along with hypotension, but her creatinine has now plateaued and her creatine kinase has down trended, so I am trying to diurese her again. We will see how she does with Lasix 20 mg I.V. b.i.d. 3. Acute rhabdomyolysis: Creatine kinase level down trending. I.V. fluids were stopped yesterday. Will cautiously attempt to diurese her at this point. 4. Hyperkalemia: It is mild. Lasix is being started for urinary potassium excretion. 5. Transaminitis: Her LFTs are noted to have risen despite her creatine kinase down trending, possibly related to congestive hepatopathy. 6. Status post hypotension: Repeat blood cultures are negative. She continues on Ceftriaxone for UTI. Lactic acid is negative as well. Trial of low dose diuretic and we will see how she responds. 7. Morbid obesity, chronic venous stasis ulcers, poorly controlled type 2 diabetes (A1C greater than 10%), atrial fibrillation, PERFECTO, BMI 45: All complicates her care. RONIT
[2020-04-28 04:33] LABS: HEMATOCRIT 32.6 % (36.0-47.0); MEAN CORPUSCULAR HEMOGLOBIN 27.3 pg (27.0-33.0); MEAN CORPUSCULAR HGB CONC 30.7 g/dl (32.0-36.5); MEAN CORPUSCULAR VOLUME 89.1 fl (80.0-96.0); PLATELET COUNT, AUTOMATED 283 10^3/uL (150-450); RED BLOOD COUNT 3.66 10^6/uL (4.00-5.40); WHITE BLOOD COUNT 8.4 10^3/uL (4.0-10.0)
[2020-04-28 04:58] LABS: BILIRUBIN,TOTAL 0.8 MG/DL (0.2-1.0); CALCIUM LEVEL 7.6 MG/DL (8.8-10.2); CREATININE FOR GFR 4.12 MG/DL (0.55-1.30); GLOMERULAR FILTRATION RATE 11.4 (>39); POTASSIUM SERUM 5.1 MEQ/L (3.5-5.1)
[2020-04-28] MEDS: SLF 3 ML SYR IV SCH ×3 (05:27→21:01)
[2020-04-28] MEDS: FUROSEMIDE 20MG/2ML VIAL (J1940) IV SCH ×2 (08:28→17:13)
[2020-04-28] MEDS: HumaLOG INSULIN (NovoLOG) PER UNIT SC SCH ×4 (08:28→21:00)
[2020-04-28] MEDS: DOCUSATE SODIUM 100MG CAPSULE PO SCH ×2 (08:29→20:36)
[2020-04-28] MEDS: allopurinoL 100 MG TAB PO SCH (08:29)
[2020-04-28] MEDS: HEPARIN SOD (PORCINE) 5000UNITS/ML 1ML VIAL/SYRINGE SQ SCH ×2 (08:29→20:36)
[2020-04-28] MEDS: cefTRIAXone SOD 1 GM in D5W MINI-BAG PLUS 50 ML IV SCH (08:30)
[2020-04-28] MEDS: ASPIRIN 81MG ENTERIC TABLET PO SCH (08:30)
[2020-04-28] MEDS: DIGOXIN 0.125 MG TAB PO SCH (08:30)
[2020-04-28] MEDS: DIMETHICONE 2% OINTMENT(VANICREAM) 70GM TUBE TOP SCH ×2 (08:38→20:37)
[2020-04-28] MEDS: MEGESTROL 40 MG TAB PO SCH ×2 (08:38→20:36)
[2020-04-28] MEDS: NYSTATIN 100,000 UNITS/GM TOPICAL PWD 15 GM TOP SCH ×2 (08:38→20:37)
--- NOTE | 2020-04-28 08:46 | IPN ---
PROGRESS NOTE DATE: 04/26/2020 SUBJECTIVE: Luli is seen and examined this morning at the bedside. Her renal function continues to worsen. Her hypotension, however, has improved. Her creatine kinase has up trended up to 24,000 today. She is more agreeable for further testing and she went for x-ray and ultrasound of the right upper extremity along with CT non-contrast of the abdomen. She denies shortness of breath at rest. She is reconsidering her thoughts regarding dialysis refusal. OBJECTIVE: VITAL SIGNS: Temperature 97.5, pulse 78, respiratory rate 20, blood pressure 126/60, saturating 97% on 2 liters nasal cannula. INTAKE AND OUTPUT: Intake yesterday was 3.2 liters. Urine output yesterday was 700 cc. Weight in the bed scale today is increased up to 131.4 kg. GENERAL: Patient is seen lying in bed, an elderly and obese female, appears chronically ill but in no acute distress. HEENT: Extraocular muscles are intact. Tongue is moist. Jugular veins are elevated. There is some bruising around her neck and chin. HEART: Sounds are irregularly regular. There is diffuse edema 2+ in the lower extremities and in the dependent areas and in the abdominal wall. LUNGS: Clear to auscultation bilaterally. No crackle or rale. She is comfortable on nasal cannula. ABDOMEN: Soft, obese. There is significant abdominal pannus with abdominal wall edema and dependent edema, but there is no tenderness on palpation. MUSCULOSKELETAL: There is chronic leg edema. There are dressings over her lower extremity ulcers. There are chronic venous stasis changes. GENITOURINARY: Indwelling Jain catheter. NEUROLOGIC: She is oriented x3, interactive and at baseline mentation. No focal deficit. LABORATORY STUDIES: Sodium 131, potassium 5.0, bicarbonate 22, BUN 71, creatinine 4.7. Creatine kinase up to 24,000. AST 366, ALT 88, albumin 2.0. Hemoglobin 10.3, white count 11.0. Repeat blood cultures have been sent today and are pending. IMAGING: CT abdomen and pelvis done today shows moderate subcutaneous edema/anasarca. INPATIENT MEDICATIONS: She is on normal saline at 60 cc an hour, Heparin 5,000 units subcutaneously every 12 hours. The remainder of her medications are unchanged as compared to yesterday. PROBLEMS: 1. Nonoliguric acute renal failure superimposed on CKD stage 4 in the setting of decompensated right heart failure along with acute rhabdomyolysis, hypotension and UTI. The patient is in fluid overload, however, has been receiving I.V. fluids because of rhabdomyolysis and worsening renal function and rising creatine kinase. She has also been hypotensive the past day. She is presently receiving normal saline at 60 cc an hour and I am discontinuing this this evening. There is no urgent indication for hemodialysis and the patient has been refusing investigations, procedures and does not want dialysis. Given her underlying advanced CKD stage 4 with chronic right heart failure, I am pessimistic about her recovering from this acute kidney injury, however if her creatine kinase does down trend, I would try diuresing her again. 2. Acute rhabdomyolysis: Creatine kinase is up to 24,000. But I.V. fluids administration the past couple of days has been cautious in view of decompensated right heart failure. She is in generalized anasarca. Presently she is receiving normal saline at 60 cc an hour, but that is being discontinued this evening. 3. Decompensated chronic right heart failure: Repeat echocardiogram noted. Severe pulmonary hypertension and right heart failure underlying with anasarca on exam, unfortunately complicated by rhabdomyolysis and worsening renal failure. Discussed with patient regarding her advanced CKD and her right heart failure and possible need for dialysis, but she is apprehensive and we will continue with trial of medical management at this time. Would start Lasix if her creatine kinase starts to down trend. 4. Hypotension in this patient with UTI and right heart failure: Her blood pressures have improved over the past day. Her I.V. fluid rate was further decreased. Her lactic acidosis is negative and her repeat blood cultures are negative as well. 5. Hyperkalemia: It is improved and she is status post bicarbonate containing fluids. 6. Elevated LFTs: Possibly related to rhabdomyolysis versus congestive hepatopathy from her chronic right heart failure. MTDD
[2020-04-28] MEDS: CEPHALEXIN 250MG CAPSULE PO SCH ×3 (12:24→20:36)
--- NOTE | 2020-04-28 12:53 | IPNPDOC ---
Text Note Date of Service The patient was seen on 04/28/20. NOTE SUBJECTIVE: -She denies increased SOB, chest pain, fevers, chills, n/v/d. -is on 1L NC this morning -UOP is improving and tolerated small dose of diuretic given by nephrology OBJECTIVE: VITAL SIGNS: Please see below GENERAL APPEARANCE: NAD, resting in bed, AAOx3 HEENT: Resolving left chin and facial bruising i/s/o recent fall. PERRLA, EOMI CARDIOVASCULAR: Irregularly irregular rate and rhythm, no appreciable murmurs LUNGS: CTAB, no w/r/r ABDOMEN: Normoactive bowel sounds throughout, soft, nontender, nondistended, no appreciable masses, obese MUSCULOSKELETAL:Decreased ROM of right wrist, not new, previously noted, no erythema. No cyanosis or clubbing EXTREMITIES/INTEGUMENTARY: nonpitting edema in the upper ext b/l. Chronic venous stasis ulcers RLE, +2 swelling in b/l lower ext. 2 small ulcers on LLE. Redness in the b/l lower ext not warm to touch. NEUROLOGICAL: AOx3. 4/5 strength throughout. Sensory and motor intact. No focal deficits. PSYCHIATRIC: AOx3, flat affect LABORATORY DATA: Reviewed WBC 8.4 Hgb 10 Platelets 283 na 134 K 5.1 Cr 4.12 UCx - Klebs and E.coli IMAGING: CT abd/pelvis without contrast: subcutaneous gut edema with anasarca, a small R pleural effusion, hepatomegaly, cholelithiasis without evidence of cholecystitis RUE US: neg for DVT XR right hand: No fracture or dislocation. Moderately severe arthritic changes at the wrist joint. XR right ulna/radius: No fracture or dislocation. Moderately severe arthritic changes CXR: Bibasilar atelectasis Echocardiogram 04/23/20: EF 65% Normal global left ventricular systolic function with mild concentric left ventricular hypertrophy. Assessment of the left ventricular diastolic function was limited. Aortic valve sclerosis with trace aortic regurgitation and trivial aortic steno sis. Mitral annular calcification with trace mitral regurgitation and a mildly enlarged left atrium. Moderate tricuspid regurgitation with severe pulmonary hypertension and dilated right heart chambers. There were findings consistent with elevated central venous pressure. The inferior vena cava was dilated. Trace pericardial effusion noted. No evidence of cardiac tamponade. US RUQ: Stones and sludge within the gallbladder lumen. No biliary dilatation or free fluid. Somewhat limited exam due to bowel gas. Head CT (04/22/20): Age-appropriate supratentorial and infratentorial atrophy, moderate white matter microvascular ischemic disease, no acute intracranial abnormality identified, left maxillary sinusitis Foot x-ray (04/22/20): Extensive vascular dystrophic soft tissue calcification in the distal calf. Midfoot osteoarthritis. Mild diffuse osteopenia. No acute bony abnormality appreciated. Forefoot swelling. Chest x-ray (04/22/20): Cardiomegaly. Mild vascular cephalization, otherwise no active disease. Cervical spine CT (04/22/20): Degenerative changes, no acute cervical spinal b dano injury identified. Recommend nonemergent thyroid sonograph for further evaluation of course a calcified left nodule MICROBIOLOGY: Blood culture (04/22/20): NG to date Urine culture (04/22/20): E. coli, klebsiella Respiratory virus panel (04/22/20): COVID-19 negative ASSESSMENT: Is a 69-year-old W with multiple medical comorbidities who was admitted to the hospital for rhabdomyolysis, acute encephalopathy, DOMINGA on CKD, UTI and with acute on chronic HFpEF and transaminitis and course c/b refusal of appropriate care including testing and interventions, now eventually s/p TTE and gentle flu ids, now slowly improving with nephrology onboard. PLAN: Acute rhabdomyolysis: -CK downtrended, check this AM -Cr now starting to downtrend, 4.12 this morning -Nephrology following, monitoring daily CK and BMP and strict I/Os DOMINGA on CKD Stage 4 likely 2/2 to rhabdomyolysis, congestive nephropathy, potential iatrogens and recent UTI -Cr finally downtrending, today is 4.12, baseline Cr 2 -Holding ARB, diuretics, bicarb gtt stopped -Much improved UOP, tolerating low dose lasix, monitor strict I/Os -daily weights -Per nephrology, would likely benefit from hemodialysis but patient was previo usly against this, but now slowly in discussion with renal about potential eventual need for it. -Currently placed on lasix 20 IV BID by nephrology, f/u nephrology recommendations Acute on chronic HFpEF with exacerbation with severe pulmonary HTN -Currently on 1 L NC -Small R pleural effusion on imaging -New echo above showing EF preserved still -Continues to be overloaded on exam but did not tolerate diuretics on trial -BNP >4K, trop neg -Patient does not follow with cardiology and does not wish to have cardiology consult or f/u as o/p --> will re-discuss with her about at least outpatient referral -Monitor I&O's, daily wts, 2 gm sodium diet -Would benefit from HD but patient refused, nephrology slowly discussing with patient -Continue lasix IV 20mg BID per nephrology Hypotension possibly 2/2 to worsening heart failure, decreased PO intake: resolved -Hx of HTN. Not suspecting septic shock- known UTI but has been adequately treated per sensitivities, no other s/s of infection -BP improved with fluids since but grossly fluid overloaded -Continue to encourage fluids, food throughout day -Echo above, DID NOT want cardiology consult at this tie -LA wnl -s/p fluids E. coli, Klebsiella UTI -UCx, blood cultures above -Switched ceftriaxone IV daily to keflex , day 6 of 7 Acute transaminitis worsened likely 2/2 to congestive hepatopathy: slowly improving -No known hx of Hepatitis, etc -AST/ALT elevated -Avoid hepatotoxic medications -CT abd and US RUQ above -F/u daily CMP daily Right upper ext pain (hand/forearm) -XR's neg for fracture with some osteoarthritic changes, RUE was w/o DVT -No erythema/noticeable bruising to think this is a gout flare up, has been on allopurinol -Pain control with tramadol Thyroid nodule -13.1 mm partially calcified left thyroid nodule incidentally noted on CT of the patient's cervical spine. -Thyroid ultrasound ordered to be performed during hospitalization but patient refused further workup -TSH, T3 and T4 normal Left maxillary sinusitis -1 week history of L-sided WONG and green-colored nasal congestion -No systemic signs/symptoms -Now on keflex day 6 Chronic venous stasis ulcers -Follows outpatient with Dr. Dickson -Was scheduled for dressing change -Dr. Dickson consulted: "When the patient stabilizes and is discharged, please let us know and we will follow up with her, as she is a regular patient at our clinic. No indication for antibiotic therapy. Obviously the patient is in need of better glycemic control." Gout -No flare noticed but RUE pain -F/u uric acid -c/w home allopurinol for now. DM type II -BS stable -History of noncompliance -SSI, CC diet Atrial fibrillation, without anticoagulation -Rate controlled. Digoxin,ASA, holding BB -Dig level WNL. -Confirmed with patient that she has and continues to elect for aspirin only anticoagulation. -Telemetry monitoring HLD -c/w statin Obesity, class IIII -BMI of 45, complicating care PERFECTO -Reports compliance with home CPAP -Oxygen titration. DVT px -heparin Resolved issues: Metabolic encephalopathy likely 2/2 to hypoglycemia, dehydration Hyperkalemia likely 2/2 to DOMINGA DISPOSITION: Currently under inpatient status. Nephrology consulted, refused cardiology consult. PT/OT evaluation for disposition planning, came from home. VS,Fishbone, I+O VS, Fishbone, I+O Laboratory Tests 04/28/20 04:02 Vital Signs Date Time Temp Pulse Resp B/P (MAP) Pulse Ox O2 Delivery O2 Flow Rate FiO2 04/28/20 08:30 85 04/28/20 08:00 96.9 20 135/68 (90) 95 Nasal Cannula 1.0 I&O- Last 24 Hours up to 6 AM 04/28/20 06:00 Intake Total 900 ml Output Total 2110 ml Balance -1210 ml RADHA SIERRA MD Apr 28, 2020 08:47
[2020-04-28] MEDS: ATORVASTATIN 20 MG TAB PO SCH (20:36)
[2020-04-28] MEDS: traMADol 50 MG TAB PO PRN (21:00)
[2020-04-29] VITALS (9 sets, daily range): BP systolic 122–146; BP diastolic 58–75
[2020-04-29 04:16] LABS: HEMATOCRIT 33.1 % (36.0-47.0); HEMOGLOBIN 9.8 g/dl (12.0-15.5); MEAN CORPUSCULAR HEMOGLOBIN 26.6 pg (27.0-33.0); MEAN CORPUSCULAR HGB CONC 29.6 g/dl (32.0-36.5); MEAN CORPUSCULAR VOLUME 89.7 fl (80.0-96.0); PLATELET COUNT, AUTOMATED 291 10^3/uL (150-450); RED BLOOD COUNT 3.69 10^6/uL (4.00-5.40)
[2020-04-29 04:58] LABS: BILIRUBIN,TOTAL 0.8 MG/DL (0.2-1.0); CALCIUM LEVEL 8.4 MG/DL (8.8-10.2); CREATININE FOR GFR 3.45 MG/DL (0.55-1.30); GLOMERULAR FILTRATION RATE 13.9 (>39); POTASSIUM SERUM 4.5 MEQ/L (3.5-5.1); TOTAL PROTEIN 6.9 GM/DL (6.4-8.2)
[2020-04-29] MEDS: SLF 3 ML SYR IV SCH ×3 (05:14→21:00)
[2020-04-29] MEDS: HumaLOG INSULIN (NovoLOG) PER UNIT SC SCH ×4 (08:09→20:43)
[2020-04-29] MEDS: DOCUSATE SODIUM 100MG CAPSULE PO SCH ×2 (08:10→20:59)
[2020-04-29] MEDS: HEPARIN SOD (PORCINE) 5000UNITS/ML 1ML VIAL/SYRINGE SQ SCH ×2 (08:10→20:59)
[2020-04-29] MEDS: MEGESTROL 40 MG TAB PO SCH ×2 (08:10→20:59)
[2020-04-29] MEDS: allopurinoL 100 MG TAB PO SCH (08:10)
[2020-04-29] MEDS: FUROSEMIDE 20MG/2ML VIAL (J1940) IV SCH ×2 (08:10→17:47)
[2020-04-29] MEDS: ASPIRIN 81MG ENTERIC TABLET PO SCH (08:10)
[2020-04-29] MEDS: DIMETHICONE 2% OINTMENT(VANICREAM) 70GM TUBE TOP SCH ×2 (08:11→21:00)
[2020-04-29] MEDS: DIGOXIN 0.125 MG TAB PO SCH (08:11)
[2020-04-29] MEDS: NYSTATIN 100,000 UNITS/GM TOPICAL PWD 15 GM TOP SCH ×2 (08:11→21:00)
[2020-04-29] MEDS: CEPHALEXIN 250MG CAPSULE PO SCH ×2 (08:11→12:04)
--- NOTE | 2020-04-29 09:15 | IPN ---
INPATIENT PROGRESS NOTE DATE: 04/28/2020 SUBJECTIVE: Patient is seen and examined this morning at the bedside. She denies any complaints. Denies shortness of breath, nausea, vomiting or diarrhea. Her urine output is improving and serum creatinine has slightly improved as well. Blood pressures show further improvement. OBJECTIVE: VITAL SIGNS: Temperature 98.3, pulse 81, respiratory rate 18, blood pressure 135/65, saturating 93 to 97% on 1 liter nasal cannula. INTAKE AND OUTPUT: Intake yesterday was 1.1 liters. Urine output yesterday was 1.8 liters. Urine output thus far today is already more than 3 liters. Weight in the bed scale today is 132 kg. GENERAL: Patient is seen lying in bed, awake, alert, oriented, morbidly obese elderly female in no apparent distress. HEENT: Extraocular muscles are intact. Tongue is moist. Neck is supple. Jugular veins are elevated. Nasal cannula is in place. HEART: Sounds are irregularly regular. There is 2+ edema diffusely in the lower extremities and in the dependent areas and abdominal wall. LUNGS: Clear to auscultation bilaterally. No crackle or rale. She is seen comfortable on 1 liter nasal cannula. ABDOMEN: Obese, soft and nontender. There is some edema in the pannus. EXTREMITIES: 2+ leg edema, chronic venous stasis changes, and dressings on her leg ulcers. GENITOURINARY: Shows indwelling Jain catheter. NEUROLOGIC: She is oriented x3, interactive, at baseline mentation. No focal deficit. LABORATORY STUDIES: White count 8.4, hemoglobin 10.0, platelets 283,000. Sodium 134, potassium 5.1, bicarbonate 22, BUN 83, creatinine 4.1. INPATIENT MEDICATIONS: Reviewed by myself. Her I.V. Ceftriaxone is discontinued and she is switched over to Keflex by the primary service. The remainder of her medications are unchanged as compared to yesterday. PROBLEMS: 1. DOMINGA superimposed on CKD stage 4: In the setting of acute rhabdomyolysis, UTI, decompensated right heart failure: Yesterday patient's creatinine plateaued and today she showed some mild improvement in creatinine and has been tolerating diuresis. She has already made more than 3 liters of urine today. I am going to leave her on Lasix 20 mg I.V. b.i.d. without increasing the diuretic dose. She has a lot of peripheral edema and third spacing of fluid and her albumin is only 2.0. I am going to give her three doses of albumin to mobilize her fluid and to augment diuresis. 2. Decompensated right heart failure: Patient is in general anasarca. She has responded well to I.V. Lasix; continue with 20 mg b.i.d. and albumin is going to be given along with the Lasix for increased oncotic pressure and augmented diuresis. 3. Rhabdomyolysis: Her creatine kinase level is down trending. Earlier on this admission, she was given a cautious amount of I.V. fluids. Her creatine kinase peaked at 24,000. She is not suitable for any further fluid administration because of significant fluid overload. Continue diuretic at this time. 4. Hyperkalemia: It is mild, continue with I.V. Lasix. 5. Transaminitis: Most likely secondary to congestive hepatopathy and it does seem to be improving with diuresis. 6. Atrial fibrillation: She is rate controlled with Digoxin and on low dose aspirin as per patient desire.
--- NOTE | 2020-04-29 12:38 | IPNPDOC ---
Text Note Date of Service The patient was seen on 04/29/20. NOTE SUBJECTIVE: -She denies increased SOB, chest pain, fevers, chills, n/v/d. -is on 1L NC this morning -UOP is robust OBJECTIVE: VITAL SIGNS: Please see below GENERAL APPEARANCE: NAD, resting in bed, AAOx3 HEENT: Resolving left chin and facial bruising i/s/o recent fall. PERRLA, EOMI CARDIOVASCULAR: Irregularly irregular rate and rhythm, no appreciable murmurs LUNGS: CTAB, no w/r/r, on 1L NC ABDOMEN: Normoactive bowel sounds throughout, soft, nontender, nondistended, no appreciable masses, obese MUSCULOSKELETAL:Decreased ROM of right wrist, not new, previously noted, no erythema. No cyanosis or clubbing EXTREMITIES/INTEGUMENTARY: nonpitting edema in the upper ext b/l. Chronic venous stasis ulcers RLE, +2 swelling in b/l lower ext that is improving. 2 small ulcers on LLE. Redness in the b/l lower ext not warm to touch. NEUROLOGICAL: AOx3. 4/5 strength throughout. Sensory and motor intact. No focal deficits. PSYCHIATRIC: AOx3, flat affect LABORATORY DATA: Reviewed Cr 3.45 UCx - Klebs and E.coli IMAGING: CT abd/pelvis without contrast: subcutaneous gut edema with anasarca, a small R pleural effusion, hepatomegaly, cholelithiasis without evidence of cholecystitis RUE US: neg for DVT XR right hand: No fracture or dislocation. Moderately severe arthritic changes at the wrist joint. XR right ulna/radius: No fracture or dislocation. Moderately severe arthritic changes CXR: Bibasilar atelectasis Echocardiogram 04/23/20: EF 65% Normal global left ventricular systolic function with mild concentric left ventricular hypertrophy. Assessment of the left ventricular diastolic function was limited. Aortic valve sclerosis with trace aortic regurgitation and trivial aortic stenosis. Mitral annular calcification with trace mitral regurgitation and a mildly enlarged left atrium. Moderate tricuspid regurgitation with severe pulmonary hypertension and dilated right heart chambers. There were findings consistent with elevated central venous pressure. The inferior vena cava was dilated. Trace pericardial effusion noted. No evidence of cardiac tamponade. US RUQ: Stones and sludge within the gallbladder lumen. No biliary dilatation or free fluid. Somewhat limited exam due to bowel gas. Head CT (04/22/20): Age-appropriate supratentorial and infratentorial atrophy, moderate white matter microvascular ischemic disease, no acute intracranial abnormality identified, left maxillary sinusitis Foot x-ray (04/22/20): Extensive vascular dystrophic soft tissue calcification in the distal calf. Midfoot osteoarthritis. Mild diffuse osteopenia. No acute bony abnormality appreciated. Forefoot swelling. Chest x-ray (04/22/20): Cardiomegaly. Mild vascular cephalization, otherwise no active disease. Cervical spine CT (04/22/20): Degenerative changes, no acute cervical spinal bony injury identified. Recommend nonemergent thyroid sonograph for further evaluation of course a calcified left nodule MICROBIOLOGY: Blood culture (04/22/20): NG to date Urine culture (04/22/20): E. coli, klebsiella Respiratory virus panel (04/22/20): COVID-19 negative ASSESSMENT: Is a 69-year-old W with multiple medical comorbidities who was admitted to the hospital for rhabdomyolysis, acute encephalopathy, DOMINGA on CKD, UTI and with acute on chronic HFpEF and transaminitis and course c/b refusal of appropriate care including testing and interventions, now eventually s/p TTE and gentle fluids, now slowly improving with nephrology onboard. PLAN: Acute rhabdomyolysis: -CK downtrended -Cr continues to downtrend, 3.45 this morning -Nephrology following, monitoring daily BMP and strict I/Os DOMINGA on CKD Stage 4 likely 2/2 to rhabdomyolysis, congestive nephropathy, potential iatrogens and recent UTI -Cr finally downtrending, today is 3.45, baseline Cr 2 -Holding ARB, bicarb gtt stopped -now with robust UOP, tolerating low dose lasix on 20mg IV lasix BID, monitor strict I/Os -daily weights -Per nephrology, would likely benefit from hemodialysis but patient was previously against this, but now slowly in discussion with renal about potential eventual need for it. -Currently placed on lasix 20 IV BID by nephrology, f/u nephrology recommendations Acute on chronic HFpEF with exacerbation with severe pulmonary HTN -Currently on 1 L NC -Small R pleural effusion on imaging -New echo above showing EF preserved still -Continues to be overloaded on exam but did not tolerate diuretics on trial -BNP >4K, trop neg -Patient does not follow with cardiology and does not wish to have cardiology consult or f/u as o/p --> will re-discuss with her about at least outpatient referral -Monitor I&O's, daily wts, 2 gm sodium diet -Would benefit from HD but patient refused, nephrology slowly discussing with patient -Continue lasix IV 20mg BID per nephrology Hypotension possibly 2/2 to worsening heart failure, decreased PO intake: resolved -Hx of HTN. Not suspecting septic shock- known UTI but has been adequately treated per sensitivities, no other s/s of infection -BP improved with fluids since but grossly fluid overloaded -Continue to encourage fluids, food throughout day -Echo above, DID NOT want cardiology consult at this tie -LA wnl -s/p fluids E. coli, Klebsiella UTI -UCx, blood cultures above -Switched ceftriaxone IV daily to keflex , day 7 of 7. Dc'd Acute transaminitis worsened likely 2/2 to congestive hepatopathy: slowly improving -No known hx of Hepatitis, etc -AST/ALT elevated -Avoid hepatotoxic medications -CT abd and US RUQ above -F/u daily CMP daily Right upper ext pain (hand/forearm) -XR's neg for fracture with some osteoarthritic changes, RUE was w/o DVT -No erythema/noticeable bruising to think this is a gout flare up, has been on allopurinol -Pain control with tramadol Thyroid nodule -13.1 mm partially calcified left thyroid nodule incidentally noted on CT of the patient's cervical spine. -Thyroid ultrasound ordered to be performed during hospitalization but patient refused further workup -TSH, T3 and T4 normal Left maxillary sinusitis -1 week history of L-sided WONG and green-colored nasal congestion -No systemic signs/symptoms -Now on keflex day 6 Chronic venous stasis ulcers -Follows outpatient with Dr. Dickson -Was scheduled for dressing change -Dr. Dickson consulted: "When the patient stabilizes and is discharged, please let us know and we will follow up with her, as she is a regular patient at our clinic. No indication for antibiotic therapy. Obviously the patient is in need of better glycemic control." Gout -No flare noticed but RUE pain -F/u uric acid -c/w home allopurinol for now. DM type II -BS stable -History of noncompliance -SSI, CC diet Atrial fibrillation, without anticoagulation -Rate controlled. Digoxin,ASA, holding BB -Dig level WNL. -Confirmed with patient that she has and continues to elect for aspirin only anticoagulation. -Telemetry monitoring HLD -c/w statin Obesity, class IIII -BMI of 45, complicating care PERFECTO -Reports compliance with home CPAP -Oxygen titration. DVT px -heparin Resolved issues: Metabolic encephalopathy likely 2/2 to hypoglycemia, dehydration Hyperkalemia likely 2/2 to DOMINGA DISPOSITION: Currently under inpatient status. Nephrology consulted, refused cardiology consult. PT/OT evaluation for disposition planning, came from home. VS,Fishbone, I+O VS, Fishbone, I+O Laboratory Tests 04/29/20 03:57 04/29/20 04:01 Vital Signs Date Time Temp Pulse Resp B/P (MAP) Pulse Ox O2 Delivery O2 Flow Rate FiO2 04/29/20 12:00 97.2 75 20 137/60 (85) 92 Nasal Cannula 1.0 I&O- Last 24 Hours up to 6 AM 04/29/20 05:59 Intake Total 700.0 ml Output Total 4125 ml Balance -3425.0 ml RADHA SIERRA MD Apr 29, 2020 12:38
[2020-04-29] MEDS: ATORVASTATIN 20 MG TAB PO SCH (20:59)
[2020-04-29] MEDS: MIRALAX *UNIT DOSE* 17GM PACKET PO SCH (21:09)
[2020-04-29] MEDS: SENNA 8.6 MG TAB (SENOKOT) PO PRN (21:10)
[2020-04-30] MEDS: traMADol 50 MG TAB PO PRN ×2 (01:47→20:44)
[2020-04-30] MEDS: SLF 3 ML SYR IV SCH ×3 (05:06→20:43)
[2020-04-30 05:47] LABS: HEMATOCRIT 32.7 % (36.0-47.0); HEMOGLOBIN 9.7 g/dl (12.0-15.5); MEAN CORPUSCULAR HEMOGLOBIN 26.6 pg (27.0-33.0); MEAN CORPUSCULAR HGB CONC 29.7 g/dl (32.0-36.5); MEAN CORPUSCULAR VOLUME 89.8 fl (80.0-96.0); PLATELET COUNT, AUTOMATED 298 10^3/uL (150-450); RED BLOOD COUNT 3.64 10^6/uL (4.00-5.40); WHITE BLOOD COUNT 8.3 10^3/uL (4.0-10.0)
[2020-04-30 06:00] VITALS: BP 122/66
[2020-04-30 06:24] LABS: CREATININE FOR GFR 2.76 MG/DL (0.55-1.30); POTASSIUM SERUM 4.6 MEQ/L (3.5-5.1)
[2020-04-30 06:25] LABS: ALBUMIN 2.3 GM/DL (3.2-5.2); TOTAL PROTEIN 6.1 GM/DL (6.4-8.2)
[2020-04-30] MEDS: HumaLOG INSULIN (NovoLOG) PER UNIT SC SCH ×4 (08:27→20:33)
[2020-04-30] MEDS: FUROSEMIDE 40MG/4ML VIAL (J1940) IV SCH ×2 (08:28→16:58)
[2020-04-30] MEDS: MEGESTROL 40 MG TAB PO SCH ×2 (08:28→20:43)
[2020-04-30] MEDS: DOCUSATE SODIUM 100MG CAPSULE PO SCH ×2 (08:28→20:43)
[2020-04-30] MEDS: HEPARIN SOD (PORCINE) 5000UNITS/ML 1ML VIAL/SYRINGE SQ SCH ×2 (08:28→20:43)
[2020-04-30] MEDS: allopurinoL 100 MG TAB PO SCH (08:29)
[2020-04-30] MEDS: NYSTATIN 100,000 UNITS/GM TOPICAL PWD 15 GM TOP SCH (08:29)
[2020-04-30] MEDS: ASPIRIN 81MG ENTERIC TABLET PO SCH (08:29)
[2020-04-30] MEDS: DIGOXIN 0.125 MG TAB PO SCH (08:29)
[2020-04-30] MEDS: DIMETHICONE 2% OINTMENT(VANICREAM) 70GM TUBE TOP SCH ×2 (08:30→20:43)
--- NOTE | 2020-04-30 11:53 | IPNPDOC ---
Text Note Date of Service The patient was seen on 04/30/20. NOTE SUBJECTIVE: -She denies increased SOB, chest pain, fevers, chills, n/v/d. -is on 1L NC this morning -UOP continues to be robust, was escalated to 40 IV lasix BID by nephrology OBJECTIVE: VITAL SIGNS: Please see below GENERAL APPEARANCE: NAD, resting in bed, AAOx3 HEENT: Resolving left chin and facial bruising i/s/o recent fall. PERRLA, EOMI CARDIOVASCULAR: Irregularly irregular rate and rhythm, no appreciable murmurs LUNGS: CTAB, no w/r/r, on 1L NC ABDOMEN: Normoactive bowel sounds throughout, soft, nontender, nondistended, no appreciable masses, obese MUSCULOSKELETAL:Decreased ROM of right wrist, not new, previously noted, no erythema. No cyanosis or clubbing EXTREMITIES/INTEGUMENTARY: nonpitting edema in the upper ext b/l. Chronic venous stasis ulcers RLE, +2 swelling in b/l lower ext that continues to improve. 2 small ulcers on LLE. Redness in the b/l lower ext not warm to touch. NEUROLOGICAL: AOx3. 4/5 strength throughout. Sensory and motor intact. No focal deficits. PSYCHIATRIC: AOx3, flat affect LABORATORY DATA: Reviewed Cr 2.76 UCx - Klebs and E.coli IMAGING: CT abd/pelvis without contrast: subcutaneous gut edema with anasarca, a small R pleural effusion, hepatomegaly, cholelithiasis without evidence of cholecystitis RUE US: neg for DVT XR right hand: No fracture or dislocation. Moderately severe arthritic changes at the wrist joint. XR right ulna/radius: No fracture or dislocation. Moderately severe arthritic changes CXR: Bibasilar atelectasis Echocardiogram 04/23/20: EF 65% Normal global left ventricular systolic function with mild concentric left ventricular hypertrophy. Assessment of the left ventricular diastolic function was limited. Aortic valve sclerosis with trace aortic regurgitation and trivial aortic stenosis. Mitral annular calcification with trace mitral regurgitation and a mildly enlarged left atrium. Moderate tricuspid regurgitation with severe pulmonary hypertension and dilated right heart chambers. There were findings consistent with elevated central venous pressure. The inferior vena cava was dilated. Trace pericardial effusion noted. No evidence of cardiac tamponade. US RUQ: Stones and sludge within the gallbladder lumen. No biliary dilatation or free fluid. Somewhat limited exam due to bowel gas. Head CT (04/22/20): Age-appropriate supratentorial and infratentorial atrophy, moderate white matter microvascular ischemic disease, no acute intracranial abnormality identified, left maxillary sinusitis Foot x-ray (04/22/20): Extensive vascular dystrophic soft tissue calcification in the distal calf. Midfoot osteoarthritis. Mild diffuse osteopenia. No acute bony abnormality appreciated. Forefoot swelling. Chest x-ray (04/22/20): Cardiomegaly. Mild vascular cephalization, otherwise no active disease. Cervical spine CT (04/22/20): Degenerative changes, no acute cervical spinal bony injury identified. Recommend nonemergent thyroid sonograph for further evaluation of course a calcified left nodule MICROBIOLOGY: Blood culture (04/22/20): NG to date Urine culture (04/22/20): E. coli, klebsiella Respiratory virus panel (04/22/20): COVID-19 negative ASSESSMENT: Is a 69-year-old W with multiple medical comorbidities who was admitted to the hospital for rhabdomyolysis, acute encephalopathy, DOMINGA on CKD, UTI and with acute on chronic HFpEF and transaminitis and course c/b refusal of appropriate care including testing and interventions, now eventually s/p TTE and gentle fluids, now slowly improving with nephrology onboard. PLAN: Acute rhabdomyolysis: much improved -CK downtrended -Cr continues to downtrend, 2.76 this morning -Nephrology following, monitoring daily BMP and strict I/Os DOMINGA on CKD Stage 4 likely 2/2 to rhabdomyolysis, congestive nephropathy, potential iatrogens and recent UTI -Cr downtrending, today is 2.76, baseline Cr 2 -Holding ARB, bicarb gtt stopped -now with robust UOP, tolerating lasix on 40mg IV lasix BID, monitor strict I/Os -daily weights -Per nephrology, would likely benefit from hemodialysis but patient was previously against this, but now slowly in discussion with renal about potential eventual need for it. Acute on chronic HFpEF with exacerbation with severe pulmonary HTN -Currently on 1 L NC -Small R pleural effusion on imaging -New echo above showing EF preserved still -Continues to be overloaded on exam but did not tolerate diuretics on trial -BNP >4K, trop neg -Patient does not follow with cardiology and does not wish to have cardiology consult or f/u as o/p --> will re-discuss with her about at least outpatient referral -Monitor I&O's, daily wts, 2 gm sodium diet -Would benefit from HD but patient refused, nephrology slowly discussing with patient -Continue lasix IV 40mg BID per nephrology Hypotension possibly 2/2 to worsening heart failure, decreased PO intake: resolved -Hx of HTN. Not suspecting septic shock- known UTI but has been adequately treated per sensitivities, no other s/s of infection -BP improved with fluids since but grossly fluid overloaded -Continue to encourage fluids, food throughout day -Echo above, DID NOT want cardiology consult at this tie -LA wnl -s/p fluids E. coli, Klebsiella UTI -UCx, blood cultures above -completed 7d course of abx Acute transaminitis worsened likely 2/2 to congestive hepatopathy: improving -No known hx of Hepatitis, etc -AST/ALT elevated -Avoid hepatotoxic medications -CT abd and US RUQ above -F/u daily CMP daily Right upper ext pain (hand/forearm) -XR's neg for fracture with some osteoarthritic changes, RUE was w/o DVT -No erythema/noticeable bruising to think this is a gout flare up, has been on allopurinol -Pain control with tramadol Thyroid nodule -13.1 mm partially calcified left thyroid nodule incidentally noted on CT of the patient's cervical spine. -Thyroid ultrasound ordered to be performed during hospitalization but patient refused further workup -TSH, T3 and T4 normal Left maxillary sinusitis -1 week history of L-sided WONG and green-colored nasal congestion -No systemic signs/symptoms -Now on keflex day 6 Chronic venous stasis ulcers -Follows outpatient with Dr. Dickson -Was scheduled for dressing change -Dr. Dickson consulted: "When the patient stabilizes and is discharged, please let us know and we will follow up with her, as she is a regular patient at our clinic. No indication for antibiotic therapy. Obviously the patient is in need of better glycemic control." Gout -No flare noticed but RUE pain -F/u uric acid -c/w home allopurinol for now. DM type II -BS stable -History of noncompliance -SSI, CC diet Atrial fibrillation, without anticoagulation -Rate controlled. Digoxin,ASA, holding BB -Dig level WNL. -Confirmed with patient that she has and continues to elect for aspirin only anticoagulation. -Telemetry monitoring HLD -c/w statin Obesity, class IIII -BMI of 45, complicating care PERFECTO -Reports compliance with home CPAP -Oxygen titration. DVT px -heparin Resolved issues: Metabolic encephalopathy likely 2/2 to hypoglycemia, dehydration Hyperkalemia likely 2/2 to DOMINGA DISPOSITION: Currently under inpatient status. Nephrology consulted, refused cardiology consult. PT/OT and ARU evaluation for disposition planning, came from home. VS,Fishbone, I+O VS, Fishbone, I+O Laboratory Tests 04/30/20 05:31 Vital Signs Date Time Temp Pulse Resp B/P (MAP) Pulse Ox O2 Delivery O2 Flow Rate FiO2 04/30/20 08:29 83 04/30/20 06:00 97.6 20 122/66 (84) 92 04/30/20 02:17 Nasal Cannula 1.0 I&O- Last 24 Hours up to 6 AM 04/30/20 06:00 Intake Total 2210 ml Output Total 2900 ml Balance -690 ml RADHA SIERRA MD Apr 30, 2020 08:45
--- NOTE | 2020-04-30 12:39 | IPN ---
INPATIENT PROGRESS NOTE DATE: 04/29/2020 SUBJECTIVE: Patient seen and examined this morning at the bedside. She requests the Jain catheter be removed. She otherwise denies any complaints, denies any shortness of breath. Her renal function continues to improve and she is responding well to I.V. Lasix and creatinine kinase level is down trending as well. PHYSICAL EXAMINATION: Vital signs: Temperature 98.1, pulse 82, respiratory rate 18, blood pressure 137/60, saturating 92-93% on 1 liter nasal cannula. Intake yesterday was 860. Urine output yesterday was 4.2 liters. Weight on the bed scale today is not recorded. General: Patient is seen in bed, elderly and morbidly obese female reclining with the head of the bed elevated. HEENT: Extraocular muscles are intact. Tongue is moist. Nasal cannula is in place. Neck: Jugular veins are elevated. There is bruising on the anterior neck and chin. Heart: Sounds are irregularly irregular. There is ongoing 2-3+ diffuse leg edema and dependent edema. Lungs: Clear to auscultation, no crackle or rale. She is comfortable on 1 liter nasal cannula. Abdomen: Soft and nontender. There is edema in the abdominal flanks and dependent areas. Genitourinary: Indwelling Jain catheter with urine. Extremities: Chronic venous stasis ulcers and erythema of the lower extremities and 2+ edema of the legs. Neurologic: She is oriented times 3, at baseline mentation, no focal deficits. LABORATORY DATA: Sodium 134, potassium 4.5, bicarbonate 28, BUN 83, creatinine 3.4. Creatinine kinase 5600. Albumin 2. Hemoglobin 9.8, platelets 291. INPATIENT MEDICATIONS: Reviewed by myself. Her Keflex was discontinued. She was given a dose of MiraLax and senokot. Her remainder of medications are unchanged as compared to yesterday. PROBLEMS/PLAN: 1. DOMINGA on CKD stage 4 in the setting of decompensated right heart failure, UTI and acute rhabdomyolysis: The patient has ongoing improvement in renal function and improving urine output. She is tolerating diuresis with low dose Lasix, but she remains in considerable fluid overload and will need ongoing diuresis over the next several days. Given her significant hypoalbuminemia and third spacing of fluid she is also receiving albumin with Lasix to augment diuresis. 2. Decompensated right heart failure with severe pulmonary hypertension: Patient is diuresing nicely on Lasix 20 mg I.V. twice a day along with albumin. She made more than 4 liters of urine in the past 24 hours. Her oxygen requirements are decreasing. Continue I.V. Lasix at this time. If her renal function and urine output continue to improve over the next 24 hours then Jain catheter can be discontinued as per patient request. I am adding a fluid restriction to her diet. 3. Acute rhabdomyolysis: It is resolving. Her creatinine kinase level is now only down to 5000. Unfortunately she did receive I.V. fluids earlier on this admission in the setting of rising creatinine kinase level, but now she is being satisfactorily diuresed. 4. Transaminitis possibly related to congestive hepatopathy and rhabdomyolysis: Her LFTs are improving nicely with diuresis.
[2020-04-30] MEDS ORDERED: FLEET ENEMA PR PRN (12:40)
[2020-04-30 13:48] VITALS: BP 140/68
--- NOTE | 2020-04-30 19:59 | IPN ---
NEPHROLOGY PROGRESS NOTE DATE: 04/30/2020 SUBJECTIVE: Luli is seen and examined this morning at the bedside. She reports she feels better. Had a bowel movement and her abdominal cramping improved. Renal function continues to improve and she is diuresing nicely and nasal cannula is being weaned. OBJECTIVE: Temperature 97.7, pulse 91, respiratory rate 20, blood pressure 140/68, saturating 92% on 0.5 liters nasal cannula. Intake yesterday was 2.1 liters and urine output yesterday was 2.8 liters. Weight in the bed scale today is 128.7 kg. GENERAL: Patient is seen sitting out of bed to the chair, morbidly obese elderly female, disheveled, but in no distress, awake, alert, oriented, comfortable, in good spirits. HEAD: Extraocular muscles are intact. Tongue is moist. Nasal cannula is in place. NECK: Jugular veins are not elevated while she is sitting upright in the chair. There is bruising on the interior neck and chin. HEART SOUNDS: Irregularly irregular. There is ongoing 2+ edema, but it is improved as compared to prior days. LUNGS: Clear to auscultation bilaterally. No crackle, rale or rhonchus. ABDOMEN: Soft and nontender. She has significant abdominal panus with pitting edema in the abdominal wall and dependent areas. GENITOURINARY: Shows indwelling Jain catheter draining clear yellow urine. EXTREMITIES: Show chronic venous stasis ulcers with dressings and prominent leg edema. NEUROLOGIC: She is oriented times three. No focal deficits. LABORATORY STUDIES: Sodium 137, potassium 4.6, bicarbonate 27, BUN 83, creatinine 2.7. CK 3000. Liver function tests (LFTs) continue to down trend. Hemoglobin 9.7. INPATIENT MEDICATIONS: I increased her Lasix to 40 mg intravenous (IV) twice a day. She received a dose of MiraLax and Senokot yesterday along with a Fleet enema. The remainder of the medications remain unchanged as compared with yesterday. PROBLEMS: 1. Acute kidney injury (DOMINGA) on chronic kidney disease (CKD) stage IV. Patient's baseline creatinine is 2. Her acute kidney injury is in the setting of acute rhabdomyolysis, urinary tract infection (UTI) and decompensated right heart failure. She is diuresing very nicely. Her creatine kinase level is negligible now. She still has significant fluid overload and I have increased her Lasix to 40 mg IV twice a day and I have added a 1.5 liter fluid restriction. She also received albumin in view of significant hypoalbuminemia and third spacing of fluid. 2. Decompensated right heart failure with severe pulmonary hypertension. Lasix is increased to 40 mg IV twice a day and a 1.5 liter fluid restriction is added. She is diuresing nicely. Her daily weights are downtrending. Her supplemental oxygen requirements are decreasing. 3. Acute rhabdomyolysis. Her creatine kinase levels are negligible and do not need to be serially checked. She did receive IV fluids earlier on this admission in the setting of rhabdomyolysis and rising creatine kinase levels, but now she is being satisfactorily diuresed with improving renal function. 4. Transaminitis. Most likely related to congestive hepatopathy and rhabdomyolysis and her LFTs are improving nicely. Continue Lasix diuresis. 5. Urinary tract infection (UTI). Patient was appropriately treated. Given that her renal function is improving and she is diuresing satisfactorily, I am going to discontinue Jain catheter.
[2020-04-30] MEDS: ATORVASTATIN 20 MG TAB PO SCH (20:43)
[2020-04-30] MEDS: MIRALAX *UNIT DOSE* 17GM PACKET PO SCH (20:43)
[2020-04-30] MEDS: SENNA 8.6 MG TAB (SENOKOT) PO PRN (20:44)
[2020-04-30 22:00] VITALS: BP 138/65
[2020-05-01] MEDS: NYSTATIN 100,000 UNITS/GM TOPICAL PWD 15 GM TOP SCH ×3 (01:51→21:52)
[2020-05-01] MEDS: SLF 3 ML SYR IV SCH ×3 (05:31→21:53)
[2020-05-01 06:00] VITALS: BP 130/62
[2020-05-01 06:24] LABS: HEMATOCRIT 32.9 % (36.0-47.0); HEMOGLOBIN 9.8 g/dl (12.0-15.5); MEAN CORPUSCULAR HEMOGLOBIN 27.4 pg (27.0-33.0); MEAN CORPUSCULAR HGB CONC 29.8 g/dl (32.0-36.5); MEAN CORPUSCULAR VOLUME 91.9 fl (80.0-96.0); PLATELET COUNT, AUTOMATED 309 10^3/uL (150-450); RED BLOOD COUNT 3.58 10^6/uL (4.00-5.40); WHITE BLOOD COUNT 9.5 10^3/uL (4.0-10.0)
[2020-05-01 06:56] LABS: ALBUMIN 2.2 GM/DL (3.2-5.2); CALCIUM LEVEL 8.1 MG/DL (8.8-10.2); CREATININE FOR GFR 2.36 MG/DL (0.55-1.30); GLOMERULAR FILTRATION RATE 21.6 (>39); POTASSIUM SERUM 4.6 MEQ/L (3.5-5.1)
[2020-05-01] MEDS: DIMETHICONE 2% OINTMENT(VANICREAM) 70GM TUBE TOP SCH ×2 (09:15→21:00)
[2020-05-01] MEDS: FUROSEMIDE 40MG/4ML VIAL (J1940) IV SCH ×2 (09:16→17:20)
[2020-05-01] MEDS: DOCUSATE SODIUM 100MG CAPSULE PO SCH ×2 (09:16→21:51)
[2020-05-01] MEDS: MEGESTROL 40 MG TAB PO SCH ×2 (09:16→21:51)
[2020-05-01] MEDS: allopurinoL 100 MG TAB PO SCH (09:16)
[2020-05-01] MEDS: ASPIRIN 81MG ENTERIC TABLET PO SCH (09:16)
[2020-05-01] MEDS: DIGOXIN 0.125 MG TAB PO SCH (09:17)
[2020-05-01] MEDS: HEPARIN SOD (PORCINE) 5000UNITS/ML 1ML VIAL/SYRINGE SQ SCH ×2 (09:17→21:52)
[2020-05-01] MEDS: HumaLOG INSULIN (NovoLOG) PER UNIT SC SCH ×4 (09:17→21:00)
--- NOTE | 2020-05-01 12:20 | IPNPDOC ---
Text Note Date of Service The patient was seen on 05/01/20. NOTE SUBJECTIVE: -She denies increased SOB, chest pain, fevers, chills, n/v/d. -is on 1L NC this morning -UOP continues to be robust OBJECTIVE: VITAL SIGNS: Please see below GENERAL APPEARANCE: NAD, resting in bed, AAOx3 HEENT: Resolving left chin and facial bruising i/s/o recent fall. PERRLA, EOMI CARDIOVASCULAR: Irregularly irregular rate and rhythm, no appreciable murmurs LUNGS: CTAB, no w/r/r, on 1L NC ABDOMEN: Normoactive bowel sounds throughout, soft, nontender, nondistended, no appreciable masses, obese MUSCULOSKELETAL:Decreased ROM of right wrist, not new, previously noted, no erythema. No cyanosis or clubbing EXTREMITIES/INTEGUMENTARY: nonpitting edema in the upper ext b/l. Chronic venous stasis ulcers RLE, +2 swelling in b/l lower ext that continues to improve. 2 small ulcers on LLE. Redness in the b/l lower ext not warm to touch. NEUROLOGICAL: AOx3. 4/5 strength throughout. Sensory and motor intact. No focal deficits. PSYCHIATRIC: AOx3, flat affect LABORATORY DATA: Reviewed Cr 2.36 UCx - Klebs and E.coli IMAGING: CT abd/pelvis without contrast: subcutaneous gut edema with anasarca, a small R pleural effusion, hepatomegaly, cholelithiasis without evidence of cholecystitis RUE US: neg for DVT XR right hand: No fracture or dislocation. Moderately severe arthritic changes at the wrist joint. XR right ulna/radius: No fracture or dislocation. Moderately severe arthritic changes CXR: Bibasilar atelectasis Echocardiogram 04/23/20: EF 65% Normal global left ventricular systolic function with mild concentric left ventricular hypertrophy. Assessment of the left ventricular diastolic function was limited. Aortic valve sclerosis with trace aortic regurgitation and trivial aortic stenosis. Mitral annular calcification with trace mitral regurgitation and a mildly enlarged left atrium. Moderate tricuspid regurgitation with severe pulmonary hypertension and dilated right heart chambers. There were findings consistent with elevated central venous pressure. The inferior vena cava was dilated. Trace pericardial effusion noted. No evidence of cardiac tamponade. US RUQ: Stones and sludge within the gallbladder lumen. No biliary dilatation or free fluid. Somewhat limited exam due to bowel gas. Head CT (04/22/20): Age-appropriate supratentorial and infratentorial atrophy, moderate white matter microvascular ischemic disease, no acute intracranial abnormality identified, left maxillary sinusitis Foot x-ray (04/22/20): Extensive vascular dystrophic soft tissue calcification in the distal calf. Midfoot osteoarthritis. Mild diffuse osteopenia. No acute bony abnormality appreciated. Forefoot swelling. Chest x-ray (04/22/20): Cardiomegaly. Mild vascular cephalization, otherwise no active disease. Cervical spine CT (04/22/20): Degenerative changes, no acute cervical spinal bony injury identified. Recommend nonemergent thyroid sonograph for further evaluation of course a calcified left nodule MICROBIOLOGY: Blood culture (04/22/20): NG to date Urine culture (04/22/20): E. coli, klebsiella Respiratory virus panel (04/22/20): COVID-19 negative ASSESSMENT: Is a 69-year-old W with multiple medical comorbidities who was admitted to the hospital for rhabdomyolysis, acute encephalopathy, DOMINGA on CKD, UTI and with acute on chronic HFpEF and transaminitis and course c/b refusal of appropriate care including testing and interventions, now eventually s/p TTE and gentle fluids, now improving with nephrology onboard with ongoing diuresis. PLAN: Acute rhabdomyolysis: much improved -CK downtrended -Cr continues to downtrend, 2.36 this morning -Nephrology following, monitoring daily BMP and strict I/Os DOMINGA on CKD Stage 4 likely 2/2 to rhabdomyolysis, congestive nephropathy, potential iatrogens and recent UTI -Cr downtrending, today is 2.36, baseline Cr 2 -Holding ARB, bicarb gtt stopped -now with robust UOP, tolerating lasix on 40mg IV lasix BID, monitor strict I/Os. s/p albumin for hypoalbuminemia with third spacing -daily weights -Per nephrology, would likely benefit from hemodialysis but patient was previously against this, but now slowly in discussion with renal about potential eventual need for it. Acute on chronic HFpEF with exacerbation with severe pulmonary HTN -Currently on 1 L NC -Small R pleural effusion on imaging -New echo above showing EF preserved still -Continues to be overloaded on exam but did not tolerate diuretics on trial -BNP >4K, trop neg -Patient does not follow with cardiology and does not wish to have cardiology consult or f/u as o/p -Monitor I&O's, daily wts, 2 gm sodium diet -Would benefit from HD but patient refused, nephrology slowly discussing with patient -Continue lasix IV 40mg BID per nephrology Hypotension possibly 2/2 to worsening heart failure, decreased PO intake: resolved -Hx of HTN. Not suspecting septic shock- known UTI but has been adequately t reated per sensitivities, no other s/s of infection -BP improved with fluids since but grossly fluid overloaded -Continue to encourage fluids, food throughout day -Echo above, DID NOT want cardiology consult at this tie -LA wnl -s/p fluids E. coli, Klebsiella UTI -UCx, blood cultures above -completed 7d course of abx Acute transaminitis worsened likely 2/2 to congestive hepatopathy: improving -No known hx of Hepatitis, etc -AST/ALT elevated -Avoid hepatotoxic medications -CT abd and US RUQ above -F/u daily CMP daily Right upper ext pain (hand/forearm) -XR's neg for fracture with some osteoarthritic changes, RUE was w/o DVT -No erythema/noticeable bruising to think this is a gout flare up, has been on allopurinol -Pain control with tramadol Thyroid nodule -13.1 mm partially calcified left thyroid nodule incidentally noted on CT of the patient's cervical spine. -Thyroid ultrasound ordered to be performed during hospitalization but patient refused further workup -TSH, T3 and T4 normal Left maxillary sinusitis -1 week history of L-sided WONG and green-colored nasal congestion -No systemic signs/symptoms -Now on keflex day 6 Chronic venous stasis ulcers -Follows outpatient with Dr. Dickson -Was scheduled for dressing change -Dr. Dickson consulted: "When the patient stabilizes and is discharged, please let us know and we will follow up with her, as she is a regular patient at our clinic. No indication for antibiotic therapy. Obviously the patient is in need of better glycemic control." Gout -No flare noticed but RUE pain -F/u uric acid -c/w home allopurinol for now. DM type II -BS stable -History of noncompliance -SSI, CC diet Atrial fibrillation, without anticoagulation -Rate controlled. Digoxin,ASA, holding BB -Dig level WNL. -Confirmed with patient that she has and continues to elect for aspirin only anticoagulation. -Telemetry monitoring HLD -c/w statin Obesity, class IIII -BMI of 45, complicating care PERFECTO -Reports compliance with home CPAP -Oxygen titration. DVT px -heparin Resolved issues: Metabolic encephalopathy likely 2/2 to hypoglycemia, dehydration Hyperkalemia likely 2/2 to DOMINGA DISPOSITION: Currently under inpatient status. Nephrology consulted, refused cardiology consult. PT/OT and ARU evaluation for disposition planning, came from home. VS,Fishbone, I+O VS, Fishbone, I+O Laboratory Tests 05/01/20 06:02 Vital Signs Date Time Temp Pulse Resp B/P (MAP) Pulse Ox O2 Delivery O2 Flow Rate FiO2 05/01/20 06:00 98.0 93 21 130/62 (84) 94 Nasal Cannula 1.0 I&O- Last 24 Hours up to 6 AM 05/01/20 06:00 Intake Total 1100 ml Output Total 1950 ml Balance -850 ml RADHA SIERRA MD May 01, 2020 09:18
[2020-05-01 14:00] VITALS: BP 125/60
--- NOTE | 2020-05-01 18:09 | IPN ---
PROGRESS NOTE DATE: 05/01/2020 SUBJECTIVE: Ms. Guillaume is seen this morning on her bedside. She is morbidly obese and laying in the bed without any acute distress. She has bruising on left side of her face and chest due to fall at home. She denies any nausea or vomiting. Her chronic lower extremity edema is gradually improving. PHYSICAL EXAMINATION: Temperature 98.0 degrees Fahrenheit, heart rate 92 per minute, respiratory rate 20 per minute, blood pressure 130/62 mmHg, oxygen saturation 94% on 1 liter oxygen. INTAKE AND OUTPUT: Shows negative fluid balance of about 1300 mL and weight is down to 124.6 kg. HEAD: With some old bruising on her left side of face. NECK: Supple and jugular venous distention (JVD) is moderately elevated. HEART SOUNDS: Regular. LUNGS: Diminished breath sounds. ABDOMEN: Obese, soft and nontender. Bowel sounds are normal. EXTREMITIES: Without any cyanosis or clubbing. NEUROLOGIC: Awake, alert and at her baseline mentation. LABORATORY STUDIES: Today's labs show WBC 9.5, hemoglobin 9.8, hematocrit 32.9, platelets 309. Sodium 140, potassium 4.6, CO2 30, BUN 82, creatinine 2.86, glucose 193, calcium 8.1. AST is down to 110, ALT 85, alkaline phosphatase 301. CPK 1381. Total protein 6.0, albumin 2.2 PROBLEMS: 1. Acute kidney injury superimposed on chronic kidney disease. Kidney function is gradually improving and electrolytes are stable. She does not have any uremic symptoms. 2. Congestive heart failure. Volume status is also improving with diuresis and will continue with the same. She has been inconsistently in negative fluid balance for the last few days. No changes are being made today. 3. Abnormal liver enzymes. Her liver function tests are improving and no specific intervention is needed. 4. Rhabdomyolysis. CPK was as high as 15,580 on April 27, 2020 and today it is down to 1381. No specific intervention is needed at present.
[2020-05-01] MEDS: ATORVASTATIN 20 MG TAB PO SCH (21:51)
[2020-05-01] MEDS: MIRALAX *UNIT DOSE* 17GM PACKET PO SCH (21:51)
[2020-05-01] MEDS: traMADol 50 MG TAB PO PRN (21:54)
[2020-05-01 22:00] VITALS: BP 121/58
[2020-05-02] MEDS: SLF 3 ML SYR IV SCH ×3 (05:30→22:32)
[2020-05-02 06:00] VITALS: BP 130/64
[2020-05-02 08:10] LABS: ALBUMIN 2.1 GM/DL (3.2-5.2); CALCIUM LEVEL 7.9 MG/DL (8.8-10.2); CREATININE FOR GFR 2.17 MG/DL (0.55-1.30); GLOMERULAR FILTRATION RATE 23.8 (>39); POTASSIUM SERUM 4.7 MEQ/L (3.5-5.1)
[2020-05-02] MEDS: SENNA 8.6 MG TAB (SENOKOT) PO PRN (08:24)
[2020-05-02] MEDS: FUROSEMIDE 40MG/4ML VIAL (J1940) IV SCH ×2 (08:24→17:31)
[2020-05-02] MEDS: allopurinoL 100 MG TAB PO SCH (08:24)
[2020-05-02] MEDS: MEGESTROL 40 MG TAB PO SCH ×2 (08:24→21:08)
[2020-05-02] MEDS: ASPIRIN 81MG ENTERIC TABLET PO SCH (08:24)
[2020-05-02] MEDS: HEPARIN SOD (PORCINE) 5000UNITS/ML 1ML VIAL/SYRINGE SQ SCH ×2 (08:24→21:08)
[2020-05-02] MEDS: NYSTATIN 100,000 UNITS/GM TOPICAL PWD 15 GM TOP SCH ×2 (08:25→21:08)
[2020-05-02] MEDS: DIMETHICONE 2% OINTMENT(VANICREAM) 70GM TUBE TOP SCH ×2 (08:25→21:09)
[2020-05-02] MEDS: DIGOXIN 0.125 MG TAB PO SCH (08:25)
[2020-05-02] MEDS: DOCUSATE SODIUM 100MG CAPSULE PO SCH ×2 (08:25→21:08)
[2020-05-02] MEDS: HumaLOG INSULIN (NovoLOG) PER UNIT SC SCH ×4 (08:26→20:40)
[2020-05-02 08:37] VITALS: BP 126/58
--- NOTE | 2020-05-02 10:40 | IPNPDOC ---
Text Note Date of Service The patient was seen on 05/02/20. NOTE SUBJECTIVE: -No SOB, chest pain, fevers, chills, n/v/d. -Remains on 1L NC this morning OBJECTIVE: VITAL SIGNS: Please see below GENERAL APPEARANCE: NAD, resting in bed, AAOx3 HEENT: Resolving left chin and facial bruising i/s/o recent fall. PERRLA, EOMI CARDIOVASCULAR: Irregularly irregular rate and rhythm, no appreciable murmurs LUNGS: CTAB, no w/r/r, on 1L NC ABDOMEN: Normoactive bowel sounds throughout, soft, nontender, nondistended, no appreciable masses, obese MUSCULOSKELETAL:Decreased ROM of right wrist, not new, previously noted, no erythema. No cyanosis or clubbing EXTREMITIES/INTEGUMENTARY: Much improved edema in the upper ext b/l. Chronic venous stasis ulcers RLE, Bilateral lower ext edema also continues to improve. 2 small ulcers on LLE. Redness in the b/l lower ext not warm to touch. NEUROLOGICAL: AOx3. 4/5 strength throughout. Sensory and motor intact. No focal deficits. PSYCHIATRIC: AOx3, flat affect LABORATORY DATA: Reviewed Cr 2.17 UCx - Klebs and E.coli IMAGING: CT abd/pelvis without contrast: subcutaneous gut edema with anasarca, a small R pleural effusion, hepatomegaly, cholelithiasis without evidence of cholecystitis RUE US: neg for DVT XR right hand: No fracture or dislocation. Moderately severe arthritic changes at the wrist joint. XR right ulna/radius: No fracture or dislocation. Moderately severe arthritic changes CXR: Bibasilar atelectasis Echocardiogram 04/23/20: EF 65% Normal global left ventricular systolic function with mild concentric left ventricular hypertrophy. Assessment of the left ventricular diastolic function was limited. Aortic valve sclerosis with trace aortic regurgitation and trivial aortic stenosis. Mitral annular calcification with trace mitral regurgitation and a mildly enlarged left atrium. Moderate tricuspid regurgitation with severe pulmonary hypertension and dilated right heart chambers. There were findings consistent with elevated central venous pressure. The inferior vena cava was dilated. Trace pericardial effusion noted. No evidence of cardiac tamponade. US RUQ: Stones and sludge within the gallbladder lumen. No biliary dilatation or free fluid. Somewhat limited exam due to bowel gas. Head CT (04/22/20): Age-appropriate supratentorial and infratentorial atrophy, m oderate white matter microvascular ischemic disease, no acute intracranial abnormality identified, left maxillary sinusitis Foot x-ray (04/22/20): Extensive vascular dystrophic soft tissue calcification in the distal calf. Midfoot osteoarthritis. Mild diffuse osteopenia. No acute bony abnormality appreciated. Forefoot swelling. Chest x-ray (04/22/20): Cardiomegaly. Mild vascular cephalization, otherwise no active disease. Cervical spine CT (04/22/20): Degenerative changes, no acute cervical spinal bony injury identified. Recommend nonemergent thyroid sonograph for further evaluation of course a calcified left nodule MICROBIOLOGY: Blood culture (04/22/20): NG to date Urine culture (04/22/20): E. coli, klebsiella Respiratory virus panel (04/22/20): COVID-19 negative ASSESSMENT: Is a 69-year-old W with multiple medical comorbidities who was admitted to the hospital for rhabdomyolysis, acute encephalopathy, DOMINGA on CKD, UTI and with acute on chronic HFpEF and transaminitis and course c/b refusal of appropriate care including testing and interventions, now eventually s/p TTE and gentle fluids, now improving with nephrology onboard with ongoing diuresis. PLAN: Acute rhabdomyolysis: much improved -CK downtrended -Cr continues to downtrend, 2.17 this morning -Nephrology following, monitoring daily BMP and strict I/Os DOMINGA on CKD Stage 4 likely 2/2 to rhabdomyolysis, congestive nephropathy, potential iatrogens and recent UTI -Cr downtrending, today is 2.36, baseline Cr 2 -Holding ARB, bicarb gtt stopped -now with robust UOP, tolerating lasix on 40mg IV lasix BID, monitor strict I/Os. s/p albumin for hypoalbuminemia with third spacing -daily weights -Per nephrology, would likely benefit from hemodialysis but patient was previously against this, but now slowly in discussion with renal about potential eventual need for it. Acute on chronic HFpEF with exacerbation with severe pulmonary HTN -Currently on 1 L NC -Small R pleural effusion on imaging -New echo above showing EF preserved still -Continues to be overloaded on exam but did not tolerate diuretics on trial -BNP >4K, trop neg -Patient does not follow with cardiology and does not wish to have cardiology consult or f/u as o/p -Monitor I&O's, daily wts, 2 gm sodium diet -Would benefit from HD but patient refused, nephrology slowly discussing with patient -Continue lasix IV 40mg BID per nephrology Hypotension possibly 2/2 to worsening heart failure, decreased PO intake: resolved -Hx of HTN. Not suspecting septic shock- known UTI but has been adequately treated per sensitivities, no other s/s of infection -BP improved with fluids since but grossly fluid overloaded -Continue to encourage fluids, food throughout day -Echo above, DID NOT want cardiology consult at this tie -LA wnl -s/p fluids E. coli, Klebsiella UTI -UCx, blood cultures above -completed 7d course of abx Acute transaminitis worsened likely 2/2 to congestive hepatopathy: improving -No known hx of Hepatitis, etc -AST/ALT elevated -Avoid hepatotoxic medications -CT abd and US RUQ above -F/u daily CMP daily Right upper ext pain (hand/forearm) -XR's neg for fracture with some osteoarthritic changes, RUE was w/o DVT -No erythema/noticeable bruising to think this is a gout flare up, has been on allopurinol -Pain control with tramadol Thyroid nodule -13.1 mm partially calcified left thyroid nodule incidentally noted on CT of the patient's cervical spine. -Thyroid ultrasound ordered to be performed during hospitalization but patient refused further workup -TSH, T3 and T4 normal Left maxillary sinusitis -1 week history of L-sided WONG and green-colored nasal congestion -No systemic signs/symptoms -Now on keflex day 6 Chronic venous stasis ulcers -Follows outpatient with Dr. Dickson -Was scheduled for dressing change -Dr. Dickson consulted: "When the patient stabilizes and is discharged, please let us know and we will follow up with her, as she is a regular patient at our clinic. No indication for antibiotic therapy. Obviously the patient is in need of better glycemic control." Gout -No flare noticed but RUE pain -F/u uric acid -c/w home allopurinol for now. DM type II -BS stable -History of noncompliance -SSI, CC diet Atrial fibrillation, without anticoagulation -Rate controlled. Digoxin,ASA, holding BB -Dig level WNL. -Confirmed with patient that she has and continues to elect for aspirin only anticoagulation. -Telemetry monitoring HLD -c/w statin Obesity, class IIII -BMI of 45, complicating care PERFECTO -Reports compliance with home CPAP -Oxygen titration. DVT px -heparin Resolved issues: Metabolic encephalopathy likely 2/2 to hypoglycemia, dehydration Hyperkalemia likely 2/2 to DOMINGA DISPOSITION: Currently under inpatient status. Nephrology consulted, refused cardiology consult. PT/OT and ARU evaluation for disposition planning, came from home. VS,Fishbone, I+O VS, Fishbone, I+O Laboratory Tests 05/02/20 05:56 Vital Signs Date Time Temp Pulse Resp B/P (MAP) Pulse Ox O2 Delivery O2 Flow Rate FiO2 05/02/20 08:25 88 05/02/20 06:00 97.6 18 130/64 (86) 91 Nasal Cannula 1.0 I&O- Last 24 Hours up to 6 AM 05/02/20 06:00 Intake Total 1520 ml Output Total 1850 ml Balance -330 ml RADHA SIERRA MD May 02, 2020 08:32
--- NOTE | 2020-05-02 13:09 | IPN ---
PROGRESS NOTE DATE: 05/02/2020 SUBJECTIVE: Mrs. Guillaume is seen this morning on her bedside. She reports some headache and nausea. Her dyspnea and peripheral edema is improving. She continues with diuresis. She has no fever or chills. PHYSICAL EXAMINATION: VITALS: Temperature 97.6 degrees Fahrenheit, heart rate 88 per minute, respiratory rate 18 per minute, blood pressure 126/58 mmHg and oxygen saturation 94%. INTAKE AND OUTPUT: Her weight is down to 125.7 kg. Intake and output records from yesterday show a negative fluid balance of 510 mL. HEENT: She has bruising on the left side of her face, which is chronic. Neck veins are difficult to be assessed. LUNGS: Diminished breath sounds at bases. HEART: Sounds are irregular in rhythm. ABDOMEN: Obese and nontender. Bowel sounds are normal. EXTREMITIES: With chronic stasis changes and peripheral edema. There is no cyanosis or clubbing. LABORATORY DATA: Today's labs show sodium 138, potassium 4.7, BUN 82, creatinine 2.17. Calcium 7.9 and phosphorus 4.0. CPK level is down to 734. PROBLEMS: 1. Acute kidney injury superimposed on chronic kidney disease: Kidney function is improving nicely and electrolytes are within normal range. 2. Congestive heart failure: Volume status is also improving and weight is down to 125.7 kg today. She weighed 132.2 kg just five days ago. At this point, we will continue with diuresis as she still has peripheral edema and improving with diuretics. 3. Rhabdomyolysis: CPK level is down to 734 and improving. No further intervention is needed. 4. Anemia: At this point, her anemia is stable and there is no need for any specific intervention.
[2020-05-02 14:00] VITALS: BP 121/57
[2020-05-02] MEDS: ATORVASTATIN 20 MG TAB PO SCH (21:08)
[2020-05-02] MEDS: MIRALAX *UNIT DOSE* 17GM PACKET PO SCH (21:08)
[2020-05-02 22:00] VITALS: BP 157/79
[2020-05-03 06:00] VITALS: BP 151/73
[2020-05-03 06:46] LABS: CREATININE FOR GFR 1.97 MG/DL (0.55-1.30); GLOMERULAR FILTRATION RATE 26.6 (>39); POTASSIUM SERUM 4.4 MEQ/L (3.5-5.1)
[2020-05-03 06:47] LABS: ALBUMIN 2.2 GM/DL (3.2-5.2); CALCIUM LEVEL 8.7 MG/DL (8.8-10.2); PHOSPHORUS LEVEL 3.9 MG/DL (2.5-4.9)
[2020-05-03] MEDS: SLF 3 ML SYR IV SCH ×3 (06:50→22:26)
[2020-05-03] MEDS: HumaLOG INSULIN (NovoLOG) PER UNIT SC SCH ×4 (07:30→21:00)
[2020-05-03] MEDS: MEGESTROL 40 MG TAB PO SCH ×2 (09:28→21:46)
[2020-05-03] MEDS: FUROSEMIDE 40MG/4ML VIAL (J1940) IV SCH ×2 (09:29→17:45)
[2020-05-03] MEDS: DOCUSATE SODIUM 100MG CAPSULE PO SCH ×2 (09:30→21:46)
[2020-05-03] MEDS: HEPARIN SOD (PORCINE) 5000UNITS/ML 1ML VIAL/SYRINGE SQ SCH ×2 (09:30→21:45)
[2020-05-03] MEDS: allopurinoL 100 MG TAB PO SCH (09:30)
[2020-05-03] MEDS: DIGOXIN 0.125 MG TAB PO SCH (09:32)
[2020-05-03] MEDS: ASPIRIN 81MG ENTERIC TABLET PO SCH (09:32)
[2020-05-03] MEDS: DIMETHICONE 2% OINTMENT(VANICREAM) 70GM TUBE TOP SCH ×2 (09:33→21:46)
[2020-05-03] MEDS: NYSTATIN 100,000 UNITS/GM TOPICAL PWD 15 GM TOP SCH ×2 (09:34→21:46)
--- NOTE | 2020-05-03 12:10 | IPNPDOC ---
Text Note Date of Service The patient was seen on 05/03/20. NOTE SUBJECTIVE: -No SOB, chest pain, fevers, chills, n/v/d. -Remains on 1L NC this morning -Sitting up in chair OBJECTIVE: VITAL SIGNS: Please see below GENERAL APPEARANCE: NAD, resting in bed, AAOx3 HEENT: Almost fully resolved left chin and facial bruising i/s/o recent fall. PERRLA, EOMI CARDIOVASCULAR: Irregularly irregular rate and rhythm, no appreciable murmurs LUNGS: CTAB, no w/r/r, on 1L NC ABDOMEN: Normoactive bowel sounds throughout, soft, nontender, nondistended, no appreciable masses, obese MUSCULOSKELETAL:Decreased ROM of right wrist, not new, previously noted, no erythema. No cyanosis or clubbing EXTREMITIES/INTEGUMENTARY: Much improved edema in the upper ext b/l. Chronic venous stasis ulcers RLE, Bilateral lower ext edema much improved. 2 small ulcers on LLE. Redness in the b/l lower ext not warm to touch. NEUROLOGICAL: AOx3. 4/5 strength throughout. Sensory and motor intact. No focal deficits. PSYCHIATRIC: AOx3, flat affect LABORATORY DATA: Reviewed Cr 1.97 UCx - Klebs and E.coli IMAGING: CT abd/pelvis without contrast: subcutaneous gut edema with anasarca, a small R pleural effusion, hepatomegaly, cholelithiasis without evidence of cholecystitis RUE US: neg for DVT XR right hand: No fracture or dislocation. Moderately severe arthritic changes at the wrist joint. XR right ulna/radius: No fracture or dislocation. Moderately severe arthritic changes CXR: Bibasilar atelectasis Echocardiogram 04/23/20: EF 65% Normal global left ventricular systolic function with mild concentric left ventricular hypertrophy. Assessment of the left ventricular diastolic function was limited. Aortic valve sclerosis with trace aortic regurgitation and trivial aortic stenosis. Mitral annular calcification with trace mitral regurgitation and a mildly enlarged left atrium. Moderate tricuspid regurgitation with severe pulmonary hypertension and dilated right heart chambers. There were findings consistent with elevated central venous pressure. The inferior vena cava was dilated. Trace pericardial effusion noted. No evidence of cardiac tamponade. US RUQ: Stones and sludge within the gallbladder lumen. No biliary dilatation or free fluid. Somewhat limited exam due to bowel gas. Head CT (04/22/20): Age-appropriate supratentorial and infratentorial atrophy, moderate white matter microvascular ischemic disease, no acute intracranial abno rmality identified, left maxillary sinusitis Foot x-ray (04/22/20): Extensive vascular dystrophic soft tissue calcification in the distal calf. Midfoot osteoarthritis. Mild diffuse osteopenia. No acute bony abnormality appreciated. Forefoot swelling. Chest x-ray (04/22/20): Cardiomegaly. Mild vascular cephalization, otherwise no active disease. Cervical spine CT (04/22/20): Degenerative changes, no acute cervical spinal bony injury identified. Recommend nonemergent thyroid sonograph for further evaluation of course a calcified left nodule MICROBIOLOGY: Blood culture (04/22/20): NG to date Urine culture (04/22/20): E. coli, klebsiella Respiratory virus panel (04/22/20): COVID-19 negative ASSESSMENT: Is a 69-year-old W with multiple medical comorbidities who was admitted to the hospital for rhabdomyolysis, acute encephalopathy, DOMINGA on CKD, UTI and with acute on chronic HFpEF and transaminitis and course c/b refusal of appropriate care including testing and interventions, now eventually s/p TTE and gentle fluids, now improving with nephrology onboard with ongoing diuresis. PLAN: Acute rhabdomyolysis: much improved -CK downtrended -Cr continues to downtrend, 1.97 this morning -Nephrology following, monitoring daily BMP and strict I/Os DOMINGA on CKD Stage 4 likely 2/2 to rhabdomyolysis, congestive nephropathy, potential iatrogens and recent UTI -Cr downtrending, today is 1.97, baseline Cr 2 -Holding ARB, bicarb gtt stopped -with robust UOP, tolerating lasix on 40mg IV lasix BID, monitor strict I/Os. s/p albumin for hypoalbuminemia with third spacing -daily weights -Per nephrology, would likely benefit from hemodialysis but patient was previously against this, but now slowly in discussion with renal about potential eventual need for it. Acute on chronic HFpEF with exacerbation with severe pulmonary HTN -Currently on 1 L NC -Small R pleural effusion on imaging -New echo above showing EF preserved still -Continues to be overloaded on exam but did not tolerate diuretics on trial -BNP >4K, trop neg -Patient does not follow with cardiology and does not wish to have cardiology consult or f/u as o/p -Monitor I&O's, daily wts, 2 gm sodium diet -Would benefit from HD but patient refused, nephrology slowly discussing with patient -Continue lasix IV 40mg BID per nephrology Hypotension possibly 2/2 to worsening heart failure, decreased PO intake: resolved -Hx of HTN. Not suspecting septic shock- known UTI but has been adequately treated per sensitivities, no other s/s of infection -BP improved with fluids since but grossly fluid overloaded -Continue to encourage fluids, food throughout day -Echo above, DID NOT want cardiology consult at this tie -LA wnl -s/p fluids E. coli, Klebsiella UTI -UCx, blood cultures above -completed 7d course of abx Acute transaminitis worsened likely 2/2 to congestive hepatopathy: improving -No known hx of Hepatitis, etc -AST/ALT elevated -Avoid hepatotoxic medications -CT abd and US RUQ above -F/u daily CMP daily Right upper ext pain (hand/forearm) -XR's neg for fracture with some osteoarthritic changes, RUE was w/o DVT -No erythema/noticeable bruising to think this is a gout flare up, has been on allopurinol -Pain control with tramadol Thyroid nodule -13.1 mm partially calcified left thyroid nodule incidentally noted on CT of the patient's cervical spine. -Thyroid ultrasound ordered to be performed during hospitalization but patient refused further workup -TSH, T3 and T4 normal Left maxillary sinusitis -1 week history of L-sided WONG and green-colored nasal congestion -No systemic signs/symptoms -Now on keflex day 6 Chronic venous stasis ulcers -Follows outpatient with Dr. Dickson -Was scheduled for dressing change -Dr. Dickson consulted: "When the patient stabilizes and is discharged, please let us know and we will follow up with her, as she is a regular patient at our clinic. No indication for antibiotic therapy. Obviously the patient is in need of better glycemic control." Gout -No flare noticed but RUE pain -F/u uric acid -c/w home allopurinol for now. DM type II -BS stable -History of noncompliance -SSI, CC diet Atrial fibrillation, without anticoagulation -Rate controlled. Digoxin,ASA, holding BB -Dig level WNL. -Confirmed with patient that she has and continues to elect for aspirin only anticoagulation. -Telemetry monitoring HLD -c/w statin Obesity, class IIII -BMI of 45, complicating care PERFECTO -Reports compliance with home CPAP -Oxygen titration. DVT px -heparin Resolved issues: Metabolic encephalopathy likely 2/2 to hypoglycemia, dehydration Hyperkalemia likely 2/2 to DOMINGA DISPOSITION: Currently under inpatient status. Nephrology consulted, refused cardiology consult. PT/OT and ARU evaluation for disposition planning, came from home. VS,Fishbone, I+O VS, Fishbone, I+O Laboratory Tests 05/03/20 05:34 Vital Signs Date Time Temp Pulse Resp B/P (MAP) Pulse Ox O2 Delivery O2 Flow Rate FiO2 05/03/20 09:32 92 05/03/20 06:00 97.7 18 151/73 (99) 97 Nasal Cannula 1.0 I&O- Last 24 Hours up to 6 AM 05/03/20 06:00 Intake Total 1110 ml Output Total 450 ml Balance 660 ml RADHA SIERRA MD May 03, 2020 12:10
--- NOTE | 2020-05-03 12:49 | IPN ---
PROGRESS NOTE DATE: 05/03/2020 SUBJECTIVE: Ms. Guillaume is seen this morning on her bedside. She is sitting in the recliner chair at the time of my visit. She is feeling better today, and denies any nausea or vomiting. She has no fever or chills. She has been diuresing very well. OBJECTIVE: VITAL SIGNS: Temperature 97.7 degrees Fahrenheit, heart rate 92 per minute, and respiratory rate 18 per minute. Blood pressure 151/73 mmHg and oxygen saturation 97%. INTAKE AND OUTPUT: Records from yesterday show a negative fluid balance without any accurate records. Her weight is essentially unchanged. HEAD: Atraumatic. NECK: Veins are difficult to be assessed. HEART: Sounds are irregular. LUNGS: Reveal diminished breath sounds. ABDOMEN: Obese and nontender. Bowel sounds are present. EXTREMITIES: Without any cyanosis or clubbing. She has dressings and compression stockings on her legs. NEUROLOGIC: She is awake, at her baseline mentation without any focal deficit. LABORATORY DATA: Today's labs show BUN 86, creatinine 1.97, while her electrolytes are stable. CPK level is down to 462. PROBLEMS: 1. Acute on chronic congestive heart failure. Volume status has improved significantly. I will recommend to continue with current diuretic regimen for now. 2. Acute kidney injury superimposed on chronic kidney disease. Her kidney function has improved over the last several days. She has no uremic symptoms and electrolytes are within normal range. 3. Rhabdomyolysis. Her CPK level is down to 462 today. No specific intervention is indicated at this point. 4. Anemia. Her anemia has been stable and there was no recent CBC done for the last couple of days. 5. Gout. She does have a history of gout and has been on allopurinol 100 mg daily. No acute flare is noticed. 6. History of atrial fibrillation. Ventricular rate is very well-controlled and she remains on digoxin.
[2020-05-03 14:00] VITALS: BP 144/64
[2020-05-03] MEDS: MIRALAX *UNIT DOSE* 17GM PACKET PO SCH (21:45)
[2020-05-03] MEDS: ATORVASTATIN 20 MG TAB PO SCH (21:46)
[2020-05-03 22:00] VITALS: BP 144/64
[2020-05-04] MEDS: traMADol 50 MG TAB PO PRN (03:00)
[2020-05-04 06:00] VITALS: BP 134/50
[2020-05-04] MEDS: SLF 3 ML SYR IV SCH ×3 (06:33→21:39)
[2020-05-04 07:51] VITALS: BP 140/68
[2020-05-04] MEDS: allopurinoL 100 MG TAB PO SCH (09:03)
[2020-05-04] MEDS: DOCUSATE SODIUM 100MG CAPSULE PO SCH ×2 (09:03→21:38)
[2020-05-04] MEDS: NYSTATIN 100,000 UNITS/GM TOPICAL PWD 15 GM TOP SCH ×2 (09:03→21:39)
[2020-05-04] MEDS: DIMETHICONE 2% OINTMENT(VANICREAM) 70GM TUBE TOP SCH ×2 (09:03→21:38)
[2020-05-04] MEDS: DIGOXIN 0.125 MG TAB PO SCH (09:04)
[2020-05-04] MEDS: ASPIRIN 81MG ENTERIC TABLET PO SCH (09:04)
[2020-05-04] MEDS: FUROSEMIDE 40MG/4ML VIAL (J1940) IV SCH ×2 (09:05→17:36)
[2020-05-04] MEDS: HEPARIN SOD (PORCINE) 5000UNITS/ML 1ML VIAL/SYRINGE SQ SCH ×2 (09:05→21:39)
[2020-05-04] MEDS: MEGESTROL 40 MG TAB PO SCH ×2 (09:06→21:38)
[2020-05-04] MEDS: HumaLOG INSULIN (NovoLOG) PER UNIT SC SCH ×4 (09:06→21:00)
[2020-05-04 09:56] LABS: HEMATOCRIT 34.3 % (36.0-47.0); HEMOGLOBIN 10.1 g/dl (12.0-15.5); MEAN CORPUSCULAR HEMOGLOBIN 27.3 pg (27.0-33.0); MEAN CORPUSCULAR HGB CONC 29.4 g/dl (32.0-36.5); MEAN CORPUSCULAR VOLUME 92.7 fl (80.0-96.0); PLATELET COUNT, AUTOMATED 307 10^3/uL (150-450); WHITE BLOOD COUNT 8.4 10^3/uL (4.0-10.0)
[2020-05-04 10:29] LABS: CALCIUM LEVEL 8.4 MG/DL (8.8-10.2); CREATININE FOR GFR 1.79 MG/DL (0.55-1.30); GLOMERULAR FILTRATION RATE 29.7 (>39); MAGNESIUM LEVEL 1.5 MG/DL (1.8-2.4); POTASSIUM SERUM 4.5 MEQ/L (3.5-5.1)
--- NOTE | 2020-05-04 12:16 | IPNPDOC ---
Text Note Date of Service The patient was seen on 05/04/20. NOTE SUBJECTIVE: -No SOB, chest pain, fevers, chills, n/v/d. -Remains on 1L NC this morning OBJECTIVE: VITAL SIGNS: Please see below GENERAL APPEARANCE: NAD, resting in bed, AAOx3 HEENT: Almost fully resolved left chin and facial bruising i/s/o recent fall. PERRLA, EOMI CARDIOVASCULAR: Irregularly irregular rate and rhythm, no appreciable murmurs LUNGS: CTAB, no w/r/r, on 1L NC ABDOMEN: Normoactive bowel sounds throughout, soft, nontender, nondistended, no appreciable masses, obese MUSCULOSKELETAL:Decreased ROM of right wrist, not new, previously noted, no erythema. No cyanosis or clubbing EXTREMITIES/INTEGUMENTARY: Much improved edema in the upper ext b/l. Chronic venous stasis ulcers RLE, Bilateral lower ext edema much improved. 2 small ulcers on LLE. Redness in the b/l lower ext not warm to touch. NEUROLOGICAL: AOx3. 4/5 strength throughout. Sensory and motor intact. No focal deficits. PSYCHIATRIC: AOx3, flat affect LABORATORY DATA: Reviewed pending AM labs UCx - Klebs and E.coli IMAGING: CT abd/pelvis without contrast: subcutaneous gut edema with anasarca, a small R pleural effusion, hepatomegaly, cholelithiasis without evidence of cholecystitis RUE US: neg for DVT XR right hand: No fracture or dislocation. Moderately severe arthritic changes at the wrist joint. XR right ulna/radius: No fracture or dislocation. Moderately severe arthritic changes CXR: Bibasilar atelectasis Echocardiogram 04/23/20: EF 65% Normal global left ventricular systolic function with mild concentric left ventricular hypertrophy. Assessment of the left ventricular diastolic function was limited. Aortic valve sclerosis with trace aortic regurgitation and trivial aortic stenosis. Mitral annular calcification with trace mitral regurgitation and a mildly enlarged left atrium. Moderate tricuspid regurgitation with severe pulmonary hypertension and dilated right heart chambers. There were findings consistent with elevated central venous pressure. The inferior vena cava was dilated. Trace pericardial effusion noted. No evidence of cardiac tamponade. US RUQ: Stones and sludge within the gallbladder lumen. No biliary dilatation or free fluid. Somewhat limited exam due to bowel gas. Head CT (04/22/20): Age-appropriate supratentorial and infratentorial atrophy, moderate white matter microvascular ischemic disease, no acute intracranial abnormality identified, left maxillary sinusitis Foot x-ray (04/22/20): Extensive vascular dystrophic soft tissue calcification in the distal calf. Midfoot osteoarthritis. Mild diffuse osteopenia. No acute bony abnormality appreciated. Forefoot swelling. Chest x-ray (04/22/20): Cardiomegaly. Mild vascular cephalization, otherwise no active disease. Cervical spine CT (04/22/20): Degenerative changes, no acute cervical spinal bony injury identified. Recommend nonemergent thyroid sonograph for further evaluation of course a calcified left nodule MICROBIOLOGY: Blood culture (04/22/20): NG to date Urine culture (04/22/20): E. coli, klebsiella Respiratory virus panel (04/22/20): COVID-19 negative ASSESSMENT: Is a 69-year-old W with multiple medical comorbidities who was admitted to the hospital for rhabdomyolysis, acute encephalopathy, DOMINGA on CKD, UTI and with acute on chronic HFpEF and transaminitis and course c/b refusal of appropriate care including testing and interventions, now eventually s/p TTE and gentle fluids, now improving with nephrology onboard with ongoing diuresis. PLAN: Acute rhabdomyolysis: much improved -CK downtrended -Cr improved back to baseline -Nephrology following, monitoring daily BMP and strict I/Os DOMINGA on CKD Stage 4 likely 2/2 to rhabdomyolysis, congestive nephropathy, potential iatrogens and recent UTI -Cr downtrended to baseline -Holding ARB, bicarb gtt stopped -Recently robust UOP, tolerating lasix on 40mg IV lasix BID, monitor strict I/Os. s/p albumin for hypoalbuminemia with third spacing -daily weights -Per nephrology, would likely benefit from hemodialysis but patient was previously against this, but now slowly in discussion with renal about potential eventual need for it. Acute on chronic HFpEF with exacerbation with severe pulmonary HTN -Currently on 1 L NC -Small R pleural effusion on imaging -New echo above showing EF preserved still -Continues to be overloaded on exam but did not tolerate diuretics on trial -BNP >4K, trop neg -Patient does not follow with cardiology and does not wish to have cardiology consult or f/u as o/p -Monitor I&O's, daily wts, 2 gm sodium diet -Would benefit from HD but patient refused, nephrology slowly discussing with patient -Continue lasix IV 40mg BID per nephrology -incentive spirometry Hypotension: resolved -BP improved with fluids since but grossly fluid overloaded -Continue to encourage fluids, food throughout day -Echo above, DID NOT want cardiology consult at this tie -LA wnl -s/p fluids E. coli, Klebsiella UTI -UCx, blood cultures above -completed 7d course of abx Acute transaminitis worsened likely 2/2 to congestive hepatopathy: improving -No known hx of Hepatitis, etc -AST/ALT elevated -Avoid hepatotoxic medications -CT abd and US RUQ above -F/u daily CMP daily Right upper ext pain (hand/forearm) -XR's neg for fracture with some osteoarthritic changes, RUE was w/o DVT -No erythema/noticeable bruising to think this is a gout flare up, has been on allopurinol -Pain control with tramadol Thyroid nodule -13.1 mm partially calcified left thyroid nodule incidentally noted on CT of the patient's cervical spine. -Thyroid ultrasound ordered to be performed during hospitalization but patient refused further workup -TSH, T3 and T4 normal Left maxillary sinusitis -1 week history of L-sided WONG and green-colored nasal congestion -No systemic signs/symptoms -s/p abx Chronic venous stasis ulcers -Follows outpatient with Dr. Dickson -Was scheduled for dressing change -Dr. Dickson consulted: "When the patient stabilizes and is discharged, please let us know and we will follow up with her, as she is a regular patient at our clinic. No indication for antibiotic therapy. Obviously the patient is in need of better glycemic control." Gout -No flare noticed but RUE pain -F/u uric acid -c/w home allopurinol for now. DM type II -BS stable -History of noncompliance -SSI, CC diet Atrial fibrillation, without anticoagulation -Rate controlled. Digoxin,ASA, holding BB -Dig level WNL. -Confirmed with patient that she has and continues to elect for aspirin only anticoagulation. -Telemetry monitoring HLD -c/w statin Obesity, class IIII -BMI of 45, complicating care PERFECTO -Reports compliance with home CPAP -Oxygen titration. DVT px -heparin Resolved issues: Metabolic encephalopathy likely 2/2 to hypoglycemia, dehydration Hyperkalemia likely 2/2 to DOMINGA DISPOSITION: Currently under inpatient status. Nephrology consulted, refused cardiology consult. PT/OT and ARU evaluation for disposition planning, came from home. VS,Fishbone, I+O VS, Fishbone, I+O Vital Signs Date Time Temp Pulse Resp B/P (MAP) Pulse Ox O2 Delivery O2 Flow Rate FiO2 05/04/20 07:51 97.3 74 16 140/68 (92) 95 Nasal Cannula 1.0 I&O- Last 24 Hours up to 6 AM 05/04/20 06:00 Intake Total 1070 ml Output Total 0 ml Balance 1070 ml RADHA SIERRA MD May 04, 2020 09:04
[2020-05-04] MEDS ORDERED: MAG SULF 1GM/100ML (MAG RUN) 1 GM in IV 1 EA IV ONE (13:00)
[2020-05-04 14:00] VITALS: BP 131/63
[2020-05-04] MEDS: MIRALAX *UNIT DOSE* 17GM PACKET PO SCH (21:38)
[2020-05-04] MEDS: ATORVASTATIN 20 MG TAB PO SCH (21:38)
[2020-05-04 22:00] VITALS: BP 133/60
[2020-05-05] MEDS: SLF 3 ML SYR IV SCH ×3 (05:23→20:53)
[2020-05-05 06:00] VITALS: BP 129/59
[2020-05-05 06:19] LABS: HEMATOCRIT 32.7 % (36.0-47.0); HEMOGLOBIN 9.7 g/dl (12.0-15.5); MEAN CORPUSCULAR HEMOGLOBIN 27.3 pg (27.0-33.0); MEAN CORPUSCULAR HGB CONC 29.7 g/dl (32.0-36.5); MEAN CORPUSCULAR VOLUME 92.1 fl (80.0-96.0); PLATELET COUNT, AUTOMATED 301 10^3/uL (150-450); RED BLOOD COUNT 3.55 10^6/uL (4.00-5.40); WHITE BLOOD COUNT 8.4 10^3/uL (4.0-10.0)
[2020-05-05 06:45] LABS: CALCIUM LEVEL 8.2 MG/DL (8.8-10.2); CREATININE FOR GFR 1.73 MG/DL (0.55-1.30); GLOMERULAR FILTRATION RATE 30.9 (>39); MAGNESIUM LEVEL 1.7 MG/DL (1.8-2.4); POTASSIUM SERUM 4.3 MEQ/L (3.5-5.1)
[2020-05-05] MEDS ORDERED: MAG SULF 1GM/100ML (MAG RUN) 1 GM in IV 1 EA IV ONE (08:00)
[2020-05-05] MEDS: HumaLOG INSULIN (NovoLOG) PER UNIT SC SCH ×4 (08:24→21:00)
[2020-05-05] MEDS: ASPIRIN 81MG ENTERIC TABLET PO SCH (08:25)
[2020-05-05] MEDS: MEGESTROL 40 MG TAB PO SCH ×2 (08:25→20:50)
[2020-05-05] MEDS: allopurinoL 100 MG TAB PO SCH (08:25)
[2020-05-05] MEDS: DIGOXIN 0.125 MG TAB PO SCH (08:25)
[2020-05-05] MEDS: DOCUSATE SODIUM 100MG CAPSULE PO SCH ×2 (08:25→20:50)
[2020-05-05] MEDS: FUROSEMIDE 40MG/4ML VIAL (J1940) IV SCH ×2 (08:26→17:56)
[2020-05-05] MEDS: HEPARIN SOD (PORCINE) 5000UNITS/ML 1ML VIAL/SYRINGE SQ SCH ×2 (08:26→20:50)
[2020-05-05] MEDS: NYSTATIN 100,000 UNITS/GM TOPICAL PWD 15 GM TOP SCH ×2 (08:26→20:52)
[2020-05-05] MEDS: LEVEMIR (INSULIN DETEMIR) 1 UNITS/0.01ML SC SCH (08:26)
[2020-05-05] MEDS: DIMETHICONE 2% OINTMENT(VANICREAM) 70GM TUBE TOP SCH ×2 (08:27→20:52)
--- NOTE | 2020-05-05 09:26 | IPN ---
NEPHROLOGY PROGRESS NOTE DATE: 05/04/2020 SUBJECTIVE: Ms. Guillaume is seen this morning on her bedside. She is lying in the bed at present and denies any complaints. Yesterday she was sitting in the recliner chair. Patient denies any nausea, vomiting, dyspnea or chest pain. PHYSICAL EXAMINATION: Temperature 97.3 degrees Fahrenheit, heart rate 74 per minute and respiratory rate 16 per minute. Blood pressure 140/68 mmHg and oxygen saturation 95% on 1 liter oxygen. Head/neck: She has ecchymosis on the left side of her face and neck which is unchanged. Neck veins are still about 6-7 cm above sternal angle. There is no thyroid enlargement. Heart: Sounds are irregular in rhythm. Lungs: Diminished breath sounds at bases. Abdomen: Obese and nontender. There is a large ventral hernia which is also unchanged. Extremities: Without any cyanosis or clubbing. Chronic stasis changes on both lower legs as she is wearing compression stockings. Neurologically: She is grossly intact and without any focal deficit. LABORATORY DATA: Today's labs show WBC count 8.4, hemoglobin 10.1, hematocrit 34.3, platelets 307. Sodium 138, potassium 4.5, CO2 32, BUN 78, creatinine 1.79, calcium 8.4, magnesium 1.5. PROBLEMS/PLAN: 1. Acute kidney injury superimposed on chronic kidney disease: Kidney function continues to improve nicely and electrolytes are stable. At this point we will continue to monitor her closely. 2. Congestive heart failure: Her volume status was quite decompensated and she has been diuresed aggressively with good response. Since admission she is in accumulative negative fluid balance of at least 20 liters. Her weight is down to 123 kg while she was 132 kg on April 27. Her volume status has improved significantly. At this point we will continue with the current oral diuretic with gentle negative fluid balance. 3. Hypomagnesemia: I would recommend to give her 1 dose of magnesium sulfate intravenously. 4. Anemia: At present her anemia is stable and does not need any other intervention.
--- NOTE | 2020-05-05 11:55 | IPNPDOC ---
Subjective Date Seen The patient was seen on 05/05/20. Subjective Chief Complaint/HPI No complaints this morning. Continues to work with PT. Appetite better. No episodes of hypoglycemia . Objective Physical Examination General Exam: Positive: Alert, Cooperative, No Acute Distress, Other (morbid obesity) Eye Exam: Positive: PERRLA, Conjunctiva & lids normal, EOMI; Negative: Sclera icteric ENT Exam: Positive: Atraumatic, Mucous membr. moist/pink, Pharynx Normal, Other ENT (bruising around the neck just below the chin. Facial bruising has resolved) Neck Exam: Positive: Supple; Negative: JVD, thyromegaly Chest Exam: Positive: Clear to auscultation, Normal air movement Heart Exam: Positive: Rate Normal, Irregular Rhythm, Normal S1, Normal S2; Negative: Murmurs, Rubs Abdomen Exam: Positive: Normal bowel sounds, Soft; Negative: Tenderness Extremity Exam: Positive: Edema; Negative: Clubbing, Cyanosis Skin Exam: Positive: Other skin issue (chronic bilateral venous stasis chages with stasis ulcers) Neuro Exam: Positive: Normal Speech, Normal Tone Assessment /Plan Assessment Is a 69-year-old with PMH of Morbid obesity, chronic venous stasis with stasis ulcers, DM, HTN, Hypothyroid, CKD stage 4, Gout, Afib , PERFECTO who was found down on the floor with head stuck on the edge of bed frame and bedside table by EMS who was called by dr Dickson's office for a welfare check when she missed her appointment there. She was noted to be hypoglycemic by EMS. She was admitted to the hospital for rhabdomyolysis, acute encephalopathy due to hypoglycemia, DOMINGA on CKD, UTI and with acute on chronic HFpEF and course c/b refusal of appropriate care including testing and interventions, now eventually s/p TTE and gentle fluids, now improving with nephrology onboard with ongoing diuresis. Rhabdomyolysis from fall: improved Nephrology following, monitoring daily BMP and strict I/Os DOMINGA on CKD Stage 4 likely 2/2 to rhabdomyolysis, fluid overload, medications and recent UTI Cr downtrended to baseline On lasix IV bid with good urine output and weight loss Acute on chronic HFpEF with exacerbation with severe pulmonary HTN Small R pleural effusion on imaging echo above showing EF preserved still Patient does not follow with cardiology and does not wish to have cardiology consult or f/u as o/p Monitor I&O's, daily wts, 2 gm sodium diet Would benefit from HD but patient refused, nephrology slowly discussing with patient Continue lasix IV 40mg BID per nephrology Hypotension: resolved E. coli, Klebsiella UTI completed 7d course of abx Acute transaminitis worsened likely 2/2 to congestive hepatopathy and rhabdomyolysis improved. Right upper ext pain (hand/forearm) XR's neg for fracture with some osteoarthritic changes, RUE was w/o DVT noticeable bruising could be during fall she hit her upper ex. Pain control with tramadol Thyroid nodule 13.1 mm partially calcified left thyroid nodule incidentally noted on CT of the patient's cervical spine. Recommend nonemergent thyroid sonograph for further evaluation of course a calcified left nodule Thyroid ultrasound ordered to be performed during hospitalization but patient refused further workup TSH, T3 and T4 normal Left maxillary sinusitis 1 week history of L-sided WONG and green-colored nasal congestion s/p abx Chronic venous stasis ulcers Follows outpatient with Dr. Dickson scheduled for dressing change Dr. Dickson consulted: "When the patient stabilizes and is discharged, please let us know and we will follow up with her, as she is a regular patient at our clinic. No indication for antibiotic therapy. Obviously the patient is in need of better glycemic control." Gout c/w home allopurinol for now. DM type II BS stable History of noncompliance SSI, CC diet Atrial fibrillation, without anticoagulation Rate controlled. Digoxin,ASA, holding BB Dig level WNL. Confirmed with patient that she has and continues to elect for aspirin only an ticoagulation. Echocardiogram 04/23/20: EF 65% Normal global left ventricular systolic function with mild concentric left ventricular hypertrophy. Assessment of the left ventricular diastolic function was limited. Aortic valve sclerosis with trace aortic regurgitation and trivial aortic stenosis. Mitral annular calcification with trace mitral regurgitation and a mildly enlarged left atrium. Moderate tricuspid regurgitation with severe pulmonary hypertension and dilated right heart chambers. There were findings consistent with elevated central venous pressure. The inferior vena cava was dilated. Trace pericardial effusion noted. No evidence of cardiac tamponade. HLD c/w statin Obesity, class IIII BMI of 46, complicating care PERFECTO -Reports compliance with home CPAP -Oxygen here during sleep and naps only. DVT px heparin Resolved issues: Metabolic encephalopathy likely 2/2 to hypoglycemia, dehydration Hyperkalemia likely 2/2 to DOMINGA DISPOSITION: continued rehab Plan/VTE VTE Prophylaxis Ordered?: Yes VS, I&O, 24H, Fishbone Vital Signs/I&O Vital Signs Date Time Temp Pulse Resp B/P (MAP) Pulse Ox O2 Delivery O2 Flow Rate FiO2 05/05/20 08:25 76 05/05/20 06:00 97.6 18 129/59 (82) 95 Room Air 05/04/20 22:00 1.0 I&O- Last 24 Hours up to 6 AM 05/05/20 05:59 Intake Total 1562 ml Output Total 0 ml Balance 1562 ml Laboratory Data 24H LABS Laboratory Tests 2 05/04/20 16:43: Bedside Glucose (Misc Panel) 197H 05/04/20 19:55: Bedside Glucose (Misc Panel) 239H 05/05/20 05:35: Nucleated Red Blood Cells % (auto) 0.0, Anion Gap 4L, Glomerular Filtration Rate 30.9L, Calcium Level 8.2L, Magnesium Level 1.7L CBC/BMP Laboratory Tests 05/05/20 05:35 Microbiology Microbiology 04/26/20 Blood Culture - Final, Complete NO GROWTH AFTER 5 DAYS 04/26/20 Blood Culture - Final, Complete NO GROWTH AFTER 5 DAYS BLAIRE FLANNERY MD May 05, 2020 11:54
--- NOTE | 2020-05-05 13:02 | IPN ---
PROGRESS NOTE DATE: 05/05/2020 Ms. Guillaume is seen this morning on her bedside. She is lying in the bed and denies any acute distress. Her peripheral edema has improved significantly, and she denies any dyspnea or chest pain. She has no nausea, vomiting, or diarrhea. PHYSICAL EXAMINATION: Temperature 97.6 degrees Fahrenheit, heart rate 76 per minute, and respiratory rate 18 per minute, blood pressure 129/59 mmHg, and oxygen saturation 95% on room air. Head is without any acute trauma. Ecchymosis on left side of face has improved, and there is mild ecchymosis left on the neck, which is probably blood tracked down due to gravity. Her oral mucosa is moist and healthy. Heart sounds are irregular, and lungs are clear to auscultation. Abdomen obese, soft, and nontender. Bowel sounds are normal. Extremities without any cyanosis or clubbing. Lower legs are both wrapped in compressive stockings. Neurologically, she is at her baseline mentation without a focal deficit. Today's labs show sodium 139, potassium 4.3, CO2 of 34, BUN 73, and creatinine 1.73. Glucose 178 and calcium 8.2. Hemoglobin is 9.7 and hemoglobin 32.7. PROBLEMS: 1. Acute on chronic kidney disease. Kidney function has improved, and this is the best level she has so far. No uremic symptoms, and electrolytes are stable. 2. Acute on chronic congestive heart failure. She was quite decompensated on admission, and volume status has improved now with aggressive diuresis. She is currently on maintenance diuretic of Lasix 40 mg twice a day, which should be continued. 3. Rhabdomyolysis. This has resolved with creatine phosphokinase (CPK) level down to 462 on May 03. At this point, no further indication for monitoring of CPK level. 4. Anemia. Her anemia is stable, and no intervention is needed. 5. Deconditioning. Patient is quite deconditioned and is looking for possibility of subacute rehabilitation.
[2020-05-05 14:00] VITALS: BP 156/78
[2020-05-05] MEDS: MIRALAX *UNIT DOSE* 17GM PACKET PO SCH (20:49)
[2020-05-05] MEDS: ATORVASTATIN 20 MG TAB PO SCH (20:50)
[2020-05-05] MEDS: traMADol 50 MG TAB PO PRN (20:51)
[2020-05-05 22:00] VITALS: BP 126/50
[2020-05-06 06:00] VITALS: BP 137/89
[2020-05-06] MEDS: SLF 3 ML SYR IV SCH ×2 (06:20→14:00)
[2020-05-06 06:23] LABS: HEMATOCRIT 32.5 % (36.0-47.0); HEMOGLOBIN 9.8 g/dl (12.0-15.5); MEAN CORPUSCULAR HEMOGLOBIN 27.6 pg (27.0-33.0); MEAN CORPUSCULAR HGB CONC 30.2 g/dl (32.0-36.5); MEAN CORPUSCULAR VOLUME 91.5 fl (80.0-96.0); PLATELET COUNT, AUTOMATED 305 10^3/uL (150-450); RED BLOOD COUNT 3.55 10^6/uL (4.00-5.40); WHITE BLOOD COUNT 8.6 10^3/uL (4.0-10.0)
[2020-05-06 06:53] LABS: CALCIUM LEVEL 8.8 MG/DL (8.8-10.2); CREATININE FOR GFR 1.61 MG/DL (0.55-1.30); GLOMERULAR FILTRATION RATE 33.6 (>39); MAGNESIUM LEVEL 1.8 MG/DL (1.8-2.4); POTASSIUM SERUM 4.1 MEQ/L (3.5-5.1)
[2020-05-06] MEDS: NYSTATIN 100,000 UNITS/GM TOPICAL PWD 15 GM TOP SCH (08:19)
[2020-05-06] MEDS: allopurinoL 100 MG TAB PO SCH (08:19)
[2020-05-06] MEDS: DIGOXIN 0.125 MG TAB PO SCH (08:20)
[2020-05-06] MEDS: DOCUSATE SODIUM 100MG CAPSULE PO SCH (08:20)
[2020-05-06] MEDS: ASPIRIN 81MG ENTERIC TABLET PO SCH (08:20)
[2020-05-06] MEDS: MEGESTROL 40 MG TAB PO SCH (08:20)
[2020-05-06] MEDS: HEPARIN SOD (PORCINE) 5000UNITS/ML 1ML VIAL/SYRINGE SQ SCH (08:21)
[2020-05-06] MEDS: LEVEMIR (INSULIN DETEMIR) 1 UNITS/0.01ML SC SCH (08:21)
[2020-05-06] MEDS: HumaLOG INSULIN (NovoLOG) PER UNIT SC SCH ×2 (08:21→13:04)
[2020-05-06] MEDS: DIMETHICONE 2% OINTMENT(VANICREAM) 70GM TUBE TOP SCH (08:22)
[2020-05-06] MEDS ORDERED: FUROSEMIDE 40 MG TAB PO SCH (09:00)
[2020-05-06] MEDS ORDERED: FURO40TA2 PO (11:52)
[2020-05-06] MEDS ORDERED: NYST10006 TOP (11:52)
[2020-05-06] MEDS ORDERED: BASA100I SC (11:52)
--- NOTE | 2020-05-06 12:27 | DS.PDOC ---
Discharge Summary General Date of Admission Apr 22, 2020 at 21:16 Date of Discharge 05/06/20 Discharge Summary PROCEDURES PERFORMED DURING STAY: [None]. DISCHARGE DIAGNOSES: Hypoglycemia Acute metabolic encephalopathy due to above Fall and Rhabdomyolysis Transaminitis JACK on CKD UTI Decompensated CHF with preserved EF with massive fluid overload Severe pulmonary HTN with acute on chronic right heart failure Thyroid Nodule SECONDARY DIAGNOSIS: Atrial fibrillation, refuses anticoagulation HTN Hyperlipidemia IDDM, uncontrolled Morbid obesity/ PERFECTO GERD Gout CKD stage IV, baseline creatinine 2.2 Depression Chronic venous insufficiency with venous stasis ulcers. Endometrial adenocarcinoma Severe pulmonary hypertension COMPLICATIONS/CHIEF COMPLAINT: Jack,Hypoglycemic Encephalopathy. HOSPITAL COURSE: This is a 69-year-old female with PMH of Morbid obesity, chronic venous stasis with stasis ulcers, DM, HTN, Hypothyroid, CKD stage 4, Gout, Afib , PERFECTO who was found down on the floor with head stuck on the edge of bed frame and bedside table by EMS who was called by dr Dickson's office for a welfare check when she missed her appointment there. She was noted to be hypoglycemic by EMS. She was admitted to the hospital for rhabdomyolysis, acute encephalopathy due to hypoglycemia, JACK on CKD, UTI and with acute on chronic HFpEF and course c/b refusal of appropriate care including testing and i nterventions, now eventually s/p TTE and gentle fluids, now improving with nephrology onboard with ongoing diuresis. Rhabdomyolysis from fall: resolved JACK on CKD Stage 4 likely 2/2 to rhabdomyolysis, fluid overload, medications and recent UTI Cr downtrended to baseline continue lasix BID. Acute on chronic HFpEF with exacerbation with severe pulmonary HTN Small R pleural effusion on imaging echo above showing EF preserved still Patient does not follow with cardiology and does not wish to have cardiology consult or f/u as o/p Monitor I&O's, daily wts, 2 gm sodium diet Would benefit from HD but patient refused, nephrology slowly discussing with patient Continue lasix 40mg BID per nephrology E. coli, Klebsiella UTI completed 7d course of abx Acute transaminitis worsened likely 2/2 to congestive hepatopathy and rhabdomyolysis improved. Right upper ext pain (hand/forearm) XR's neg for fracture with some osteoarthritic changes, RUE was w/o DVT noticeable bruising could be during fall she hit her upper ex. Pain control with tramadol Thyroid nodule 13.1 mm partially calcified left thyroid nodule incidentally noted on CT of the patient's cervical spine. Recommend nonemergent thyroid sonograph for further evaluation of course a calcified left nodule Thyroid ultrasound ordered to be performed during hospitalization but patient refused further workup TSH, T3 and T4 normal Left maxillary sinusitis 1 week history of L-sided WONG and green-colored nasal congestion s/p abx Chronic venous stasis ulcers Follows outpatient with Dr. Dickson scheduled for dressing change Dr. Dickson consulted: "When the patient stabilizes and is discharged, please let us know and we will follow up with her, as she is a regular patient at our clinic. No indication for antibiotic therapy. Obviously the patient is in need of better glycemic control." Gout c/w home allopurinol for now. DM type II BS stable History of noncompliance SSI, CC diet Atrial fibrillation, without anticoagulation Rate controlled. Digoxin,ASA, holding BB Dig level WNL. Confirmed with patient that she has and continues to elect for aspirin only anticoagulation. Echocardiogram 04/23/20: EF 65% Normal global left ventricular systolic function with mild concentric left ventricular hypertrophy. Assessment of the left ventricular diastolic function was limited. Aortic valve sclerosis with trace aortic regurgitation and trivial aortic stenosis. Mitral annular calcification with trace mitral regurgitation and a mildly enlarged left atrium. Moderate tricuspid regurgitation with severe pulmonary hypertension and dilated right heart chambers. There were findings consistent with elevated central venous pressure. The inferior vena cava was dilated. Trace pericardial effusion noted. No evidence of cardiac tamponade. HLD c/w statin Obesity, class IIII BMI of 46, complicating care PERFECTO Reports compliance with home CPAP was using oxygen at bedtime and naps. DISCHARGE MEDICATIONS: Please see below. ALLERGIES: Please see below. PHYSICAL EXAMINATION ON DISCHARGE: VITAL SIGNS: Please see below. General Exam: Positive: Alert, Cooperative, No Acute Distress, Other (morbid obesity) Eye Exam: Positive: PERRLA, Conjunctiva & lids normal, EOMI; Negative: Sclera icteric ENT Exam: Positive: Atraumatic, Mucous membr. moist/pink, Pharynx Normal, Other ENT (bruising around the neck just below the chin. Facial bruising has resolved) Neck Exam: Positive: Supple; Negative: JVD, thyromegaly Chest Exam: Positive: Clear to auscultation, Normal air movement Heart Exam: Positive: Rate Normal, Irregular Rhythm, Normal S1, Normal S2; Negative: Murmurs, Rubs Abdomen Exam: Positive: Normal bowel sounds, Soft; Negative: Tenderness Extremity Exam: Positive: Edema; Negative: Clubbing, Cyanosis Skin Exam: Positive: Other skin issue (chronic bilateral venous stasis chages with stasis ulcers) Neuro Exam: Positive: Normal Speech, Normal Tone LABORATORY DATA: Please see below. IMAGING: CT abd/pelvis without contrast 04/26/20: subcutaneous gut edema with anasarca, a small R pleural effusion, hepatomegaly, cholelithiasis without evidence of cholecystitis RUE US: neg for DVT XR right hand: No fracture or dislocation. Moderately severe arthritic changes at the wrist joint. XR right ulna/radius: No fracture or dislocation. Moderately severe arthritic changes CXR: Bibasilar atelectasis US RUQ: Stones and sludge within the gallbladder lumen. No biliary dilatation or free fluid. Somewhat limited exam due to bowel gas. Head CT (04/22/20): Age-appropriate supratentorial and infratentorial atrophy, moderate white matter microvascular ischemic disease, no acute intracranial abnormality identified, left maxillary sinusitis Foot x-ray (04/22/20): Extensive vascular dystrophic soft tissue calcification in the distal calf. Midfoot osteoarthritis. Mild diffuse osteopenia. No acute bony abnormality appreciated. Forefoot swelling. Chest x-ray (04/22/20): Cardiomegaly. Mild vascular cephalization, otherwise no active disease. Cervical spine CT (04/22/20): Degenerative changes, no acute cervical spinal bony injury identified. Recommend nonemergent thyroid sonograph for further evaluation of course a calcified left nodule ACTIVITY: [As tolerated]. DIET: Carb consistent diet, fluid restriction 1.8 liters. DISCHARGE PLAN: Rehab DISPOSITION: [facility] DISCHARGE INSTRUCTIONS: Dr Victor in 1 week DISCHARGE CONDITION: [Stable]. TIME SPENT ON DISCHARGE: 35 minutes. Vital Signs/I&Os Vital Signs Date Time Temp Pulse Resp B/P (MAP) Pulse Ox O2 Delivery O2 Flow Rate FiO2 05/06/20 08:20 80 05/06/20 06:00 98.0 18 137/89 (105) 96 Nasal Cannula 1.0 I&O- Last 24 Hours up to 6 AM 05/06/20 06:00 Intake Total 1260 ml Output Total 0 ml Balance 1260 ml Laboratory Data Labs 24H Laboratory Tests 2 05/05/20 16:51: Bedside Glucose (Misc Panel) 162H 05/05/20 20:28: Bedside Glucose (Misc Panel) 241H 05/06/20 05:51: Nucleated Red Blood Cells % (auto) 0.0, Anion Gap 5L, Glomerular Filtration Rate 33.6L, Calcium Level 8.8, Magnesium Level 1.8 05/06/20 11:04: Coronavirus (COVID-19)(PCR) NEGATIVE 05/06/20 11:26: Bedside Glucose (Misc Panel) 167H CBC/BMP Laboratory Tests 05/06/20 05:51 FSBS Laboratory Tests Test 05/05/20 16:51 05/05/20 20:28 05/06/20 11:26 Range/Units Bedside Glucose (Misc Panel) 162 241 167 83-110 MG/DL Microbiology Microbiology 04/26/20 Blood Culture - Final, Complete NO GROWTH AFTER 5 DAYS 04/26/20 Blood Culture - Final, Complete NO GROWTH AFTER 5 DAYS Discharge Medications Scheduled Allopurinol (Allopurinol) 100 Mg Tab, 100 MG PO DAILY, (Reported) Aspirin (Aspirin EC) 81 Mg Tab, 81 MG PO DAILY, (Reported) Atorvastatin Calcium (Atorvastatin Calcium) 40 Mg Tab, 40 MG PO QHS, (Reported) Digoxin (Digoxin) 125 Mcg Tablet, 125 MCG PO DAILY, (Reported) Furosemide (Furosemide) 40 Mg Tablet, 40 MG PO BID@09,17 Insulin Glargine,Hum.rec.anlog (Basaglar Kwikpen U-100) 100 Unit/1 Ml Insuln.pen, 15 UNIT SC DAILY Megestrol Acetate (Megestrol Acetate) 40 Mg Tablet, 40 MG PO BID, (Reported) Metoprolol Tartrate (Metoprolol Tartrate) 25 Mg Tablet, 25 MG PO BID, (Reported) Nystatin (Nystop) 60 Gm Powder, 1 DOSE TOP BID Scheduled PRN Cyclosporine (Restasis) 0.05% Droperette, 1 DROP OU BID PRN for DRY EYES, (Reported) Allergies Coded Allergies: WOOL (FABRIC) (Verified Allergy, Intermediate, 04/22/20) Aminoglycosides (Verified Allergy, Unknown, 04/22/20) bacitracin (Verified Allergy, Unknown, 04/22/20) dextromethorphan (Verified Allergy, Unknown, 04/22/20) guaifenesin (Verified Allergy, Unknown, 04/22/20) neomycin (Verified Allergy, Unknown, 04/22/20) polymyxin B (Verified Allergy, Unknown, 04/22/20) BLAIRE FLANNERY MD May 06, 2020 12:27
[2020-05-06 14:00] VITALS: BP 135/64
--- NOTE | 2020-05-07 08:11 | IPN ---
PROGRESS NOTE DATE: 05/06/2020 Mrs. Guillaume is seen this morning on her bedside. She is resting comfortably without any distress. She has diuresed very well, and her peripheral edema has improved. Her kidney function has also improved significantly since admission. PHYSICAL EXAMINATION: Temperature is 98 degrees Fahrenheit, heart rate 80 per minute, respiratory rate 18 per minute, blood pressure 137/89 mmHg, and oxygen saturation 96% on 1 liter oxygen. Her neck veins are mildly distended. Ecchymosis on left side of face and on her neck has improved significantly. Heart sounds are irregular in rhythm and lungs with diminished breath sounds at bases. Abdomen obese and nontender and bowel sounds are normal. Extremities without any cyanosis or clubbing. Her legs are wrapped in compression stockings. Today's labs show WBC count 8.6, hemoglobin 9.8, hematocrit 32.5, platelets 305. Sodium 140, potassium 4.1, CO2 of 34, BUN 68, and creatinine 1.61. PROBLEMS: 1. Acute kidney injury superimposed on chronic kidney disease. Kidney function continues to improve gradually, and electrolytes are stable. At this point, she seems to be doing well and probably close to baseline renal function. 2. Acute on chronic congestive heart failure. Volume status has also improved significantly, and we will continue with furosemide 40 mg twice a day for now. 3. Anemia. Her anemia is stable and does not need any urgent intervention. 4. Gout. She remains asymptomatic on allopurinol 100 mg daily. I will check her uric acid level again tomorrow.
== END 2020-05-06 16:35 | DRG 557 ==
LOC: EDBD 17:04 → M ED 17:04 → M ED INP 21:16 → M PCU 23:26 → M MSPAV 04-29 16:30
PROVIDERS: ADMIT Internal Medicine; ATTEND Internal Medicine Nephrology
DX: M62.82 Rhabdomyolysis (principal); I50.33 Acute on chronic diastolic (congestive) heart failure; G93.41 Metabolic encephalopathy; E87.1 Hypo-osmolality and hyponatremia; I13.0 Hypertensive heart and chronic kidney disease with heart failure and stage 1 through stage 4 chronic kidney disease, or unspecified chronic kidney disease; Z68.42 Body mass index [BMI] 45.0-49.9, adult; E66.2 Morbid (severe) obesity with alveolar hypoventilation; N39.0 Urinary tract infection, site not specified; L97.919 Non-pressure chronic ulcer of unspecified part of right lower leg with unspecified severity; L97.929 Non-pressure chronic ulcer of unspecified part of left lower leg with unspecified severity; E87.2 Acidosis; N17.9 Acute kidney failure, unspecified; N18.4 Chronic kidney disease, stage 4 (severe); E11.649 Type 2 diabetes mellitus with hypoglycemia without coma; E86.0 Dehydration; R74.01 Elevation of levels of liver transaminase levels; E11.22 Type 2 diabetes mellitus with diabetic chronic kidney disease; I48.91 Unspecified atrial fibrillation; E04.1 Nontoxic single thyroid nodule; E78.5 Hyperlipidemia, unspecified; K21.9 Gastro-esophageal reflux disease without esophagitis; M10.30 Gout due to renal impairment, unspecified site; F32.9 Major depressive disorder, single episode, unspecified; I87.2 Venous insufficiency (chronic) (peripheral); I27.20 Pulmonary hypertension, unspecified; R41.82 Altered mental status, unspecified; E87.5 Hyperkalemia; J32.0 Chronic maxillary sinusitis; E11.65 Type 2 diabetes mellitus with hyperglycemia; E11.622 Type 2 diabetes mellitus with other skin ulcer; B96.20 Unspecified Escherichia coli [E. coli] as the cause of diseases classified elsewhere; B96.1 Klebsiella pneumoniae [K. pneumoniae] as the cause of diseases classified elsewhere; R60.0 Localized edema; I50.812 Chronic right heart failure; M19.041 Primary osteoarthritis, right hand; E83.42 Hypomagnesemia; D64.9 Anemia, unspecified; Z85.42 Personal history of malignant neoplasm of other parts of uterus; Z79.82 Long term (current) use of aspirin; Z79.4 Long term (current) use of insulin; Z79.899 Other long term (current) drug therapy; Z88.8 Allergy status to other drugs, medicaments and biological substances; Z88.1 Allergy status to other antibiotic agents; Z91.048 Other nonmedicinal substance allergy status

== ENCOUNTER 2020-08-07 22:21 | Inpatient (IN) | payer MEDICAID, MEDICARE ==
[~2020-08-07] VITALS: Ht 167.6 cm; Wt 121.0 kg
[~2020-08-07 22:21] MED LIST changes: +BASA100I SC; +FURO40TA2 PO; +HumaLOG INSULIN (NovoLOG) PER UNIT SC SCH; +MEGE40TA PO; +METO25TA4 PO; +NYST10006 TOP; +REST0.05 OU
[2020-08-07] MEDS ORDERED: LOSA50TA88 PO (22:48)
[2020-08-07] MEDS ORDERED: ACETAMINOPHEN 325 MG/10.15 ML UDC PO ONE (23:20)
[2020-08-08] VITALS (42 sets, daily range): BP systolic 71–122; BP diastolic 39–60
[2020-08-08 00:10] LABS: BASO # 0.1 10^3/uL (0.0-0.2); BASO % 0.2 % (0.0-1.0); EOS % 0.1 % (0.0-3.0); HEMATOCRIT 38.2 % (36.0-47.0); HEMOGLOBIN 12.2 g/dl (12.0-15.5); LYMPH # 0.5 10^3/uL (1.5-5.0); LYMPH % 1.4 % (24.0-44.0); MEAN CORPUSCULAR HEMOGLOBIN 27.9 pg (27.0-33.0); MEAN CORPUSCULAR HGB CONC 31.9 g/dl (32.0-36.5); MEAN CORPUSCULAR VOLUME 87.4 fl (80.0-96.0); MONO # 0.8 10^3/uL (0.0-0.8); MONO % 2.1 % (2.0-8.0); NEUTROPHILS # 35.1 10^3/uL (1.5-8.5); NEUTROPHILS % 93.6 % (36.0-66.0); PLATELET COUNT, AUTOMATED 323 10^3/uL (150-450); RED BLOOD COUNT 4.37 10^6/uL (4.00-5.40)
[2020-08-08 00:16] LABS: ALBUMIN 2.4 GM/DL (3.2-5.2); ALT/SGPT 24 U/L (12-78); BILIRUBIN,DIRECT 0.6 MG/DL (0.0-0.2); BILIRUBIN,TOTAL 1.3 MG/DL (0.2-1.0); BLOOD UREA NITROGEN 45 MG/DL (7-18); CALCIUM LEVEL 8.4 MG/DL (8.8-10.2); CARBON DIOXIDE LEVEL 20 MEQ/L (21-32); CHLORIDE LEVEL 101 MEQ/L (98-107); CK-MB VALUE MASS 3.5 NG/ML (<3.6); CPK CREATINE PHOSPHOKINASE 983 U/L (26-192); CREATININE FOR GFR 2.63 MG/DL (0.55-1.30); ETHYL ALCOHOL (ETHANOL) < 0.003 % (0.000-0.010); GLOMERULAR FILTRATION RATE 19.1 (>39); GLUCOSE, FASTING 201 MG/DL (70-100); MB/CK RELATIVE INDEX 0.36 (< OR =4); POTASSIUM SERUM 5.1 MEQ/L (3.5-5.1); SODIUM LEVEL 132 MEQ/L (136-145); TOTAL PROTEIN 7.2 GM/DL (6.4-8.2); TROPONIN I 0.18 NG/ML (< 0.10)
[2020-08-08 00:20] LABS: RSV AMPLIFICATION NEGATIVE (NEGATIVE)
[2020-08-08 00:34] LABS: WHITE BLOOD COUNT 37.5 10^3/uL (4.0-10.0)
--- NOTE | 2020-08-08 00:34 | REPVR ---
PROCEDURE INFORMATION: Exam: US Duplex Lower Extremity Veins, Bilateral Exam date and time: 08/07/2020 12:02 AM Age: 69 years old Clinical indication: Edema, localized; Lower extremity, bilateral; Additional info: Edema R/O dvt TECHNIQUE: Imaging protocol: Real-time duplex ultrasound of the extremities with 2-D goodman scale, color Doppler flow and spectral waveform analysis with image documentation. Complete exam focused on the bilateral lower extremity veins. COMPARISON: US Duplex, Ext,LOWER veins,unilat 08/04/2019 10:29 AM FINDINGS: Right deep veins: Suboptimal visualization of the calf veins. The common femoral, femoral and popliteal veins are patent without thrombus. Normal Doppler waveforms. Normal compressibility and/or augmentation response. Right superficial veins: Saphenofemoral junction is patent without thrombus. Left deep veins: Suboptimal visualization of the calf veins. The common femoral, femoral and popliteal veins are patent without thrombus. Normal Doppler waveforms. Normal compressibility and/or augmentation response. Left superficial veins: Saphenofemoral junction is patent without thrombus. Soft tissues: Subcutaneous edema in the calves. IMPRESSION: No sonographic evidence of deep vein thrombosis. Electronically signed by: Juan David Day On 08/08/2020 00:34:10 AM
--- NOTE | 2020-08-08 00:55 | REPVR ---
PROCEDURE INFORMATION: Exam: XR Chest Exam date and time: 08/08/2020 12:33 AM Age: 69 years old Clinical indication: Other: Altered mental status TECHNIQUE: Imaging protocol: XR of the chest. Views: 1 view. COMPARISON: CR PORTABLE CHEST X-RAY 04/26/2020 6:40 AM FINDINGS: Limitations: Somewhat limited examination due to patient rotation. Lungs: Streaky opacities at the lung bases, likely secondary to atelectasis and/or scarring. No consolidation. Pleural spaces: Unremarkable. No pleural effusion. No pneumothorax. Heart/Mediastinum: Cardiomegaly. Bones/joints: No acute osseous abnormality. Degenerative changes. IMPRESSION: 1. No acute pathology. 2. Additional findings, as above. Electronically signed by: Juan David Day On 08/08/2020 00:55:09 AM
[2020-08-08] MEDS ORDERED: PIPERACILLIN/TAZOBACTAM SOD 3.375 GM in D5W MINI-BAG PLUS 50 ML IV ONE (01:25)
--- NOTE | 2020-08-08 01:42 | REPVR ---
PROCEDURE INFORMATION: Exam: CT Head Without Contrast Exam date and time: 08/08/2020 12:46 AM Age: 69 years old Clinical indication: Altered mental status/memory loss; Confusion or disorientation TECHNIQUE: Imaging protocol: Computed tomography of the head without contrast. Axial and coronal reformatted images were created and reviewed. Radiation optimization: All CT scans at this facility use at least one of these dose optimization techniques: automated exposure control; mA and/or kV adjustment per patient size (includes targeted exams where dose is matched to clinical indication); or iterative reconstruction. COMPARISON: CT Head without contrast 04/22/2020 5:19 PM FINDINGS: Brain: Patchy areas of hypoattenuation in the periventricular and subcortical white matter, consistent with chronic small vessel ischemic disease. No CT evidence of acute intracranial hemorrhage or acute territorial infarction. No significant mass effect or midline shift. Basal cisterns patent. Cerebral ventricles: Prominence of the cortical sulci, cisterns and ventricular system, consistent with cerebral and cerebellar volume loss. Paranasal sinuses: Unremarkable. No fluid levels. Mastoid air cells: Grossly unremarkable. Bones/joints: No acute osseous abnormality. Soft tissues: Grossly unremarkable. IMPRESSION: 1. No CT evidence of acute intracranial pathology. 2. Additional findings, as above. Electronically signed by: Juan David Day On 08/08/2020 01:42:02 AM
--- NOTE | 2020-08-08 01:44 | REPVR ---
PROCEDURE INFORMATION: Exam: CT Chest Without Contrast; Diagnostic Exam date and time: 08/08/2020 1:19 AM Age: 69 years old Clinical indication: Condition or disease; Other: Sepsis, ; additional info: Sepsis, paniculitis, mckenna, AMS TECHNIQUE: Imaging protocol: Diagnostic computed tomography of the chest without contrast. Axial, coronal and sagittal reformatted images were created and reviewed. Radiation optimization: All CT scans at this facility use at least one of these dose optimization techniques: automated exposure control; mA and/or kV adjustment per patient size (includes targeted exams where dose is matched to clinical indication); or iterative reconstruction. COMPARISON: CR PORTABLE CHEST X-RAY 08/07/2020 11:56 PM FINDINGS: Lungs: Mild peribronchial thickening, suggestive of airway inflammation. Mild linear stranding and groundglass, likely due to atelectasis and/or scarring. No focal consolidation. Pleural spaces: Unremarkable. No pneumothorax. No pleural effusion. Heart: Mild cardiomegaly. Pulmonary arteries: Dilatation of the main pulmonary artery segments, suggesting pulmonary hypertension. Aorta: Mild atherosclerotic disease. No aneurysm. Lymph nodes: No pathologically enlarged lymph nodes. Bones/joints: No acute osseous abnormality. Osteopenia. Degenerative changes. Soft tissues: Unremarkable. IMPRESSION: 1. Limited noncontrast examination. 2. Mild cardiomegaly. 3. Dilatation of the main pulmonary artery segments, suggesting pulmonary hypertension. 4. Additional findings, as above. Electronically signed by: Juan David Day On 08/08/2020 01:44:09 AM
--- NOTE | 2020-08-08 01:48 | REPVR ---
PROCEDURE INFORMATION: Exam: CT Abdomen And Pelvis Without Contrast Exam date and time: 08/08/2020 1:19 AM Age: 69 years old Clinical indication: Condition or disease; Other: Sepsis; Additional info: Sepsis, paniculitis, mckenna, AMS TECHNIQUE: Imaging protocol: Computed tomography of the abdomen and pelvis without contrast. Axial, coronal and sagittal reformatted images were created and reviewed. Radiation optimization: All CT scans at this facility use at least one of these dose optimization techniques: automated exposure control; mA and/or kV adjustment per patient size (includes targeted exams where dose is matched to clinical indication); or iterative reconstruction. COMPARISON: CT ABD PELVIS W/O CONTRAST 04/26/2020 10:02 AM FINDINGS: Liver: Mild hepatomegaly. Diffuse hepatic steatosis. Gallbladder and bile ducts: Cholelithiasis. Pancreas: Diffuse pancreatic atrophy. Spleen: Unremarkable. Adrenal glands: Normal. No mass. Kidneys and ureters: No mass. No radiodense calculi. No hydronephrosis. Stomach and bowel: Colonic diverticulosis without evidence of diverticulitis. No obstruction. No bowel wall thickening. No pneumatosis. Appendix: Normal. Intraperitoneal space: No free fluid. No organized fluid collection. No free air. Vasculature: Mild atherosclerotic disease. No aneurysm. Lymph nodes: Mildly prominent right iliac chain and inguinal lymph nodes, likely reactive. Urinary bladder: Unremarkable as visualized. Reproductive: Unremarkable. Bones/joints: No acute osseous abnormality. Osteopenia. Degenerative changes. Soft tissues: Diffuse skin thickening and subcutaneous edema in the anterior abdominal wall, compatible with cellulitis. Fat containing umbilical hernia. IMPRESSION: 1. Limited noncontrast examination. 2. Diffuse skin thickening and subcutaneous edema in the anterior abdominal wall, compatible with cellulitis. 3. Mildly prominent right iliac chain and inguinal lymph nodes, likely reactive. 4. Additional findings, as above. Electronically signed by: Juan David Day On 08/08/2020 01:47:52 AM
[2020-08-08] MEDS ORDERED: GLUCOSE 4GM CHEW TABLET PO PRN (03:15)
[2020-08-08] MEDS ORDERED: MOM 30ML SUSPENSION UDC PO PRN (03:15)
[2020-08-08] MEDS ORDERED: SODIUM CHLORIDE 0.9% 1000ML IV STA (03:15)
[2020-08-08] MEDS ORDERED: GLUCAGON INJ 1MG VIAL SC PRN (03:15)
[2020-08-08] MEDS ORDERED: DEXTROSE 50% 50 ML SYRINGE IV PRN (03:15)
--- NOTE | 2020-08-08 03:25 | HPEPDOC ---
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 Patient herself is oriented to person only and not able to provide history. History is gathered from the chart and ED providers. Patient is alert and able to converse, but tells me she feels fine an d is not sure where she is or why she is there. ED workup notable for sepsis with fever of 100.5, tachycardia up to 110s and leukocytosis of 37.5. Infection found in +UA as well as cellulitis of panus. Also found to have acute on chronic renal failure with cr of 2.6 from baseline of around 2.] PAST MEDICAL HISTORY: 1. [See HPI PAST SURGICAL HISTORY: 1. [Tracheostomy - 2010]. SOCIAL HISTORY: Resides in: [Lives alone - has home health aid] According to the chart, patient appears to have a hx of alcohol abuse Unable to obtain rest d/t mentation FAMILY HISTORY: Unable to obtain d/t mentation ALLERGIES: Please see below. REVIEW OF SYSTEMS: Unable to obtain d/t mentation HOME MEDICATIONS: Please see below. PHYSICAL EXAMINATION: VITAL SIGNS: Please see below. GENERAL APPEARANCE: [This is a confused 69 y/o female who appears fatigued. She does not appear to be in any respiratory distress.]. HEENT: [No mass or lesion. EOMI. No scleral icterus. Nares patent. Oral mucosa dry without erythema.]. CARDIOVASCULAR: [Tachy rate, regular rythm. No murmurs, rubs, gallops]. LUNGS: [Good air flow b/l. No wheezing, rales, rhonchi.]. ABDOMEN: [Obese, nontender. There is a large are of deep erythema with purulent drainage under the right side of the panus. Patient states the area is not tende r however winces when it is pressed on. No fluctuance noted.]. MUSCULOSKELETAL: [No joint deformity noted.]. EXTREMITIES: [Mild peripheral edema. Skin changes consistent with chronic peripheral vascular disease. No erythema, open wounds noted. Pulses intact.]. NEUROLOGICAL: [Speech clear. Oriented to person only. No focal deficits appreciated.]. PSYCHIATRIC: [Patient is confused.]. LABORATORY DATA: See below. IMAGING: [Duplex US LE: FINDINGS: Right deep veins: Suboptimal visualization of the calf veins. The common femoral, femoral and popliteal veins are patent without thrombus. Normal Doppler waveforms. Normal compressibility and/or augmentation response. Right superficial veins: Saphenofemoral junction is patent without thrombus. Left deep veins: Suboptimal visualization of the calf veins. The common femoral, femoral and popliteal veins are patent without thrombus. Normal Doppler waveforms. Normal compressibility and/or augmentation response. Left superficial veins: Saphenofemoral junction is patent without thrombus. Soft tissues: Subcutaneous edema in the calves. IMPRESSION: No sonographic evidence of deep vein thrombosis. CXR: FINDINGS: Limitations: Somewhat limited examination due to patient rotation. Lungs: Streaky opacities at the lung bases, likely secondary to atelectasis and/or scarring. No consolidation. Pleural spaces: Unremarkable. No pleural effusion. No pneumothorax. Heart/Mediastinum: Cardiomegaly. Bones/joints: No acute osseous abnormality. Degenerative changes. IMPRESSION: 1. No acute pathology. 2. Additional findings, as above. Head CT: FINDINGS: Brain: Patchy areas of hypoattenuation in the periventricular and subcortical white matter, consistent with chronic small vessel ischemic disease. No CT evidence of acute intracranial hemorrhage or acute territorial infarction. No significant mass effect or midline shift. Basal cisterns patent. Cerebral ventricles: Prominence of the cortical sulci, cisterns and ventricular system, consistent with cerebral and cerebellar volume loss. Paranasal sinuses: Unremarkable. No fluid levels. Mastoid air cells: Grossly unremarkable. Bones/joints: No acute osseous abnormality. Soft tissues: Grossly unremarkable. IMPRESSION: 1. No CT evidence of acute intracranial pathology. 2. Additional findings, as above. CT Abd/pelvis: FINDINGS: Liver: Mild hepatomegaly. Diffuse hepatic steatosis. Gallbladder and bile ducts: Cholelithiasis. Pancreas: Diffuse pancreatic atrophy. Spleen: Unremarkable. Adrenal glands: Normal. No mass. Kidneys and ureters: No mass. No radiodense calculi. No hydronephrosis. Stomach and bowel: Colonic diverticulosis without evidence of diverticulitis. No obstruction. No bowel wall thickening. No pneumatosis. Appendix: Normal. Intraperitoneal space: No free fluid. No organized fluid collection. No free air. Vasculature: Mild atherosclerotic disease. No aneurysm. Lymph nodes: Mildly prominent right iliac chain and inguinal lymph nodes, likely reactive. Urinary bladder: Unremarkable as visualized. Reproductive: Unremarkable. Bones/joints: No acute osseous abnormality. Osteopenia. Degenerative changes. Soft tissues: Diffuse skin thickening and subcutaneous edema in the anterior abdominal wall, compatible with cellulitis. Fat containing umbilical hernia. IMPRESSION: 1. Limited noncontrast examination. 2. Diffuse skin thickening and subcutaneous edema in the anterior abdominal wall, compatible with cellulitis. 3. Mildly prominent right iliac chain and inguinal lymph nodes, likely reactive. 4. Additional findings, as above. Chest CT: FINDINGS: Lungs: Mild peribronchial thickening, suggestive of airway inflammation. Mild linear stranding and groundglass, likely due to atelectasis and/or scarring. No focal consolidation. Pleural spaces: Unremarkable. No pneumothorax. No pleural effusion. Heart: Mild cardiomegaly. Pulmonary arteries: Dilatation of the main pulmonary artery segments, suggesting pulmonary hypertension. Aorta: Mild atherosclerotic disease. No aneurysm. Lymph nodes: No pathologically enlarged lymph nodes. Bones/joints: No acute osseous abnormality. Osteopenia. Degenerative changes. Soft tissues: Unremarkable. IMPRESSION: 1. Limited noncontrast examination. 2. Mild cardiomegaly. 3. Dilatation of the main pulmonary artery segments, suggesting pulmonary hypertension. 4. Additional findings, as above. ] MICROBIOLOGY: Please see below. 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 Patient herself is oriented to person only and not able to provide history. ED workup notable for sepsis with fever of 100.5, tachycardia up to 110s and leukocytosis of 37.5. Infection found in +UA as well as cellulitis of panus. Also found to have acute on chronic renal failure with cr of 2.6 from baseline of around 2.]. . PLAN: 1. [Sepsis 2/2 UTI and panniculitis - Fever of 100.6, tachycardia of 119, leukocytosis of 37.5 and infection in urine and soft tissue meets sepsis criteria - 30ml/kg ns fluid bolus ordered, will begin maintenance ivf after - Patient received dose of zosyn in ed. Will switch to vanco and cefepime on the floor - Wound culture of pus from cellulitis taken. Urine culture sent. - Blood cultures sent - Can de-escalate or switch abx pending cultures - tylenol for fevers for now - Admit to pcu with tele 2. DOMINGA on CKD4 - Patients cr is 2.6 up from baseline of around 2 - Likely pre-renal d/t sepsis. Potentially ATN. - No renal obstruction on ct imaging. - Urine electrolytes ordered - Fluids started, as stated. - Will hold at home arb and diuretics for now - Will trend renal function 3. Troponinemia - Likely secondary to sepsis and prolonged tachycardia. does not seem to be acs at this time - Has trended down from 0.18 to 0.16 - Will continue to trend 4. A-fib - Patient not currently in RVR - Will continue at home digoxin and metoprolol - anticoagulation with heparin as patient is not on doac at home 5. DM2 - sliding scale, hypoglycemic protocol - continue asa 6. HTN - holding losartan and lasix for now d/t dominga 7. HLD - continue atorvastatin DVT prophylaxis - Heparin ordered]. Vital Signs Vital Signs Date Time Temp Pulse Resp B/P (MAP) Pulse Ox O2 Delivery O2 Flow Rate FiO2 08/08/20 01:36 100.5 97 95 08/08/20 01:31 131/56 (81) 08/07/20 22:37 19 Room Air Laboratory Data Labs 24H Laboratory Tests 2 08/07/20 23:30: Immature Granulocyte % (Auto) 2.6, Neutrophils (%) (Auto) 93.6H, Lymphocytes (%) (Auto) 1.4L, Monocytes (%) (Auto) 2.1, Eosinophils (%) (Auto) 0.1, Basophils (%) (Auto) 0.2, Neutrophils # (Auto) 35.1H, Lymphocytes # (Auto) 0.5L, Monocytes # (Auto) 0.8, Eosinophils # (Auto) 0.0, Basophils # (Auto) 0.1, Nucleated Red Blood Cells % (auto) 0.0, Anion Gap 11, Glomerular Filtration Rate 19.1L, Lactic Acid Level 2.5*H, Calcium Level 8.4L, Total Bilirubin 1.3H, Direct Bilirubin 0.6H, Aspartate Amino Transf (AST/SGOT) 32, Alanine Aminotransferase (ALT/SGPT) 24, Alkaline Phosphatase 191H, Ammonia < 10, Total Creatine Kinase 983H, C reatine Kinase MB 3.5, Creatine Kinase MB Relative Index 0.36, Troponin I 0.18H, Total Protein 7.2, Albumin 2.4L, Albumin/Globulin Ratio 0.5L, Thyroid Stimulating Hormone (TSH) 3.550, Ethyl Alcohol Level < 0.003, Coronavirus (COVID-19)(PCR) NEGATIVE, Influenza Type A (RT-PCR) NEGATIVE, Influenza Type B (RT-PCR) NEGATIVE, Respiratory Syncytial Virus (PCR) NEGATIVE 08/07/20 23:58: Bedside Glucose (Misc Panel) 196H 08/08/20 02:04: Urine Color YELLOW, Urine Appearance TURBIDH, Urine pH 5.0, Urine Specific [place] 1.013, Urine Protein 3+H, Urine Glucose (UA) NEGATIVE, Urine Ketones NEGATIVE, Urine Blood 2+H, Urine Nitrite NEGATIVE, Urine Bilirubin NEGATIVE, Urine Urobilinogen 2.0H, Urine Leukocyte Esterase 3+H, Urine WBC (Auto) TNTCH, Urine RBC (Auto) 77H, Urine Hyaline Casts (Auto) 0, Urine Bacteria (Auto) 3+H, Urine Squamous Epithelial Cells 0, Urine Amorphous Sediment SMALLH, Urine Mucus (Auto) SMALL, Urine Sperm (Auto) CBC/BMP Laboratory Tests 08/07/20 23:30 Microbiology Microbiology 08/08/20 Urine Culture, Received Pending 08/07/20 Blood Culture, Received Pending 08/07/20 Blood Culture, Received Pending Home Medications Scheduled Allopurinol (Allopurinol) 100 Mg Tab, 100 MG PO DAILY Aspirin (Aspirin EC) 81 Mg Tab, 81 MG PO DAILY Atorvastatin Calcium (Atorvastatin Calcium) 40 Mg Tab, 40 MG PO QHS Digoxin (Digoxin) 125 Mcg Tablet, 125 MCG PO DAILY Furosemide (Furosemide) 40 Mg Tablet, 40 MG PO DAILY Insulin Glargine,Hum.rec.anlog (Basaglar Kwikpen U-100) 100 Unit/1 Ml Insuln.pen, 1 DOSE SC DAILY Losartan Potassium (Losartan Potassium) 50 Mg Tablet, 50 MG PO DAILY Megestrol Acetate (Megestrol Acetate) 40 Mg Tablet, 40 MG PO BID Metoprolol Tartrate (Metoprolol Tartrate) 25 Mg Tablet, 25 MG PO BID Scheduled PRN Cyclosporine (Restasis) 0.05% Droperette, 1 DROP OU BID PRN for DRY EYES Miscellaneous Medications [Med Rec Comment] PT CAME IN ALTERED, POOR HISRTORIAN UNABLE TO VERIFY DOSES. USED EXTERNAL MED HISTORY. Allergies Coded Allergies: WOOL (FABRIC) (Verified Allergy, Intermediate, 04/22/20) Aminoglycosides (Verified Allergy, Unknown, 04/22/20) bacitracin (Verified Allergy, Unknown, 04/22/20) dextromethorphan (Verified Allergy, Unknown, 04/22/20) guaifenesin (Verified Allergy, Unknown, 04/22/20) neomycin (Verified Allergy, Unknown, 04/22/20) polymyxin B (Verified Allergy, Unknown, 04/22/20) A-FIB/CHADSVASC A-FIB History Current/History of A-Fib/PAF?: Yes Current PO Anticoag Therapy: No (heparin) Attending Note Attending Note time of service 407 am is a 69 yr old w PVD, DLP, A Fib, PERFECTO, DVAt, GERD, IDDM and CKD4 who came to the ER for unclear reasons. The patient was confused but at the time of my evaluation mentioned that she had a sugar of 39 but was unable provide additi onal details regarding why she was in the ER. #Encephalopathy #Sepsis 2/2 UTI, RLE cellulitis and panniculitis #DOMINGA, #possible Rhabdomyolysis #type 2 NSTEMI #DM w possible hypoglycemia; she is also obese which complicates her care. Rest per JERZY Ho H&P BEATRIZ ANDERSEN Aug 08, 2020 03:25 KRISTAL RUBIO MD Aug 08, 2020 05:09
[2020-08-08] MEDS ORDERED: FURO40TA2 PO (03:26)
[2020-08-08] MEDS ORDERED: BASA100I SC (03:45)
[2020-08-08] MEDS ORDERED: VANCOMYCIN HCL 1,000 MG, VIAL MATE ADAPTER 1 EACH in NS 250 ML IV SCH ×2 (03:45→18:50)
[2020-08-08] MEDS ORDERED: MED REC COMMENT (03:48)
[2020-08-08] MEDS ORDERED: VANCOMYCIN HCL 1,000 MG, VIAL MATE ADAPTER 1 EACH in NS 250 ML IV ONE (04:00)
[2020-08-08 04:16] LABS: MB/CK RELATIVE INDEX 0.37 (< OR =4); TROPONIN I 0.16 NG/ML (< 0.10)
[2020-08-08] MEDS ORDERED: VIAL MATE ADAPTER XX ONE (04:32)
[2020-08-08] MEDS ORDERED: VANCOMYCIN HCL 750 MG, VIAL MATE ADAPTER 1 EACH in NS 250 ML IV ONE (05:00)
[2020-08-08] MEDS: NS 1,000 ML IV SCH ×6 (06:42→23:16)
[2020-08-08] MEDS: HEPARIN SOD (PORCINE) 5000UNITS/ML 1ML VIAL/SYRINGE SQ SCH ×3 (06:43→21:16)
[2020-08-08] MEDS: HumaLOG INSULIN (NovoLOG) PER UNIT SC SCH ×5 (06:44→23:52)
[2020-08-08 07:08] LABS: HEMATOCRIT 33.6 % (36.0-47.0); HEMOGLOBIN 10.6 g/dl (12.0-15.5); MEAN CORPUSCULAR HEMOGLOBIN 27.5 pg (27.0-33.0); MEAN CORPUSCULAR HGB CONC 31.5 g/dl (32.0-36.5); MEAN CORPUSCULAR VOLUME 87.3 fl (80.0-96.0); PLATELET COUNT, AUTOMATED 265 10^3/uL (150-450); RED BLOOD COUNT 3.85 10^6/uL (4.00-5.40)
[2020-08-08 07:13] LABS: WHITE BLOOD COUNT 33.2 10^3/uL (4.0-10.0)
[2020-08-08] MEDS ORDERED: HumaLOG INSULIN (NovoLOG) PER UNIT SC SCH (07:30)
[2020-08-08 07:36] LABS: ALBUMIN 1.8 GM/DL (3.2-5.2); CALCIUM LEVEL 7.3 MG/DL (8.8-10.2); CREATININE FOR GFR 2.51 MG/DL (0.55-1.30); GLOMERULAR FILTRATION RATE 20.1 (>39); MAGNESIUM LEVEL 1.6 MG/DL (1.8-2.4); POTASSIUM SERUM 4.8 MEQ/L (3.5-5.1); TOTAL PROTEIN 6.4 GM/DL (6.4-8.2)
[2020-08-08] MEDS: CEFEPIME HCL 2 GM in D5W 50 ML IV SCH ×2 (08:04→19:46)
[2020-08-08] MEDS ORDERED: NS 1,000 ML IV ONE ×3 (08:30→13:00)
[2020-08-08] MEDS: DOCUSATE SODIUM 100MG CAPSULE PO SCH ×2 (08:57→20:58)
[2020-08-08] MEDS: METOPROLOL TART 25 MG TABLET PO SCH ×2 (08:58→20:58)
[2020-08-08] MEDS: ASPIRIN 81MG ENTERIC TABLET PO SCH (08:58)
[2020-08-08] MEDS: DIGOXIN 0.125 MG TAB PO SCH (08:58)
[2020-08-08] MEDS ORDERED: ENOXAPARIN 40MG/0.4ML SYRINGE (J1650 PER 10MG) SC SCH (09:00)
[2020-08-08] MEDS ORDERED: MAG SULF 1GM/100ML (MAG RUN) 1 GM in IV 1 EA IV ONE (10:00)
[2020-08-08 10:58] LABS: CK-MB VALUE MASS 3.4 NG/ML (<3.6); MB/CK RELATIVE INDEX 0.45 (< OR =4); TROPONIN I 0.15 NG/ML (< 0.10)
--- NOTE | 2020-08-08 11:28 | IPNPDOC ---
Text Note Date of Service The patient was seen on 08/08/20. NOTE SUBJECTIVE: -Hypotensive, oliguric, somnolent -Denies acute pain at this time. -I asked why she is not anticoagulated given her history of afib which she confirmed herself, and she reported that it is because she refused to be on an anticoagulant. She takes ASA 81 and that is all that she will take for that. PHYSICAL EXAMINATION: VITAL SIGNS: Please see below. GENERAL APPEARANCE: NAD, mild lethargy but much more awake than previously reports and was fully oriented on my examination HEENT: No mass or lesion. EOMI. No scleral icterus. CARDIOVASCULAR: Tachycardic, regular rhythm. No murmurs, rubs, gallops LUNGS: CTAB ABDOMEN: Obese, normoactive, large are of erythema with drainage under right pannus. Tender to touch EXTREMITIES: Pitting bilateral peripheral edema.Hyperpigmented skin changes. Has bilateral leg ulcers but most significant is a R lateral lower leg ulcer with purulent drainage. NEUROLOGICAL:AOx3, speech is clear. Oriented to person only. No focal deficits appreciated. LABORATORY DATA: Reviewed WBC 33.2 Hgb 10.6 platelets 265 Mag 1.6 (repleted) na 131 K 4.8 BUN 48 Cr 2.51 IMAGING: Duplex US LE: FINDINGS: Right deep veins: Suboptimal visualization of the calf veins. The common femoral, femoral and popliteal veins are patent without thrombus. Normal Doppler waveforms. Normal compressibility and/or augmentation response. Right superficial veins: Saphenofemoral junction is patent without thrombus. Left deep veins: Suboptimal visualization of the calf veins. The common femoral, femoral and popliteal veins are patent without thrombus. Normal Doppler waveforms. Normal compressibility and/or augmentation response. Left superficial veins: Saphenofemoral junction is patent without thrombus. Soft tissues: Subcutaneous edema in the calves. IMPRESSION: No sonographic evidence of deep vein thrombosis. CXR: FINDINGS: Limitations: Somewhat limited examination due to patient rotation. Lungs: Streaky opacities at the lung bases, likely secondary to atelectasis and/or scarring. No consolidation. Pleural spaces: Unremarkable. No pleural effusion. No pneumothorax. Heart/Mediastinum: Cardiomegaly. Bones/joints: No acute osseous abnormality. Degenerative changes. IMPRESSION: 1. No acute pathology. 2. Additional findings, as above. Head CT: FINDINGS: Brain: Patchy areas of hypoattenuation in the periventricular and subcortical white matter, consistent with chronic small vessel ischemic disease. No CT evidence of acute intracranial hemorrhage or acute territorial infarction. No significant mass effect or midline shift. Basal cisterns patent. Cerebral ventricles: Prominence of the cortical sulci, cisterns and ventricular system, consistent with cerebral and cerebellar volume loss. Paranasal sinuses: Unremarkable. No fluid levels. Mastoid air cells: Grossly unremarkable. Bones/joints: No acute osseous abnormality. Soft tissues: Grossly unremarkable. IMPRESSION: 1. No CT evidence of acute intracranial pathology. 2. Additional findings, as above. CT Abd/pelvis: FINDINGS: Liver: Mild hepatomegaly. Diffuse hepatic steatosis. Gallbladder and bile ducts: Cholelithiasis. Pancreas: Diffuse pancreatic atrophy. Spleen: Unremarkable. Adrenal glands: Normal. No mass. Kidneys and ureters: No mass. No radiodense calculi. No hydronephrosis. Stomach and bowel: Colonic diverticulosis without evidence of diverticulitis. No obstruction. No bowel wall thickening. No pneumatosis. Appendix: Normal. Intraperitoneal space: No free fluid. No organized fluid collection. No free air. Vasculature: Mild atherosclerotic disease. No aneurysm. Lymph nodes: Mildly prominent right iliac chain and inguinal lymph nodes, likely reactive. Urinary bladder: Unremarkable as visualized. Reproductive: Unremarkable. Bones/joints: No acute osseous abnormality. Osteopenia. Degenerative changes. Soft tissues: Diffuse skin thickening and subcutaneous edema in the anterior abdominal wall, compatible with cellulitis. Fat containing umbilical hernia. IMPRESSION: 1. Limited noncontrast examination. 2. Diffuse skin thickening and subcutaneous edema in the anterior abdominal wall, compatible with cellulitis. 3. Mildly prominent right iliac chain and inguinal lymph nodes, likely reactive. 4. Additional findings, as above. Chest CT: FINDINGS: Lungs: Mild peribronchial thickening, suggestive of airway inflammation. Mild linear stranding and groundglass, likely due to atelectasis and/or scarring. No focal consolidation. Pleural spaces: Unremarkable. No pneumothorax. No pleural effusion. Heart: Mild cardiomegaly. Pulmonary arteries: Dilatation of the main pulmonary artery segments, suggesting pulmonary hypertension. Aorta: Mild atherosclerotic disease. No aneurysm. Lymph nodes: No pathologically enlarged lymph nodes. Bones/joints: No acute osseous abnormality. Osteopenia. Degenerative changes. Soft tissues: Unremarkable. IMPRESSION: 1. Limited noncontrast examination. 2. Mild cardiomegaly. 3. Dilatation of the main pulmonary artery segments, suggesting pulmonary hypertension. 4. Additional findings, as above. ] MICROBIOLOGY: Please see below. ASSESSMENT: 69 y/o W with a history of pvd, hld, a-fib, htn, dvt, hernan on cpap, gerd, IDDM2, ckd4 who was brought to the ED by home health aid who noted her to have fevers and admitted for sepsis 2/2 UTI and panniculitis, metabolic encephalopathy and DOMINGA on CKD. PLAN: Sepsis 2/2 UTI and panniculitis - Fever of 100.6, tachycardia of 119, leukocytosis of 37.5 and infection in urine and soft tissue meets sepsis criteria - s/p 5.6L NS thus far and on 250cc/hr - DC vanco and continue cefepime. MRSA negative. - f/u Wound culture of pus, Urine and blood cultures - tylenol PRN for fevers Purulent L ulcer: -On cefepime -DC vanc was MRSA negative -consulted gen surgery Metabolic encephalopathy: i/s/o sepsis, improving -treatment of sepsis as noted above DOMINGA on CKD4 - Patients cr is 2.6 up from baseline of around 2 - Likely pre-renal d/t sepsis. Potentially ATN. - No renal obstruction on ct imaging. - Urine electrolytes ordered - Fluids started, as stated above - Will hold at home arb and diuretics for now - Will trend renal function Troponinemia - Likely secondary to sepsis and prolonged tachycardia. No evidence of ACS - Has trended down from 0.18 to 0.16 History of A-fib - Patient not currently in RVR - Will continue at home digoxin and metoprolol - currently on ppx dosing heparin. Will need to establish why she is not anticoagulated - Telemetry DM2 - sliding scale, hypoglycemic protocol, FSBG AC/HS - continue asa HTN - holding losartan and lasix for now d/t dominga and hypotension HLD - continue atorvastatin DVT prophylaxis: currently on heparin SC VS,Fishbone, I+O VS, Fishbone, I+O Laboratory Tests 08/07/20 23:30 08/08/20 06:53 Vital Signs Date Time Temp Pulse Resp B/P (MAP) Pulse Ox O2 Delivery O2 Flow Rate FiO2 08/08/20 08:14 89 28 86/49 (61) 95 Room Air 08/08/20 08:00 97.3 I&O- Last 24 Hours up to 6 AM 08/08/20 06:00 Intake Total 1050 ml Output Total 545 ml Balance 505 ml RADHA SIERRA MD Aug 08, 2020 09:02
--- NOTE | 2020-08-08 17:16 | IPNPDOC ---
Text Note Date of Service The patient was seen on 08/08/20. NOTE PROCEDURE NOTE: FOR R IJ TLC placement Placed line with the assistance of Dr. Melendez Patient gave verbal consent for line placement for septic shock Nurse was present and performed time out for RIJ TLC placement My hands were washed immediately prior to the procedure. I wore a surgical cap, mask with protective eyewear, full gown and sterile gloves throughout the procedure. The patient was placed in supine position. RIGHT chest region was prepped using chlorhexidine scrub and draped in sterile fashion using a full drape and sterilel towels and sterile probe cover employed. The medial and lateral heads of the sternocleidomastoid muscle were identified as was the estrada tid pulse. The Internal Jugular vein was identified using the ultrasound. Anesthesia was achieved over the vein using 1% lidocaine. Using real-time out of plane guidance, the introducer needle was inserted into the Internal Jugular vein under direct ultrasound visualization. Venous blood was withdrawn. The syringe was removed and a guidewire was advanced into the introducer needle. The guidewire was visualized in the Internal Jugular Vein by ultrasound. A small incision was made at the skin surface with a scalpel and the introducer needle was exchanged for a dilator over the guidewire. After appropriate dilation was obtained, the dilator was exchanged over the wire for a TLC central venous c atheter. The wire was removed and the catheter was sutured in place at 15 cm. A sterile sorbaview shield was placed over the catheter at the insertion site. The patient tolerated the procedure without any hemodynamic compromise. At time of procedure completion, all ports aspirated and flushed properly. Post-procedure chest x-ray was completed and I inspected it and line is in appropriate place. VS,Fishbone, I+O VS, Fishbone, I+O Laboratory Tests 08/07/20 23:30 08/08/20 06:53 Vital Signs Date Time Temp Pulse Resp B/P (MAP) Pulse Ox O2 Delivery O2 Flow Rate FiO2 08/08/20 15:30 82 26 78/47 (57) 97 Room Air 08/08/20 12:00 97.2 l I&O- Last 24 Hours up to 6 AM 08/08/20 06:00 Intake Total 1050 ml Output Total 545 ml Balance 505 ml RADHA SIERRA MD Aug 08, 2020 17:16
[2020-08-08] MEDS: NYSTATIN 100,000 UNITS/GM TOPICAL PWD 15 GM TOP SCH ×2 (17:23→20:59)
--- NOTE | 2020-08-08 17:43 | REP ---
INDICATION: s/p line placement. 5:01 p.m. film. COMPARISON: Comparison chest x-ray August 08, 2020 12:25 a.m.. TECHNIQUE: Portable upright AP chest radiograph. FINDINGS: The patient is rotated somewhat to the right. Right IJ line is been inserted with its tip in the superior vena cava. There is no visible pneumothorax. Monitoring electrodes are seen. There is moderate to marked cardiomegaly. Pulmonary vascular congestion is seen. No pleural effusion or pulmonary edema.. IMPRESSION: Right IJ line in the region of the SVC. No complications seen. Cardiomegaly.. <Electronically signed by Rony Apple > 08/08/20 [id number]
[2020-08-08] MEDS ORDERED: NOREPINEPHRINE BITARTRATE 8 MG in D5W 492 ML IV SCH (18:00)
[2020-08-08 18:13] LABS: CK-MB VALUE MASS 3.1 NG/ML (<3.6); MB/CK RELATIVE INDEX 0.44 (< OR =4); TROPONIN I 0.14 NG/ML (< 0.10)
[2020-08-08] MEDS: ATORVASTATIN 20 MG TAB PO SCH (20:59)
[2020-08-08] MEDS: VANCOMYCIN HCL 750 MG, VIAL MATE ADAPTER 1 EACH in NS 250 ML IV SCH ×2 (20:59→22:05)
[2020-08-09] VITALS (50 sets, daily range): BP systolic 74–136; BP diastolic 42–83
[2020-08-09 03:00] LABS: CK-MB VALUE MASS 2.2 NG/ML (<3.6); MB/CK RELATIVE INDEX 0.4 (< OR =4); TROPONIN I 0.15 NG/ML (< 0.10)
[2020-08-09] MEDS: NS 1,000 ML IV SCH ×4 (03:21→16:13)
[2020-08-09 04:34] LABS: HEMOGLOBIN 9.8 g/dl (12.0-15.5); MEAN CORPUSCULAR HEMOGLOBIN 27.9 pg (27.0-33.0); MEAN CORPUSCULAR HGB CONC 31.6 g/dl (32.0-36.5); MEAN CORPUSCULAR VOLUME 88.3 fl (80.0-96.0); PLATELET COUNT, AUTOMATED 252 10^3/uL (150-450); RED BLOOD COUNT 3.51 10^6/uL (4.00-5.40); WHITE BLOOD COUNT 18.2 10^3/uL (4.0-10.0)
[2020-08-09 04:59] LABS: ALBUMIN 1.7 GM/DL (3.2-5.2); BILIRUBIN,TOTAL 0.6 MG/DL (0.2-1.0); CALCIUM LEVEL 7.1 MG/DL (8.8-10.2); CREATININE FOR GFR 1.92 MG/DL (0.55-1.30); GLOMERULAR FILTRATION RATE 27.4 (>39); MAGNESIUM LEVEL 1.7 MG/DL (1.8-2.4); POTASSIUM SERUM 4.6 MEQ/L (3.5-5.1); TOTAL PROTEIN 5.5 GM/DL (6.4-8.2)
[2020-08-09] MEDS: HEPARIN SOD (PORCINE) 5000UNITS/ML 1ML VIAL/SYRINGE SQ SCH ×3 (05:12→20:57)
[2020-08-09] MEDS: HumaLOG INSULIN (NovoLOG) PER UNIT SC SCH ×4 (05:12→21:00)
[2020-08-09] MEDS ORDERED: MAG SULF 1GM/100ML (MAG RUN) 1 GM in IV 1 EA IV ONE (08:00)
[2020-08-09] MEDS: CEFEPIME HCL 2 GM in D5W 50 ML IV SCH ×2 (08:19→20:18)
[2020-08-09] MEDS: ASPIRIN 81MG ENTERIC TABLET PO SCH (08:20)
[2020-08-09] MEDS: METOPROLOL TART 25 MG TABLET PO SCH (08:20)
[2020-08-09] MEDS: NYSTATIN 100,000 UNITS/GM TOPICAL PWD 15 GM TOP SCH ×2 (08:21→20:25)
[2020-08-09] MEDS: DOCUSATE SODIUM 100MG CAPSULE PO SCH ×2 (08:21→21:00)
[2020-08-09] MEDS: DIGOXIN 0.125 MG TAB PO SCH (08:21)
[2020-08-09] MEDS ORDERED: VANCOMYCIN HCL 750 MG, VIAL MATE ADAPTER 1 EACH in NS 250 ML IV SCH ×2 (09:00→10:00)
--- NOTE | 2020-08-09 09:34 | CR ---
CONSULTATION DATE: 08/09/2020 REASON FOR CONSULTATION: Lower extremity infection. HISTORY OF PRESENT ILLNESS: The patient is a 69-year-old female with known bilateral lower extremity wounds. She follows up with Dr. Dickson as an outpatient for these. She presented to the hospital yesterday with a fever of 100.5. She was found to be septic from a urinary infection. She was admitted to the Medicine Service, currently in the ICU being treated with IV antibiotics. She has been improving slowly. She had to be placed on pressors for a short while overnight last night but she appears to be doing well this morning. I was asked to see her for a lower extremity wound. This morning the patient denies any concerns about her wounds. She says that Dr. Dickson takes care of them for her and she has not had any problems. PAST MEDICAL HISTORY: Peripheral vascular disease, hyperlipidemia, atrial fibrillation, hypertension, DVTs, sleep apnea, GERD, diabetes, chronic kidney disease. PAST SURGICAL HISTORY: Tracheostomy. SOCIAL HISTORY: Denies drug, alcohol or tobacco abuse. FAMILY HISTORY: Noncontributory. ALLERGIES: Multiple, please see med rec. MEDICATIONS: Please see med rec. REVIEW OF SYSTEMS: Pertinent positives and negatives as stated in the HPI. PHYSICAL EXAMINATION: GENERAL: Patient is alert and oriented x3, in no acute distress. VITAL SIGNS: Temperature is 97.6, pulse is 80, respirations are 20, blood pressure 106/53, pulse oximetry 88% on room air. HEENT: Pupils equally round and reactive to light and accommodation. HEART: S1 and S2, regular rate and rhythm. LUNGS: Clear bilaterally. ABDOMEN: Soft, nontender, nondistended, very obese with a large pannus. Minimal cellulitis if anything below the pannus. EXTREMITIES: There is bilateral lower extremity pitting edema on the right lateral lower extremity. There is an open wound measuring approximately 3 x 5 cm in largest diameter. The wound base has a slight amount of slough tissue in it, however overall it looks very clean. No need for any debridement at this time. No purulence and no signs of infection. On the left lateral lower extremity, there is a similar wound, much smaller in size, about 1 cm in diameter, just some slight erythema, maybe loss of first layer of skin, very shallow and again looks to be healing very well. LABORATORY DATA: Her white count on admission was 37.5, she is down to 18.2 this morning. Hemoglobin 9.8. Platelets 252,000. Potassium 4.6. Creatinine 2.51, it was down to 1.92 this morning. Albumin 1.7. ASSESSMENT AND PLAN: Patient is a 69-year-old female with a concern for possible lower extremity abscess. At this time, her wounds on bilateral lower extremities appear to be clean, dry and intact. No need for any debridement at this time. Continue with current wound care. She can follow-up with Dr. Dickson for the remainder of her care when she leaves the facility.
--- NOTE | 2020-08-09 11:27 | IPNPDOC ---
Text Note Date of Service The patient was seen on 08/09/20. NOTE SUBJECTIVE: -Developed jovani shock yesterday with hypotension despite >7L fluids and oliguria --> placed TLS and started on levophed -08/08 BCx growing GPCs in pairs and clusters so re-added vanc to cefepime. LLE wound culture growing GAS PHYSICAL EXAMINATION: VITAL SIGNS: Please see below. GENERAL APPEARANCE: NAD, awake, fully oriented, conversational HEENT: No mass or lesion. EOMI. No scleral icterus. CARDIOVASCULAR: RRR at this time. No murmurs, rubs, gallops LUNGS: CTAB ABDOMEN: Obese, normoactive, large are of erythema with drainage under right pannus. Tender to touch EXTREMITIES: Pitting bilateral peripheral edema.Hyperpigmented skin changes. Has bilateral leg ulcers but most significant is a R lateral lower leg ulcer with purulent drainage. NEUROLOGICAL:AOx3, speech is clear. Oriented to person only. No focal deficits appreciated. SKIN: has multiple areas of pressure shallow ulceration in body folds and also has bilateral leg ulcers but most significant is a R lateral lower leg ulcer with purulent drainage. LABORATORY DATA: Reviewed WBC 18.2 Hgb 9.8 platelets 252 Mag 1.7 (repleted) na 137 K 4.6 BUN 44 Cr 1.92 IMAGING: Duplex US LE: FINDINGS: Right deep veins: Suboptimal visualization of the calf veins. The common femoral, femoral and popliteal veins are patent without thrombus. Normal Doppler waveforms. Normal compressibility and/or augmentation response. Right superficial veins: Saphenofemoral junction is patent without thrombus. Left deep veins: Suboptimal visualization of the calf veins. The common femoral, femoral and popliteal veins are patent without thrombus. Normal Doppler waveforms. Normal compressibility and/or augmentation response. Left superficial veins: Saphenofemoral junction is patent without thrombus. Soft tissues: Subcutaneous edema in the calves. IMPRESSION: No sonographic evidence of deep vein thrombosis. CXR: FINDINGS: Limitations: Somewhat limited examination due to patient rotation. Lungs: Streaky opacities at the lung bases, likely secondary to atelectasis and/or scarring. No consolidation. Pleural spaces: Unremarkable. No pleural effusion. No pneumothorax. Heart/Mediastinum: Cardiomegaly. Bones/joints: No acute osseous abnormality. Degenerative changes. IMPRESSION: 1. No acute pathology. 2. Additional findings, as above. Head CT: FINDINGS: Brain: Patchy areas of hypoattenuation in the periventricular and subcortical white matter, consistent with chronic small vessel ischemic disease. No CT evidence of acute intracranial hemorrhage or acute territorial infarction. No significant mass effect or midline shift. Basal cisterns patent. Cerebral ventricles: Prominence of the cortical sulci, cisterns and ventricular system, consistent with cerebral and cerebellar volume loss. Paranasal sinuses: Unremarkable. No fluid levels. Mastoid air cells: Grossly unremarkable. Bones/joints: No acute osseous abnormality. Soft tissues: Grossly unremarkable. IMPRESSION: 1. No CT evidence of acute intracranial pathology. 2. Additional findings, as above. CT Abd/pelvis: FINDINGS: Liver: Mild hepatomegaly. Diffuse hepatic steatosis. Gallbladder and bile ducts: Cholelithiasis. Pancreas: Diffuse pancreatic atrophy. Spleen: Unremarkable. Adrenal glands: Normal. No mass. Kidneys and ureters: No mass. No radiodense calculi. No hydronephrosis. Stomach and bowel: Colonic diverticulosis without evidence of diverticulitis. No obstruction. No bowel wall thickening. No pneumatosis. Appendix: Normal. Intraperitoneal space: No free fluid. No organized fluid collection. No free air. Vasculature: Mild atherosclerotic disease. No aneurysm. Lymph nodes: Mildly prominent right iliac chain and inguinal lymph nodes, likely reactive. Urinary bladder: Unremarkable as visualized. Reproductive: Unremarkable. Bones/joints: No acute osseous abnormality. Osteopenia. Degenerative changes. Soft tissues: Diffuse skin thickening and subcutaneous edema in the anterior abdominal wall, compatible with cellulitis. Fat containing umbilical hernia. IMPRESSION: 1. Limited noncontrast examination. 2. Diffuse skin thickening and subcutaneous edema in the anterior abdominal wall, compatible with cellulitis. 3. Mildly prominent right iliac chain and inguinal lymph nodes, likely reactive. 4. Additional findings, as above. Chest CT: FINDINGS: Lungs: Mild peribronchial thickening, suggestive of airway inflammation. Mild linear stranding and groundglass, likely due to atelectasis and/or scarring. No focal consolidation. Pleural spaces: Unremarkable. No pneumothorax. No pleural effusion. Heart: Mild cardiomegaly. Pulmonary arteries: Dilatation of the main pulmonary artery segments, suggesting pulmonary hypertension. Aorta: Mild atherosclerotic disease. No aneurysm. Lymph nodes: No pathologically enlarged lymph nodes. Bones/joints: No acute osseous abnormality. Osteopenia. Degenerative changes. Soft tissues: Unremarkable. IMPRESSION: 1. Limited noncontrast examination. 2. Mild cardiomegaly. 3. Dilatation of the main pulmonary artery segments, suggesting pulmonary hypertension. 4. Additional findings, as above. 08/08 CXR: The patient is rotated somewhat to the right. Right IJ line is been inserted with its tip in the superior vena cava. There is no visible pneumothorax. Monitoring electrodes are seen. There is moderate to marked cardiomegaly. Pulmonary vascular congestion is seen. No pleural effusion or pulmonary edema.. IMPRESSION: Right IJ line in the region of the SVC. No complications seen. Cardiomegaly.. MICROBIOLOGY: Please see below. ASSESSMENT: 69 y/o W with a history of pvd, hld, a-fib, htn, dvt, hernan on cpap, gerd, IDDM2, ckd4 who was brought to the ED by home health aid who noted her to have fevers and admitted for sepsis 2/2 UTI and panniculitis, metabolic encephalopathy and DOMINGA on CKD with course c/b jovani septic shock. PLAN: Septic shock 2/2 UTI, panniculitis and infected LLE ulcer - Fever of 100.6, tachycardia of 119, leukocytosis of 37.5 and infection in urine and soft tissue met sepsis criteria, then she had persistent hypotension despite aggressive fluid resuscitation and end organ damage with DOMINGA and oliguria - s/p >7L NS - On vanc/cefepime. - Wound culture growing group A strep - 08/08 AM blood cultures growing GPCs in pairs and clusters, f/u speciation - f/u UCx - tylenol PRN for fevers - MAP goal >65, on levophed Purulent L ulcer: -On vanc/cefepime -consulted gen surgery Metabolic encephalopathy: i/s/o sepsis, improving -treatment of sepsis as noted above DOMINGA on CKD4: improving - Patients cr was 2.6 up from baseline of around 2, now close to baseline - Likely pre-renal d/t sepsis. - No renal obstruction on ct imaging. - s/p fluids - Will hold at home arb and diuretics for now - Will trend renal function Troponinemia - Likely secondary to sepsis and prolonged tachycardia. No evidence of ACS - Has trended down from 0.18 to 0.16 History of A-fib - Patient not currently in RVR - Will continue at home digoxin and metoprolol - currently on ppx dosing heparin. Refuses full anticoagulation. - Telemetry DM2 - sliding scale, hypoglycemic protocol, FSBG AC/HS - continue asa HTN - holding losartan and lasix for now d/t dominga and hypotension HLD - continue atorvastatin DVT prophylaxis: currently on heparin SC VS,Fishbone, I+O VS, Fishbone, I+O Laboratory Tests 08/09/20 04:20 Vital Signs Date Time Temp Pulse Resp B/P (MAP) Pulse Ox O2 Delivery O2 Flow Rate FiO2 08/09/20 06:30 102 114/53 (73) 88 Room Air 08/09/20 04:00 97.6 20 I&O- Last 24 Hours up to 6 AM 08/09/20 06:00 Intake Total 6717 ml Output Total 970 ml Balance 5747 ml RADHA SIERRA MD Aug 09, 2020 08:11
--- NOTE | 2020-08-09 16:47 | ECGEPIP ---
[facility] - ED Test Date: 2020-08-08 Pat Name: ZARINA MILLER Department: Room: [place] [address] Gender: Female Financial Reporting Specialist: Sugey BUSBY : 1950 Requested By: CHACE Kaur Order Number: [id number] Reading MD: Chantel Marks Measurements Intervals [place] Rate: 113 P: [place]: QRS: -51 QRSD: 94 T: 144 QT: 360 QTc: 493 Interpretive Statements Atrial fibrillation with rapid ventricular response with premature ventricular or aberrantly conducted complexes Left axis deviation Incomplete right bundle branch block Anteroseptal infarct , age undetermined ST & T wave abnormality, consider ischemia increased rate 04/22/20 Electronically Signed on 08-09-2020 16:46:46 EDT by Chantel Marks
[2020-08-09] MEDS: VANCOMYCIN HCL 750 MG, VIAL MATE ADAPTER 1 EACH in NS 250 ML IV SCH ×2 (20:18→22:04)
[2020-08-09] MEDS: ATORVASTATIN 20 MG TAB PO SCH (20:19)
[2020-08-09] MEDS: METOPROLOL TART 12.5 MG PER 1/2 TAB PO SCH (20:19)
[2020-08-09] MEDS: ACETAMINOPHEN TAB 650MG DOSE (2X325MG) PO PRN (20:19)
[2020-08-10] VITALS: BP 119/62
[2020-08-10] MEDS: NS 1,000 ML IV SCH (02:21)
[2020-08-10 04:00] VITALS: BP 122/61
[2020-08-10] MEDS: HEPARIN SOD (PORCINE) 5000UNITS/ML 1ML VIAL/SYRINGE SQ SCH ×3 (05:00→21:11)
[2020-08-10 05:14] LABS: HEMATOCRIT 32.9 % (36.0-47.0); HEMOGLOBIN 10.2 g/dl (12.0-15.5); MEAN CORPUSCULAR HEMOGLOBIN 27.6 pg (27.0-33.0); MEAN CORPUSCULAR VOLUME 89.2 fl (80.0-96.0); PLATELET COUNT, AUTOMATED 251 10^3/uL (150-450); RED BLOOD COUNT 3.69 10^6/uL (4.00-5.40); WHITE BLOOD COUNT 11.4 10^3/uL (4.0-10.0)
[2020-08-10 05:28] LABS: ALBUMIN 1.8 GM/DL (3.2-5.2); BILIRUBIN,TOTAL 0.6 MG/DL (0.2-1.0); CALCIUM LEVEL 7.7 MG/DL (8.8-10.2); CREATININE FOR GFR 1.81 MG/DL (0.55-1.30); GLOMERULAR FILTRATION RATE 29.3 (>39); MAGNESIUM LEVEL 2.1 MG/DL (1.8-2.4); POTASSIUM SERUM 4.6 MEQ/L (3.5-5.1); TOTAL PROTEIN 6.1 GM/DL (6.4-8.2)
[2020-08-10 08:22] VITALS: BP 146/93
[2020-08-10] MEDS: ASPIRIN 81MG ENTERIC TABLET PO SCH (08:33)
[2020-08-10] MEDS: HumaLOG INSULIN (NovoLOG) PER UNIT SC SCH ×4 (08:33→21:00)
[2020-08-10] MEDS: METOPROLOL TART 12.5 MG PER 1/2 TAB PO SCH ×2 (08:33→21:12)
[2020-08-10] MEDS: CEFEPIME HCL 2 GM in D5W 50 ML IV SCH (08:33)
[2020-08-10] MEDS: NYSTATIN 100,000 UNITS/GM TOPICAL PWD 15 GM TOP SCH ×2 (08:34→21:13)
[2020-08-10] MEDS: DOCUSATE SODIUM 100MG CAPSULE PO SCH (08:34)
[2020-08-10] MEDS: DIGOXIN 0.125 MG TAB PO SCH (08:34)
[2020-08-10 11:50] VITALS: BP 164/79
[2020-08-10] MEDS ORDERED: LIDOCAINE 1% MDV 20ML VIAL As Ordered ONE (11:50)
--- NOTE | 2020-08-10 12:38 | IPNPDOC ---
Subjective Date Seen The patient was seen on 08/10/20. Subjective Chief Complaint/HPI Sitting up by the side of the bed. Complains of bilateral leg pain right worse than the left, right back of the thigh pain. No fevers. Denies any SOB. Objective Physical Examination General Exam: Positive: Alert, Cooperative, No Acute Distress Eye Exam: Positive: PERRLA, Conjunctiva & lids normal, EOMI; Negative: Sclera icteric ENT Exam: Positive: Atraumatic, Mucous membr. moist/pink, Pharynx Normal Chest Exam: Positive: Diminished, Other (bilateral basal crackles) Heart Exam: Positive: Rate Normal, Irregular Rhythm, Normal S1, Normal S2; Negative: Murmurs, Rubs Telemetry: Positive: Atrial fibrillation Abdomen Exam: Positive: Normal bowel sounds, Soft; Negative: Tenderness, Hepatospenomegaly Extremity Exam: Positive: Edema (both legs), Tenderness (right), Swelling Assessment /Plan Assessment 69 y/o W with a history of pvd, hld, a-fib, htn, dvt, hernan on cpap, gerd, IDDM2, ckd4 who was brought to the ED by home health aid who noted her to have fevers and admitted for septic shock 2/2 UTI, bilateral leg infected wounds, panniculitis, metabolic encephalopathy and DOMINGA on CKD. Septic shock 2/2 UTI, panniculitis and infected right LE ulcer urine culture with ESBL Ecoli Wound culture growing group A strep 6/13 AM blood cultures growing GPCs in pairs and clusters, f/u speciation meropenem and vacomycin. ID consult Off levophed now. ESBL Ecoli meropenem Infected Panniculitis group A strep from pus in panniculits. Bilateral lower extremity ulcers with surrounding cellulitis and chronic stasis dermatitis and lymphedema Right 3x5 and left abut 1 x 1 consulted gen surgery, no need for debridement at present. wounds do not look infected at present. Metabolic encephalopathy: i/s/o sepsis, improving DOMINGA on CKD4: improving Patients cr was 2.6 up from baseline of around 2, now close to baseline Likely d/t sepsis on the back ground of ARB and diuretic No renal obstruction on ct imaging. Will hold at home arb and diuretics for now Troponinemia Likely secondary to sepsis and prolonged tachycardia. No evidence of ACS Has trended down from 0.18 to 0.16 Chronic A-fib home digoxin and metoprolol currently on ppx dosing heparin. Refuses full anticoagulation. DM2 sliding scale, hypoglycemic protocol, FSBG AC/HS continue asa HTN holding losartan and lasix for now d/t dominga started on metoprolol. HLD continue atorvastatin Plan/VTE VTE Prophylaxis Ordered?: Yes VS, I&O, 24H, Fishbone Vital Signs/I&O Vital Signs Date Time Temp Pulse Resp B/P (MAP) Pulse Ox O2 Delivery O2 Flow Rate FiO2 08/10/20 08:34 107 08/10/20 08:33 146/93 08/10/20 08:22 97.3 22 93 Room Air I&O- Last 24 Hours up to 6 AM 08/10/20 06:00 Intake Total 5660 ml Output Total 1535 ml Balance 4125 ml Laboratory Data 24H LABS Laboratory Tests 2 08/09/20 12:27: Bedside Glucose (Misc Panel) 162H 08/09/20 17:22: Bedside Glucose (Misc Panel) 148H 08/09/20 20:04: Vancomycin Level Trough 14.4 08/09/20 20:47: Bedside Glucose (Misc Panel) 139H 08/10/20 04:45: Nucleated Red Blood Cells % (auto) 0.0, Anion Gap 8, Glomerular Filtration Rate 29.3L, Calcium Level 7.7L, Magnesium Level 2.1, Total Bilirubin 0.6, Aspartate A himanshu Transf (AST/SGOT) 29, Alanine Aminotransferase (ALT/SGPT) 29, Alkaline Phosphatase 201H, Total Protein 6.1L, Albumin 1.8L, Albumin/Globulin Ratio 0.4L 08/10/20 11:37: Bedside Glucose (Misc Panel) 156H CBC/BMP Laboratory Tests 08/10/20 04:45 Microbiology Microbiology 08/08/20 Blood Culture - Preliminary, Resulted No growth after 24 hours . All specim... 08/08/20 Wound Culture - Final, Complete Streptococcus Pyogenes Grp A Corynebacterium Species 08/08/20 Urine Culture - Final, Complete Klebsiella Pneumoniae Esbl 08/07/20 Blood Culture - Preliminary, Resulted 08/07/20 Blood Culture - Preliminary, Resulted BLAIRE FLANNERY MD Aug 10, 2020 12:38
[2020-08-10] MEDS ORDERED: ISOVUE-300 61% 50ML VIAL As Ordered ONE (13:48)
[2020-08-10] MEDS: MEROPENEM INJ 1 GM in IV 1 EA IV SCH (15:03)
[2020-08-10 16:00] VITALS: BP 138/67
[2020-08-10] MEDS: SODIUM CHLORIDE 0.9% INJ 10 ML SYR IV SCH (18:00)
--- NOTE | 2020-08-10 18:56 | REP ---
PROCEDURE NAME: PICC LINE INSERTION W/SITERITE CLINICAL INFORMATION: poor venous access. COMPARISON: None. PROCEDURE DESCRIPTION: The procedure was performed by STEPHANIE Bates, under the direct supervision of Dr. Brown. The risks and benefits of the procedure were explained to the patient and an informed consent was obtained both verbally and written. Directly prior to the start of the procedure a formal time-out was completed in the procedure room. The right basilic vein was localized using ultrasound guidance. The skin was prepped and draped in sterile fashion. One mL of 1% lidocaine 10 mg/mL was used as a local anesthetic. Using ultrasound guidance the right basilic vein was cannulated, and a 0.018 guidewire was inserted and advanced to the level of SVC using fluoroscopic guidance. The needle was removed and a 5.5 Cuban dilator and peel-away sheath was inserted over the guidewire. A 5.5 Cuban dual lumen catheter was cut to a length of 37 cm. Well inserting the catheter over the guidewire a stenosis was encountered and the catheter was unable to be advanced into the SVC, the patient was not very tolerance of the procedures of the decision was made to cut the PICC line shorter with the tip ending in the mid subclavian vein. The peel-away sheath was removed and the catheter was flushed with heparinized saline as per hospital protocol. The catheter was affixed to the skin and a sterile dressing was applied. The patient tolerated the procedure well and there were no immediate complications. CONCLUSION: PICC line insertion into the left basilic vein, with the tip ending in the mid subclavian vein. 1.1 minutes of fluoroscopy time was utilized for this procedure. Some fluoroscopic images are performed with last image hold technology. These images require no additional radiation. <Electronically signed by Carol Selby > 08/10/20 [id number] <Electronically signed by Alonso Brown > 08/10/20 [id number]
[2020-08-10 20:00] VITALS: BP 148/77
[2020-08-10] MEDS: ACETAMINOPHEN TAB 650MG DOSE (2X325MG) PO PRN (21:11)
[2020-08-10] MEDS: SODIUM BICARBONATE 325 MG TAB PO SCH (21:11)
[2020-08-10] MEDS: ATORVASTATIN 20 MG TAB PO SCH (21:12)
[2020-08-11] VITALS (12 sets, daily range): BP systolic 115–145; BP diastolic 55–78
[2020-08-11] MEDS: MEROPENEM INJ 1 GM in IV 1 EA IV SCH ×2 (00:43→15:14)
[2020-08-11] MEDS ORDERED: RAMELTEON 8 MG TAB (ROZEREM) PO ONE (02:15)
[2020-08-11 05:44] LABS: HEMATOCRIT 34.4 % (36.0-47.0); HEMOGLOBIN 10.6 g/dl (12.0-15.5); MEAN CORPUSCULAR HEMOGLOBIN 27.3 pg (27.0-33.0); MEAN CORPUSCULAR HGB CONC 30.8 g/dl (32.0-36.5); MEAN CORPUSCULAR VOLUME 88.7 fl (80.0-96.0); PLATELET COUNT, AUTOMATED 274 10^3/uL (150-450); RED BLOOD COUNT 3.88 10^6/uL (4.00-5.40); WHITE BLOOD COUNT 9.7 10^3/uL (4.0-10.0)
[2020-08-11 06:19] LABS: ALBUMIN 2.1 GM/DL (3.2-5.2); BILIRUBIN,TOTAL 0.5 MG/DL (0.2-1.0); CALCIUM LEVEL 8.2 MG/DL (8.8-10.2); CREATININE FOR GFR 1.67 MG/DL (0.55-1.30); GLOMERULAR FILTRATION RATE 32.2 (>39); POTASSIUM SERUM 4.9 MEQ/L (3.5-5.1); TOTAL PROTEIN 6.7 GM/DL (6.4-8.2)
[2020-08-11] MEDS: HEPARIN SOD (PORCINE) 5000UNITS/ML 1ML VIAL/SYRINGE SQ SCH ×3 (06:23→20:58)
[2020-08-11] MEDS: SODIUM CHLORIDE 0.9% INJ 10 ML SYR IV SCH ×2 (06:23→18:58)
--- NOTE | 2020-08-11 08:15 | CR ---
CONSULTATION DATE: 08/10/2020 REQUESTING PHYSICIAN: Leonarda Mcduffie M.D. REASON FOR CONSULTATION: Acute kidney injury superimposed on CKD in the setting of septic shock. HISTORY OF PRESENT ILLNESS: Mrs. Luli Guillaume is known to me from previous hospitalization. She is a 69-year-old female with a past medical history of CKD Stage IV who does not follow-up with Nephrology as an outpatient and who has decided against any aggressive measures such as dialysis. She has a significant cardiac history of atrial fibrillation and right heart failure with severe pulmonary hypertension, also a history of obesity, diabetes mellitus, hypertension, leg ulcers, and other comorbid conditions mentioned below. Patient was admitted to [facility] on August 07 with septic shock secondary to urinary tract infection (ESBL E. coli), bacteremia, infected leg wounds, metabolic encephalopathy and acute kidney injury superimposed on CKD Stage IV. Her creatinine on admission was 2.6. She received very aggressive IV fluids, 7 liters the first day of admission and about 4 liters on the second day of admission, and her creatinine today is down to 1.8 and Nephrology evaluation was requested for help in the management of her chronic renal failure. Patient is seen and examined at the bedside in the ICU today. She has come off of Levophed pressure support. She denies any shortness of breath while sitting in the chair. PAST MEDICAL HISTORY: CKD Stage IV (patient does not want dialysis and does not want outpatient Nephrology follow-up), peripheral vascular disease, dyslipidemia, atrial fibrillation, hypertension history of DVT, sleep apnea, GERD, insulin dependent diabetes mellitus Type 2, congestive heart failure, hypoalbuminemia, gout, severe pulmonary hypertension, history of endometrial adenocarcinoma, chronic venous insufficiency, depression, obesity, GERD. PAST SURGICAL HISTORY: Tonsillectomy, tracheostomy, D and C, right knee skin graft. 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 She denies tobacco use. She reports only rare alcohol intake. Denies drug use. PCP is Viry Atkins and patient refuses specialist care as an outpatient. FAMILY HISTORY: Father of coronary artery disease, CHF and renal failure. Mother of renal failure. ALLERGIES: Wool, aminoglycoside, Bacitracin, dextromethorphan, guaifenesin, Neomycin Polymixin B. HOME MEDICATIONS: Reviewed and include: 1. Allopurinol 100 mg daily. 2. Aspirin 81 mg daily. 3. Atorvastatin 40 mg p.o. q.h.s. 4. Digoxin 125 mcg p.o. daily. 5. Lasix 40 mg daily. 6. Insulin. 7. Losartan 50 mg p.o. daily. 8. Metoprolol 25 mg p.o. b.i.d. 9. Megestrol 40 mg p.o. b.i.d. REVIEW OF SYSTEMS: Constitutional: She reports weakness and fatigue. Eyes: She denies visual changes or tearing. ENT: Denies dysphagia or rhinorrhea. Cardiac: She has a history of congestive heart failure. She reports chronic leg edema and edema in the abdominal pannus. She denies chest pain. She reports atrial fibrillation. Respiratory: She denies shortness of breath at rest. She has sleep apnea. Gastrointestinal: She denies nausea, vomiting or diarrhea. Genitourinary: She reports Jain catheter and urinary tract infections. Musculoskeletal: She reports a history of gout. She reports generalized weakness. She reports leg swelling. Endocrine: She reports diabetes. Hematologic: She denies anticoagulant use. She has a history of DVT. Neurologic: She denies seizure or syncope. Psychiatric: She reports depression. Skin: She reports cellulitis of the abdominal pannus. She reports leg wounds. The remainder of review of systems is negative or as per HPI. PHYSICAL EXAMINATION: VITAL SIGNS: Temperature is 98.0, pulse is 96, respiratory rate 20, blood pressure is 138/67, saturating 92% on room air. GENERAL: Patient is seen sitting in the chair in the Intensive Care Unit awake, alert and oriented x3, interactive, conversational, in no apparent distress. HEENT: Extraocular muscles are intact. Tongue is moist. NECK: Supple. Jugular veins look elevated. HEART: Heart sounds are irregularly irregular. LUNGS: Diminished breath sounds at the bases but there is no crackle nor wheeze. She is comfortable on room air. ABDOMEN: Soft and obese. She has induration and pitting edema of the abdominal pannus. EXTREMITIES: Bilateral pitting edema, more so in the right leg than the left. She has dressings on her leg wounds. GENITOURINARY: Jain catheter. NEUROLOGIC: She moves all four extremities on command. She is oriented x3. She is conversational and cooperative with physical exam. LABORATORY DATA: Sodium 137, potassium 4.6, bicarbonate 15, BUN 50, creatinine 1.8. Albumin 1.8. Hemoglobin 10.2, platelets 251,000, white count 11.4. Blood culture on admission on August 07: Gram positive cocci in pairs and cluster. Repeat blood culture August 08: No growth for 48 hours. Urine culture: ESBL Klebsiella. Chest x-ray done August 08 shows pulmonary vascular congestion. CT of the abdomen and pelvis August 08: Kidneys: No mass, no calculi, no hydronephrosis. Bladder is unremarkable as visualized. INPATIENT MEDICATIONS: She had received aggressive IV fluid earlier during this hospitalization. She was also previously requiring Levophed infusion, however now she is no longer on any IV fluid and is also not requiring pressor support. She is on Meropenem 1 gram IV b.i.d., Tylenol p.r.n., Mylanta p.r.n., aspirin 81 mg p.o. daily, Lipitor 40 mg p.o. q.h.s., Digoxin 0.125 mg p.o. daily, Heparin 5000 units sub q. q. 8 hourly, insulin, metoprolol 12.5 mg p.o. b.i.d. PROBLEMS: 1. CKD Stage IV. Patient's baseline creatinine is around 2.0. Her renal function is at baseline or even a little bit better than baseline. She is also in mild to moderate fluid overload. She received more than 10 liters of IV fluid on this admission because of septic shock. She is going to need to be diuresed but I will hold off on starting diuretics for today. She is respiring well on room air. 2. History of congestive heart failure. Echocardiogram from March 2020 is reviewed. Diastolic function could not be assessed because of arrhythmia but she did have severe pulmonary hypertension and dilated right heart chamber with hypokinesis consistent with right ventricular heart failure. She received more than 10 liters of IV fluid on this admission because of septic shock. She takes Lasix at home. She is going to need to be diuresed at some point but I am going to hold off on putting her on any diuretics today given very recent severe septic shock. 3. Metabolic acidosis. Serum bicarbonate is 15. She is not suitable for any sort of bicarbonate containing IV fluids because of a history of heart failure and already a large amount of IV fluids have been given. I put her on oral sodium bicarbonate tablets. 4. Recent septic shock secondary to Klebsiella ESBL UTI with bacteremia panniculitis and infected leg ulcer. Her repeat cultures from August 08 now have no growth for 48 hours. The initial blood cultures on August 07 were positive for two sets. Antibiotics are per primary service. Her white count has come down significantly from 37 three days ago down to white count of 11 today. She has been also off of Levophed since the . Her blood pressures are now systolic 120s to 140s. I think we can hold off on starting diuretic today with plan to resume from tomorrow. 5. Chronic atrial fibrillation, she continues on metoprolol and Digoxin. She refuses full anticoagulation. 6. Hypertension. I agree with holding her home Losartan. She continues on metoprolol. 7. Hypoalbuminemia. High protein diet is encouraged. She may also end up needing some albumin when we resume her on diuretic.
[2020-08-11] MEDS: METOPROLOL TART 12.5 MG PER 1/2 TAB PO SCH ×2 (08:49→20:57)
[2020-08-11] MEDS: SODIUM BICARBONATE 325 MG TAB PO SCH ×2 (08:49→20:57)
[2020-08-11] MEDS: HumaLOG INSULIN (NovoLOG) PER UNIT SC SCH ×4 (08:49→20:57)
[2020-08-11] MEDS: ASPIRIN 81MG ENTERIC TABLET PO SCH (08:49)
[2020-08-11] MEDS: DIGOXIN 0.125 MG TAB PO SCH (08:50)
[2020-08-11] MEDS: NYSTATIN 100,000 UNITS/GM TOPICAL PWD 15 GM TOP SCH ×2 (08:50→20:58)
--- NOTE | 2020-08-11 10:39 | IPNPDOC ---
Subjective Date Seen The patient was seen on 08/11/20. Subjective Chief Complaint/HPI feeling better, sitting up in chair. No fever or chills. No sob. Objective Physical Examination General Exam: Positive: Alert, Cooperative, No Acute Distress Eye Exam: Positive: PERRLA, Conjunctiva & lids normal, EOMI; Negative: Sclera icteric ENT Exam: Positive: Atraumatic, Mucous membr. moist/pink, Pharynx Normal Chest Exam: Positive: Diminished, Other (bilateral basal crackles) Heart Exam: Positive: Rate Normal, Irregular Rhythm, Normal S1, Normal S2; Negative: Murmurs, Rubs Telemetry: Positive: Atrial fibrillation Abdomen Exam: Positive: Normal bowel sounds, Soft; Negative: Tenderness, Hepatospenomegaly Extremity Exam: Positive: Edema (both legs), Tenderness (right), Swelling Assessment /Plan Assessment 69 y/o W with a history of pvd, hld, a-fib, htn, dvt, hernan on cpap, gerd, IDDM2, ckd4 who was brought to the ED by home health aid who noted her to have fevers and admitted for septic shock 2/2 UTI, bilateral leg infected wounds, panniculitis, metabolic encephalopathy and DOMINGA on CKD. Septic shock 2/2 UTI, panniculitis and infected right LE ulcer shock has now resolved. urine culture with ESBL klebsiella Wound culture growing group A strep 6/13 AM blood cultures growing staph capitis Only On meropenem now. ID consult appreciated. ESBL klebsiella meropenem Infected Panniculitis group A strep from pus in panniculits. Bilateral lower extremity ulcers with surrounding cellulitis and chronic stasis dermatitis and lymphedema, stasis rubor Right 3x5 and left about 1 x 1 consulted gen surgery, no need for debridement at present. wounds do not look infected at present. Metabolic encephalopathy due to septis now resolved. DOMINGA on CKD4: improved. baseline is about 2.0, now creatinine better than baseline likely due to some dilution. Has received massive amounts of fluids for septic shock. No renal obstruction on ct imaging. Renal consult appreciated. will be started on diuresis with lasix and albumin continue to hold arbs Troponinemia Likely secondary to sepsis and prolonged tachycardia. No evidence of ACS Has trended down from 0.18 to 0.16 Chronic A-fib home digoxin and metoprolol currently on ppx dosing heparin. Refuses full anticoagulation. DM2 sliding scale, hypoglycemic protocol, FSBG AC/HS continue asa HTN holding losartan started on metoprolol. HLD continue atorvastatin Plan/VTE VTE Prophylaxis Ordered?: Yes VS, I&O, 24H, Fishbone Vital Signs/I&O Vital Signs Date Time Temp Pulse Resp B/P (MAP) Pulse Ox O2 Delivery O2 Flow Rate FiO2 08/11/20 08:50 87 08/11/20 08:49 138/73 08/11/20 04:00 97.9 22 94 Room Air I&O- Last 24 Hours up to 6 AM 08/11/20 06:00 Intake Total 1230 ml Output Total 1590 ml Balance -360 ml Laboratory Data 24H LABS Laboratory Tests 2 08/10/20 11:37: Bedside Glucose (Misc Panel) 156H 08/10/20 16:56: Bedside Glucose (Misc Panel) 157H 08/10/20 21:03: Bedside Glucose (Misc Panel) 171H 08/11/20 05:32: Nucleated Red Blood Cells % (auto) 0.0, Anion Gap 8, Glomerular Filtration Rate 32.2L, Calcium Level 8.2L, Magnesium Level 2.0, Total Bilirubin 0.5, Aspartate Amino Transf (AST/SGOT) 26, Alanine Aminotransferase (ALT/SGPT) 31, Alkaline Phosphatase 281H, [id number]-Type Natriuretic Peptide 40978J, Total Protein 6.7, Albumin 2.1L, Albumin/Globulin Ratio 0.5L CBC/BMP Laboratory Tests 08/11/20 05:32 Microbiology Microbiology 08/08/20 Blood Culture - Preliminary, Resulted No Growth after 48 hours. All Specime... 08/08/20 Wound Culture - Final, Complete Streptococcus Pyogenes Grp A Corynebacterium Species 08/08/20 Urine Culture - Final, Complete Klebsiella Pneumoniae Esbl 08/07/20 Blood Culture - Final, Complete Staphylococcus Capitis 08/07/20 Blood Culture - Final, Complete Staphylococcus Capitis BLAIRE FLANNERY MD Aug 11, 2020 10:39
--- NOTE | 2020-08-11 11:06 | CR ---
CONSULTATION DATE: 08/10/2020 REASON FOR CONSULTATION: Group A Strep septic shock from right lower extremity cellulitis and ESBL urinary tract infection. HISTORY OF PRESENT ILLNESS: Mrs. Guillaume is a 69-year-old female with morbid obesity who was admitted on August 08 after she had developed a fever and chills. The patient does not complain of anything other than that. She denied having any nausea, vomiting, abdominal pain. She was confused on arrival with a white count of 37,000. She was tachycardic, 110 and a temperature of 100.6. Her urinalysis had pyuria and she had cellulitis involving her pannus and her right lower extremity. The patient has a right leg ulceration just above the lateral malleolus that has been followed up by Dr. Dickson. PAST MEDICAL HISTORY: 1. Peripheral vascular disease. 2. Hyperlipidemia. 3. Atrial fibrillation. 4. Hypertension. 5. DVT. 6. Obstructive sleep apnea on CPAP. 7. Gastroesophageal reflux disease. 8. Insulin dependent diabetes. 9. Chronic kidney disease stage 4 with a baseline of creatinine around 2. 10. Morbid obesity. 11. Recurrent cellulitis. PAST SURGICAL HISTORY: Tracheostomy. SOCIAL HISTORY: She lives alone at home. She has some neighbor who helps her. She has a history of alcohol abuse. The patient states she uses the walker to walk at home and uses her wheelchair. She has a car and supposedly she drives but not for the past two weeks. After she fell, her right foot and leg have been numb. FAMILY HISTORY: Nonrevealing. ALLERGIES: WOOL, AMINOGLYCOSIDE, BACITRACIN, DEXTROMETHORPHAN, NEOMYCIN, POLYMYXIN B. MEDICATIONS: 1. Sodium bicarb 325 mg p.o. b.i.d. 2. Meropenem 1 gm IV every 12 hours renally dosed. 3. Vancomycin 1.5 gm IV q.24 hours. She received a total of two doses on 08/08 and 08/09. 4. Insulin sliding scale. 5. Metoprolol 12.5 mg p.o. b.i.d. 6. Atorvastatin 40 mg p.o. q.h.s. at night. 7. Nystatin one dose topical b.i.d. 8. Digoxin 0.125 mg p.o. daily. 9. Aspirin 81 mg p.o. daily. 10. Cefepime 2 gm IV q.12 hours from 08/08 to 08/10. 11. Milk of Magnesia p.r.n. LABORATORY DATA: White count was 37.5 on admission on August 07. On August 10 today, it was 11.4, hemoglobin 10.2, hematocrit 32.9, platelets 251. Sodium 137, potassium 4.6, chloride 114, bicarb 15, BUN 50, creatinine 1.81, glucose 141, calcium 7.7, magnesium 2.1, bilirubin 0.6. AST 29, ALT 20, alk phos 201. CPK 551. Troponin 0.15, total protein 6.1, albumin 1.8. TSH 3.55. Urine culture has Klebsiella ESBL sensitive only to meropenem, ertapenem, Zosyn and tigecycline. Wound culture from the right lateral foot had group A Strep and Corynebacterium species and blood cultures, two sets from admission have gram positive cocci in pairs and clusters and on August 08, blood culture is negative. PHYSICAL EXAMINATION: General: She is an elderly female, morbidly obese, in no acute distress. She is alert and oriented x3. Vital Signs: Temperature is 98, pulse 96, respirations 20, O2 sat 92% on room air, blood pressure 138/67. Heart: Normal S1, S2, irregular, no murmurs appreciated. Lungs: Clear. No wheezes, rales or rhonchi. Abdomen: Morbidly obese, soft, nontender, very large pannus with mild erythema underneath the pannus with some serous drainage. Bilateral erythema in the groin areas. Extremities: Right lower extremity significantly swollen, tender to touch, erythematous with cellulitis. Left leg with no cellulitis. Right leg laterally just above the medial malleolus, there is a 4 x 2 cm ulceration with some granulation tissue and purulent discharge. Neurologic: She is alert and oriented x3. She moves upper extremities with 5/5 strength, lower extremities 4/5 strength but she states that her right leg below the knee is numb. She has more weakness with dorsiflexion on the right thigh. RADIOLOGY: PICC line was placed today in her right arm. She has pulled her IJ catheter. Chest x-ray shows no visible pneumothorax, moderate to marked cardiomegaly, pulmonary venous congestion, no pleural effusion noted. Right IJ in the SVC. Chest CT, 08/08 showed pulmonary hypertension, mild atherosclerosis, no aneurysm, limited due to body habitus. CT of abdomen and pelvis done on 08/08 showed no mass, no hydronephrosis, diffuse skin thickening and subcutaneous edema in the anterior abdominal wall compatible with cellulitis and right inguinal lymph node. IMPRESSION: This is a 69-year-old female with a chronic right lower extremity ulceration who was admitted with group A Strep septic shock, was on pressors on admission but now has improved. She had severe leukocytosis now down from 37,000 to 11,000. She is afebrile and was clinically doing much better. The patient is incontinent of urine and stools and has a Jain catheter. She has received cefepime and vancomycin for 48 hours, currently on meropenem and vancomycin. She does not need vancomycin. Bacteremia is from group A Strep. PLAN: Discontinue IV vancomycin. Continue meropenem to cover for ESBL Klebsiella in the urine although I am not sure she has symptomatic urinary tract infection. Most likely the reason for her admission is her cellulitis involving the pannus and her right lower extremity. Group A Strep will be covered by meropenem as well. The patient needs diuresis, has severe edema, wheezing I suspect she is developing some congestive heart failure. [facility]
[2020-08-11] MEDS: FUROSEMIDE 40MG/4ML VIAL (J1940) IV SCH ×2 (12:00→16:50)
[2020-08-11] MEDS: ATORVASTATIN 20 MG TAB PO SCH (20:56)
[2020-08-11] MEDS: IPRATROPIUM 0.5MG/ALBUTEROL 2.5MG INH SOL UD 3ML (DUONEB) NEB PRN (21:59)
--- NOTE | 2020-08-11 23:42 | IPN ---
NEPHROLOGY PROGRESS NOTE DATE: 08/11/2020 SUBJECTIVE: Luli is seen and examined this morning in the Intensive Care Unit. She is sitting out of bed to the chair. She reports she continues to feel weak but overall much better since she was admitted. She denies any shortness of breath at rest. She remains afebrile and hemodynamically stable. OBJECTIVE: PHYSICAL EXAMINATION: VITAL SIGNS: Temperature 96.9, pulse 84, respiratory rate 16, blood pressure 128/60, saturating 95-97% on room air. INTAKE AND OUTPUT: Intake yesterday was 2 liters. Urine output yesterday was 1,620. Weight in the bed scale today is 121 kg which is up about 10 kg over the past couple of days. GENERAL APPEARANCE: The patient is seen awake, alert, oriented x3, sitting up in the chair in no distress. HEENT: The extraocular muscles are intact. Tongue is moist. NECK: Supple. The jugular veins are elevated, even while she is sitting upright. HEART: Irregularly irregular. There is 2+ leg edema, more so on the right leg as compared to the left. LUNGS: Diminished breath sounds with bilateral basilar crackles. ABDOMEN: Obese and there is induration and pitting edema of the abdominal panus. GENITOURINARY: Indwelling Jain catheter. EXTREMITIES: Dressings on her legs and she has 2+ leg edema in the right lower extremity and 1+ leg edema in the left. NEUROLOGICAL: She is oriented x3, interactive, conversational. LABORATORY STUDIES: White count 9.7, hemoglobin 10.6, platelet count 274. Sodium 138, potassium 4.9, bicarbonate 15, anion gap is corrected at 12. BUN 43, creatinine 1.6. Microbiology blood cultures August 08 with no growth for 72 hours. Her initial blood cultures on August 07 show staphylococcus capitis on 2 sets. Her urine culture grew ESBL Klebsiella. CURRENT INPATIENT MEDICATIONS: The patient continues on IV Meropenem. I started her on Lasix 40 mg IV twice daily with albumin 25% 25 grams q. 12 hourly. She got a dose of Rozerem. Her remainder of medications are unchanged as compared to yesterday. PROBLEMS: 1. Decompensated congestive heart failure - The patient has known severe pulmonary hypertension and dilated right heart chamber with hypokinesis consistent with right ventricular heart failure. Her diastolic function could not be assessed on the last echocardiogram because of arrhythmia, but she probably has diastolic dysfunction as well. She received aggressive IV fluids on this admission because of septic shock. She is in moderate fluid overload. I am starting her now on IV Lasix as her sepsis has nicely resolved. She is afebrile, hemodynamically stable and white count has normalized. We will give her albumin with the Lasix for improved renal perfusion and to augment diuresis. 2. Chronic kidney disease stage 4 her baseline creatinine is around 2.0. Renal function presently is better than her usual baseline and it is because of fluid overload. We will keep an eye on renal function while she is being diuresed. 3. Metabolic acidosis her corrected gap is about 12 and I am giving her oral bicarbonate supplementation. 4. Hypoalbuminemia she has considerable third spacing of fluid. Her albumin has been less than 2. She is ordered for albumin 25% 25 grams q. 12 hourly x4 doses while she is receiving IV Lasix to help improve the oncotic pressure. 5. Chronic atrial fibrillation she is rate controlled with Metoprolol and Digoxin. She refuses full anticoagulation. 6. Status post septic shock she has blood cultures from August 07 growing staphylococcus capitis x2 sets. Repeat blood cultures August 08 are negative. She is now hemodynamically stable. Her leukocytosis has resolved. She is afebrile. She also has ESBL, Klebsiella, urine culture and positive wound culture as well. She continues on Meropenem managed by the Primary Service. 7. Hypertension we will continue to hold her home Losartan while she is being actively diuresed. She continues on Metoprolol and blood pressures are acceptable.
[2020-08-12] VITALS (9 sets, daily range): BP systolic 124–158; BP diastolic 56–79
[2020-08-12] MEDS: MEROPENEM INJ 1 GM in IV 1 EA IV SCH ×2 (00:13→12:27)
[2020-08-12 05:35] LABS: HEMATOCRIT 31.8 % (36.0-47.0); HEMOGLOBIN 9.9 g/dl (12.0-15.5); MEAN CORPUSCULAR HEMOGLOBIN 27.8 pg (27.0-33.0); MEAN CORPUSCULAR HGB CONC 31.1 g/dl (32.0-36.5); MEAN CORPUSCULAR VOLUME 89.3 fl (80.0-96.0); PLATELET COUNT, AUTOMATED 280 10^3/uL (150-450); RED BLOOD COUNT 3.56 10^6/uL (4.00-5.40); WHITE BLOOD COUNT 8.1 10^3/uL (4.0-10.0)
[2020-08-12 06:03] LABS: ALBUMIN 2.5 GM/DL (3.2-5.2); BILIRUBIN,TOTAL 0.6 MG/DL (0.2-1.0); CALCIUM LEVEL 8.1 MG/DL (8.8-10.2); CREATININE FOR GFR 1.66 MG/DL (0.55-1.30); GLOMERULAR FILTRATION RATE 32.4 (>39); MAGNESIUM LEVEL 2.1 MG/DL (1.8-2.4); POTASSIUM SERUM 4.7 MEQ/L (3.5-5.1); TOTAL PROTEIN 6.7 GM/DL (6.4-8.2)
[2020-08-12] MEDS: SODIUM CHLORIDE 0.9% INJ 10 ML SYR IV SCH ×2 (06:50→17:34)
[2020-08-12] MEDS: HEPARIN SOD (PORCINE) 5000UNITS/ML 1ML VIAL/SYRINGE SQ SCH ×3 (06:50→21:57)
[2020-08-12] MEDS: HumaLOG INSULIN (NovoLOG) PER UNIT SC SCH ×5 (07:30→21:00)
[2020-08-12] MEDS: FUROSEMIDE 40MG/4ML VIAL (J1940) IV SCH ×2 (08:46→17:33)
[2020-08-12] MEDS: ACETAMINOPHEN TAB 650MG DOSE (2X325MG) PO PRN ×2 (08:48→21:54)
[2020-08-12] MEDS: METOPROLOL TART 12.5 MG PER 1/2 TAB PO SCH ×2 (08:49→21:54)
[2020-08-12] MEDS: ASPIRIN 81MG ENTERIC TABLET PO SCH (08:49)
[2020-08-12] MEDS: SODIUM BICARBONATE 325 MG TAB PO SCH ×2 (08:49→21:54)
[2020-08-12] MEDS: DIGOXIN 0.125 MG TAB PO SCH (08:51)
[2020-08-12] MEDS: NYSTATIN 100,000 UNITS/GM TOPICAL PWD 15 GM TOP SCH ×2 (08:52→21:55)
[2020-08-12] MEDS: IPRATROPIUM 0.5MG/ALBUTEROL 2.5MG INH SOL UD 3ML (DUONEB) NEB PRN ×2 (09:06→13:51)
[2020-08-12] MEDS: SODIUM CHLORIDE 0.9% INJ 10 ML SYR IV PRN (13:44)
--- NOTE | 2020-08-12 18:56 | IPNPDOC ---
Subjective Date Seen The patient was seen on 08/12/20. Subjective Chief Complaint/HPI No new events over night. Patient is having good diuresis with albumin and lasix. Overall feeling better every day. Objective Physical Examination General Exam: Positive: Alert, Cooperative, No Acute Distress Eye Exam: Positive: PERRLA, Conjunctiva & lids normal, EOMI; Negative: Sclera icteric ENT Exam: Positive: Atraumatic, Mucous membr. moist/pink, Pharynx Normal Chest Exam: Positive: Diminished, Other (bilateral basal crackles) Heart Exam: Positive: Rate Normal, Irregular Rhythm, Normal S1, Normal S2; Negative: Murmurs, Rubs Telemetry: Positive: Atrial fibrillation Abdomen Exam: Positive: Normal bowel sounds, Soft; Negative: Tenderness, Hepatospenomegaly Extremity Exam: Positive: Edema (both legs), Tenderness (right), Swelling Assessment /Plan Assessment 69 y/o W with a history of pvd, hld, a-fib, htn, dvt, hernan on cpap, gerd, IDDM2, ckd4 who was brought to the ED by home health aid who noted her to have fevers and admitted for septic shock 2/2 UTI, bilateral leg infected wounds, panni culitis, metabolic encephalopathy and DOMINGA on CKD. Septic shock 2/2 group a streptococcus infection / toxic shock syndrome from infected panniculitis and infected right LE ulcer shock has now resolved. Abdominal Wound culture growing group A strep 6/13 AM blood cultures growing staph capitis Only On meropenem now. ID consult appreciated. ESBL klebsiella UTI meropenem Bilateral lower extremity ulcers with surrounding cellulitis and chronic stasis dermatitis and lymphedema, stasis rubor Right 3x5 and left about 1 x 1 consulted gen surgery, no need for debridement at present. wounds do not look infected at present. Metabolic acidosis on bicarb Metabolic encephalopathy due to sepsis now resolved. DOMINGA on CKD4: improved. baseline is about 2.0, now creatinine better than baseline likely due to some dilution. Has received massive amounts of fluids for septic shock. No renal obstruction on ct imaging. Renal consult appreciated. started on diuresis with lasix and albumin continue to hold arbs Troponinemia Likely secondary to sepsis and prolonged tachycardia. No evidence of ACS Chronic A-fib home digoxin and metoprolol currently on ppx dosing heparin. Refuses full anticoagulation. DM2 sliding scale, hypoglycemic protocol, FSBG AC/HS continue asa HTN holding losartan started on metoprolol. HLD continue atorvastatin Plan/VTE VTE Prophylaxis Ordered?: Yes VS, I&O, 24H, Fishbone Vital Signs/I&O Vital Signs Date Time Temp Pulse Resp B/P (MAP) Pulse Ox O2 Delivery O2 Flow Rate FiO2 08/12/20 04:49 97.8 76 22 147/67 96 Room Air I&O- Last 24 Hours up to 6 AM 08/12/20 06:00 Intake Total 1350.0 ml Output Total 3025 ml Balance -1675.0 ml Laboratory Data 24H LABS Laboratory Tests 2 08/11/20 11:55: Bedside Glucose (Misc Panel) 154H 08/11/20 16:53: Bedside Glucose (Misc Panel) 123H 08/11/20 20:54: Bedside Glucose (Misc Panel) 175H 08/12/20 05:03: Nucleated Red Blood Cells % (auto) 0.0, Anion Gap 8, Glomerular Filtration Rate 32.4L, Calcium Level 8.1L, Magnesium Level 2.1, Total Bilirubin 0.6, Aspartate Amino Transf (AST/SGOT) 22, Alanine Aminotransferase (ALT/SGPT) 27, Alkaline Phosphatase 250H, Total Protein 6.7, Albumin 2.5L, Albumin/Globulin Ratio 0.6L CBC/BMP Laboratory Tests 08/12/20 05:03 Microbiology Microbiology 08/08/20 Blood Culture - Preliminary, Resulted No Growth after 72 hours. All specime... 08/08/20 Wound Culture - Final, Complete Streptococcus Pyogenes Grp A Corynebacterium Species 08/08/20 Urine Culture - Final, Complete Klebsiella Pneumoniae Esbl 08/07/20 Blood Culture - Final, Complete Staphylococcus Capitis 08/07/20 Blood Culture - Final, Complete Staphylococcus Capitis BLAIRE FLANNERY MD Aug 12, 2020 07:50
--- NOTE | 2020-08-12 21:08 | IPN ---
INFECTIOUS DISEASE PROGRESS NOTE DATE: 08/12/2020 SUBJECTIVE: Luli seems to be doing well. She is eating her dinner and she is hungry. She denies any nausea, vomiting or diarrhea. She still has a catheter and has been diuresed with I.V. Lasix 40 mg every 12 hours. She states her shortness of breath has improved as well as her lower extremity edema. She still has pain in her right leg, but no abdominal pain. LABORATORY DATA: White count 8.1, hemoglobin 9.9, hematocrit 31.8, platelets 280,000. Sodium 138, potassium 4.7, chloride 115, bicarb 15, BUN 44, creatinine 1.66, glucose 155, calcium 8.1. Magnesium 2.1. AST 22, ALT 27, alkaline phosphatase 250. CPK 551. BNP 26,745. Albumin 2.5. Blood cultures were positive for Staphylococcus Capitis, two sets that were drawn at the same time at 2330, Methicillin sensitive likely was skin contaminant. Urine culture was positive for Klebsiella ESBL, sensitive to Meropenem and Pip-Tazobactam. Wound culture from the abdomen was positive for Group A Strep. Repeat blood cultures done on 08/08/2020 were negative. PHYSICAL EXAMINATION: HEART: Normal S1, S2 irregular. No murmurs appreciated. LUNGS: Crackles at the bases. ABDOMEN: Morbidly obese, soft, nontender. Pannus with decreased erythema. EXTREMITIES: +2 pitting edema with right leg erythema from thigh all the way down to left foot. She has weak dorsiflexion on the right side. IMPRESSION: 1. Septic shock secondary to right lower extremity cellulitis with panniculitis with culture positive for Group A Strep. On I.V. Meropenem to cover for Group A Strep and ESBL Klebsiella. 2. ESBL Klebsiella urinary tract infection: On Meropenem. 3. Congestive heart failure with fluid overload: BNP elevated, patient on Lasix 40 mg every 12 hours with a Jain catheter in place. PLAN: 1. Continue I.V. Meropenem currently day #3. 2. Continue with diuresis. 3. Case has been discussed with Mickie, her nurse, regarding switching the Jain catheter to a PureWick to decrease risk of catheter associated UTI. Discontinue Jain catheter in the morning. 4. Patient needs to be encouraged to ambulate and work with physical therapy. [facility]
[2020-08-12] MEDS: ATORVASTATIN 20 MG TAB PO SCH (21:54)
[2020-08-13] VITALS: BP 152/83
[2020-08-13] MEDS: MEROPENEM INJ 1 GM in IV 1 EA IV SCH ×2 (00:13→12:48)
[2020-08-13] MEDS: IPRATROPIUM 0.5MG/ALBUTEROL 2.5MG INH SOL UD 3ML (DUONEB) NEB PRN ×3 (02:56→23:18)
[2020-08-13 04:00] VITALS: BP 140/68
[2020-08-13] MEDS: SODIUM CHLORIDE 0.9% INJ 10 ML SYR IV SCH ×2 (04:58→17:17)
[2020-08-13] MEDS: HEPARIN SOD (PORCINE) 5000UNITS/ML 1ML VIAL/SYRINGE SQ SCH ×3 (04:58→20:39)
[2020-08-13 05:45] LABS: HEMATOCRIT 31.3 % (36.0-47.0); MEAN CORPUSCULAR HEMOGLOBIN 28.2 pg (27.0-33.0); MEAN CORPUSCULAR HGB CONC 31.9 g/dl (32.0-36.5); MEAN CORPUSCULAR VOLUME 88.2 fl (80.0-96.0); PLATELET COUNT, AUTOMATED 309 10^3/uL (150-450); RED BLOOD COUNT 3.55 10^6/uL (4.00-5.40); WHITE BLOOD COUNT 9.5 10^3/uL (4.0-10.0)
[2020-08-13 06:13] LABS: ALBUMIN 2.3 GM/DL (3.2-5.2); BILIRUBIN,TOTAL 0.5 MG/DL (0.2-1.0); CALCIUM LEVEL 8.3 MG/DL (8.8-10.2); CREATININE FOR GFR 1.72 MG/DL (0.55-1.30); GLOMERULAR FILTRATION RATE 31.1 (>39); MAGNESIUM LEVEL 1.8 MG/DL (1.8-2.4); POTASSIUM SERUM 4.7 MEQ/L (3.5-5.1); TOTAL PROTEIN 6.7 GM/DL (6.4-8.2)
[2020-08-13 07:22] VITALS: BP 139/66
[2020-08-13] MEDS: HumaLOG INSULIN (NovoLOG) PER UNIT SC SCH ×4 (07:30→20:39)
[2020-08-13] MEDS: ASPIRIN 81MG ENTERIC TABLET PO SCH (08:41)
[2020-08-13] MEDS: FUROSEMIDE 40MG/4ML VIAL (J1940) IV SCH ×2 (08:41→17:16)
[2020-08-13] MEDS: SODIUM BICARBONATE 325 MG TAB PO SCH ×2 (08:41→20:38)
[2020-08-13] MEDS: DIGOXIN 0.125 MG TAB PO SCH (08:41)
[2020-08-13] MEDS: METOPROLOL TART 12.5 MG PER 1/2 TAB PO SCH ×2 (08:41→20:38)
[2020-08-13] MEDS: NYSTATIN 100,000 UNITS/GM TOPICAL PWD 15 GM TOP SCH ×2 (08:42→20:38)
--- NOTE | 2020-08-13 11:33 | IPNPDOC ---
Subjective Date Seen The patient was seen on 08/13/20. Subjective Chief Complaint/HPI Patient not very motivated to work with PT. Has to be coaxed to move. Says she is very tired and just wants to sleep. She slept most of the day yesterday also. When i asked whether she sleeps a lot at home also she denied it. She was up in the recliner this morning. Objective Physical Examination General Exam: Positive: Alert, Cooperative, No Acute Distress Eye Exam: Positive: PERRLA, Conjunctiva & lids normal, EOMI; Negative: Sclera icteric ENT Exam: Positive: Atraumatic, Mucous membr. moist/pink, Pharynx Normal Chest Exam: Positive: Diminished, Other (bilateral basal crackles) Heart Exam: Positive: Rate Normal, Irregular Rhythm, Normal S1, Normal S2; Negative: Murmurs, Rubs Telemetry: Positive: Atrial fibrillation Abdomen Exam: Positive: Normal bowel sounds, Soft; Negative: Tenderness, Hepatospenomegaly Extremity Exam: Positive: Edema (both legs), Tenderness (right), Swelling Assessment /Plan Assessment 69 y/o W with a history of pvd, hld, a-fib, htn, dvt, hernan on cpap, gerd, IDDM2, ckd4 who was brought to the ED by home health aid who noted her to have fevers and admitted for septic shock 2/2 UTI, bilateral leg infected wounds, panniculitis, metabolic encephalopathy and DOMINGA on CKD. Septic shock 2/2 group a streptococcus infection / toxic shock syndrome from infected panniculitis and infected right LE ulcer shock has now resolved. Abdominal Wound culture growing group A strep 08/08 blood cultures growing staph capitis Only On meropenem now. ID consult appreciated. ESBL klebsiella UTI meropenem Bilateral lower extremity ulcers with surrounding cellulitis and chronic stasis dermatitis and lymphedema, stasis rubor Right 3x5 and left about 1 x 1 consulted gen surgery, no need for debridement at present. left wounds do not look infected , the right leg has cellulitis. DOMINGA on CKD4: improved. baseline is about 2.0, now creatinine better than baseline likely due to some dilution. Has received massive amounts of fluids for septic shock. No renal obstruction on ct imaging. Renal consult appreciated. started on diuresis with lasix and albumin continue to hold arbs Anasarca with massive fluid in both legs, lower abdomen, thighs , flanks. continue diuresis and albumin as per Renal. Metabolic acidosis on bicarb Metabolic encephalopathy due to sepsis now resolved. Troponinemia Likely secondary to sepsis and prolonged tachycardia. No evidence of ACS Chronic A-fib home digoxin and metoprolol currently on ppx dosing heparin. Refuses full anticoagulation. DM2 sliding scale, hypoglycemic protocol, FSBG AC/HS continue asa HTN holding losartan on metoprolol. HLD continue atorvastatin Morbid obesity with BMI of 43.1 Plan/VTE VTE Prophylaxis Ordered?: Yes VS, I&O, 24H, Fishbone Vital Signs/I&O Vital Signs Date Time Temp Pulse Resp B/P (MAP) Pulse Ox O2 Delivery O2 Flow Rate FiO2 08/13/20 08:41 75 143/73 08/13/20 07:22 96.9 22 96 Room Air I&O- Last 24 Hours up to 6 AM 08/13/20 05:59 Intake Total 950 ml Output Total 3325 ml Balance -2375 ml Laboratory Data 24H LABS Laboratory Tests 2 08/12/20 16:20: Bedside Glucose (Misc Panel) 141H 08/12/20 21:50: Bedside Glucose (Misc Panel) 192H 08/13/20 05:13: Nucleated Red Blood Cells % (auto) 0.0, Anion Gap 7L, Glomerular Filtration Rate 31.1L, Calcium Level 8.3L, Magnesium Level 1.8, Total Bilirubin 0.5, Aspartate Amino Transf (AST/SGOT) 24, Alanine Aminotransferase (ALT/SGPT) 28, Alkaline Phosphatase 261H, Total Protein 6.7, Albumin 2.3L, Albumin/Globulin Ratio 0.5L CBC/BMP Laboratory Tests 08/13/20 05:13 Microbiology Microbiology 08/08/20 Blood Culture - Preliminary, Resulted No Growth after 72 hours. All specime... 08/08/20 Wound Culture - Final, Complete Streptococcus Pyogenes Grp A Corynebacterium Species 08/08/20 Urine Culture - Final, Complete Klebsiella Pneumoniae Esbl 08/07/20 Blood Culture - Final, Complete Staphylococcus Capitis 08/07/20 Blood Culture - Final, Complete Staphylococcus Capitis BLAIRE FLANNERY MD Aug 13, 2020 11:33
--- NOTE | 2020-08-13 13:30 | IPN ---
INPATIENT PROGRESS NOTE DATE: 08/13/2020 SUBJECTIVE: Patient seen and examined this morning at the bedside. She offers no complaints. She continues to diurese satisfactorily. She denies shortness of breath at rest. She is stable on room air. PHYSICAL EXAMINATION: VITAL SIGNS: Temperature 96.9, pulse 76, respiratory rate 19, blood pressure 140/68, saturating 95 to 96% on room air. INTAKE/OUTPUT: Intake yesterday was 1,300. Urine output was 2.8 liters, net negative 1.5 liters. Weight in the bed scale today is not recorded. GENERAL: Patient is seen sitting in the recliner, elderly female, awake, alert, oriented, in no distress. HEENT: Extraocular muscles are intact. Tongue is moist. Neck is supple. Jugular veins were not assessed today while she was sitting upright. HEART: Sounds are irregular, S1, S2. There is pitting edema in the legs about 2+ in the right and trace on the left. LUNGS: Show diminished breath sounds with faint bibasilar crackle. ABDOMEN: Soft, obese. The pitting edema in the pannus is decreasing. GENITOURINARY: Shows indwelling Jain catheter. EXTREMITIES: There are dressings on the legs. NEUROLOGIC: She is oriented x3, at baseline mentation, cooperative with physical exam. LABORATORY STUDIES: White count 9.5, hemoglobin 10.0, platelets 309,000. Sodium 139, potassium 4.7, bicarbonate 18, BUN 46, creatinine 1.7. Magnesium 1.8. Albumin 2.3. IMAGING STUDIES: There is no new imaging today. INPATIENT MEDICATIONS: She continues on Lasix 40 mg I.V. b.i.d. There are no medication changes the past two days. PROBLEMS: 1. Decompensated congestive heart failure (probable diastolic dysfunction, but it could not be assessed on the last echocardiogram because of arrhythmia. She does have dilated right heart chamber with hypokinetic right ventricle, consistent with right ventricular heart failure): She received aggressive I.V. fluid on this admission because of presenting with septic shock. She was started on I.V. Lasix on August 11. She is diuresing nicely. She is in daily net negative fluid balance by a little over a liter. I will continue her on Lasix b.i.d. She is not receiving any further albumin. 2. CKD stage 4: Baseline creatinine is around 2.0. Renal function is presently better than her usual baseline because of fluid overload. Continue diuresis. 3. Metabolic acidosis: Her serum bicarbonate has come up to 18, continue oral sodium bicarbonate supplementation. 4. Chronic atrial fibrillation: She is rate controlled with Metoprolol and Digoxin. She refuses full anticoagulation. 5. Hypertension: Blood pressures are well controlled with Metoprolol. She is being actively diuresed with I.V. Lasix. Her Losartan is on hold. 6. Status post septic shock secondary to right lower extremity cellulitis and panniculitis: She also has ESBL Klebsiella UTI and she had presented with positive blood cultures. Antibiotics are managed as per Dr. Drake. She is on I.V. Meropenem. Jain catheter can absolutely be discontinued.
[2020-08-13 16:14] VITALS: BP 155/74
[2020-08-13 20:00] VITALS: BP 148/72
[2020-08-13] MEDS: ATORVASTATIN 20 MG TAB PO SCH (20:38)
[2020-08-13] MEDS: ACETAMINOPHEN TAB 650MG DOSE (2X325MG) PO PRN (20:38)
--- NOTE | 2020-08-13 22:40 | IPN ---
INFECTIOUS DISEASE PROGRESS NOTE DATE: 08/13/2020 SUBJECTIVE: Luli seems to be doing well. She is sitting in her chair resting. She denies any complaints. She states she is just tired. She has continued to diurese. She still has a Jain catheter in place. She has shortness of breath with exertion. She has some pain in her right leg. No urinary symptoms. PHYSICAL EXAMINATION: VITAL SIGNS: Temperature 97.4, pulse 72, respirations 22, blood pressure 155/74, O2 sat 97% on room air. HEART: Normal S1, S2. No murmurs appreciated. LUNGS: Diminished breath sounds with faint crackles at the bases. ABDOMEN: Morbidly obese with a very large pannus with edema, but markedly decreased redness along the pannus has improved as well. She has intertriginous Candidiasis which is also improved. She has an indwelling Jain catheter. EXTREMITIES: She has a large ulcer on her right leg over the lateral malleolus measuring about 4 x 2 cm with some serosanguineous discharge. She has a small ulceration over the left ahumada measuring less than a centimeter with no discharge. NEUROLOGIC: She is alert and oriented x3. SKIN: Right leg has erythema all the way to the mid thigh with some tenderness, but that has markedly improved as well. LABORATORY DATA: White count 9.5, hemoglobin 10, hematocrit 31.3, platelets 309,000. Sodium 139, potassium 4.7, chloride 114, bicarb 18, BUN 46, creatinine 1.72, glucose 173, calcium 8.3. Magnesium 1.8. AST 24, ALT 28, alkaline phosphatase 261.Total protein 6.7, albumin 2.3. MRSA screen was negative. Blood cultures were positive for Staphylococcus Capitis, probably contaminant. Urine culture had ESBL Klebsiella and abdominal culture had Group A Strep. MEDICATIONS: Meropenem 1 gram I.V. every 12 hours; currently day #4 out of 7. IMPRESSION: 1. Septic shock most likely related to right lower extremity cellulitis with panniculitis with Group A Strep: Currently on I.V. Meropenem to cover for Group A Strep and ESBL Klebsiella. 2. ESBL Klebsiella urinary tract infection: On Meropenem. Discontinue Jain catheter and switch to PureWick if need be. 3. Fluid overload: Doing much better on I.V. Lasix. PLAN: Continue I.V. Meropenem until August 16, a total of 7 days. If cellulitis persists, can switch to oral Amoxicillin to cover for Group A Strep to finish a 10 day course. Continue with I.V. diuresis. Swelling had markedly improved. Switch Jain catheter to PureWick. [facility]
[2020-08-13 23:07] VITALS: BP 140/83
[2020-08-14] MEDS: MEROPENEM INJ 1 GM in IV 1 EA IV SCH ×2 (01:42→13:29)
[2020-08-14] MEDS: SODIUM CHLORIDE 0.9% INJ 10 ML SYR IV PRN ×3 (02:30→13:31)
[2020-08-14 06:00] VITALS: BP 135/63
[2020-08-14] MEDS: SODIUM CHLORIDE 0.9% INJ 10 ML SYR IV SCH ×2 (06:10→17:40)
[2020-08-14] MEDS: HEPARIN SOD (PORCINE) 5000UNITS/ML 1ML VIAL/SYRINGE SQ SCH ×3 (06:10→21:23)
[2020-08-14] MEDS: HumaLOG INSULIN (NovoLOG) PER UNIT SC SCH ×4 (08:45→21:00)
[2020-08-14 08:48] LABS: HEMATOCRIT 32.3 % (36.0-47.0); HEMOGLOBIN 10.1 g/dl (12.0-15.5); MEAN CORPUSCULAR HEMOGLOBIN 27.4 pg (27.0-33.0); MEAN CORPUSCULAR HGB CONC 31.3 g/dl (32.0-36.5); MEAN CORPUSCULAR VOLUME 87.8 fl (80.0-96.0); PLATELET COUNT, AUTOMATED 361 10^3/uL (150-450); RED BLOOD COUNT 3.68 10^6/uL (4.00-5.40); WHITE BLOOD COUNT 10.7 10^3/uL (4.0-10.0)
[2020-08-14] MEDS: ASPIRIN 81MG ENTERIC TABLET PO SCH (08:48)
[2020-08-14] MEDS: SODIUM BICARBONATE 325 MG TAB PO SCH (08:48)
[2020-08-14] MEDS: METOPROLOL TART 12.5 MG PER 1/2 TAB PO SCH ×2 (08:48→21:22)
[2020-08-14] MEDS: FUROSEMIDE 40MG/4ML VIAL (J1940) IV SCH ×2 (08:49→17:41)
[2020-08-14] MEDS: DIGOXIN 0.125 MG TAB PO SCH (08:49)
[2020-08-14] MEDS: NYSTATIN 100,000 UNITS/GM TOPICAL PWD 15 GM TOP SCH ×2 (08:51→21:23)
[2020-08-14 09:19] LABS: ALBUMIN 2.3 GM/DL (3.2-5.2); ANISOCYTOSIS 2+; ATYPICAL LYMPH 1 % (0-5); BASOPHILS 3 % (0-1); BILIRUBIN,TOTAL 0.6 MG/DL (0.2-1.0); CALCIUM LEVEL 8.5 MG/DL (8.8-10.2); CREATININE FOR GFR 1.39 MG/DL (0.55-1.30); EOSINOPHILS 10 % (0-3); GLOMERULAR FILTRATION RATE 39.8 (>39); HYPOCHROMASIA 1+; LYMPHOCYTES 38 % (16-44); MAGNESIUM LEVEL 1.6 MG/DL (1.8-2.4); MONOCYTES 2 % (0-5); MYELOCYTES 1 % (0-0); NEUTROPHILS 38 % (28-66); PLATELET ESTIMATE NORMAL (NORMAL); POTASSIUM SERUM 4.8 MEQ/L (3.5-5.1); TOTAL PROTEIN 6.7 GM/DL (6.4-8.2)
[2020-08-14] MEDS: IPRATROPIUM 0.5MG/ALBUTEROL 2.5MG INH SOL UD 3ML (DUONEB) NEB PRN ×2 (10:59→20:43)
[2020-08-14] MEDS ORDERED: MAG SULF 1GM/100ML (MAG RUN) 1 GM in IV 1 EA IV ONE (12:10)
--- NOTE | 2020-08-14 12:40 | IPNPDOC ---
Subjective Date Seen The patient was seen on 08/14/20. Subjective Chief Complaint/HPI Feeling better. Says feels stronger and indicated that she is going to work with PT today. Objective Physical Examination General Exam: Positive: Alert, Cooperative, No Acute Distress Eye Exam: Positive: PERRLA, Conjunctiva & lids normal, EOMI; Negative: Sclera icteric ENT Exam: Positive: Atraumatic, Mucous membr. moist/pink, Pharynx Normal Chest Exam: Positive: Diminished, Other (bilateral basal crackles) Heart Exam: Positive: Rate Normal, Irregular Rhythm, Normal S1, Normal S2; Negative: Murmurs, Rubs Telemetry: Positive: Atrial fibrillation Abdomen Exam: Positive: Normal bowel sounds, Soft; Negative: Tenderness, Hepatospenomegaly Extremity Exam: Positive: Edema (both legs), Tenderness (right), Swelling Assessment /Plan Assessment 69 y/o W with a history of pvd, hld, a-fib, htn, dvt, hernan on cpap, gerd, IDDM2, ckd4 who was brought to the ED by home health aid who noted her to have fevers a nd admitted for septic shock 2/2 UTI, bilateral leg infected wounds, panniculitis, metabolic encephalopathy and DOMINGA on CKD. Septic shock 2/2 group a streptococcus infection / toxic shock syndrome from infected panniculitis and infected right LE ulcer shock has now resolved. Abdominal Wound culture growing group A strep 08/08 blood cultures growing staph capitis Only On meropenem now. ID consult appreciated. ESBL klebsiella UTI meropenem Bilateral lower extremity ulcers with surrounding cellulitis and chronic stasis dermatitis and lymphedema, stasis rubor Right 3x5 and left about 1 x 1 consulted gen surgery, no need for debridement at present. left wounds do not look infected , the right leg has cellulitis. DOMINGA on CKD4: improved. baseline is about 2.0, now creatinine better than baseline likely due to some dilution. Has received massive amounts of fluids for septic shock. No renal obstruction on ct imaging. Renal consult appreciated. started on diuresis with lasix and albumin continue to hold arbs Anasarca with massive fluid in both legs, lower abdomen, thighs , flanks. continue diuresis and albumin as per Renal. Metabolic acidosis on bicarb Metabolic encephalopathy due to sepsis now resolved. Troponinemia Likely secondary to sepsis and prolonged tachycardia. No evidence of ACS Chronic A-fib home digoxin and metoprolol currently on ppx dosing heparin. Refuses full anticoagulation. DM2 sliding scale, hypoglycemic protocol, FSBG AC/HS continue asa HTN holding losartan on metoprolol. HLD continue atorvastatin Morbid obesity with BMI of 43.1 Plan/VTE VTE Prophylaxis Ordered?: Yes VS, I&O, 24H, Fishbone Vital Signs/I&O Vital Signs Date Time Temp Pulse Resp B/P (MAP) Pulse Ox O2 Delivery O2 Flow Rate FiO2 08/14/20 08:49 78 08/14/20 08:48 148/86 08/14/20 06:00 97.6 19 98 Room Air I&O- Last 24 Hours up to 6 AM 08/14/20 06:00 Intake Total 640 ml Output Total 900 ml Balance -260 ml Laboratory Data 24H LABS Laboratory Tests 2 08/13/20 17:10: Bedside Glucose (Misc Panel) 155H 08/13/20 20:13: Bedside Glucose (Misc Panel) 171H 08/14/20 07:27: Bedside Glucose (Misc Panel) 118H 08/14/20 08:08: Immature Granulocyte % (Auto) , Neutrophils (%) (Auto) , Nucleated Red Blood Cells % (auto) 0.2H, Neutrophils 38, Band Neutrophils 7, Lymphocytes (Manual) 38, Monocytes (Manual) 2, Eosinophils (Manual) 10H, Basophils (Manual) 3H, Myelocytes 1H, Atypical Lymphocytes 1, Hypochromasia 1+, Anisocytosis 2+, Macrocytosis 1+, Platelet Estimate NORMAL, Anion Gap 6L, Glomerular Filtration Rate 39.8, Calcium Level 8.5L, Magnesium Level 1.6L, Total Bilirubin 0.6, Aspartate Amino Transf (AST/SGOT) 17, Alanine Aminotransferase (ALT/SGPT) 26, Alkaline Phosphatase 246H, Total Protein 6.7, Albumin 2.3L, Albumin/Globulin Ratio 0.5L 08/14/20 11:47: Bedside Glucose (Misc Panel) 171H CBC/BMP Laboratory Tests 08/14/20 08:08 Microbiology Microbiology 08/08/20 Blood Culture - Final, Complete NO GROWTH AFTER 5 DAYS 08/08/20 Wound Culture - Final, Complete Streptococcus Pyogenes Grp A Corynebacterium Species 08/08/20 Urine Culture - Final, Complete Klebsiella Pneumoniae Esbl 08/07/20 Blood Culture - Final, Complete Staphylococcus Capitis 08/07/20 Blood Culture - Final, Complete Staphylococcus Capitis BLAIRE FLANNERY MD Aug 14, 2020 12:40
--- NOTE | 2020-08-14 12:51 | IPN ---
PROGRESS NOTE DATE: 08/14/2020 Ms. Guillaume is seen this morning on her bedside. She is still not feeling very good. She is very weak and has generalized edema and shortness of breath. She is being treated for right leg cellulitis. She did have acute renal failure and developed congestive heart failure. Her kidney function is gradually improving, and volume status is also slowly improving with negative fluid balance. PHYSICAL EXAMINATION: Temperature 97.6 degrees Fahrenheit, heart rate 78 per minute, respiratory rate 19 per minute, blood pressure 148/86 mmHg, and oxygen saturation 98% on room air. Head is atraumatic. Neck supple, and jugular venous distention (JVD) markedly elevated. Heart sounds are irregular in rhythm, and lungs with diminished breath sounds at bases bilaterally. Abdomen soft and nontender. Bowel sounds are normal. Extremities without any cyanosis or clubbing. Right leg cellulitis is present, and the wound is covered with dressing. She has at least 2+ edema on her right leg. Neurologically she is at her baseline mentation without a focal deficit. Today's labs show sodium 142, potassium 4.8, chloride 113, CO2 of 23, BUN 40, and creatinine 1.39. Glucose 129, calcium 8.5, magnesium 1.6, and albumin 2.3. WBC count is 10.7, hemoglobin 10.1, and hematocrit 32.3. Platelets 361. PROBLEMS: 1. Congestive heart failure. Volume status remains decompensated, but she has been in negative fluid balance. We will continue to diurese her with Lasix 40 mg twice a day. 2. Metabolic acidosis. Her acidosis has improved, so I am going to stop oral sodium bicarbonate. She will have risk for metabolic alkalosis as she is being diuresed. 3. Hypomagnesemia. Magnesium level is slightly low, and we will give her one dose of intravenous magnesium sulfate today. 4. Acute kidney injury superimposed on chronic kidney disease. Kidney function better today, and will continue to monitor closely. 5. Atrial fibrillation. Her ventricular rate is well controlled, and she remains on digoxin. 6. Cellulitis. Right leg cellulitis is improving with meropenem 1 gram every 12 hours.
[2020-08-14 14:00] VITALS: BP 139/74
[2020-08-14] MEDS: ATORVASTATIN 20 MG TAB PO SCH (21:22)
[2020-08-14 22:00] VITALS: BP 137/76
[2020-08-15] MEDS: MEROPENEM INJ 1 GM in IV 1 EA IV SCH ×2 (00:52→12:19)
[2020-08-15] MEDS: SODIUM CHLORIDE 0.9% INJ 10 ML SYR IV PRN (01:41)
[2020-08-15] MEDS: IPRATROPIUM 0.5MG/ALBUTEROL 2.5MG INH SOL UD 3ML (DUONEB) NEB PRN ×3 (04:25→23:05)
[2020-08-15] MEDS: HEPARIN SOD (PORCINE) 5000UNITS/ML 1ML VIAL/SYRINGE SQ SCH ×3 (05:59→22:04)
[2020-08-15] MEDS: SODIUM CHLORIDE 0.9% INJ 10 ML SYR IV SCH ×2 (05:59→18:01)
[2020-08-15 06:00] VITALS: BP 153/95
[2020-08-15 06:32] LABS: HEMATOCRIT 31.9 % (36.0-47.0); MEAN CORPUSCULAR HEMOGLOBIN 27.3 pg (27.0-33.0); MEAN CORPUSCULAR HGB CONC 31.3 g/dl (32.0-36.5); MEAN CORPUSCULAR VOLUME 87.2 fl (80.0-96.0); PLATELET COUNT, AUTOMATED 366 10^3/uL (150-450); RED BLOOD COUNT 3.66 10^6/uL (4.00-5.40); WHITE BLOOD COUNT 9.8 10^3/uL (4.0-10.0)
[2020-08-15 06:55] LABS: ANISOCYTOSIS 1+; ATYPICAL LYMPH 3 % (0-5); EOSINOPHILS 3 % (0-3); HYPOCHROMASIA 1+; LYMPHOCYTES 33 % (16-44); MONOCYTES 6 % (0-5); MYELOCYTES 1 % (0-0); NEUTROPHILS 54 % (28-66); POIKILOCYTOSIS 1+; POLYCHROMASIA 1+
[2020-08-15 06:56] LABS: PLATELET ESTIMATE NORMAL (NORMAL)
[2020-08-15 07:01] LABS: CALCIUM LEVEL 8.3 MG/DL (8.8-10.2); CREATININE FOR GFR 1.37 MG/DL (0.55-1.30); GLOMERULAR FILTRATION RATE 40.5 (>39); POTASSIUM SERUM 4.7 MEQ/L (3.5-5.1)
[2020-08-15] MEDS: ASPIRIN 81MG ENTERIC TABLET PO SCH (08:40)
[2020-08-15] MEDS: DIGOXIN 0.125 MG TAB PO SCH (08:42)
[2020-08-15] MEDS: NYSTATIN 100,000 UNITS/GM TOPICAL PWD 15 GM TOP SCH ×2 (08:42→22:04)
[2020-08-15] MEDS: METOPROLOL TART 12.5 MG PER 1/2 TAB PO SCH ×2 (08:42→22:05)
[2020-08-15] MEDS: FUROSEMIDE 40MG/4ML VIAL (J1940) IV SCH ×2 (08:42→18:00)
[2020-08-15] MEDS: HumaLOG INSULIN (NovoLOG) PER UNIT SC SCH ×4 (08:43→21:00)
[2020-08-15 09:33] LABS: ALBUMIN 2.4 GM/DL (3.2-5.2); MAGNESIUM LEVEL 1.6 MG/DL (1.8-2.4)
--- NOTE | 2020-08-15 12:59 | IPN ---
PROGRESS NOTE DATE: 08/15/2020 SUBJECTIVE: Ms. Guillaume is seen this morning at the bedside. She is currently resting comfortably in the bed. She denies any nausea, vomiting, dyspnea or chest pain. She diuresed very well yesterday with a negative fluid balance of 3.35 liters. PHYSICAL EXAMINATION: VITALS: Temperature 97.9 degrees Fahrenheit, heart rate 85 per minute, respiratory rate 20 per minute, blood pressure 125/69 mmHg and oxygen saturation 99% on room air. HEENT: Head is atraumatic. Neck is supple and JVD improved but still elevated. LUNGS: Diminished breath sounds and bibasilar rales. HEART: Sounds are irregular in rhythm. ABDOMEN: Obese, soft and nontender. Bowel sounds are normal. EXTREMITIES: Without any cyanosis or clubbing. Right leg erythema due to cellulitis is slightly improved compared with yesterday. NEUROLOGIC: She is awake, alert and oriented x3. LABORATORY STUDIES: Today's labs show WBC 9.8, hemoglobin 10.0, hematocrit 31.9, platelets 366,000. Sodium 139, potassium 4.7, chloride 110, CO2 24, BUN 41, creatinine 1.37, calcium 8.3 and magnesium 1.6. PROBLEMS: 1. Congestive heart failure acute on chronic: Volume status is improving. She diuresed very well yesterday. We will continue with Furosemide 40 mg twice a day intravenously. 2. Acute kidney injury superimposed on chronic kidney disease: Her kidney function is slightly improved. At this point, she is responding to diuretics very well and we will continue to diurese her. 3. Hypomagnesemia: Magnesium level is slightly low and she is already receiving one dose of magnesium sufflate intravenously. 4. Anemia: Her anemia is stable and unchanged. No urgent intervention is needed. 5. Cellulitis: Patient remains on intravenous antibiotics including Meropenem and she is currently afebrile.
[2020-08-15 14:00] VITALS: BP 137/60
[2020-08-15 22:00] VITALS: BP 141/70
[2020-08-15] MEDS: ATORVASTATIN 20 MG TAB PO SCH (22:03)
--- NOTE | 2020-08-15 23:05 | IPNPDOC ---
Subjective Date Seen The patient was seen on 08/15/20. Subjective Chief Complaint/HPI No complaints this morning. Having very good diuresis. Mostly in bed and sleeping. Pt tells me that normally she does not sleep during the day but tries to keep active around the house But she just not getting over the infection yet so feels very tired all day. Objective Physical Examination General Exam: Positive: Alert, Cooperative, No Acute Distress Eye Exam: Positive: PERRLA, Conjunctiva & lids normal, EOMI; Negative: Sclera icteric ENT Exam: Positive: Atraumatic, Mucous membr. moist/pink, Pharynx Normal Chest Exam: Positive: Diminished, Other (bilateral basal crackles) Heart Exam: Positive: Rate Normal, Irregular Rhythm, Normal S1, Normal S2; Negative: Murmurs, Rubs Telemetry: Positive: Atrial fibrillation Abdomen Exam: Positive: Normal bowel sounds, Soft; Negative: Tenderness, Hepatospenomegaly Extremity Exam: Positive: Edema (both legs), Tenderness (right), Swelling Assessment /Plan Assessment 69 y/o W with a history of pvd, hld, a-fib, htn, dvt, hernan on cpap, gerd, IDDM2, ckd4 who was brought to the ED by home health aid who noted her to have fevers and admitted for septic shock 2/2 UTI, bilateral leg infected wounds, panniculitis, metabolic encephalopathy and DOMINGA on CKD. Septic shock 2/2 group a streptococcus infection / toxic shock syndrome from infected panniculitis and infected right LE ulcer shock has now resolved. Abdominal Wound culture growing group A strep 08/08 blood cultures growing staph capitis Only On meropenem now. ID consult appreciated. ESBL klebsiella UTI meropenem Bilateral lower extremity ulcers with surrounding cellulitis and chronic stasis dermatitis and lymphedema, stasis rubor Right 3x5 and left about 1 x 1 consulted gen surgery, no need for debridement at present. left wounds do not look infected , the right leg has cellulitis. DOMINGA on CKD4: improved. baseline is about 2.0 creatinine better than baseline at present. No renal obstruction on ct imaging. Renal consult appreciated. started on diuresis with lasix and albumin continue to hold arbs Anasarca with massive fluid in both legs, lower abdomen, thighs , flanks. improving. continue diuresis and albumin as per Renal. Metabolic acidosis resolved. Metabolic encephalopathy due to sepsis now resolved. Troponinemia Likely secondary to sepsis and prolonged tachycardia. No evidence of ACS Chronic A-fib home digoxin and metoprolol currently on ppx dosing heparin. Refuses full anticoagulation. DM2 sliding scale, hypoglycemic protocol, FSBG AC/HS continue asa HTN holding losartan on metoprolol. HLD continue atorvastatin Morbid obesity with BMI of 43.1 Plan/VTE VTE Prophylaxis Ordered?: Yes VS, I&O, 24H, Fishbone Vital Signs/I&O Vital Signs Date Time Temp Pulse Resp B/P (MAP) Pulse Ox O2 Delivery O2 Flow Rate FiO2 08/15/20 08:42 85 125/69 08/15/20 06:00 97.9 20 99 Nasal Cannula I&O- Last 24 Hours up to 6 AM 08/15/20 06:00 Intake Total 950 ml Output Total 4750 ml Balance -3800 ml Laboratory Data 24H LABS Laboratory Tests 2 08/14/20 11:47: Bedside Glucose (Misc Panel) 171H 08/14/20 16:44: Bedside Glucose (Misc Panel) 171H 08/14/20 20:06: Bedside Glucose (Misc Panel) 134H 08/15/20 05:53: Immature Granulocyte % (Auto) , Neutrophils (%) (Auto) , Nucleated Red Blood Cells % (auto) 0.2H, Neutrophils 54, Lymphocytes (Manual) 33, Monocytes (Manual) 6H, Eosinophils (Manual) 3, Myelocytes 1H, Atypical Lymphocytes 3, Polychromasia 1+, Hypochromasia 1+, Poikilocytosis 1+, Anisocytosis 1+, Platelet Estimate NORMAL, Anion Gap 5L, Glomerular Filtration Rate 40.5, Calcium Level 8.3L CBC/BMP Laboratory Tests 08/15/20 05:53 Microbiology Microbiology 08/08/20 Blood Culture - Final, Complete NO GROWTH AFTER 5 DAYS 08/08/20 Wound Culture - Final, Complete Streptococcus Pyogenes Grp A Corynebacterium Species 08/08/20 Urine Culture - Final, Complete Klebsiella Pneumoniae Esbl 08/07/20 Blood Culture - Final, Complete Staphylococcus Capitis 08/07/20 Blood Culture - Final, Complete Staphylococcus Capitis BLAIRE FLANNERY MD Aug 15, 2020 09:06
[2020-08-16] MEDS: MEROPENEM INJ 1 GM in IV 1 EA IV SCH ×2 (01:15→15:07)
[2020-08-16] MEDS: HEPARIN SOD (PORCINE) 5000UNITS/ML 1ML VIAL/SYRINGE SQ SCH ×3 (05:43→22:39)
[2020-08-16] MEDS: SODIUM CHLORIDE 0.9% INJ 10 ML SYR IV SCH ×2 (05:44→17:22)
[2020-08-16 06:00] VITALS: BP 142/66
[2020-08-16 06:30] LABS: HEMATOCRIT 32.3 % (36.0-47.0); HEMOGLOBIN 10.3 g/dl (12.0-15.5); MEAN CORPUSCULAR HEMOGLOBIN 27.7 pg (27.0-33.0); MEAN CORPUSCULAR HGB CONC 31.9 g/dl (32.0-36.5); MEAN CORPUSCULAR VOLUME 86.8 fl (80.0-96.0); PLATELET COUNT, AUTOMATED 387 10^3/uL (150-450); RED BLOOD COUNT 3.72 10^6/uL (4.00-5.40); WHITE BLOOD COUNT 9.6 10^3/uL (4.0-10.0)
[2020-08-16 06:47] LABS: CALCIUM LEVEL 8.8 MG/DL (8.8-10.2); CREATININE FOR GFR 1.19 MG/DL (0.55-1.30); GLOMERULAR FILTRATION RATE 47.6 (>39); POTASSIUM SERUM 4.2 MEQ/L (3.5-5.1)
[2020-08-16] MEDS: IPRATROPIUM 0.5MG/ALBUTEROL 2.5MG INH SOL UD 3ML (DUONEB) NEB PRN (07:31)
[2020-08-16 07:46] LABS: MAGNESIUM LEVEL 1.5 MG/DL (1.8-2.4)
[2020-08-16 07:52] LABS: ATYPICAL LYMPH 4 % (0-5); EOSINOPHILS 5 % (0-3); LYMPHOCYTES 33 % (16-44); MONOCYTES 4 % (0-5); MYELOCYTES 2 % (0-0); NEUTROPHILS 52 % (28-66)
[2020-08-16 07:53] LABS: ANISOCYTOSIS 1+; PLATELET ESTIMATE NORMAL (NORMAL); POIKILOCYTOSIS 1+
[2020-08-16] MEDS: HumaLOG INSULIN (NovoLOG) PER UNIT SC SCH ×4 (08:25→21:00)
[2020-08-16] MEDS: MAGNESIUM OXIDE 400MG TAB (MAG-OX) PO SCH ×2 (08:25→22:40)
[2020-08-16] MEDS: FUROSEMIDE 40MG/4ML VIAL (J1940) IV SCH (08:25)
[2020-08-16] MEDS: NYSTATIN 100,000 UNITS/GM TOPICAL PWD 15 GM TOP SCH ×2 (08:26→22:39)
[2020-08-16] MEDS: ASPIRIN 81MG ENTERIC TABLET PO SCH (08:28)
[2020-08-16] MEDS: DIGOXIN 0.125 MG TAB PO SCH (08:28)
[2020-08-16] MEDS: METOPROLOL TART 12.5 MG PER 1/2 TAB PO SCH ×2 (08:31→22:42)
--- NOTE | 2020-08-16 10:28 | IPNPDOC ---
Subjective Date Seen The patient was seen on 08/16/20. Subjective Chief Complaint/HPI Patient awake , alert and oriented. Wanted to talked about her advance directives but could not explain her self properly ultimately said that she wants to be saved. She wanted to clarigy some thing about the respiratory but could not explain it. SHe was becoming very fustated and emotional as she could not focus her thoughts and explain herself. Objective Physical Examination General Exam: Positive: Alert, Cooperative, No Acute Distress Eye Exam: Positive: PERRLA, Conjunctiva & lids normal, EOMI; Negative: Sclera icteric ENT Exam: Positive: Atraumatic, Mucous membr. moist/pink, Pharynx Normal Chest Exam: Positive: Diminished, Other (bilateral basal crackles) Heart Exam: Positive: Rate Normal, Irregular Rhythm, Normal S1, Normal S2; Negative: Murmurs, Rubs Telemetry: Positive: Atrial fibrillation Abdomen Exam: Positive: Normal bowel sounds, Soft; Negative: Tenderness, Hepatospenomegaly Extremity Exam: Positive: Edema, Tenderness (right), Swelling Assessment /Plan Assessment 69 y/o W with a history of pvd, hld, a-fib, htn, dvt, hernan on cpap, gerd, IDDM2, ckd4 who was brought to the ED by home health aid who noted her to have fevers and admitted for septic shock 2/2 UTI, bilateral leg infected wounds, panniculitis, metabolic encephalopathy and DOMINGA on CKD. Septic shock 2/2 group a streptococcus infection / toxic shock syndrome from infected panniculitis and infected right LE ulcer shock has now resolved. Abdominal Wound culture growing group A strep 08/08 blood cultures growing staph capitis Only On meropenem now. ID consult appreciated. ESBL klebsiella UTI meropenem Bilateral lower extremity ulcers with surrounding cellulitis and chronic stasis dermatitis and lymphedema, stasis rubor Right 3x5 and left about 1 x 1 consulted gen surgery, no need for debridement at present. left wounds do not look infected , the right leg has cellulitis. DOMINGA on CKD4: improved. baseline is about 2.0 creatinine better than baseline at present. No renal obstruction on ct imaging. Renal consult appreciated. started on diuresis with lasix and albumin continue to hold arbs Anasarca with massive fluid in both legs, lower abdomen, thighs , flanks. improving. continue diuresis and albumin as per Renal. Metabolic acidosis resolved. Metabolic encephalopathy due to sepsis better. But still has slow though and difficulty in expressing herself and slow response to answers. Troponinemia Likely secondary to sepsis and prolonged tachycardia. No evidence of ACS Chronic A-fib home digoxin and metoprolol currently on ppx dosing heparin. Refuses full anticoagulation. DM2 sliding scale, hypoglycemic protocol, FSBG AC/HS continue asa HTN holding losartan on metoprolol. HLD continue atorvastatin Morbid obesity with BMI of 43.1 Plan/VTE VTE Prophylaxis Ordered?: Yes VS, I&O, 24H, Fishbone Vital Signs/I&O Vital Signs Date Time Temp Pulse Resp B/P (MAP) Pulse Ox O2 Delivery O2 Flow Rate FiO2 08/16/20 08:31 81 118/56 08/16/20 06:00 98.2 17 90 Room Air I&O- Last 24 Hours up to 6 AM 08/16/20 06:00 Intake Total 1840 ml Output Total 3600 ml Balance -1760 ml Laboratory Data 24H LABS Laboratory Tests 2 08/15/20 12:05: Bedside Glucose (Misc Panel) 180H 08/15/20 17:48: Bedside Glucose (Misc Panel) 158H 08/15/20 22:10: Bedside Glucose (Misc Panel) 185H 08/16/20 05:40: Immature Granulocyte % (Auto) , Neutrophils (%) (Auto) , Nucleated Red Blood Cells % (auto) 0.0, Neutrophils 52, Lymphocytes (Manual) 33, Monocytes (Manual) 4, Eosinophils (Manual) 5H, Myelocytes 2H, Atypical Lymphocytes 4, Poikilocytosis 1+, Anisocytosis 1+, Macrocytosis 1+, Platelet Estimate NORMAL, Anion Gap 4L, Glomerular Filtration Rate 47.6, Calcium Level 8.8, Magnesium Level 1.5L CBC/BMP Laboratory Tests 08/16/20 05:40 Microbiology Microbiology 08/08/20 Blood Culture - Final, Complete NO GROWTH AFTER 5 DAYS 08/08/20 Wound Culture - Final, Complete Streptococcus Pyogenes Grp A Corynebacterium Species 08/08/20 Urine Culture - Final, Complete Klebsiella Pneumoniae Esbl 08/07/20 Blood Culture - Final, Complete Staphylococcus Capitis 08/07/20 Blood Culture - Final, Complete Staphylococcus Capitis BLAIRE FLANNERY MD Aug 16, 2020 10:28
--- NOTE | 2020-08-16 12:05 | IPN ---
PROGRESS NOTE DATE: 08/16/2020 SUBJECTIVE: Mrs. Guillaume is seen this morning on her bedside. She is sitting in the chair today and reports feeling much better. She denies any dyspnea, chest pain, nausea or vomiting. She is not using any supplemental oxygen. OBJECTIVE: VITAL SIGNS: Temperature 98.2 degrees Fahrenheit, heart rate is 80 per minute, respiratory rate 16 per minute. Blood pressure 118/56 mmHg and oxygen saturation 90% on room air. INTAKE AND OUTPUT: Input and output records from yesterday showed total intake 2140 and output 3100 with negative fluid balance of 960 ml. HEENT: Head is atraumatic. NECK: Supple. JVD is not visible, sitting upright. HEART: Heart sounds are irregular. LUNGS: Few basilar rales. ABDOMEN: Obese, soft and nontender. Bowel sounds are normal. EXTREMITIES: Without any cyanosis or clubbing. Right lower extremity cellulitis has improved significantly. Her peripheral edema has also improved significantly. It is important to note that she has been in significantly negative fluid balance over the last several days. LABORATORY DATA: Today's labs showed a WBC count of 9.6, hemoglobin 10.3 and hematocrit 32.3, platelets are 387,000. Sodium is 138, potassium is 4.2, BUN 34 and creatinine 1.19. Glucose is 142, calcium is 8.8. Magnesium 1.5. PROBLEMS: 1. Acute on chronic congestive heart failure. Volume status has improved significantly with aggressive diuresis. I am going to stop her intravenous Lasix today and will resume oral diuretic. 2. Acute kidney injury superimposed on chronic kidney disease. Kidney function has also improved significantly and will continue to monitor. 3. Hypomagnesemia related to aggressive diuresis and she is going to receive another dose of intravenous magnesium sulfate today. Magnesium level should be checked again tomorrow. 4. Anemia. Her anemia is stable and does not need any urgent intervention. 5. Right leg cellulitis. Patient remains on antibiotics and is afebrile. Her cellulitis is improving.
[2020-08-16] MEDS: MAG SULF 1GM/100ML (MAG RUN) 1 GM in IV 1 EA IV SCH ×2 (12:41→13:52)
--- NOTE | 2020-08-16 12:45 | IPN ---
NEPHROLOGY PROGRESS NOTE DATE: 08/12/2020 SUBJECTIVE: Miss Rockwell is seen and examined this morning sitting out of bed to the chair. She reports that she feels better as compared to yesterday. She denies any specific complaints. She has responded well with IV Lasix. Her central was removed and she has a PICC line placed now in the right arm. She continues with a Jain catheter. OBJECTIVE: PHYSICAL EXAMINATION: VITAL SIGNS: Temperature 97.1, pulse 96, respiratory rate 20, blood pressure 158/73, saturating 94-97% on room air. INTAKE AND OUTPUT: Intake yesterday was one liter. Urine output was 2.6 liters. Weight in the bed scale today is not recorded. GENERAL APPEARANCE: The patient is seen awake, alert, oriented, comfortable, in no distress, elderly female, obese. HEENT: The extraocular muscles are intact. The tongue is moist. NECK: Elevated jugular veins. HEART: Regular, S1, S2. There is ongoing pitting edema, more so in the right leg as compared to the left leg. LUNGS: Diminished breath sounds at the bases with improvement in her bibasilar crackles. ABDOMEN: Significant obesity and abdominal panus has induration and pitting edema present. GENITOURINARY: Jain catheter. EXTREMITIES: Right arm has a PICC line. There are dressings on her legs. NEUROLOGIC: She is awake, alert, oriented x3 and at baseline mentation. LABORATORY STUDIES: White count 8.1, hemoglobin 9.9, platelet count 280. Sodium 138, potassium 4.7, bicarbonate 15, BUN 44, creatinine 1.6. CURRENT INPATIENT MEDICATIONS: The patient's medications were reviewed by myself. She continues on Lasix 40 mg IV twice daily and sodium bicarbonate 325 mEq p.o. twice daily. I see no change in her medications over the past day. PROBLEMS: 1. Decompensated congestive heart failure (severe pulmonary hypertension and right ventricular heart failure. Diastolic function could not be assessed on the last echocardiogram.) She received aggressive IV fluids on this admission because of septic shock. She is in moderate fluid overload but is responding nicely to IV Lasix 40mg bid and satisfactorily diuresing. Continue current diuretic regimen. 2. Chronic kidney disease stage 4 her baseline creatinine is around 2.0. Renal function presently is better than her usual baseline and it is because of fluid overload. We will keep an eye on renal function while she is being diuresed. 3. Metabolic acidosis - serum bicarbonate remains low at 15. I will continue her on oral sodium bicarbdonate until serum bicarb comes upto 18. 4. Hypoalbuminemia she has considerable third spacing of fluid. Her albumin was <2. She has received albumin 25% 25 grams q. 12 hourly x4 doses to help improve the oncotic pressure. Albumin = 2.5 today. No further albumin being ordered. 5. Anemia in CKD, Hgb = 9.9. I expect her H&H will improve w/ diuresis and correction of hemodilution. 6. Essential HTN - stay off home losartan for now. Continue metoprolol. MTDD
[2020-08-16 14:00] VITALS: BP 126/61
[2020-08-16] MEDS: FUROSEMIDE 40 MG TAB PO SCH (16:01)
[2020-08-16] MEDS: SODIUM CHLORIDE 0.9% INJ 10 ML SYR IV PRN (16:02)
--- NOTE | 2020-08-16 19:27 | IPN ---
INFECTIOUS DISEASE PROGRESS NOTE DATE: 08/16/2020 SUBJECTIVE: Luli is doing well. She denies any fevers, chills, nausea, vomiting, or diarrhea. She has had no fever. No cough or shortness of breath. She gets up to the bathroom but has a PureWick that was changed from a Jain catheter. OBJECTIVE: PHYSICAL EXAMINATION: VITAL SIGNS: Temperature is 98.2, pulse 54, respirations 17, blood pressure 126/61, O2 sat 98% on room air. HEART: Normal S1, S2, distant, no murmurs appreciated. LUNGS: Diminished breath sounds at the bases. ABDOMEN: Morbidly obese, soft, nontender with a very large panus. Panus is not erythematous or tender anymore. GENITOURINARY: Groin area without any erythema or candidiasis. A PureWick in place. EXTREMITIES: Right thigh has persistent induration medially and around the calf where she has an ulcer about the lateral malleolus, measuring about 4 by 2 cm with granulation tissue but significant serosanguinous discharge. She has a small ulceration on the top of the skin measuring about 2 cm and no redness. LABORATORY STUDIES: White count 9.6, hemoglobin 10.2, hematocrit 32.3, platelet count 387, 52% neutrophils, 33% lymphocytes, 4% monocytes. IMPRESSION: 1. Group A strep cellulitis of the right leg and panus, probably from a pressure ulcer on the right leg doing much better. Has been on IV Meropenem/IV antibiotics for the past 10 days. 2. ESBL Klebsiella in the urine - received 7 days of IV Meropenem. 3. Fluid overload has markedly improved. PLAN: 1. Discontinue IV Meropenem she will be switched to Amoxicillin 875 mg p.o. twice daily for persistent cellulitis of the right leg for 5 more days. That will finish her 14-day treatment. 2. Continue diuresis.
[2020-08-16 22:00] VITALS: BP 131/64
[2020-08-16] MEDS: AMOXICILLIN 875 MG TAB PO SCH (22:38)
[2020-08-16] MEDS: ATORVASTATIN 20 MG TAB PO SCH (22:39)
[2020-08-17] MEDS: SODIUM CHLORIDE 0.9% INJ 10 ML SYR IV SCH ×2 (05:41→17:52)
[2020-08-17] MEDS: HEPARIN SOD (PORCINE) 5000UNITS/ML 1ML VIAL/SYRINGE SQ SCH ×3 (05:41→21:09)
[2020-08-17 06:00] VITALS: BP 123/68
[2020-08-17 06:42] LABS: BASO # 0.1 10^3/uL (0.0-0.2); BASO % 1.1 % (0.0-1.0); EOS # 0.4 10^3/uL (0.0-0.5); EOS % 5.3 % (0.0-3.0); HEMATOCRIT 35.4 % (36.0-47.0); HEMOGLOBIN 10.9 g/dl (12.0-15.5); LYMPH % 25.1 % (24.0-44.0); MEAN CORPUSCULAR HEMOGLOBIN 27.1 pg (27.0-33.0); MEAN CORPUSCULAR HGB CONC 30.8 g/dl (32.0-36.5); MEAN CORPUSCULAR VOLUME 88.1 fl (80.0-96.0); MONO # 0.7 10^3/uL (0.0-0.8); NEUTROPHILS # 4.5 10^3/uL (1.5-8.5); NEUTROPHILS % 55.8 % (36.0-66.0); PLATELET COUNT, AUTOMATED 362 10^3/uL (150-450); RED BLOOD COUNT 4.02 10^6/uL (4.00-5.40); WHITE BLOOD COUNT 8.1 10^3/uL (4.0-10.0)
[2020-08-17 07:35] LABS: CALCIUM LEVEL 8.3 MG/DL (8.8-10.2); CREATININE FOR GFR 1.12 MG/DL (0.55-1.30); GLOMERULAR FILTRATION RATE 51.1 (>39); POTASSIUM SERUM 4.4 MEQ/L (3.5-5.1)
[2020-08-17] MEDS: FUROSEMIDE 40 MG TAB PO SCH ×2 (08:35→17:50)
[2020-08-17] MEDS: ASPIRIN 81MG ENTERIC TABLET PO SCH (08:35)
[2020-08-17] MEDS: HumaLOG INSULIN (NovoLOG) PER UNIT SC SCH ×4 (08:35→21:00)
[2020-08-17] MEDS: MAGNESIUM OXIDE 400MG TAB (MAG-OX) PO SCH ×2 (08:35→21:08)
[2020-08-17] MEDS: AMOXICILLIN 875 MG TAB PO SCH ×2 (08:35→21:07)
[2020-08-17] MEDS: NYSTATIN 100,000 UNITS/GM TOPICAL PWD 15 GM TOP SCH ×2 (08:38→21:08)
[2020-08-17] MEDS: METOPROLOL TART 12.5 MG PER 1/2 TAB PO SCH ×2 (08:38→21:08)
[2020-08-17] MEDS: DIGOXIN 0.125 MG TAB PO SCH (08:38)
--- NOTE | 2020-08-17 12:42 | IPN ---
PROGRESS NOTE DATE: 08/17/2020 SUBJECTIVE: Mrs. Guillaume is seen this morning on her bedside. She is in better spirits today and feels better. She denies any dyspnea, chest pain, nausea or vomiting. She was up in the chair yesterday. She is hoping to get out of bed and chair again today. OBJECTIVE: VITAL SIGNS: Temperature 98.4 degrees Fahrenheit, heart rate is 78 per minute and respiratory rate is 18 per minute. Blood pressure 129/67 mmHg and oxygen saturation 92% on room air. INTAKE AND OUTPUT: Intake and output records from yesterday shows a negative fluid balance of 2120 ml. HEAD AND NECK: Head is atraumatic. Neck is supple. JVD is still about 7 to 8 cm above sternal angle. HEART: Irregular in rhythm. LUNGS: Diminished breath sounds at bases. ABDOMEN: Obese, soft and nontender. Bowel sounds are normal. EXTREMITIES: Without any cyanosis or clubbing. Right leg cellulitis is much improved. She does have some chronic stasis changes. NEUROLOGIC: She is awake, alert and at her baseline mentation. LABORATORY DATA: Today's labs shows WBC count of 8.1, hemoglobin 10.9 and hematocrit 35.4, platelets were 362,000. Sodium 139, potassium 4.4, CO2 27, BUN 33 and creatinine 1.12. Calcium level 8.3. PROBLEMS: 1. Acute on chronic congestive heart failure, volume status has improved significantly and she is now on oral diuretic. We will continue to monitor her intake and output and adjust the diuretic dose if needed. 2. Acute kidney injury superimposed on chronic kidney disease. Kidney function has also improved almost back to baseline. Electrolytes are normal and renal profile will be checked again tomorrow. 3. Anemia, at present her anemia is stable and improved. No intervention is needed. 4. Cellulitis of right lower extremity. Patient is now on oral Amoxicillin and Meropenem has been stopped. 5. Hypomagnesemia, her magnesium level was 1.5 yesterday and she did receive a dose of intravenous magnesium sulfate. She is also on oral supplement. Magnesium level should be checked again tomorrow.
[2020-08-17 14:00] VITALS: BP 129/68
--- NOTE | 2020-08-17 14:31 | IPNPDOC ---
Subjective Date Seen The patient was seen on 08/17/20. Subjective Chief Complaint/HPI Patient in better spirits today. worked with PT yesterday and is motivated to get out of bed to chair again today. Fluid status has improved a lot. Objective Physical Examination General Exam: Positive: Alert, Cooperative, No Acute Distress Eye Exam: Positive: PERRLA, Conjunctiva & lids normal, EOMI; Negative: Sclera icteric ENT Exam: Positive: Atraumatic, Mucous membr. moist/pink, Pharynx Normal Chest Exam: Positive: Diminished, Other (bilateral basal crackles) Heart Exam: Positive: Rate Normal, Irregular Rhythm, Normal S1, Normal S2; Negative: Murmurs, Rubs Telemetry: Positive: Atrial fibrillation Abdomen Exam: Positive: Normal bowel sounds, Soft; Negative: Tenderness, Hepatospenomegaly Extremity Exam: Positive: Edema, Tenderness (right), Swelling Assessment /Plan Assessment 69 y/o W with a history of pvd, hld, a-fib, htn, dvt, PERFECTO on CPAP, GERD, IDDM2, CKD4 who was brought to the ED by home health aid who noted her to have fevers and admitted for septic shock 2/2 UTI, bilateral leg infected wounds, panniculitis, metabolic encephalopathy and DOMINGA on CKD. s/p Septic shock 2/2 group a streptococcus infection / toxic shock syndrome from infected panniculitis and infected right LE ulcer Abdominal Wound culture growing group A strep 08/08 blood cultures growing staph capitis s/p meropenem on amoxicillin now last day 08/21/20 ID consult appreciated. ESBL klebsiella UTI finished meropenem Bilateral lower extremity ulcers with surrounding cellulitis and chronic stasis dermatitis and lymphedema, stasis rubor Right 3x5 and left about 1 x 1 consulted gen surgery, no need for debridement at present. left wounds do not look infected , the right leg has cellulitis. DOMINGA on CKD: improved. baseline is was about 2.0 but mow much better than baseline. creatinine better than baseline at present. No renal obstruction on ct imaging. Renal consult appreciated. On po lasix now. Acute on chronic diastolic CHF and acute on chronic right heart with Anasarca with massive fluid in both legs, lower abdomen, thighs , flanks. improving after aggressive diuresis with lasix and albumin. On Po lasix now. Metabolic acidosis resolved. Metabolic encephalopathy due to sepsis better. Troponinemia Likely secondary to sepsis and prolonged tachycardia. No evidence of ACS Chronic A-fib home digoxin and metoprolol currently on ppx dosing heparin. Refuses full anticoagulation. DM2 sliding scale, hypoglycemic protocol, FSBG AC/HS continue asa HTN holding losartan on metoprolol. HLD continue atorvastatin Morbid obesity with BMI of 43.1 Severe pulmonary hypertension with corpulmonale. Plan/VTE VTE Prophylaxis Ordered?: Yes VS, I&O, 24H, Fishbone Vital Signs/I&O Vital Signs Date Time Temp Pulse Resp B/P (MAP) Pulse Ox O2 Delivery O2 Flow Rate FiO2 08/17/20 08:38 129/67 08/17/20 08:38 77 08/17/20 06:00 98.4 17 92 Room Air I&O- Last 24 Hours up to 6 AM 08/17/20 06:00 Intake Total 1930 ml Output Total 3050 ml Balance -1120 ml Laboratory Data 24H LABS Laboratory Tests 2 08/16/20 17:11: Bedside Glucose (Misc Panel) 173H 08/16/20 18:30: C-Reactive Protein, Quantitative 2.11H 08/16/20 22:45: Bedside Glucose (Misc Panel) 141H 08/17/20 06:23: Immature Granulocyte % (Auto) 4.7H, Neutrophils (%) (Auto) 55.8, Lymphocytes (%) (Auto) 25.1, Monocytes (%) (Auto) 8.0, Eosinophils (%) (Auto) 5.3H, Basophils (% ) (Auto) 1.1H, Neutrophils # (Auto) 4.5, Lymphocytes # (Auto) 2.0, Monocytes # (Auto) 0.7, Eosinophils # (Auto) 0.4, Basophils # (Auto) 0.1, Nucleated Red Blood Cells % (auto) 0.0, Anion Gap 5L, Glomerular Filtration Rate 51.1, Calcium Level 8.3L 08/17/20 11:48: Bedside Glucose (Misc Panel) 173H CBC/BMP Laboratory Tests 08/17/20 06:23 Microbiology Microbiology 08/08/20 Blood Culture - Final, Complete NO GROWTH AFTER 5 DAYS 08/08/20 Wound Culture - Final, Complete Streptococcus Pyogenes Grp A Corynebacterium Species 08/08/20 Urine Culture - Final, Complete Klebsiella Pneumoniae Esbl 08/07/20 Blood Culture - Final, Complete Staphylococcus Capitis 08/07/20 Blood Culture - Final, Complete Staphylococcus Capitis BLAIRE FLANNERY MD Aug 17, 2020 14:31
[2020-08-17] MEDS: ATORVASTATIN 20 MG TAB PO SCH (21:08)
[2020-08-17 22:00] VITALS: BP 138/66
[2020-08-18] MEDS ORDERED: ONDANSETRON 4MG/2ML VIAL IV PRN (00:10)
[2020-08-18] MEDS: MAALOX 30 ML SUSP *UDC PO PRN (00:41)
[2020-08-18] MEDS: HEPARIN SOD (PORCINE) 5000UNITS/ML 1ML VIAL/SYRINGE SQ SCH ×3 (05:03→22:08)
[2020-08-18] MEDS: SODIUM CHLORIDE 0.9% INJ 10 ML SYR IV SCH ×2 (05:04→17:09)
[2020-08-18 06:00] VITALS: BP 117/56
[2020-08-18 06:42] LABS: BASO # 0.1 10^3/uL (0.0-0.2); BASO % 0.6 % (0.0-1.0); EOS # 0.4 10^3/uL (0.0-0.5); EOS % 4.3 % (0.0-3.0); HEMATOCRIT 32.7 % (36.0-47.0); HEMOGLOBIN 10.1 g/dl (12.0-15.5); LYMPH # 2.1 10^3/uL (1.5-5.0); LYMPH % 25.5 % (24.0-44.0); MEAN CORPUSCULAR HEMOGLOBIN 27.1 pg (27.0-33.0); MEAN CORPUSCULAR HGB CONC 30.9 g/dl (32.0-36.5); MEAN CORPUSCULAR VOLUME 87.7 fl (80.0-96.0); MONO # 0.7 10^3/uL (0.0-0.8); MONO % 8.8 % (2.0-8.0); NEUTROPHILS # 4.7 10^3/uL (1.5-8.5); NEUTROPHILS % 58.4 % (36.0-66.0); PLATELET COUNT, AUTOMATED 347 10^3/uL (150-450); RED BLOOD COUNT 3.73 10^6/uL (4.00-5.40); WHITE BLOOD COUNT 8.1 10^3/uL (4.0-10.0)
[2020-08-18 07:05] LABS: CALCIUM LEVEL 8.4 MG/DL (8.8-10.2); CREATININE FOR GFR 1.08 MG/DL (0.55-1.30); GLOMERULAR FILTRATION RATE 53.2 (>39); MAGNESIUM LEVEL 1.7 MG/DL (1.8-2.4); POTASSIUM SERUM 4.8 MEQ/L (3.5-5.1)
[2020-08-18] MEDS: METOPROLOL TART 12.5 MG PER 1/2 TAB PO SCH ×3 (07:57→22:06)
[2020-08-18] MEDS: DIGOXIN 0.125 MG TAB PO SCH (07:58)
[2020-08-18] MEDS: ASPIRIN 81MG ENTERIC TABLET PO SCH (07:58)
[2020-08-18] MEDS: FUROSEMIDE 40 MG TAB PO SCH ×2 (07:58→17:09)
[2020-08-18] MEDS: MAGNESIUM OXIDE 400MG TAB (MAG-OX) PO SCH ×2 (07:58→22:07)
[2020-08-18] MEDS: AMOXICILLIN 875 MG TAB PO SCH ×2 (07:59→22:06)
[2020-08-18] MEDS: HumaLOG INSULIN (NovoLOG) PER UNIT SC SCH ×4 (07:59→21:00)
[2020-08-18] MEDS ORDERED: MAG SULF 1GM/100ML (MAG RUN) 1 GM in IV 1 EA IV ONE (08:00)
[2020-08-18] MEDS: SODIUM CHLORIDE 0.9% INJ 10 ML SYR IV PRN (08:00)
--- NOTE | 2020-08-18 12:18 | IPN ---
PROGRESS NOTE DATE: 08/18/2020 SUBJECTIVE: Mrs. Guillaume is seen this morning on her bedside. She is feeling nauseated and reports some bad taste in her mouth. She reports that she did eat breakfast this morning and was feeling well until after eating her breakfast. She denies any dyspnea or chest pain. OBJECTIVE: VITAL SIGNS: Temperature is 98.2 degrees Fahrenheit, heart rate is 74 per minute and respiratory rate is 16 per minute. Blood pressure is 106/50 mmHg and oxygen saturation is 94% on room air. INTAKE AND OUTPUT RECORDS: Intake and output records from yesterday shows a negative fluid balance of about 1.03 liters. HEAD AND NECK: Head is atraumatic. Neck is supple and JVD is still mildly elevated. HEART: Heart sounds are irregular in rhythm. LUNGS: Few basilar rales. ABDOMEN: Obese, soft and nontender. Bowel sounds are normal. EXTREMITIES: Without any cyanosis or clubbing. Right lower extremity cellulitis has improved significantly. Her peripheral edema has also improved. LABORATORY DATA: Today's labs shows a WBC count of 8.1, hemoglobin 10.1 and hematocrit 32.7. Platelets are 347,000. Sodium 140, potassium 4.8, CO2 30, BUN 31 and creatinine 1.08. Calcium 8.4, magnesium 1.7. PROBLEMS: 1. Congestive heart failure, acute on chronic. Volume status has improved significantly and the patient is now on oral diuretic. She is doing very well at this time and electrolytes are stable. 2. Acute kidney injury superimposed on chronic kidney disease. Kidney function is at its best so far. Electrolytes are status and volume status has also improved. 3. Hypomagnesemia and should continue with oral magnesium supplement. 4. Anemia. Her anemia is stable and does not need any intervention as present. 5. Right leg cellulitis. Her cellulitis is improved and she is now on oral Amoxicillin after stopping her intravenous antibiotic.
[2020-08-18] MEDS: NYSTATIN 100,000 UNITS/GM TOPICAL PWD 15 GM TOP SCH ×2 (12:28→22:07)
[2020-08-18 14:00] VITALS: BP 152/76
[2020-08-18 22:00] VITALS: BP 132/55
[2020-08-18] MEDS: ACETAMINOPHEN TAB 650MG DOSE (2X325MG) PO PRN (22:05)
[2020-08-18] MEDS: ATORVASTATIN 20 MG TAB PO SCH (22:06)
[2020-08-19] MEDS: HEPARIN SOD (PORCINE) 5000UNITS/ML 1ML VIAL/SYRINGE SQ SCH ×3 (05:51→21:41)
[2020-08-19] MEDS: SODIUM CHLORIDE 0.9% INJ 10 ML SYR IV SCH ×2 (05:51→17:07)
[2020-08-19 06:00] VITALS: BP 126/60
[2020-08-19] MEDS: METOPROLOL TART 12.5 MG PER 1/2 TAB PO SCH ×2 (08:05→21:43)
[2020-08-19] MEDS: MAGNESIUM OXIDE 400MG TAB (MAG-OX) PO SCH ×2 (08:06→21:40)
[2020-08-19] MEDS: AMOXICILLIN 875 MG TAB PO SCH ×2 (08:06→21:40)
[2020-08-19] MEDS: FUROSEMIDE 40 MG TAB PO SCH ×2 (08:06→17:06)
[2020-08-19] MEDS: ASPIRIN 81MG ENTERIC TABLET PO SCH (08:06)
[2020-08-19] MEDS: DIGOXIN 0.125 MG TAB PO SCH (08:06)
[2020-08-19] MEDS: NYSTATIN 100,000 UNITS/GM TOPICAL PWD 15 GM TOP SCH ×2 (08:07→21:40)
[2020-08-19] MEDS: HumaLOG INSULIN (NovoLOG) PER UNIT SC SCH ×4 (08:07→21:00)
[2020-08-19 14:00] VITALS: BP 134/61
[2020-08-19 18:00] LABS: HEMATOCRIT 40.7 % (36.0-47.0); MEAN CORPUSCULAR HEMOGLOBIN 27.1 pg (27.0-33.0); MEAN CORPUSCULAR HGB CONC 30.7 g/dl (32.0-36.5); MEAN CORPUSCULAR VOLUME 88.1 fl (80.0-96.0); PLATELET COUNT, AUTOMATED 333 10^3/uL (150-450); RED BLOOD COUNT 4.62 10^6/uL (4.00-5.40); WHITE BLOOD COUNT 7.9 10^3/uL (4.0-10.0)
[2020-08-19 18:04] LABS: HEMOGLOBIN 12.5 g/dl (12.0-15.5)
[2020-08-19 18:32] LABS: CALCIUM LEVEL 8.8 MG/DL (8.8-10.2); CREATININE FOR GFR 1.23 MG/DL (0.55-1.30); GLOMERULAR FILTRATION RATE 45.8 (>39); POTASSIUM SERUM 5.4 MEQ/L (3.5-5.1)
[2020-08-19] MEDS: ATORVASTATIN 20 MG TAB PO SCH (21:40)
[2020-08-19] MEDS: MAALOX 30 ML SUSP *UDC PO PRN (21:50)
[2020-08-20] MEDS: HEPARIN SOD (PORCINE) 5000UNITS/ML 1ML VIAL/SYRINGE SQ SCH ×3 (05:39→21:28)
[2020-08-20] MEDS: SODIUM CHLORIDE 0.9% INJ 10 ML SYR IV SCH (05:39)
[2020-08-20 06:00] VITALS: BP 112/52
[2020-08-20 06:36] LABS: BASO # 0.1 10^3/uL (0.0-0.2); BASO % 0.6 % (0.0-1.0); EOS # 0.3 10^3/uL (0.0-0.5); EOS % 3.5 % (0.0-3.0); HEMATOCRIT 34.1 % (36.0-47.0); HEMOGLOBIN 10.6 g/dl (12.0-15.5); LYMPH # 2.5 10^3/uL (1.5-5.0); LYMPH % 26.8 % (24.0-44.0); MEAN CORPUSCULAR HGB CONC 31.1 g/dl (32.0-36.5); MONO # 0.7 10^3/uL (0.0-0.8); MONO % 7.2 % (2.0-8.0); NEUTROPHILS # 5.7 10^3/uL (1.5-8.5); NEUTROPHILS % 60.9 % (36.0-66.0); PLATELET COUNT, AUTOMATED 336 10^3/uL (150-450); RED BLOOD COUNT 3.92 10^6/uL (4.00-5.40); WHITE BLOOD COUNT 9.3 10^3/uL (4.0-10.0)
[2020-08-20 07:01] LABS: CALCIUM LEVEL 8.2 MG/DL (8.8-10.2); CREATININE FOR GFR 1.19 MG/DL (0.55-1.30); GLOMERULAR FILTRATION RATE 47.6 (>39); POTASSIUM SERUM 4.4 MEQ/L (3.5-5.1)
[2020-08-20] MEDS: FUROSEMIDE 40 MG TAB PO SCH ×2 (08:16→17:01)
[2020-08-20] MEDS: MAGNESIUM OXIDE 400MG TAB (MAG-OX) PO SCH ×2 (08:16→21:23)
[2020-08-20] MEDS: HumaLOG INSULIN (NovoLOG) PER UNIT SC SCH ×4 (08:16→21:28)
[2020-08-20] MEDS: ASPIRIN 81MG ENTERIC TABLET PO SCH (08:16)
[2020-08-20] MEDS: DIGOXIN 0.125 MG TAB PO SCH (08:17)
[2020-08-20] MEDS: NYSTATIN 100,000 UNITS/GM TOPICAL PWD 15 GM TOP SCH ×2 (08:17→21:28)
[2020-08-20] MEDS: METOPROLOL TART 12.5 MG PER 1/2 TAB PO SCH ×2 (08:17→21:26)
[2020-08-20] MEDS: AMOXICILLIN 875 MG TAB PO SCH ×2 (08:21→21:26)
--- NOTE | 2020-08-20 16:29 | IPN ---
NEPHROLOGY PROGRESS NOTE DATE: 08/20/2020 SUBJECTIVE: Mrs. Guillaume is seen this morning on her bedside. She is feeling well and denies any nausea, vomiting, dyspnea or chest pain. She is waiting for half-way for rehabilitation. She has been diuresed very well and is currently on oral diuretics. Her kidney function has been stable with serum creatinine about 1.1-1.2 mg/dL. PHYSICAL EXAMINATION: Temperature 97.3 degrees Fahrenheit, heart rate 86 per minute, respiratory rate 18 per minute, blood pressure 142/58 mmHg, oxygen saturation 94% on room air. HEAD: Atraumatic. NECK: Supple and without jugular venous distention (JVD) or thyroid enlargement. HEART SOUNDS: Irregular in rhythm. LUNGS: Clear to auscultation. ABDOMEN: Soft and nontender. Bowel sounds are normal. EXTREMITIES: Without any cyanosis or clubbing. LABORATORY DATA: Today's labs show sodium 138, potassium 4.4, CO2 33, BUN 34, creatinine 1.19, glucose 146, calcium 8.3. Hemoglobin 10.6, hematocrit 34.1. PROBLEMS: 1. Congestive heart failure. Volume status very well compensated now. She should continue following fluid restriction of about 1500 mL per day. She is now on oral furosemide 40 mg by mouth twice a day, which should be continued. 2. Acute kidney injury superimposed on chronic kidney disease. Kidney function has been stable, with serum creatinine about 1.1-1.2 mg/dL. She did have acute kidney injury on admission with serum creatinine 2.6. Acute kidney injury is completely resolved. 3. Hyperkalemia. Yesterday, her potassium was reported 5.4, which was unexpected as she is not on any potassium supplement. She continues with diuretic, furosemide 40 mg twice a day. No intervention is needed at this point. DISPOSITION: Patient is now on alternate level of care (ALC) level. She is waiting for a half-way bed for subacute rehabilitation. I am signing off her case. Please do not hesitate to call nephrology service back should you need any further assistance.
[2020-08-20] MEDS: ACETAMINOPHEN TAB 650MG DOSE (2X325MG) PO PRN (21:23)
[2020-08-20] MEDS: ATORVASTATIN 20 MG TAB PO SCH (21:24)
[2020-08-21] MEDS: HEPARIN SOD (PORCINE) 5000UNITS/ML 1ML VIAL/SYRINGE SQ SCH ×3 (05:17→22:14)
[2020-08-21 06:00] VITALS: BP 133/65
[2020-08-21] MEDS: HumaLOG INSULIN (NovoLOG) PER UNIT SC SCH ×4 (08:25→21:00)
[2020-08-21] MEDS: ASPIRIN 81MG ENTERIC TABLET PO SCH (08:25)
[2020-08-21] MEDS: FUROSEMIDE 40 MG TAB PO SCH ×2 (08:25→18:06)
[2020-08-21] MEDS: MAGNESIUM OXIDE 400MG TAB (MAG-OX) PO SCH ×2 (08:25→22:13)
[2020-08-21] MEDS: AMOXICILLIN 875 MG TAB PO SCH (08:25)
[2020-08-21] MEDS: METOPROLOL TART 12.5 MG PER 1/2 TAB PO SCH ×2 (08:27→22:15)
[2020-08-21] MEDS: NYSTATIN 100,000 UNITS/GM TOPICAL PWD 15 GM TOP SCH ×2 (08:28→22:14)
[2020-08-21] MEDS: DIGOXIN 0.125 MG TAB PO SCH (08:28)
[2020-08-21] MEDS: ACETAMINOPHEN TAB 650MG DOSE (2X325MG) PO PRN (22:13)
[2020-08-21] MEDS: ATORVASTATIN 20 MG TAB PO SCH (22:14)
[2020-08-22] MEDS: HEPARIN SOD (PORCINE) 5000UNITS/ML 1ML VIAL/SYRINGE SQ SCH ×3 (05:14→20:39)
[2020-08-22 06:00] VITALS: BP 129/64
[2020-08-22] MEDS: MAGNESIUM OXIDE 400MG TAB (MAG-OX) PO SCH ×2 (08:33→20:38)
[2020-08-22] MEDS: ASPIRIN 81MG ENTERIC TABLET PO SCH (08:33)
[2020-08-22] MEDS: METOPROLOL TART 12.5 MG PER 1/2 TAB PO SCH ×2 (08:33→20:41)
[2020-08-22] MEDS: FUROSEMIDE 40 MG TAB PO SCH ×2 (08:34→17:20)
[2020-08-22] MEDS: DIGOXIN 0.125 MG TAB PO SCH (08:34)
[2020-08-22] MEDS: HumaLOG INSULIN (NovoLOG) PER UNIT SC SCH ×4 (08:35→21:00)
[2020-08-22] MEDS: NYSTATIN 100,000 UNITS/GM TOPICAL PWD 15 GM TOP SCH ×2 (08:36→20:39)
[2020-08-22] MEDS: ACETAMINOPHEN TAB 650MG DOSE (2X325MG) PO PRN (20:37)
[2020-08-22] MEDS: ATORVASTATIN 20 MG TAB PO SCH (20:38)
[2020-08-23] MEDS: HEPARIN SOD (PORCINE) 5000UNITS/ML 1ML VIAL/SYRINGE SQ SCH ×3 (05:15→21:35)
[2020-08-23 06:00] VITALS: BP 129/71
[2020-08-23] MEDS: DIGOXIN 0.125 MG TAB PO SCH (09:23)
[2020-08-23] MEDS: METOPROLOL TART 12.5 MG PER 1/2 TAB PO SCH ×2 (09:23→21:09)
[2020-08-23] MEDS: HumaLOG INSULIN (NovoLOG) PER UNIT SC SCH ×4 (09:23→19:57)
[2020-08-23] MEDS: FUROSEMIDE 40 MG TAB PO SCH ×2 (09:23→17:35)
[2020-08-23] MEDS: ASPIRIN 81MG ENTERIC TABLET PO SCH (09:23)
[2020-08-23] MEDS: MAGNESIUM OXIDE 400MG TAB (MAG-OX) PO SCH ×2 (09:24→21:09)
[2020-08-23] MEDS: NYSTATIN 100,000 UNITS/GM TOPICAL PWD 15 GM TOP SCH ×2 (09:24→21:09)
[2020-08-23 18:19] LABS: HEMATOCRIT 37.4 % (36.0-47.0); HEMOGLOBIN 11.7 g/dl (12.0-15.5); MEAN CORPUSCULAR HEMOGLOBIN 27.7 pg (27.0-33.0); MEAN CORPUSCULAR HGB CONC 31.3 g/dl (32.0-36.5); MEAN CORPUSCULAR VOLUME 88.6 fl (80.0-96.0); PLATELET COUNT, AUTOMATED 320 10^3/uL (150-450); RED BLOOD COUNT 4.22 10^6/uL (4.00-5.40); WHITE BLOOD COUNT 8.8 10^3/uL (4.0-10.0)
[2020-08-23 18:49] LABS: CALCIUM LEVEL 8.8 MG/DL (8.8-10.2); CREATININE FOR GFR 1.34 MG/DL (0.55-1.30); GLOMERULAR FILTRATION RATE 41.5 (>39); POTASSIUM SERUM 4.3 MEQ/L (3.5-5.1)
[2020-08-23] MEDS: ATORVASTATIN 20 MG TAB PO SCH (21:09)
[2020-08-24] MEDS: HEPARIN SOD (PORCINE) 5000UNITS/ML 1ML VIAL/SYRINGE SQ SCH ×3 (05:14→21:38)
[2020-08-24 06:00] VITALS: BP 130/65
[2020-08-24] MEDS: HumaLOG INSULIN (NovoLOG) PER UNIT SC SCH ×4 (08:19→21:00)
[2020-08-24] MEDS: DIGOXIN 0.125 MG TAB PO SCH (09:59)
[2020-08-24] MEDS: ASPIRIN 81MG ENTERIC TABLET PO SCH (10:00)
[2020-08-24] MEDS: FUROSEMIDE 40 MG TAB PO SCH ×2 (10:00→17:52)
[2020-08-24] MEDS: MAGNESIUM OXIDE 400MG TAB (MAG-OX) PO SCH ×2 (10:00→21:38)
[2020-08-24] MEDS: METOPROLOL TART 12.5 MG PER 1/2 TAB PO SCH ×2 (10:00→21:38)
[2020-08-24] MEDS: NYSTATIN 100,000 UNITS/GM TOPICAL PWD 15 GM TOP SCH ×2 (10:02→21:38)
--- NOTE | 2020-08-24 13:18 | IPNPDOC ---
Text Note Date of Service The patient was seen on 08/24/20. NOTE Subjective: Patient seen and examined this morning at bedside. Patient is still waiting for subacute rehabilitation. Says she feels well she has no complaints. There is no acute overnight events reported to me. Objective: Constitutional: Awake and alert, in no apparent distress ENT: Sclera are clear. Mucosa is moist. Respiratory: Lungs diminished bilaterally No respiratory distress. Cardiovascular: Irregular rate and rhythm. A. fib on monitor. Gastrointestinal: Abdomen is soft, non distended, non tender, BS present. Neurologic: No focal neurological deficit. Mental Status: A&O x3, normal affect Assessment/plan: 69 y/o W with a history of pvd, hld, a-fib, htn, dvt, PERFECTO on CPAP, GERD, IDDM2, CKD4 who was brought to the ED by home health aid who noted her to have fevers and admitted for septic shock 2/2 UTI, bilateral leg infected wounds, panniculitis, metabolic encephalopathy and DOMINGA on CKD. Awaiting social work for placement subacute rehabilitation s/p Septic shock 2/2 group a streptococcus infection / toxic shock syndrome from infected panniculitis and infected right LE ulcer Abdominal Wound culture growing group A strep 08/08 blood cultures growing staph capitis s/p meropenem on amoxicillin now last day 08/21/20 ID consult appreciated. ESBL klebsiella UTI finished meropenem Bilateral lower extremity ulcers with surrounding cellulitis and chronic stasis dermatitis and lymphedema, stasis rubor Right 3x5 and left about 1 x 1 consulted gen surgery, no need for debridement at present. left wounds do not look infected , the right leg has cellulitis. DOMINGA on CKD: improved. baseline is was about 2.0 but mow much better than baseline. creatinine better than baseline at present. No renal obstruction on ct imaging. Renal consult appreciated. On po lasix now. Acute on chronic diastolic CHF and acute on chronic right heart with Anasarca with massive fluid in both legs, lower abdomen, thighs , flanks. improving after aggressive diuresis with lasix and albumin. On Po lasix now. Metabolic acidosis resolved. Metabolic encephalopathy due to sepsis better. Troponinemia Likely secondary to sepsis and prolonged tachycardia. No evidence of ACS Chronic A-fib home digoxin and metoprolol currently on ppx dosing heparin. Refuses full anticoagulation. DM2 sliding scale, hypoglycemic protocol, FSBG AC/HS continue asa HTN holding losartan on metoprolol. HLD continue atorvastatin Morbid obesity with BMI of 43.1 Severe pulmonary hypertension with corpulmonale. VS,Fishbone, I+O VS, Fishbone, I+O Laboratory Tests 08/23/20 18:04 Vital Signs Date Time Temp Pulse Resp B/P (MAP) Pulse Ox O2 Delivery O2 Flow Rate FiO2 08/24/20 10:00 61 130/65 08/24/20 06:00 97.9 18 96 Room Air I&O- Last 24 Hours up to 6 AM 08/24/20 06:00 Intake Total 1060 ml Output Total 2250 ml Balance -1190 ml RUBA WALKER MD Aug 24, 2020 13:18
[2020-08-24] MEDS: ATORVASTATIN 20 MG TAB PO SCH (21:37)
[2020-08-25 06:00] VITALS: BP 125/65
[2020-08-25] MEDS: HEPARIN SOD (PORCINE) 5000UNITS/ML 1ML VIAL/SYRINGE SQ SCH ×3 (06:04→21:14)
[2020-08-25] MEDS: HumaLOG INSULIN (NovoLOG) PER UNIT SC SCH ×4 (07:51→20:35)
[2020-08-25] MEDS: FUROSEMIDE 40 MG TAB PO SCH ×2 (08:37→18:25)
[2020-08-25] MEDS: ASPIRIN 81MG ENTERIC TABLET PO SCH (08:37)
[2020-08-25] MEDS: NYSTATIN 100,000 UNITS/GM TOPICAL PWD 15 GM TOP SCH ×2 (08:38→21:15)
[2020-08-25] MEDS: DIGOXIN 0.125 MG TAB PO SCH (08:38)
[2020-08-25] MEDS: METOPROLOL TART 12.5 MG PER 1/2 TAB PO SCH ×2 (08:38→21:15)
[2020-08-25] MEDS: MAGNESIUM OXIDE 400MG TAB (MAG-OX) PO SCH ×2 (08:38→21:14)
[2020-08-25] MEDS: ATORVASTATIN 20 MG TAB PO SCH (21:13)
[2020-08-25] MEDS: ACETAMINOPHEN TAB 650MG DOSE (2X325MG) PO PRN (21:14)
[2020-08-26] MEDS: HEPARIN SOD (PORCINE) 5000UNITS/ML 1ML VIAL/SYRINGE SQ SCH ×3 (05:30→21:06)
[2020-08-26 06:00] VITALS: BP 127/68
[2020-08-26] MEDS: HumaLOG INSULIN (NovoLOG) PER UNIT SC SCH ×4 (08:18→21:07)
[2020-08-26] MEDS: ASPIRIN 81MG ENTERIC TABLET PO SCH (08:18)
[2020-08-26] MEDS: MAGNESIUM OXIDE 400MG TAB (MAG-OX) PO SCH ×2 (08:19→21:06)
[2020-08-26] MEDS: FUROSEMIDE 40 MG TAB PO SCH ×2 (08:19→18:08)
[2020-08-26] MEDS: DIGOXIN 0.125 MG TAB PO SCH (08:19)
[2020-08-26] MEDS: NYSTATIN 100,000 UNITS/GM TOPICAL PWD 15 GM TOP SCH ×2 (08:20→21:07)
[2020-08-26] MEDS: METOPROLOL TART 12.5 MG PER 1/2 TAB PO SCH ×2 (08:20→21:09)
[2020-08-26 16:21] LABS: HEMATOCRIT 35.8 % (36.0-47.0); HEMOGLOBIN 11.2 g/dl (12.0-15.5); MEAN CORPUSCULAR HEMOGLOBIN 27.6 pg (27.0-33.0); MEAN CORPUSCULAR HGB CONC 31.3 g/dl (32.0-36.5); MEAN CORPUSCULAR VOLUME 88.2 fl (80.0-96.0); PLATELET COUNT, AUTOMATED 294 10^3/uL (150-450); RED BLOOD COUNT 4.06 10^6/uL (4.00-5.40); WHITE BLOOD COUNT 7.1 10^3/uL (4.0-10.0)
[2020-08-26 16:53] LABS: CALCIUM LEVEL 8.9 MG/DL (8.8-10.2); CREATININE FOR GFR 1.42 MG/DL (0.55-1.30); GLOMERULAR FILTRATION RATE 38.8 (>39); POTASSIUM SERUM 4.6 MEQ/L (3.5-5.1)
[2020-08-26] MEDS: ATORVASTATIN 20 MG TAB PO SCH (21:06)
[2020-08-27] MEDS: HEPARIN SOD (PORCINE) 5000UNITS/ML 1ML VIAL/SYRINGE SQ SCH (05:45)
[2020-08-27 06:00] VITALS: BP 124/76
[2020-08-27] MEDS: ASPIRIN 81MG ENTERIC TABLET PO SCH (07:42)
[2020-08-27] MEDS: MAGNESIUM OXIDE 400MG TAB (MAG-OX) PO SCH (07:42)
[2020-08-27] MEDS: HumaLOG INSULIN (NovoLOG) PER UNIT SC SCH (07:43)
[2020-08-27] MEDS: FUROSEMIDE 40 MG TAB PO SCH (07:44)
[2020-08-27] MEDS: DIGOXIN 0.125 MG TAB PO SCH (07:45)
[2020-08-27 07:46] VITALS: BP 123/55
[2020-08-27] MEDS: NYSTATIN 100,000 UNITS/GM TOPICAL PWD 15 GM TOP SCH (07:46)
[2020-08-27] MEDS: METOPROLOL TART 12.5 MG PER 1/2 TAB PO SCH (07:46)
[2020-08-27] MEDS ORDERED: METO1TAB87 PO (08:36)
--- NOTE | 2020-08-27 10:28 | DS.PDOC ---
Discharge Summary General Date of Admission Aug 08, 2020 at 03:15 Date of Discharge 08/27/20 Discharge Summary ADMITTING/DISCHARGE DIAGNOSES: 1. Septic shock 2/2 group a streptococcus infection / toxic shock syndrome 2. ESBL klebsiella UTI 3. Bilateral lower extremity ulcers with surrounding cellulitis and chronic stasis dermatitis and lymphedema 4. DOMINGA on CKD 5. Acute on chronic diastolic CHF and acute on chronic right heart with Anasarca 6. Metabolic acidosis 7. Metabolic encephalopathy COMPLICATIONS/CHIEF COMPLAINT: Panniculitis,Sepsis,Uti. HISTORY OF PRESENT ILLNESS: . HOSPITAL COURSE: 69 y/o W with a history of pvd, hld, a-fib, htn, dvt, PERFECTO on CPAP, GERD, IDDM2, CKD4 who was brought to the ED by home health aid who noted her to have fevers and admitted for septic shock 2/2 UTI, bilateral leg infected wounds, panniculitis, metabolic encephalopathy and DOMINGA on CKD. Transfer for subacute rehabilitation s/p Septic shock 2/2 group a streptococcus infection / toxic shock syndrome from infected panniculitis and infected right LE ulcer Abdominal Wound culture growing group A strep 08/08 blood cultures growing staph capitis s/p meropenem, now,amoxicillin last day 08/21/20 Wound care after discharge ESBL klebsiella UTI finished meropenem Bilateral lower extremity ulcers with surrounding cellulitis and chronic stasis dermatitis and lymphedema, stasis rubor Right 3x5 and left about 1 x 1 consulted gen surgery, no need for debridement at present. left wounds do not look infected , the right leg has cellulitis. OP follow up with surgery DOMINGA on CKD: improved. baseline is was about 2.0 but mow much better No renal obstruction on ct imaging. On po lasix now. Acute on chronic diastolic CHF and acute on chronic right heart with Anasarca with massive fluid in both legs, lower abdomen, thighs , flanks. improving after aggressive diuresis with lasix and albumin. On Po lasix now. Metabolic acidosis resolved. Metabolic encephalopathy due to sepsis better. Troponinemia Likely secondary to sepsis and prolonged tachycardia. No evidence of ACS Chronic A-fib home digoxin and metoprolol currently on ppx dosing heparin. Refuses full anticoagulation. DM2 sliding scale, hypoglycemic protocol, FSBG AC/HS continue asa HTN holding losartan on metoprolol. DISCHARGE MEDICATIONS: Please see below. ALLERGIES: Please see below. PHYSICAL EXAMINATION ON DISCHARGE: VITAL SIGNS: Please see below. Constitutional: Awake and alert, in no apparent distress ENT: Sclera are clear. Mucosa is moist. Respiratory: Lungs diminished bilaterally No respiratory distress. Cardiovascular: Irregular rate and rhythm. A. fib on monitor. Gastrointestinal: Abdomen is soft, non distended, non tender, BS present. Neurologic: No focal neurological deficit. Mental Status: A&O x3, normal affect LABORATORY DATA: Please see below. IMAGING: see chart PROGNOSIS: fair ACTIVITY: [As tolerated]. DIET: Consistent carbohydrate diet DISPOSITION: Transfer for subacute rehabilitation DISCHARGE INSTRUCTIONS: Please follow up with your primary care physician within 1 week from discharge. If you do not have one, please follow up with us to schedule an appointment. Please keep all of your follow up appointments. Please call central to book your appointments with hospital specialists. Please take all your medications as prescribed. Please call/come to Clinic or go to the Emergency Department if - Temp >101, intractable Nausea/Vomiting, Diarrhea, Mouth sores, Headaches, Altered mental status, Seizures, sudden onset of swelling, bleeding, shortness of breath or chest pain. ITEMS TO FOLLOWUP ON ON OUTPATIENT: 1. Follow-up with general surgery in your primary care physician after discharge DISCHARGE CONDITION: [Stable]. TIME SPENT ON DISCHARGE: 40 minutes. Vital Signs/I&Os Vital Signs Date Time Temp Pulse Resp B/P (MAP) Pulse Ox O2 Delivery O2 Flow Rate FiO2 08/27/20 07:46 78 123/55 08/27/20 06:00 98.2 20 90 Room Air I&O- Last 24 Hours up to 6 AM 08/27/20 06:00 Intake Total 1252 ml Output Total 0 ml Balance 1252 ml Laboratory Data Labs 24H Laboratory Tests 2 08/26/20 11:16: Bedside Glucose (Misc Panel) 196H 08/26/20 16:02: Nucleated Red Blood Cells % (auto) 0.0, Anion Gap 7L, Glomerular Filtration Rate 38.8L, Calcium Level 8.9 08/26/20 16:30: Bedside Glucose (Misc Panel) 211H 08/26/20 18:05: Coronavirus (COVID-19)(PCR) NEGATIVE 08/26/20 18:45: Urine Color YELLOW, Urine Appearance CLEAR, Urine pH 7.0, Urine Specific [place] 1.009, Urine Protein NEGATIVE, Urine Glucose (UA) NEGATIVE, Urine Ketones NEGATIVE, Urine Blood 1+H, Urine Nitrite NEGATIVE, Urine Bilirubin NEGATIVE, Urine Urobilinogen 0.2, Urine Leukocyte Esterase NEGATIVE, Urine WBC (Auto) 1, Urine RBC (Auto) 0, Urine Hyaline Casts (Auto) 0, Urine Bacteria (Auto) NEGATIV E, Urine Squamous Epithelial Cells 1, Urine Sperm (Auto) 08/26/20 19:56: Bedside Glucose (Misc Panel) 264H CBC/BMP Laboratory Tests 08/26/20 16:02 FSBS Laboratory Tests Test 08/26/20 11:16 08/26/20 16:30 08/26/20 19:56 Range/Units Bedside Glucose (Misc Panel) 196 211 264 83-110 MG/DL Discharge Medications Scheduled Allopurinol (Allopurinol) 100 Mg Tab, 100 MG PO DAILY, (Reported) Aspirin (Aspirin EC) 81 Mg Tab, 81 MG PO DAILY, (Reported) Atorvastatin Calcium (Atorvastatin Calcium) 40 Mg Tab, 40 MG PO QHS, (Reported) Digoxin (Digoxin) 125 Mcg Tablet, 125 MCG PO DAILY, (Reported) Furosemide (Furosemide) 40 Mg Tablet, 40 MG PO DAILY, (Reported) Insulin Glargine,Hum.rec.anlog (Basaglar Kwikpen U-100) 100 Unit/1 Ml Insuln.pen, 1 DOSE SC DAILY, (Reported) Megestrol Acetate (Megestrol Acetate) 40 Mg Tablet, 40 MG PO BID, (Reported) Metoprolol Tartrate (Metoprolol Tartrate) 25 Mg Tablet, 12.5 MG PO BID Scheduled PRN Cyclosporine (Restasis) 0.05% Droperette, 1 DROP OU BID PRN for DRY EYES, (Reported) Allergies Coded Allergies: WOOL (FABRIC) (Verified Allergy, Intermediate, 04/22/20) Aminoglycosides (Verified Allergy, Unknown, 04/22/20) bacitracin (Verified Allergy, Unknown, 04/22/20) dextromethorphan (Verified Allergy, Unknown, 04/22/20) guaifenesin (Verified Allergy, Unknown, 04/22/20) neomycin (Verified Allergy, Unknown, 04/22/20) polymyxin B (Verified Allergy, Unknown, 04/22/20) RUBA WALKER MD Aug 27, 2020 10:28
== END 2020-08-27 12:11 | DRG 871 ==
LOC: M ED 22:21 → EEVIPCON 08-08 03:15 → M ED INP 08-08 03:15 → ENRESERV 08-08 04:06 → M ICU 08-08 05:26 → M PCU 08-11 17:48 → M MSPAV 08-13 23:08
PROVIDERS: ADMIT Internal Medicine; ATTEND Family Medicine
PROC: 02HV33Z Insertion of Infusion Device into Superior Vena Cava, Percutaneous Approach (ICD-10-PCS; principal; 2020-08-10 13:00)
DX: A40.0 Sepsis due to streptococcus, group A (principal); R65.21 Severe sepsis with septic shock; G93.41 Metabolic encephalopathy; I50.33 Acute on chronic diastolic (congestive) heart failure; N18.4 Chronic kidney disease, stage 4 (severe); L03.311 Cellulitis of abdominal wall; N17.9 Acute kidney failure, unspecified; Z68.41 Body mass index [BMI] 40.0-44.9, adult; L97.318 Non-pressure chronic ulcer of right ankle with other specified severity; L97.921 Non-pressure chronic ulcer of unspecified part of left lower leg limited to breakdown of skin; N39.0 Urinary tract infection, site not specified; E87.2 Acidosis; I13.0 Hypertensive heart and chronic kidney disease with heart failure and stage 1 through stage 4 chronic kidney disease, or unspecified chronic kidney disease; I48.20 Chronic atrial fibrillation, unspecified; L03.115 Cellulitis of right lower limb; E11.51 Type 2 diabetes mellitus with diabetic peripheral angiopathy without gangrene; E11.622 Type 2 diabetes mellitus with other skin ulcer; I89.0 Lymphedema, not elsewhere classified; I87.2 Venous insufficiency (chronic) (peripheral); I50.812 Chronic right heart failure; E87.5 Hyperkalemia; M79.3 Panniculitis, unspecified; E88.09 Other disorders of plasma-protein metabolism, not elsewhere classified; E66.01 Morbid (severe) obesity due to excess calories; B96.1 Klebsiella pneumoniae [K. pneumoniae] as the cause of diseases classified elsewhere; D63.1 Anemia in chronic kidney disease; E78.5 Hyperlipidemia, unspecified; B37.2 Candidiasis of skin and nail; G47.33 Obstructive sleep apnea (adult) (pediatric); K21.9 Gastro-esophageal reflux disease without esophagitis; I27.20 Pulmonary hypertension, unspecified; E11.22 Type 2 diabetes mellitus with diabetic chronic kidney disease; Z86.718 Personal history of other venous thrombosis and embolism; Z20.822 Contact with and (suspected) exposure to COVID-19; Z79.82 Long term (current) use of aspirin; Z79.4 Long term (current) use of insulin; Z79.899 Other long term (current) drug therapy; Z88.1 Allergy status to other antibiotic agents; Z88.8 Allergy status to other drugs, medicaments and biological substances; Z91.048 Other nonmedicinal substance allergy status